=== PATIENT | male | born 1945 | race Caucasian/White ===

== ENCOUNTER → 2020-09-26 14:07 | Outpatient (BNVA) | payer MEDICARE, SELFPAY | PROVIDERS: Visit Provider Urology | DX: C61 Malignant neoplasm of prostate (principal) | CPT/HCPCS: 99212 ==

== ENCOUNTER 2020-09-27 15:19 | Outpatient (REF) | payer MEDICARE, SELFPAY ==
[2020-09-27 16:39] LABS: Prostate Specific Antigen 0.11 ng/mL (<0.05-4.0)
[2020-10-02 16:57] LABS: Testosterone, Total 455 ng/dL (250-1100)
== END 2020-09-27 15:20 | disposition home or self-care (01) ==
LOC: HO.LAB 15:19
PROVIDERS: PCP Internal Medicine; Visit Provider Urology
DX: N40.1 Benign prostatic hyperplasia with lower urinary tract symptoms (principal); N13.8 Other obstructive and reflux uropathy; E29.1 Testicular hypofunction; C61 Malignant neoplasm of prostate; Z12.5 Encounter for screening for malignant neoplasm of prostate
CPT/HCPCS: 36415; 84153; 84403

== ENCOUNTER → 2021-01-31 09:15 | Outpatient (BNVA) | payer MEDICARE, SELFPAY | PROVIDERS: PCP Internal Medicine; Visit Provider Urology | DX: C61 Malignant neoplasm of prostate (principal) | CPT/HCPCS: 99212 ==

== ENCOUNTER 2021-02-26 11:26 | Outpatient (REF) | payer MEDICARE, SELFPAY ==
[2021-02-26 14:46] LABS: Prostate Specific Antigen < 0.05 ng/mL (<0.05-4.0)
[2021-03-09 11:12] LABS: Testosterone, Total 346 ng/dL (250-1100)
== END 2021-02-26 11:27 | disposition home or self-care (01) ==
LOC: HO.HMGCLDS 11:26
PROVIDERS: Urology; PCP Internal Medicine; Visit Provider Internal Medicine
DX: C61 Malignant neoplasm of prostate (principal); N40.1 Benign prostatic hyperplasia with lower urinary tract symptoms; N13.8 Other obstructive and reflux uropathy; E29.1 Testicular hypofunction; Z12.5 Encounter for screening for malignant neoplasm of prostate
CPT/HCPCS: 36415; 84153; 84403

== ENCOUNTER → 2021-03-05 10:46 | Outpatient (REF) | payer MEDICARE, SELFPAY ==
--- NOTE | ~2021-03-05 | NM_ITS ---
EXAMINATION: NM BONE SCAN OF THE WHOLE BODY CLINICAL INFORMATION: Prostate cancer. Follow-up MRI 2019 COMPARISON: CT abdomen and pelvis with and without contrast 10/31/2019 TECHNIQUE: Multiple gamma scintillation camera images of the whole body were performed 2-3/4 hours following the intravenous administration of 30 mCi Tc-99m MDP. FINDINGS: In the head, no abnormal metabolic activity seen in the calvarium. There is mild increased activity nasal cavity likely underlying inflammatory process. In the thoracic cage and upper extremities, there is mild increased activity in the right sternoclavicular joint and bilateral AC joints. Also visualized is mild increased activity along the tip of xiphisternum. In the spine, nonspecific mild increased activity seen along the tips of spinous process in the lumbar region. Also visualized is mild increased activity in the right L5-S1 facet joint. In the pelvis, no abnormal activity seen. In the lower extremities, minimal focal activity seen in the right ankle joint. No other definite bony abnormalities are noted. The urinary bladder and faint visualization of both kidneys are noted. NM/NM bone scan whole body IMPRESSION: No abnormal metabolic activity seen in the whole body skeleton suspect any metastatic disease. Mild increased activity seen in bilateral AC joints, right sternoclavicular joint, right L5-S1 facet joint and right ankle joint consistent with degenerative arthritic changes. Mild focal activity seen in the dorsal spinous processes in the lumbar spine likely related to bursitis.
== END ==
LOC: HO.NUCMED 10:46
PROVIDERS: Visit Provider Internal Medicine
DX: R93.7 Abnormal findings on diagnostic imaging of other parts of musculoskeletal system (principal)
CPT/HCPCS: 78306; A9503

== ENCOUNTER 2021-06-02 10:13 | Outpatient (REF) | payer MEDICARE, SELFPAY | END 2021-06-02 10:14 | disposition home or self-care (01) | LOC: HO.HMGCLDS 10:13 | PROVIDERS: PCP Internal Medicine; Visit Provider Internal Medicine | DX: I48.91 Unspecified atrial fibrillation (principal) | CPT/HCPCS: 36415; 85610 ==

== ENCOUNTER 2021-07-04 09:40 | Outpatient (REF) | payer MEDICARE, SELFPAY ==
[2021-07-04 12:22] LABS: Prostate Specific Antigen 0.07 ng/mL (<0.05-4.0)
[2021-07-10 12:41] LABS: Testosterone, Total 641 ng/dL (250-1100)
== END 2021-07-04 09:41 | disposition home or self-care (01) ==
LOC: HO.HMGCLDS 09:40
PROVIDERS: PCP Internal Medicine; Visit Provider Urology
DX: Z12.5 Encounter for screening for malignant neoplasm of prostate (principal); C61 Malignant neoplasm of prostate
CPT/HCPCS: 36415; 84153; 84403

== ENCOUNTER → 2021-07-11 08:23 | Outpatient (BNVA) | payer MEDICARE, SELFPAY | PROVIDERS: PCP Internal Medicine; Visit Provider Urology | DX: C61 Malignant neoplasm of prostate (principal) | CPT/HCPCS: Q3014 ==

== ENCOUNTER 2021-08-19 13:02 | Outpatient (REF) | payer MEDICARE, SELFPAY | END 2021-08-19 13:03 | disposition home or self-care (01) | LOC: HO.HMGCLDS 13:02 | PROVIDERS: PCP Internal Medicine; Visit Provider Internal Medicine | DX: Z13.89 Encounter for screening for other disorder (principal) | CPT/HCPCS: 36415; 83036 ==

== ENCOUNTER 2021-08-21 11:52 | Outpatient (REF) | payer MEDICARE, SELFPAY ==
[2021-08-21 13:54] LABS: Prothrombin Time 35.5 SEC (9.9-13.0)
== END 2021-08-21 11:53 | disposition home or self-care (01) ==
LOC: HO.HMGCLDS 11:52
PROVIDERS: PCP Internal Medicine; Visit Provider Internal Medicine
DX: I48.91 Unspecified atrial fibrillation (principal)
CPT/HCPCS: 36415; 85610

== ENCOUNTER 2021-10-27 08:53 | Outpatient (REF) | payer MEDICARE, SELFPAY ==
[2021-10-27 10:13] LABS: Prostate Specific Antigen 0.05 ng/mL (<0.05-4.0)
== END 2021-10-27 08:54 | disposition home or self-care (01) ==
LOC: HO.LAB 08:53
PROVIDERS: Visit Provider Urology
DX: C61 Malignant neoplasm of prostate (principal); Z12.5 Encounter for screening for malignant neoplasm of prostate
CPT/HCPCS: 36415; 84153

== ENCOUNTER → 2021-11-11 08:27 | Outpatient (BNVA) | payer MEDICARE, SELFPAY | PROVIDERS: PCP Internal Medicine; Visit Provider Urology | DX: C61 Malignant neoplasm of prostate (principal) | CPT/HCPCS: Q3014 ==

== ENCOUNTER 2022-02-19 09:47 | Outpatient (REF) | payer MEDICARE, SELFPAY ==
[2022-02-19 11:50] LABS: Prostate Specific Antigen < 0.05 ng/mL (<0.05-4.0)
== END 2022-02-19 09:48 | disposition home or self-care (01) ==
LOC: HO.LAB 09:47
PROVIDERS: PCP Internal Medicine; Visit Provider Urology
DX: N40.1 Benign prostatic hyperplasia with lower urinary tract symptoms (principal); N13.8 Other obstructive and reflux uropathy
CPT/HCPCS: 36415; 84153

== ENCOUNTER 2022-03-06 07:53 | Outpatient (REF) | payer OTHER, MEDICARE, SELFPAY ==
--- NOTE | ~2022-03-06 | MR_ITS ---
EXAMINATION: MR CERVICAL SPINE WITHOUT CONTRAST CLINICAL INFORMATION: 76-year-old with neck pain. Evaluate for worsening foraminal stenosis. COMPARISON: 09/17/2018 MRI TECHNIQUE: MRI of the cervical spine was obtained using routine sequences without contrast. Technical Note: Images are degraded by motion artifact which limits the exam. FINDINGS: Alignment: There is partially imaged lower cervical levocurvature, stable in appearance. Stable trace retrolisthesis at C3-C4. Otherwise, alignment is maintained. Craniocervical Junction/C1-C2 Articulations: The atlantooccipital joints are intact and aligned with bilateral joint effusions, left more than right, increased on the left since previous exam. These findings are nonspecific but may reflect synovitis and appear to be associated with some degenerative changes at both joint spaces. The C1-C2 articulations are intact and aligned bilaterally, stable in appearance with minor degenerative changes on the left. There are degenerative changes at the anterior atlantodental joint, similar to the previous study with an associated tiny effusion, unchanged. Visualized Intracranial Structures: Within normal limits. Vertebral Bodies: Cervical vertebral body heights are stable and well maintained compared to the previous study. Note is made of a chronic mild anterior wedge compression deformity of the T1 vertebral body, stable in appearance. Disc Spaces and Endplates: Severe disc space height loss with partial ankylosis of the intervertebral disc at C6-C7, stable in appearance. Vlhjduvb-xl-arogtk disc space height loss with disc desiccation, Schmorl's nodes and spondylosis at C7-T1 is stable. Severe disc space height loss at C3-C4 with disc desiccation, Schmorl's nodes and spondylosis, stable in appearance. Fmkj-pm-ycpwagho disc space height loss at C4-C5, slightly progressed from previous exam, with spondylosis similar to prior study. Moderate disc space height loss with intradiscal degenerative signal changes and spondylosis at C5-C6, unchanged. Bone Marrow: Type I degenerative marrow signal changes seen along the endplates at C4-C5, progressed from previous exam and at C5-C6 and C2-C3, stable in appearance. No suspicious marrow-replacing process. C2-C3: Broad-based central to left paramedian disc-osteophyte complex with disc protrusion and endplate spurring, similar to the previous exam with mild flattening of the dural sac asymmetric to the left, unchanged in appearance. There is uncovertebral spurring and facet arthrosis again noted with severe left-sided neural foraminal stenosis, similar to the prior exam. No significant canal stenosis. C3-C4: Broad-based disc-osteophyte complex again noted with effacement of the ventral dural sac which appears more prominent on the current study, with the ventral cord deformity increased from previous study and nkhgmhsl-ha-wnenau central spinal canal stenosis, slightly progressed from previous exam. Bilateral uncovertebral spurring and mild facet arthropathy again noted with veznxzox-wb-uxcume right-sided and severe left-sided neural foraminal stenosis, stable in appearance. Bilateral lateral recess stenosis has progressed. C4-C5: Broad-based disc-osteophyte complex with superimposed central disc protrusion again noted with effacement of the ventral dural sac resulting in mild ventral cord deformity and moderate central spinal canal stenosis, similar to the previous study. There is uncovertebral spurring, right more than left, and facet arthropathy, right more than left, similar to prior exam with severe right-sided and moderate left-sided neural foraminal stenosis, stable in appearance. C5-C6: Broad-based central to right paramedian disc-osteophyte complex, stable in appearance, with flattening of the ventral dural sac abutting the ventral aspect of the spinal cord to the right of midline, unchanged with mild spinal canal stenosis, stable in appearance. There is uncovertebral arthrosis with lpcs-se-lgtkotwn left-sided and moderate right-sided neural foraminal stenosis, stable in appearance. C6-C7: Central posterior disc-osteophyte complex again noted, with flattening of the ventral dural sac and mild ventral cord deformity which appears chronic with associated mild ventral cord volume loss on the left, stable in appearance and stable mild central spinal canal stenosis. There is uncovertebral spurring bilaterally with lmuc-do-vogjlwpo left and mild right-sided neural foraminal stenosis, stable in appearance. C7-T1: Broad-based disc-osteophyte complex flattens the ventral thecal sac without cord deformity/impingement, stable in appearance. Mild spinal canal stenosis is stable. Uncovertebral spurring and facet hypertrophic changes again noted bilaterally with mild left-sided neural foraminal stenosis, stable in appearance. Spinal Cord: The cervical and visualized upper thoracic spinal cord is normal in signal intensity throughout, without focal lesion, edema or syrinx. Extracranial Soft Tissues: There are multiple upper cervical lymph nodes in the IJ and posterior cervical chains, most of which are stable in appearance from previous exam. One of these on the left appears slightly enlarged measuring 1 x 0.7 cm greatest dimensions compared to the previous study on which it measured 0.9 x 0.6 cm. MR/MR cervical spine wo con IMPRESSION: 1. Lower cervical levocurvature, stable in appearance with stable trace retrolisthesis at C3-C4. 2. Multilevel DDD and spondylosis, as described above, with slight progression of disc space height loss at C4-C5 but otherwise stable at other levels with partial ankylosis at C6-C7, unchanged. Degenerative changes at the atlantooccipital joints and C1-C2 articulations noted with bilateral atlantooccipital joint effusions, as discussed above, which may reflect synovitis progressed on the left from previous exam. 3. Multilevel disc-osteophyte complexes and superimposed central disc protrusions with slight progression at C3-C4 with tjrvizms-yz-ndhvfd spinal canal stenosis at this level, slightly progressed from previous exam but otherwise stable at other levels with otherwise stable degrees of multilevel spinal canal stenosis and ventral cord deformity. See above for details. , 4. Multilevel DJD with multilevel bony neural foraminal stenosis bilaterally, largely unchanged. 5. Multiple upper cervical lymph nodes, one of which in the posterior cervical chain on the left appears mildly prominent compared to previous study. These findings could be reactive secondary to infectious or inflammatory disease. Follow up clinically.
== END 2022-03-06 07:54 | disposition home or self-care (01) ==
LOC: HO.MRI 07:53
PROVIDERS: Visit Provider Internal Medicine
DX: M54.2 Cervicalgia (principal); Z87.898 Personal history of other specified conditions; V89.2XXA Person injured in unspecified motor-vehicle accident, traffic, initial encounter; Y93.9 Activity, unspecified; Y92.9 Unspecified place or not applicable; Y99.9 Unspecified external cause status
CPT/HCPCS: 72141

== ENCOUNTER 2022-04-17 11:39 | Outpatient (REF) | payer OTHER, MEDICARE, SELFPAY ==
--- NOTE | ~2022-04-17 | XR_ITS ---
EXAMINATION: XR FOREARM, LEFT CLINICAL INFORMATION: Left forearm tenderness. COMPARISON: None TECHNIQUE: AP and lateral views of the left forearm were obtained. FINDINGS: The radius and ulna are intact. There is no acute fracture or dislocation. The joint spaces are unremarkable. Severe atherosclerosis is noted. XR/XR forearm LT 2V IMPRESSION: No acute osseous abnormality.
== END 2022-04-17 11:40 | disposition home or self-care (01) ==
LOC: HO.HMGCX 11:39
PROVIDERS: PCP Internal Medicine; Visit Provider Internal Medicine
DX: M79.632 Pain in left forearm (principal)
CPT/HCPCS: 73090

== ENCOUNTER 2022-05-08 09:00 | Outpatient (RCR) | payer OTHER, MEDICARE, SELFPAY | END 2022-05-08 09:57 | disposition home or self-care (01) | LOC: HO.PTCHIC 09:00 | PROVIDERS: PCP Internal Medicine; Visit Provider Internal Medicine | DX: M54.2 Cervicalgia (principal) | CPT/HCPCS: 97110; 97140; 97162 ==

== ENCOUNTER 2022-07-02 14:10 | Outpatient (REF) | payer MEDICARE, SELFPAY ==
--- NOTE | ~2022-07-02 | MR_ITS ---
EXAMINATION: MR CERVICAL SPINE WITHOUT CONTRAST CLINICAL INFORMATION: Increased cervical lymph nodes. Evaluate for malignancy. COMPARISON: Cervical spine MRI 03/06/2022. TECHNIQUE: MRI of the cervical spine was obtained using routine sequences without contrast. FINDINGS: There is nonspecific straightening of cervical lordosis. Alignment is otherwise normal. There is mild chronic anterior wedging of the T1 vertebral body. Vertebral body heights are otherwise preserved. Bridging bone fuses the C6 and C7 vertebra. There are type I degenerative endplate changes at C4-C5. Mixed degenerative endplate changes at multiple additional levels. There is loss of intervertebral disc height and T2 signal intensity at multiple levels related to disc degeneration. Or cervical and leg junction is normal. Limited visualization of the posterior fossa reveals no abnormal finding. The occipital condyles and lateral C1 masses are intact. There is degenerative arthrosis of the atlantodental joint and both C1-C2 articular facet joints. At C2-C3 there is a slightly bulging disc. No canal stenosis. Asymmetric uncovertebral joint spurring and facet degenerative change causes moderate left neuroforaminal encroachment. At C3-C4 there is a bulging disc and buckling of the ligamenta flava. Moderate to severe canal stenosis. Small foci of chronic myelomalacia involving the cervical cord. Uncovertebral joint spurring and facet degenerative change causes severe bilateral neuroforaminal encroachment. At C4-C5 there is a bulging disc and buckling of the ligamenta flava. Moderate canal stenosis. Uncovertebral joint spurring and facet degenerative change causes severe right and moderate left neuroforaminal encroachment. At C5-C6 there is a bulging disc. Mild canal stenosis. Uncovertebral joint spurring and facet degenerative change causes mild right neuroforaminal encroachment. At C6-C7 there is no canal or neuroforaminal compromise. At C7-T1 there is a bulging disc. Bilateral facet degenerative change. No canal stenosis. Questionable intramedullary signal changes on sagittal imaging. Uncovertebral joint spurring and facet degenerative change causes mild bilateral neuroforaminal encroachment. Visualized soft tissues of the neck again reveal a few somewhat prominent albeit nonspecific left sided cervical lymph nodes, the largest of which measures 1 cm in maximal transaxial dimension. Soft tissues of the neck are otherwise unremarkable. Vascular flow voids are maintained. MR/MR cervical spine wo con IMPRESSION: Stable appearance of slightly prominent albeit otherwise nonspecific left sided cervical lymph nodes. There is also stable relatively advanced multilevel degenerative spondylosis of the cervical spine with severe canal stenosis at C3-C4, moderate canal stenosis at C4-C5, and mild canal stenosis at C5-C6. There are short segment foci of chronic myelomalacia at C3-C4 and questionable intramedullary signal changes at C7-T1. There are varying degrees of neuroforaminal encroachment uncovertebral spurring and facet degenerative change as described above.
== END 2022-07-02 14:11 | disposition home or self-care (01) ==
LOC: HO.MRI 14:10
PROVIDERS: Visit Provider Internal Medicine
DX: R59.0 Localized enlarged lymph nodes (principal); M47.812 Spondylosis without myelopathy or radiculopathy, cervical region; M48.02 Spinal stenosis, cervical region
CPT/HCPCS: 72141

== ENCOUNTER 2022-07-09 11:17 | Outpatient (REF) | payer MEDICARE, SELFPAY ==
[2022-07-09 13:14] LABS: Prostate Specific Antigen < 0.10 ng/mL (<0.05-4.0)
== END 2022-07-09 11:18 | disposition home or self-care (01) ==
LOC: HO.LAB 11:17
PROVIDERS: PCP Internal Medicine; Visit Provider Urology
DX: C61 Malignant neoplasm of prostate (principal)
CPT/HCPCS: 36415; 84153

== ENCOUNTER → 2022-07-17 13:37 | Outpatient (BNVA) | payer MEDICARE, SELFPAY | PROVIDERS: PCP Internal Medicine; Visit Provider Urology | DX: C61 Malignant neoplasm of prostate (principal); C79.51 Secondary malignant neoplasm of bone; R97.20 Elevated prostate specific antigen [PSA]; Z79.01 Long term (current) use of anticoagulants; Z79.899 Other long term (current) drug therapy | CPT/HCPCS: 99212 ==

== ENCOUNTER 2022-08-20 10:36 | Outpatient (REF) | payer MEDICARE, SELFPAY ==
[2022-08-20 13:59] LABS: INTERNATIONAL NORM RATIO 2.9 (0.9-1.1); Prothrombin Time 35.2 SEC (10.0-13.1)
== END 2022-08-20 10:37 | disposition home or self-care (01) ==
LOC: HO.HMGCLR 10:36
PROVIDERS: PCP Internal Medicine; Visit Provider Internal Medicine
DX: Z13.89 Encounter for screening for other disorder (principal)
CPT/HCPCS: 36415; 85610

== ENCOUNTER 2023-02-08 08:50 | Outpatient (REF) | payer MEDICARE, SELFPAY ==
[2023-02-08 13:05] LABS: Prostate Specific Antigen 0.12 ng/mL (<0.05-4.0)
== END 2023-02-08 08:51 | disposition home or self-care (01) ==
LOC: HO.HMGCLDS 08:50
PROVIDERS: PCP Internal Medicine; Visit Provider Urology
DX: Z12.5 Encounter for screening for malignant neoplasm of prostate (principal); C61 Malignant neoplasm of prostate
CPT/HCPCS: 36415; 84153

== ENCOUNTER 2023-02-26 12:57 | Outpatient (AMB) | payer MEDICARE, SELFPAY ==
--- NOTE | 2023-02-26 13:06 | A.OFFVIS_ITS ---
Intake Intake Visit Reasons: 6M PSA(set) Intake Note: Patient is present for Follow Up PSA Urology Med: None Antibiotic Allergy: None Blood Thinner: Warfarin Pharmacy: [facility] Allergies No Known Allergies Allergy (Verified 02/26/23 13:08) HPI HPI Comments History of Present Illness Details [place] is pleasant male. He is a patient of Dr. Rodríguez. He is seen for the following urologic issues - prostate cancer PSA at low point Six month follow-up PSA 02/13 <0.05, 07/16 <0.1. 02/14 <0.12 Prostate cancer: Unfavorable intermediate localized XRT plus short term hormones 03/2020 Prostate cancer was diagnosed Dr Driscoll 10/12. Diagnosis was reached by September 2019 , needle biopsy, for elevated PSA, PSA at diagnosis 4.9. The [place] grade is 3 cores out of 12 cores Right Base Medial 40% , 4+3 = 7, Lateral 10% , 4+3 = 7 , right mid gland 30% 4+3 = 7 = 7% PNI +. TNM Classification of Malignant Tumours (TNM) T1c. The D'Bhakti (NCCN) risk category is Intermediate Risk (PSA 10-20, Gl 7, T2) Group 3. Initial therapy included Primary treatment, External Beam Radiation - Dr Zapata at [facility] - extended finasteride Recent labs included - 01/12 PSA 0.5, T 9, 10/13 0.1, T 455, 07/15 P <0.1 T 640, 11/14 <0.1 Recent imaging included 11/12 , a bone scan - sternal lesion 11/12 CT pelvis normal. Therapeutic plan: Lab work follow-up 6 months [facility] Medical History Atrial fibrillation Bone metastases Elevated PSA GERD (gastroesophageal reflux disease) Hyperlipidemia Prostate cancer Prostate nodule Thyroid disease Surgical History History of surgery Review of Systems Const Denies chills and Denies fever(s) Card Reports no additional complaints and Denies syncope Resp Denies cough GI Denies abdominal pain and Denies heartburn Reports as per HPI and Denies change in libido Neuro Denies syncope Psych Denies change in libido Endo Denies change in libido Physical Exam Const General: cooperative, healthy appearing, comfortable and no acute distress Orientation/consciousness: patient oriented x3 HEENT Face and sinus: Yes normal facial exam Mouth: moist mucous membranes Neck Neck: Yes normal visual inspection, Yes full ROM and Yes trachea midline Chest Chest palpation & inspection: normal inspection of the chest Resp Effort & Inspection: normal respiratory effort, able to speak in complete sentences and no respiratory distress GI Inspection: Yes normal to inspection Back/Spine/Pelvis Cervical Spine: normal cervical lordosis Thoracic/Lumbar Spine: thoracic and lumbar spine normal to inspection Skin General skin exam: no rashes or lesions noted Neuro General: patient oriented x3, gait normal, tone normal and moves all extremities Extrem General: Yes normal to inspection and Yes capillary refill normal Assessment & Plan Assessment & Plan (1) Prostate cancer: Comment: 10/12 [place] 4 + 3 initial therapy external beam radiation with short-term hormones [facility] Code(s): C61 - Malignant neoplasm of prostate Plan Continue Q 6 month PSA Orders: Orders Prostate Specific Antigen 6 Months C61 - Malignant neoplasm of prostate Patient Instructions: Imaging studies, laboratory and physical exam results were discussed and reviewed in detail. No major barriers to patient understanding were identified. An opportunity to ask questions regarding the treatment plan was provided. All questions were answered. The patient expressed understanding and agreement with the above treatment plan. The patient is aware they should contact our office by phone for worsening of their current condition or the appearance of new urologic symptoms. Compliance is encouraged with any medications and followup testing that is ordered. It is a privilege to participate in the urologic care of your patient. If you have any questions or concerns regarding treatment for the above conditions, or other urologic issues, please do not hesitate to contact me. The office telephone contact is [phone]. This note is constructed using voice recognition software. While every effort has been made to ensure accuracy smoke inspector errors may have been included. Yours sincerely, Dr Guanaco Driscoll MD, [facility] - Urology Providers of Expert, Compassionate Care for the Genitourinary System Coding Level of Care Code Est Pt Level 3 (33597) Diagnoses Prostate cancer C61
== END 2023-02-26 14:30 | disposition home or self-care (01) ==
PROVIDERS: Visit Provider Urology
DX: C61 Malignant neoplasm of prostate (principal)
CPT/HCPCS: 99213

== ENCOUNTER → 2023-02-26 12:57 | Outpatient (BNVA) | payer MEDICARE, SELFPAY | PROVIDERS: Visit Provider Urology | DX: C61 Malignant neoplasm of prostate (principal); Z79.01 Long term (current) use of anticoagulants | CPT/HCPCS: 99212 ==

== ENCOUNTER 2023-04-26 08:19 | Outpatient (REF) | payer MEDICARE, SELFPAY ==
[2023-04-26 11:49] LABS: INTERNATIONAL NORM RATIO 2.9 (0.9-1.1); Prothrombin Time 35.2 SEC (11.1-13.3)
== END 2023-04-26 08:20 | disposition home or self-care (01) ==
LOC: HO.HMGCLR 08:19
PROVIDERS: PCP Internal Medicine; Visit Provider Internal Medicine
DX: I48.91 Unspecified atrial fibrillation (principal)
CPT/HCPCS: 36415; 85610

== ENCOUNTER 2023-05-25 11:43 | Outpatient (REF) | payer MEDICARE, SELFPAY ==
[2023-05-25 13:54] LABS: INTERNATIONAL NORM RATIO 3.2 (0.9-1.1); Prothrombin Time 38.8 SEC (11.1-13.3)
== END 2023-05-25 11:44 | disposition home or self-care (01) ==
LOC: HO.HMGCLR 11:43
PROVIDERS: PCP Internal Medicine; Visit Provider Internal Medicine
DX: I48.91 Unspecified atrial fibrillation (principal)
CPT/HCPCS: 36415; 85610

== ENCOUNTER 2023-07-21 11:29 | Outpatient (REF) | payer MEDICARE, SELFPAY ==
[2023-07-21 13:13] LABS: MANUAL DIFF FLAG NO
[2023-07-21 13:34] LABS: INTERNATIONAL NORM RATIO 2.5 (0.9-1.1)
[2023-07-21 13:36] LABS: Basophils Absolute Auto 0.1 X10*3/uL (0.0-0.2); Eosinophils Absolute Auto 0.2 X10*3/uL (0.0-0.4); Eosinophils Percent Auto 3.1 % (0-4); Hematocrit 41.8 % (42.0-52.0); Hemoglobin 14.4 g/dl (14.0-18.0); Imm Gran Abs Auto 0.02 X10*3/uL (0.00-0.03); Imm Gran Pct Auto 0.3 % (0.0-0.4); Lymphocytes Absolute Auto 1.4 X10*3/uL (1.2-4.9); Lymphocytes Percent Auto 22.8 % (20-40); Mean Corpuscular HGB Conc 34.4 g/dl (31.0-36.0); Mean Corpuscular Hemoglobin 32.6 pg (27.0-33.0); Mean Corpuscular Volume 94.6 fL (80.0-98.0); Mean Platelet Volume 10.4 fL (9.4-12.4); Monocytes Absolute Auto 0.5 X10*3/uL (0.1-1.2); Monocytes Percent Auto 8.3 % (2-11); Neutrophils Absolute Auto 3.9 x10*3/uL (2.0-8.3); Neutrophils Percent Auto 64.5 % (45-73); Platelet Count 228 X10*3/uL (160-400); Red Blood Count 4.42 X10*6/uL (4.60-5.80); Red Cell Distribution Width 12.7 % (11.0-16.0); White Blood Count 6.1 X10*3/uL (4.8-10.8)
[2023-07-21 17:07] LABS: Alanine Aminotransferase 22 U/L (0-40); Albumin Level 4.1 g/dL (3.5-5.0); Alkaline Phosphatase 60 U/L (39-117); Anion Gap 12 (12-20); Aspartate Amino Transferase 33 U/L (5-37); Bilirubin Total 0.6 mg/dL (0.0-1.0); Blood Urea Nitrogen 23 mg/dL (9-16); Calcium 9.1 mg/dL (8.4-10.2); Carbon Dioxide 24 mmol/L (22-29); Chloride 105 mmol/L (96-108); Cholesterol 154 mg/dL (<200); Estimated Glomerular Filt Rate > 60; Glucose Fasting 109 mg/dL (60-99); HDL Cholesterol 39 mg/dL (>40); LDL Cholesterol Calculated 92 mg/dL (<100); Sodium 137 mmol/L (135-145); Total Protein 7.6 g/dL (6.5-8.0); Triglycerides 118 mg/dL (<150)
[2023-07-21 17:08] LABS: Thyroid Stimulating Hormone 1.92 uIU/mL (0.32-4.0)
[2023-07-21 17:27] LABS: Prostate Specific Antigen Scr 0.23 ng/mL (<0.05-4.0)
== END 2023-07-21 11:30 | disposition home or self-care (01) ==
LOC: HO.HMGCLDS 11:29
PROVIDERS: PCP Internal Medicine; Visit Provider Internal Medicine
DX: Z00.00 Encounter for general adult medical examination without abnormal findings (principal); E78.5 Hyperlipidemia, unspecified; Z12.5 Encounter for screening for malignant neoplasm of prostate
CPT/HCPCS: 36415; 80053; 80061; 84153; 84439; 84443; 85025; 85610

== ENCOUNTER 2023-08-16 09:56 | Outpatient (REF) | payer MEDICARE, SELFPAY ==
[2023-08-16 13:00] LABS: Prostate Specific Antigen 0.17 ng/mL (<0.05-4.0)
== END 2023-08-16 09:57 | disposition home or self-care (01) ==
LOC: HO.LAB 09:56
PROVIDERS: PCP Internal Medicine; Visit Provider Urology
DX: Z12.5 Encounter for screening for malignant neoplasm of prostate (principal); C61 Malignant neoplasm of prostate
CPT/HCPCS: 36415; 84153

== ENCOUNTER 2023-08-27 13:16 | Outpatient (AMB) | payer MEDICARE, SELFPAY ==
--- NOTE | 2023-08-27 13:45 | A.OFFVIS_ITS ---
Intake Intake Visit Reasons: 6m/PSA(set) Intake Note: Patient is Present for Follow Up PSA Urology Medication: None (Previously on Finasteride) Antibiotic Allergies: None Blood Thinners: Aspirin/Warfarin Allergies No Known Allergies Allergy (Verified 08/27/23 13:46) HPI HPI Comments History of Present Illness Details [place] is pleasant male. He is a patient of Dr. Rodríguez. He is seen for the following urologic issues - prostate cancer PSA remains low Continue on q.6 month follow-up PSA 02/13 <0.05, 07/16 <0.1. 02/14 <0.12, 08/18 0.17 Prostate cancer: Unfavorable intermediate localized XRT plus short term hormones 03/2020 Prostate cancer was diagnosed Dr Driscoll 10/12. Diagnosis was reached by September 2019 , needle biopsy, for elevated PSA, PSA at diagnosis 4.9. The [place] grade is 3 cores out of 12 cores Right Base Medial 40% , 4+3 = 7, Lateral 10% , 4+3 = 7 , right mid gland 30% 4+3 = 7 = 7% PNI +. TNM Classification of Malignant Tumours (TNM) T1c. The D'Bhakti (NCCN) risk category is Intermediate Risk (PSA 10-20, Gl 7, T2) Group 3. Initial therapy included Primary treatment, External Beam Radiation - Dr Zapata at [facility] - extended finasteride Recent labs included - 01/12 PSA 0.5, T 9, 10/13 0.1, T 455, 07/15 P <0.1 T 640, 11/14 <0.1 Recent imaging included 11/12 , a bone scan - sternal lesion 11/12 CT pelvis normal. Therapeutic plan: Lab work follow-up 6 months [facility] Medical History Hyperlipidemia GERD (gastroesophageal reflux disease) Thyroid disease Atrial fibrillation Bone metastases Prostate cancer Prostate nodule Elevated PSA Surgical History History of surgery Review of Systems Const Denies chills and Denies fever(s) Card Reports no additional complaints and Denies syncope Resp Denies cough GI Denies abdominal pain and Denies heartburn Reports as per HPI and Denies change in libido Neuro Denies syncope Psych Denies change in libido Endo Denies change in libido Physical Exam Const General: cooperative, healthy appearing, comfortable and no acute distress Orientation/consciousness: patient oriented x3 HEENT Face and sinus: Yes normal facial exam Mouth: moist mucous membranes Neck Neck: Yes normal visual inspection, Yes full ROM and Yes trachea midline Chest Chest palpation & inspection: normal inspection of the chest Resp Effort & Inspection: normal respiratory effort, able to speak in complete sentences and no respiratory distress GI Inspection: Yes normal to inspection Back/Spine/Pelvis Cervical Spine: normal cervical lordosis Thoracic/Lumbar Spine: thoracic and lumbar spine normal to inspection Skin General skin exam: no rashes or lesions noted Neuro General: patient oriented x3, gait normal, tone normal and moves all extremities Extrem General: Yes normal to inspection and Yes capillary refill normal Assessment & Plan Assessment & Plan (1) Prostate cancer: Comment: 10/12 [place] 4 + 3 initial therapy external beam radiation with short-term hormones [facility] Code(s): C61 - Malignant neoplasm of prostate Plan Six month follow-up PSA tele Orders: Orders Prostate Specific Antigen 6 Months C61 - Malignant neoplasm of prostate Patient Instructions: Imaging studies, laboratory and physical exam results were discussed and reviewed in detail. No major barriers to patient understanding were identified. An opportunity to ask questions regarding the treatment plan was provided. All questions were answered. The patient expressed understanding and agreement with the above treatment plan. The patient is aware they should contact our office by phone for worsening of their current condition or the appearance of new urologic symptoms. Compliance is encouraged with any medications and followup testing that is ordered. It is a privilege to participate in the urologic care of your patient. If you have any questions or concerns regarding treatment for the above conditions, or other urologic issues, please do not hesitate to contact me. The office telephone contact is [phone]. This note is constructed using voice recognition software. While every effort has been made to ensure accuracy smeller errors may have been included. Yours sincerely, Dr Guanaco Driscoll MD, [facility] - Urology Providers of Expert, Compassionate Care for the Genitourinary System Coding Level of Care Code Est Pt Level 3 (90231) Diagnoses Prostate cancer C61
== END 2023-08-27 14:07 | disposition home or self-care (01) ==
PROVIDERS: PCP Internal Medicine; Visit Provider Urology
DX: C61 Malignant neoplasm of prostate (principal)
CPT/HCPCS: 99213

== ENCOUNTER → 2023-08-27 13:16 | Outpatient (BNVA) | payer MEDICARE, SELFPAY | PROVIDERS: PCP Internal Medicine; Visit Provider Urology | DX: C61 Malignant neoplasm of prostate (principal) | CPT/HCPCS: 99212 ==

== ENCOUNTER 2023-11-18 13:15 | Outpatient (REF) | payer MEDICARE, SELFPAY ==
--- NOTE | ~2023-11-18 | XR_ITS ---
EXAMINATION: XR LUMBOSACRAL SPINE CLINICAL INFORMATION: Low back pain. Degenerative disc disease. COMPARISON: Lumbar spine radiographs dated 11/02/2012. MRI lumbar spine dated 09/07/2012. TECHNIQUE: Three views of the lumbosacral spine. FINDINGS: There are 6 nonrib bearing lumbar vertebrae. There is curvature of the lumbar spine, concave towards the left, apex at L2-L3. There is minimal anterolisthesis of L4 in relation to L5. Vertebral body heights are maintained. No compression deformity. There is multilevel degenerative disc disease characterized by intervertebral disc space narrowing, endplate sclerosis, and marginal osteophytosis. Degenerative disc disease is most prominent throughout the upper half of the lumbar spine. There is moderate degenerative disc disease at L5-S1. There is multilevel facet arthropathy. There is dense calcification of the aorta. XR/XR lumbar spine 2-3V IMPRESSION: Moderate to severe lumbar spondylosis as described.
== END 2023-11-18 13:16 | disposition home or self-care (01) ==
LOC: HO.HMGCX 13:15
PROVIDERS: PCP Internal Medicine; Visit Provider Internal Medicine
DX: M54.50 Low back pain, unspecified (principal)
CPT/HCPCS: 72100

== ENCOUNTER 2024-02-11 13:27 | Outpatient (REF) | payer MEDICARE, SELFPAY ==
[2024-02-12 02:03] LABS: Prostate Specific Antigen 0.15 ng/mL (<0.05-4.0)
== END 2024-02-11 13:28 | disposition home or self-care (01) ==
LOC: HO.HMGCLDS 13:27
PROVIDERS: PCP Internal Medicine; Visit Provider Urology
DX: C61 Malignant neoplasm of prostate (principal); Z12.5 Encounter for screening for malignant neoplasm of prostate
CPT/HCPCS: 36415; 84153

== ENCOUNTER 2024-02-25 08:36 | Outpatient (AMB) | payer MEDICARE, SELFPAY ==
--- NOTE | 2024-02-25 08:54 | MHC.OFFVIS ---
Intake Visit Reasons: 6M Follow Up-PSA(set) Intake Note: Patient is Present for Telephone Follow Up PSA Urology Med: None Antibiotic Allergy:None Blood Thinner:Warfarin Allergies No Known Allergies Allergy (Verified 08/27/23 13:46) Medication List - Last Reconciled 02/25/24 by Guanaco Driscoll MD lisinopril 10 mg PO DAILY meclizine 25 mg PO TID PRN metoprolol succinate ER 50 mg PO DAILY omeprazole 20 mg PO DAILY simvastatin 40 mg PO DAILY warfarin 3 mg PO DAILY HPI Comments Details: [place] is pleasant male. He is a patient of Dr. Rodríguez. He is seen for the following urologic issues - prostate cancer Telemedicine Evaluation 15 min Consultation Doximity Torres Video attempted PSA remains low Continue on q.6 month follow-up PSA 02/13 <0.05, 07/16 <0.1. 02/14 <0.12, 08/18 0.17, 02/15 0.15 Prostate cancer: Unfavorable intermediate localized XRT plus short term hormones 03/2020 Prostate cancer was diagnosed Dr Driscoll 10/12. Diagnosis was reached by September 2019 , needle biopsy, for elevated PSA, PSA at diagnosis 4.9. The [place] grade is 3 cores out of 12 cores Right Base Medial 40% , 4+3 = 7, Lateral 10% , 4+3 = 7 , right mid gland 30% 4+3 = 7 = 7% PNI +. TNM Classification of Malignant Tumours (TNM) T1c. The D'Bhakti (NCCN) risk category is Intermediate Risk (PSA 10-20, Gl 7, T2) Group 3. Initial therapy included Primary treatment, External Beam Radiation - Dr Zapata at [facility] - extended finasteride Recent labs included - 01/12 PSA 0.5, T 9, 10/13 0.1, T 455, 07/15 P <0.1 T 640, 11/14 <0.1 Recent imaging included 11/12 , a bone scan - sternal lesion 11/12 CT pelvis normal. Therapeutic plan: Lab work follow-up 6 months [facility] Medical History Hyperlipidemia GERD (gastroesophageal reflux disease) Thyroid disease Atrial fibrillation Bone metastases Prostate cancer Prostate nodule Elevated PSA Surgical History History of surgery Telehealth Telehealth Telehealth Platform: [facility] Location of provider rendering services: practice address Location of patient: address on file Patient Identification confirmed using: Name, : Yes Telehealth method: video Patient verbally consented to treatment: Yes Patient verbally consented to billing insurance company: Yes Patient informed of any privacy concerns related to visit: Yes Minutes spent on Phone/Video with Pt.: 15 Assessment & Plan Assessment & Plan (1) Prostate cancer: Comment: 10/12 [place] 4 + 3 initial therapy external beam radiation with short-term hormones [facility] Code(s): C61 - Malignant neoplasm of prostate Category: Medical Plan Six month follow-up PSA office Orders: Orders Prostate Specific Antigen 6 Months C61 - Malignant neoplasm of prostate Patient Instructions: Imaging studies, laboratory and physical exam results were discussed and reviewed in detail. No major barriers to patient understanding were identified. An opportunity to ask questions regarding the treatment plan was provided. All questions were answered. The patient expressed understanding and agreement with the above treatment plan. The patient is aware they should contact our office by phone for worsening of their current condition or the appearance of new urologic symptoms. Compliance is encouraged with any medications and followup testing that is ordered. It is a privilege to participate in the urologic care of your patient. If you have any questions or concerns regarding treatment for the above conditions, or other urologic issues, please do not hesitate to contact me. The office telephone contact is [phone]. This note is constructed using voice recognition software. While every effort has been made to ensure accuracy reimbursement manager errors may have been included. Yours sincerely, Dr Guanaco Driscoll MD, [facility] - Urology Providers of Expert, Compassionate Care for the Genitourinary System Coding Level of Care Code Tele Est Pt Level 3 (85180) Diagnoses Prostate cancer C61
== END 2024-02-25 09:46 | disposition home or self-care (01) ==
PROVIDERS: PCP Internal Medicine; Visit Provider Urology
DX: C61 Malignant neoplasm of prostate (principal)
CPT/HCPCS: 99213

== ENCOUNTER → 2024-02-25 08:36 | Outpatient (BNVA) | payer MEDICARE, SELFPAY | PROVIDERS: PCP Internal Medicine; Visit Provider Urology ==

== ENCOUNTER 2024-09-18 09:21 | Outpatient (REF) | payer MEDICARE, SELFPAY ==
[2024-09-18 11:01] LABS: INTERNATIONAL NORM RATIO 2.9 (0.9-1.1); Prothrombin Time 33.4 SEC (10.9-12.4)
== END 2024-09-18 09:22 | disposition home or self-care (01) ==
LOC: HO.HMGCLDS 09:21
PROVIDERS: PCP Internal Medicine; Visit Provider Internal Medicine
DX: I48.91 Unspecified atrial fibrillation (principal)
CPT/HCPCS: 36415; 85610

== ENCOUNTER 2024-10-11 08:56 | Outpatient (REF) | payer MEDICARE, SELFPAY ==
[2024-10-11 11:32] LABS: Prostate Specific Antigen 0.16 ng/mL (<0.05-4.0)
== END 2024-10-11 08:57 | disposition home or self-care (01) ==
LOC: HO.LAB 08:56
PROVIDERS: PCP Internal Medicine; Visit Provider Urology
DX: C61 Malignant neoplasm of prostate (principal); Z12.5 Encounter for screening for malignant neoplasm of prostate
CPT/HCPCS: 36415; 84153

== ENCOUNTER 2024-10-18 14:41 | Outpatient (AMB) | payer MEDICARE, SELFPAY ==
--- NOTE | 2024-10-18 14:43 | A.OFFVIS_ITS ---
Intake Visit Reasons: 6m/PSA Intake Note: Patient is present for 6M/PSA Urology Medication:NONE Antibiotic Allergy:NONE Blood Thinner:WARFARIN Harness And Bag Inspector Required: No Allergies No Known Allergies Allergy (Verified 10/18/24 14:44) HPI Comments Details: [place] is pleasant male. He is a patient of Dr. Rodríguez. He is seen for the following urologic issues - prostate cancer PSA remains low Continue on q.6 month follow-up PSA 02/13 <0.05, 07/16 <0.1. 02/14 <0.12, 08/18 0.17, 02/15 0.15, 10/17 0.16 Prostate cancer: Unfavorable intermediate localized XRT plus short term hormones 03/2020 Prostate cancer was diagnosed Dr Driscoll 10/12. Diagnosis was reached by September 2019 , needle biopsy, for elevated PSA, PSA at diagnosis 4.9. The [place] grade is 3 cores out of 12 cores Right Base Medial 40% , 4+3 = 7, Lateral 10% , 4+3 = 7 , right mid gland 30% 4+3 = 7 = 7% PNI +. TNM Classification of Malignant Tumours (TNM) T1c. The D'Bhakti (NCCN) risk category is Intermediate Risk (PSA 10-20, Gl 7, T2) Group 3. Initial therapy included Primary treatment, External Beam Radiation - Dr Zapata at [facility] - extended finasteride Recent labs included - 01/12 PSA 0.5, T 9, 10/13 0.1, T 455, 07/15 P <0.1 T 640, 11/14 <0.1 Recent imaging included 11/12 , a bone scan - sternal lesion 11/12 CT pelvis normal. Therapeutic plan: Lab work follow-up 6 months [facility] Medical History Hyperlipidemia GERD (gastroesophageal reflux disease) Thyroid disease Atrial fibrillation Bone metastases Prostate cancer Prostate nodule Elevated PSA Surgical History History of surgery Review of Systems Const Denies chills and Denies fever(s) Card Reports no additional complaints and Denies syncope Resp Denies cough GI Denies abdominal pain and Denies heartburn Reports as per HPI and Denies change in libido Neuro Denies syncope Psych Denies change in libido Endo Denies change in libido Physical Exam Const General: cooperative, healthy appearing, comfortable and no acute distress Orientation/consciousness: patient oriented x3 HEENT Face and sinus: Yes normal facial exam Mouth: moist mucous membranes Neck Neck: Yes normal visual inspection, Yes full ROM and Yes trachea midline Chest Chest palpation & inspection: normal inspection of the chest Resp Effort & Inspection: normal respiratory effort, able to speak in complete sentences and no respiratory distress GI Inspection: Yes normal to inspection Back/Spine/Pelvis Cervical Spine: normal cervical lordosis Thoracic/Lumbar Spine: thoracic and lumbar spine normal to inspection Skin General skin exam: no rashes or lesions noted Neuro General: patient oriented x3, gait normal, tone normal and moves all extremities Extrem General: Yes normal to inspection and Yes capillary refill normal Assessment & Plan Assessment & Plan (1) Prostate cancer: Comment: 10/12 [place] 4 + 3 initial therapy external beam radiation with short-term hormones [facility] Code(s): C61 - Malignant neoplasm of prostate Category: Medical Plan Continue surveillance Orders: Orders Prostate Specific Antigen 6 Months C61 - Malignant neoplasm of prostate Patient Instructions: This note is constructed using voice recognition software. While every effort has been made to ensure accuracy manager economic errors may have been included. Imaging studies, laboratory and physical exam results were discussed and reviewed in detail. No major barriers to patient understanding were identified. An opportunity to ask questions regarding the treatment plan was provided. All questions were answered. The patient expressed understanding and agreement with the above treatment plan. The patient is aware they should contact our office by phone for worsening of their current condition or the appearance of new urologic symptoms. Compliance is encouraged with any medications and followup testing that is ordered. It is a privilege to participate in the urologic care of your patient. If you have any questions or concerns regarding treatment for the above conditions, or other urologic issues, please do not hesitate to contact me. The office telephone contact is [phone]. Sincerely, Dr Guanaco Driscoll MD, [facility] - Urology Compassionate Specialist Care for the Genitourinary System Coding Level of Care Code Est Pt Level 3 (13053) Complex EM visit Add On G2211 Diagnoses Prostate cancer C61
== END 2024-10-18 15:14 | disposition home or self-care (01) ==
LOC: HO.HUSH 14:42
PROVIDERS: PCP Internal Medicine; Visit Provider Urology
DX: C61 Malignant neoplasm of prostate (principal)
CPT/HCPCS: 99213; G2211

== ENCOUNTER → 2024-10-18 14:41 | Outpatient (BNVA) | payer MEDICARE, SELFPAY | PROVIDERS: PCP Internal Medicine; Visit Provider Urology | DX: C61 Malignant neoplasm of prostate (principal) | CPT/HCPCS: 99212 ==

== ENCOUNTER 2025-02-15 09:04 | Outpatient (REF) | payer MEDICARE, SELFPAY ==
[2025-02-15 13:29] LABS: INTERNATIONAL NORM RATIO 2.5 (0.9-1.1); Prothrombin Time 28.3 SEC (10.9-12.4)
== END 2025-02-15 09:05 | disposition home or self-care (01) ==
LOC: HO.HMGCLDS 09:04
PROVIDERS: PCP Internal Medicine; Visit Provider Physician Assistant Medical
DX: Z76.89 Persons encountering health services in other specified circumstances (principal); G89.29 Other chronic pain; G47.00 Insomnia, unspecified; I48.91 Unspecified atrial fibrillation; C61 Malignant neoplasm of prostate; I10 Essential (primary) hypertension; E78.5 Hyperlipidemia, unspecified; E07.9 Disorder of thyroid, unspecified; R42 Dizziness and giddiness; Z79.01 Long term (current) use of anticoagulants; Z13.31 Encounter for screening for depression; Z13.39 Encounter for screening examination for other mental health and behavioral disorders
CPT/HCPCS: 36415; 85610; 96127; 99202

== ENCOUNTER 2025-02-15 09:04 | Outpatient (AMB) | payer MEDICARE, SELFPAY ==
--- NOTE | 2025-02-15 09:00 | MHC.PC.OV ---
Vital Signs 02/15/25 09:09 Height 5 ft 7.83 in Weight 182 lb 6 oz BMI 27.9 BP 152/66 H Blood Pressure Location Rt brachial Position Sitting Respiration 16 Pulse 75 Pulse Source Pulse Oximeter Temp 98 F Temp Source Temporal Artery Scan Pulse Oximetry (%) 97 Oxygen Delivery Method Room Air Intake Visit Reasons: Establish Care Dog Barber Required: No Accompanied by: Self / Same As Patient Allergies No Known Allergies Allergy (Verified 02/15/25 09:57) Medication List - Last Reconciled 02/15/25 by Mireya Esteves PA-C aspirin 81 mg PO DAILY levothyroxine 75 mcg PO DAILY lisinopril 10 mg PO DAILY meclizine 25 mg PO DAILY PRN metoprolol succinate ER 50 mg PO DAILY simvastatin 40 mg PO DAILY tramadol 100 mg (2 x 50 mg) PO Q8H PRN 30 days warfarin 1 mg PO DAILY PRN zolpidem 10 mg PO BEDTIME PRN Tobacco use date assessed: 02/15/25 Fall risk assessment: No Falls in past year Last assessed Fall Risk: 02/15/25 Dental Screening Dental Screen Date: 02/15/25 Did you have a dental visit in the last 12 months?: Yes Did you have a dental problem in the last 6 months where you did not have access to dental care?: No Was dental information given to patient?: No HPI Establish Care HPI Details The patient is a 79-year-old male presenting for a new patient appointment as patient was a patient of Dr. Cole who retired. Patient presenting with chronic pain management and medication review. The patient reports chronic pain in the back and neck due to past accidents, including an incident with an [employer] truck two years ago. He has been under Dr. Rodríguez's care for 40 years, who referred him to therapy, which was ineffective, and advised against surgery. The patient manages his pain with tramadol, taking two tablets every six hours, with increased stiffness noted during the winter months. The patient also experiences insomnia, for which he takes zolpidem. He reports feeling unwell when he misses a dose, as occurred recently when he ran out of medication. The patient has a history of atrial fibrillation, managed with warfarin, and he regularly visits a clinic for INR monitoring. He denies having any artificial heart valves but has had a stent placed. The patient has a history of prostate cancer diagnosed six years ago, currently managed by Dr. Driscoll, with no recent complications reported. He also has metastatic bone cancer. His medication regimen includes lisinopril for hypertension, simvastatin for hyperlipidemia, levothyroxine for thyroid disease, and meclizine for vertigo. He has declined a colonoscopy, citing his prostate cancer diagnosis as a reason. [facility] Medical History (Updated 02/15/25 @ 11:12 by Mireya Esteves PA-C) Chronic pain Vertigo Hypertension Insomnia Colonoscopy refused (~02/15/25) On warfarin at home Establishing care with new doctor, encounter for Hyperlipidemia GERD (gastroesophageal reflux disease) Thyroid disease Atrial fibrillation Bone metastases Prostate cancer Prostate nodule Elevated PSA Surgical History History of surgery Family History Father No problems noted. Mother No problems noted. Social History Housing: House Alcohol intake: current Alcohol intake frequency: a few times a week Patient Tobacco Use Status: Former Tobacco user service: No Current occupational status: retired Cognitive needs: No Hearing needs: No Vision needs: Yes (rx glasses) Questionnaire PHQ-9 Over the last 2 weeks, how often have you been bothered by any of the following problems? 1. Little interest or pleasure in doing things: not at all 2. Feeling down, depressed, or hopeless: not at all 3. Trouble falling or staying asleep, or sleeping too much: not at all 4. Feeling tired or having little energy: not at all 5. Poor appetite or overeating: not at all 6. Feeling bad about yourself - or that you are a failure or have let yourself or your family down: not at all 7. Trouble concentrating on things, such as reading the newspaper or watching television: not at all 8. Moving or speaking so slowly that other people could have noticed. Or the opposite - being so fidgety or restless that you have been moving around a lot more than usual: not at all 9. Thoughts that you would be better off or of hurting yourself in some way: not at all Total score: 0 Depression Screening Interpretation: Negative Depression Screening Done: Yes 35431 - PHQ-9 Billing: Yes Source: Developed by Drs. Mina Beach, Elmira Gallegos, Paco Kurtz and colleagues, with an educational kyle from [employer]. Thrive Questionnaire Date Thrive assessed: 02/15/25 I am a: Patient What is your living situation today?: I have a steady place to live Within the past 12 months, did the food you bought not last and you didn't have the money to get more?: Never true Within the past 12 months, did you worry whether your food would run out before you got money to buy more?: Never true Do you have trouble paying for medicines?: No Do you have trouble getting transportation to medical appointments?: No Do you have trouble paying your heating and electricity bill?: No Do you have trouble taking care of your child, family member or friend?: No Do you have trouble with day-to-day activities such as bathing, preparing meals, shopping, managing finances, etc.?: No Are you currently unemployed and looking for a job?: No Are you interested in more education?: No Please select the resources that you would like help with: None Currently or been in a relationship where the following occur: No concerns reported THRIVE Score: 0 AUDIT C Alcohol Use Questionnaire (AUDIT-C) 1. How often do you have a drink containing alcohol?: 2-3 times a week 2. How many drinks containing alcohol do you have on a typical day when you are drinking?: 1 or 2 3. How often do you have six or more drinks on one occasion?: Never Total Score: 3 Score Reviewed/Action Taken: No CASSI-7 AMB Questionnaire CASSI-7 Date CASSI - 7 assessed: 02/15/25 Feeling nervous, anxious, or on edge: 0 = Not at all Not being able to stop or control worryin = Not at all Worrying too much about different things: 0 = Not at all Trouble relaxin = Not at all Being so restless that it is hard to sit still: 0 = Not at all Becoming easily annoyed or irritable: 0 = Not at all Feeling afraid as if something awful might happen: 0 = Not at all Total CASSI-7 score (0-4 normal; 5-9 mild; 10-14 moderate; 15-21 severe): 0 Source: Developed by Drs. Mina Beach, Elmira Gallegos, Paco Kurtz and colleagues, with an educational kyle from [employer]. CASSI-7 Assessment Billing CASSI-7 Assessment Tool: CASSI-7 Assessment 49797 Review of Systems Const Details: - Musculoskeletal: Reports chronic neck and back pain, worsened in winter. - Neurological: Reports insomnia, feels unwell without zolpidem. - Cardiovascular: Denies chest pain, reports atrial fibrillation. - Gastrointestinal: Denies abdominal pain. All systems reviewed & are unremarkable except as noted in HPI and below Physical exam (Primary Care) Vital Signs: Last Vital Signs Temp 98 F 02/15/25 09:09 Pulse 75 02/15/25 09:09 Resp 16 02/15/25 09:09 BP 152/66 H 02/15/25 09:09 Pulse Ox 97 02/15/25 09:09 Oxygen Delivery Method Room Air 02/15/25 09:09 Care Plan Goal for BP management: <140/90 at Goal BMI result Body Mass Index 27.9 BMI Assessment/Plan discussion: High BMI High, discussed plan: lifestyle, weight reduction, dietary, physical activity and alcohol moderation Tobacco/Smoking Status: Tobacco use Status Tobacco use date assessed 02/15/25 02/15/25 09:21 Patient Tobacco Use Status Former Tobacco user 02/15/25 09:21 PHQ-9: PHQ-9 Score PHQ-9: Total score 0 02/15/25 09:21 Depression Screening Interpretation: Negative Thrive Assessment: Date of Thrive Assessment Date Thrive assessed 02/15/25 02/15/25 09:21 Currently or been in a relationship where the following occur: No concerns reported Const Other: Appearance: Alert. Oriented X3. No acute distress. Head: Normal external exam. Normocephalic. Atraumatic. Eyes: Pupils are equal, round, and reactive to light. Extraocular movements intact. Conjunctiva and sclera normal. Eyelids normal. Throat: Pharynx normal. Uvula midline. Moist mucous membranes. Neck: Normal inspection. Neck supple. Full range of motion. Cardiovascular: Normal heart rate and rhythm. Heart sound normal. No murmurs noted. Pulses normal throughout. Respiratory: No respiratory distress. Painless inspiration. Breath sounds normal. No wheezes/rales/rhonchi noted. Chest nontender. No accessory muscle usage noted or decreased air movement noted. Back: Full range of motion noted. Skin: Skin warm and dry. Normal skin color. Normal skin turgor. No rashes/lesions/lacerations noted. Extremities:Extremities exhibit normal range of motion. Extremities nontender. Neuro: Oriented X 3. No motor deficit. No sensory deficit. Reflexes normal. Coding Level of Care Code New Pt Level 5 (98977) Complex EM visit Add On G2211 Diagnoses Establishing care with new doctor, encounter for Z76.89 Chronic pain G89.29 Insomnia G47.00 Atrial fibrillation I48.91 Prostate cancer C61 Hypertension I10 Hyperlipidemia E78.5 Thyroid disease E07.9 Vertigo R42 On warfarin at home Z79.01 Colonoscopy refused Z53.20 Additional Codes PHQ-9 - 98253 - PHQ-9 Billing: Yes ([id number]) CASSI-7 Assessment Billing - CASSI-7 Assessment Tool: CASSI-7 Assessment 71821 ([id number]) Assessment & Plan Assessment & Plan (1) Establishing care with new doctor, encounter for: Code(s): Z76.89 - Persons encountering health services in other specified circumstances Category: Medical (2) Chronic pain: Code(s): G89.29 - Other chronic pain Category: Medical Plan: The patient will have his tramadol dosage reduced to six tablets per day, with a plan to further reduce to four tablets per day next month. The patient is advised to consult with his oncologist for further pain management if necessary. I discussed this with Dr. Danielle before reducing the dose and we came up with this plan. Patient understands agrees with this plan as well. (3) Insomnia: Code(s): G47.00 - Insomnia, unspecified Category: Medical Plan: The patient's zolpidem prescription will remain unchanged. Patient to continue 10 mg at bedtime. Condition is chronic and stable continue to monitor. (4) Atrial fibrillation: Code(s): I48.91 - Unspecified atrial fibrillation Category: Medical Plan: The patient will be referred to a Coumadin Clinic for regular INR monitoring. Condition is chronic and stable continue to monitor.The patient is under the care of Dr. Driscoll for prostate cancer management, with no changes in the current plan. (5) Prostate cancer: Comment: 3/20 [place] 4 + 3 initial therapy external beam radiation with short-term hormones [facility] Code(s): C61 - Malignant neoplasm of prostate Category: Medical Plan: The patient is under the care of Dr. Driscoll for prostate cancer management, with no changes in the current plan. Condition is chronic and stable will continue to monitor. (6) Hypertension: Code(s): I10 - Essential (primary) hypertension Category: Medical Plan: The patient is currently on lisinopril and metoprolol for blood pressure management. Condition is chronic and stable continue to monitor. (7) Hyperlipidemia: Code(s): E78.5 - Hyperlipidemia, unspecified Category: Medical Plan: The patient is on simvastatin for cholesterol management. Condition is chronic and stable continue to monitor. (8) Thyroid disease: Code(s): E07.9 - Disorder of thyroid, unspecified Category: Medical Plan: The patient is on levothyroxine for thyroid management. Condition is chronic and stable continue to monitor. (9) Vertigo: Code(s): R42 - Dizziness and giddiness Category: Medical Plan: The patient is on meclizine for vertigo management. Condition is chronic and stable continue to monitor. (10) On warfarin at home: Comment: INR range 2.0-3.0. Code(s): Z79.01 - snf (current) use of anticoagulants Category: Medical Plan: The patient will be referred to a Coumadin Clinic for regular INR monitoring. Condition is chronic and stable continue to monitor. (11) Colonoscopy refused: Onset Date: ~02/15/25 Code(s): Z53.20 - Procedure and treatment not carried out because of patient's decision for unspecified reasons Category: Medical Plan Plan Patient was informed and verbally consented to the use of an ambient scribe for clinic note documentation during this visit. 1. Chronic Pain The patient will have his tramadol dosage reduced to six tablets per day, with a plan to further reduce to four tablets per day next month. The patient is advised to consult with his oncologist for further pain management if necessary. I discussed this with Dr. Danielle before reducing the dose and we came up with this plan. Patient understands agrees with this plan as well. 2. Insomnia The patient's zolpidem prescription will remain unchanged. 3. Atrial Fibrillation The patient will be referred to a Coumadin Clinic for regular INR monitoring. 4. Prostate Cancer The patient is under the care of Dr. Driscoll for prostate cancer management, with no changes in the current plan. 5. Hypertension The patient is currently on lisinopril and metoprolol for blood pressure management. 6. Hyperlipidemia The patient is on simvastatin for cholesterol management. 7. Thyroid Disease The patient is on levothyroxine for thyroid management. 8. Vertigo The patient is on meclizine for vertigo management. I discussed with the patient the plan to reduce his tramadol dosage gradually, emphasizing the importance of consulting with his oncologist for pain management if needed. We also reviewed his current medications, including the continuation of zolpidem for insomnia and the referral to a Coumadin Clinic for INR monitoring. The patient was informed about the importance of regular follow-ups and the need to adhere to his medication regimen. 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 - Continue taking zolpidem as prescribed for insomnia. - Attend regular INR monitoring at the Coumadin Clinic. - Follow up with Dr. Driscoll for prostate cancer management. - Maintain current medication regimen for hypertension, hyperlipidemia, thyroid disease, and vertigo. - Schedule regular follow-up appointments as advised.
[2025-02-15 09:09] VITALS: BP 152/66; PULSE 75; RESP 16; TEMP 36.6; O2SAT 97; BMI 27.9
== END 2025-02-15 09:54 | disposition home or self-care (01) ==
LOC: HO.HMCSH 09:05
PROVIDERS: PCP Internal Medicine; Visit Provider Physician Assistant Medical
DX: I48.91 Unspecified atrial fibrillation (principal); C61 Malignant neoplasm of prostate; Z76.89 Persons encountering health services in other specified circumstances; G89.29 Other chronic pain; G47.00 Insomnia, unspecified; I10 Essential (primary) hypertension; E78.5 Hyperlipidemia, unspecified; E07.9 Disorder of thyroid, unspecified; R42 Dizziness and giddiness; Z79.01 Long term (current) use of anticoagulants; Z53.20 Procedure and treatment not carried out because of patient's decision for unspecified reasons

== ENCOUNTER 2025-03-15 10:23 | Outpatient (REF) | payer MEDICARE, SELFPAY ==
[2025-03-15 13:59] LABS: Prostate Specific Antigen 0.27 ng/mL (<0.05-4.0)
== END 2025-03-15 10:24 | disposition home or self-care (01) ==
LOC: HO.HMGCLDS 10:23
PROVIDERS: Urology; PCP Internal Medicine; Visit Provider Physician Assistant Medical
DX: C61 Malignant neoplasm of prostate (principal)
CPT/HCPCS: 36415; 84153

== ENCOUNTER 2025-03-16 09:40 | Outpatient (AMB) | payer MEDICARE, SELFPAY ==
[2025-03-16 09:44] VITALS: BP 153/70; PULSE 73; RESP 16; TEMP 36.5; O2SAT 99; BMI 27.7
--- NOTE | 2025-03-16 09:44 | A.OFFPC_ITS ---
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: No Accompanied by: Self / Same As Patient Allergies No Known Allergies Allergy (Verified 03/16/25 10:35) Medication List - Last Reconciled 03/16/25 by Mireya Esteves PA-C aspirin 81 mg PO DAILY levothyroxine 100 mcg PO DAILY levothyroxine (Levo-T) 75 mcg PO DAILY lisinopril 20 mg PO DAILY meclizine 25 mg PO DAILY PRN metoprolol succinate ER 50 mg PO DAILY simvastatin 40 mg PO DAILY tramadol 100 mg (2 x 50 mg) PO Q8H PRN 30 days warfarin 1 mg PO DAILY PRN zolpidem 10 mg PO BEDTIME PRN Tobacco use date assessed: 02/15/25 Fall risk assessment: No Falls in past year Last assessed Fall Risk: 02/15/25 Dental Screening Dental Screen Date: 02/15/25 Did you have a dental visit in the last 12 months?: Yes Did you have a dental problem in the last 6 months where you did not have access to dental care?: No Was dental information given to patient?: No HPI 4 week meds HPI Details The patient is a 79-year-old male presenting for a four-week follow-up related to pain management and hypertension control. The patient has a history of cervical spinal stenosis at C5-C6, which causes severe neck pain, especially in cold weather. He has previously undergone acupuncture, chiropractic treatment, and physical therapy, but these interventions were not effective, leading to the use of pain medication prescribed by Dr. Rodríguez. The patient reports that the pain medication has been beneficial, although there is a current plan to reduce the dosage as per the new management guidelines from [facility]. Patient was on tramadol 100 mg every 6 hours although was reduced to 6 tablets per day at the last visit and will be reduced to 4 tablets per day at this visit. This was discussed with Dr. Danielle who recommended this reduction as well when we discussed the patient at the last visit. The patient also has a history of hypertension, with a recent blood pressure reading of 150 mmHg. He is currently on lisinopril, which was previously effective, but he stopped taking it for a period. The plan is to increase the lisinopril dosage to 20 mg to better manage his blood pressure. [facility] Medical History (Updated 03/16/25 @ 10:39 by Mireya Esteves PA-C) Cervical stenosis of spine Chronic primary pain of cervical spine Chronic pain Vertigo Hypertension Insomnia Colonoscopy refused (~02/15/25) On warfarin at home Establishing care with new doctor, encounter for Hyperlipidemia GERD (gastroesophageal reflux disease) Thyroid disease Atrial fibrillation Bone metastases Prostate cancer Prostate nodule Elevated PSA Surgical History History of surgery Family History Father No problems noted. Mother No problems noted. Social History Housing: House Alcohol intake: current Alcohol intake frequency: a few times a week Patient Tobacco Use Status: Former Tobacco user service: No Current occupational status: retired Cognitive needs: No Hearing needs: No Vision needs: Yes (rx glasses) Questionnaire PHQ-9 Over the last 2 weeks, how often have you been bothered by any of the following problems? 1. Little interest or pleasure in doing things: not at all 2. Feeling down, depressed, or hopeless: not at all 3. Trouble falling or staying asleep, or sleeping too much: not at all 4. Feeling tired or having little energy: not at all 5. Poor appetite or overeating: not at all 6. Feeling bad about yourself - or that you are a failure or have let yourself or your family down: not at all 7. Trouble concentrating on things, such as reading the newspaper or watching television: not at all 8. Moving or speaking so slowly that other people could have noticed. Or the opposite - being so fidgety or restless that you have been moving around a lot more than usual: not at all 9. Thoughts that you would be better off or of hurting yourself in some way: not at all Total score: 0 Depression Screening Interpretation: Negative Depression Screening Done: Yes 42847 - PHQ-9 Billing: Yes Source: Developed by Drs. Mina Beach, Elmira Gallegos, Paco Kurtz and colleagues, with an educational kyle from [employer]. Thrive Questionnaire Date Thrive assessed: 02/15/25 I am a: Patient What is your living situation today?: I have a steady place to live Within the past 12 months, did the food you bought not last and you didn't have the money to get more?: Never true Within the past 12 months, did you worry whether your food would run out before you got money to buy more?: Never true Do you have trouble paying for medicines?: No Do you have trouble getting transportation to medical appointments?: No Do you have trouble paying your heating and electricity bill?: No Do you have trouble taking care of your child, family member or friend?: No Do you have trouble with day-to-day activities such as bathing, preparing meals, shopping, managing finances, etc.?: No Are you currently unemployed and looking for a job?: No Are you interested in more education?: No Please select the resources that you would like help with: None Currently or been in a relationship where the following occur: No concerns reported THRIVE Score: 0 AUDIT C Alcohol Use Questionnaire (AUDIT-C) 1. How often do you have a drink containing alcohol?: 2-3 times a week 2. How many drinks containing alcohol do you have on a typical day when you are drinking?: 1 or 2 3. How often do you have six or more drinks on one occasion?: Never Total Score: 3 Score Reviewed/Action Taken: No CASSI-7 AMB Questionnaire CASSI-7 Date CASSI - 7 assessed: 02/15/25 Feeling nervous, anxious, or on edge: 0 = Not at all Not being able to stop or control worryin = Not at all Worrying too much about different things: 0 = Not at all Trouble relaxin = Not at all Being so restless that it is hard to sit still: 0 = Not at all Becoming easily annoyed or irritable: 0 = Not at all Feeling afraid as if something awful might happen: 0 = Not at all Total CASSI-7 score (0-4 normal; 5-9 mild; 10-14 moderate; 15-21 severe): 0 Source: Developed by Drs. Mina Beach, Elmira Gallegos, Paco Kurtz and colleagues, with an educational kyle from [employer]. CASSI-7 Assessment Billing CASSI-7 Assessment Tool: CASSI-7 Assessment 63123 Review of Systems Const Details: - Musculoskeletal: Reports severe neck pain, especially in cold weather. - Cardiovascular: Reports elevated blood pressure reading of 150 mmHg. All systems reviewed & are unremarkable except as noted in HPI and below Physical exam (Primary Care) Vital Signs: Last Vital Signs Temp 97.7 F 03/16/25 09:44 Pulse 73 03/16/25 09:44 Resp 16 03/16/25 09:44 BP 153/70 H 03/16/25 09:44 Pulse Ox 99 03/16/25 09:44 Oxygen Delivery Method Room Air 03/16/25 09:44 Care Plan Goal for BP management: <140/90 patient to continue taking metoprolol 50 mg extended release and will increase lisinopril 10 mg to lisinopril 20 mg daily and patient to return in 1 month BMI result Body Mass Index 27.7 Tobacco/Smoking Status: Tobacco use Status Tobacco use date assessed 02/15/25 03/16/25 09:49 Patient Tobacco Use Status Former Tobacco user 03/16/25 09:49 PHQ-9: PHQ-9 Score PHQ-9: Total score 0 03/16/25 09:49 Depression Screening Interpretation: Negative Thrive Assessment: Date of Thrive Assessment Date Thrive assessed 02/15/25 03/16/25 09:49 Currently or been in a relationship where the following occur: No concerns reported Const Other: Appearance: Alert. Oriented X3. No acute distress. Head: Normal external exam. Normocephalic. Atraumatic. Eyes: Extraocular movements intact. Conjunctiva and sclera normal. Eyelids normal. Throat: Pharynx normal. Uvula midline. Moist mucous membranes. Neck: Normal inspection. Neck supple. Full range of motion. Cardiovascular: Normal heart rate and rhythm. Respiratory: No respiratory distress. Painless inspiration. Back: Full range of motion noted. Skin: Skin warm and dry. Normal skin color. Extremities: Extremities exhibit normal range of motion. Coding Level of Care Code Est Pt Level 4 (65789) Complex EM visit Add On G2211 Diagnoses Cervical stenosis of spine M48.02 Chronic pain G89.29 Hypertension I10 Additional Codes CASSI-7 Assessment Billing - CASSI-7 Assessment Tool: CASSI-7 Assessment 74130 ([id number]) PHQ-9 - 96993 - PHQ-9 Billing: Yes ([id number]) Assessment & Plan Assessment & Plan (1) Cervical stenosis of spine: Code(s): M48.02 - Spinal stenosis, cervical region Category: Medical Plan: The patient will be referred to pain management under the new guidelines from [facility], which includes a reduction in the dosage of pain medication. He will be referred to pain management for alternative therapies and will undergo random drug screening and pill counts as part of the new protocol. Will also refer to comprehensive Care. Patient will be prescribed tramadol 50 mg; 100 mg to be taken twice a day. Patient to return in 30 days for follow-up. Condition is chronic and stable continue to monitor. (2) Chronic pain: Code(s): G89.29 - Other chronic pain Category: Medical Plan: Patient reports he has chronic pain to the cervical spine. He reports that it is not pain from his cancer. He does not receiving any pain medications from his oncologist. I explained to him if he is having any oncology pain then he will need to discuss this with his oncologist for proper pain management treatment. Otherwise for his chronic cervical spine pain from cervical stenosis patient will be taking tramadol 50 mg; 100 mg to be taken twice a day. (3) Hypertension: Code(s): I10 - Essential (primary) hypertension Category: Medical Plan: The patient's lisinopril dosage will be increased to 20 mg to better control his blood pressure. He will continue to monitor his blood pressure and follow up in 30 days to assess the effectiveness of the increased dosage. Plan Plan Patient was informed and verbally consented to the use of an ambient scribe for clinic note documentation during this visit. 1. Cervical Spinal Stenosis At C5-C6 The patient will continue with pain management under the new guidelines from [facility], which includes a reduction in the dosage of pain medication. He will be referred to pain management for alternative therapies and will undergo random drug screening and pill counts as part of the new protocol. 2. Hypertension The patient's lisinopril dosage will be increased to 20 mg to better control his blood pressure. He will continue to monitor his blood pressure and follow up in 30 days to assess the effectiveness of the increased dosage. I discussed with the patient the new pain management guidelines from [facility], which involve reducing the dosage of his pain medication and referring him to pain management for alternative therapies along with comprehensive care referral. We also talked about increasing his lisinopril dosage to 20 mg to manage his hypertension more effectively. The patient was informed about the need for random drug screening and pill counts as part of the new protocol, and he agreed to follow up in 30 days. Will also be prescribing Narcan with narcotic scripts. Orders: Orders Drug Screen Urine Today G89.29 - Other chronic pain, M54.2 - Cervicalgia Referrals Pain Management Referral G89.29 - Other chronic pain, M54.2 - Cervicalgia Addiction Medicine Referral C61 - Malignant neoplasm of prostate, C79.51 - Secondary malignant neoplasm of bone, G89.29 - Other chronic pain, M48.02 - Spinal stenosis, cervical region, M54.2 - Cervicalgia Medications: Changed From lisinopril 10 mg PO DAILY To lisinopril 20 mg PO DAILY 90 tabs 3RF Patient Instructions: - Continue taking lisinopril as prescribed and monitor blood pressure regularly. - Follow up with pain management for alternative therapies and adhere to the new guidelines. - Return for a follow-up appointment in 30 days.
== END 2025-03-16 10:52 | disposition home or self-care (01) ==
LOC: HO.HMCSH 09:41
PROVIDERS: PCP Internal Medicine; Visit Provider Physician Assistant Medical
DX: M48.02 Spinal stenosis, cervical region (principal); G89.29 Other chronic pain; I10 Essential (primary) hypertension

== ENCOUNTER 2025-03-16 09:40 | Outpatient (REF) | payer MEDICARE, SELFPAY ==
[2025-03-16 18:40] LABS: Cannabinoid Screen Urine Not Detected (Not Detect)
== END 2025-03-16 09:41 | disposition home or self-care (01) ==
LOC: HO.HMGCLDS 09:40
PROVIDERS: PCP Internal Medicine; Visit Provider Physician Assistant Medical
DX: M54.2 Cervicalgia (principal); G89.29 Other chronic pain; M48.02 Spinal stenosis, cervical region; I10 Essential (primary) hypertension; Z79.82 Long term (current) use of aspirin; Z79.890 Hormone replacement therapy; Z79.01 Long term (current) use of anticoagulants; Z79.899 Other long term (current) drug therapy
CPT/HCPCS: 80307; 96127; 99212

== ENCOUNTER 2025-03-27 10:00 | Outpatient (REF) | payer MEDICARE, SELFPAY | END 2025-03-27 10:01 | disposition home or self-care (01) | LOC: HO.LNP 10:00 | PROVIDERS: PCP Internal Medicine; Visit Provider Physician Assistant Medical | DX: N39.0 Urinary tract infection, site not specified (principal); R31.0 Gross hematuria; Z79.01 Long term (current) use of anticoagulants | CPT/HCPCS: 81003; 87086; 99212 ==

== ENCOUNTER 2025-03-27 10:00 | Outpatient (AMB) | payer MEDICARE, SELFPAY ==
[2025-03-27 10:10] VITALS: BP 106/60; PULSE 81; TEMP 36.7; O2SAT 98; BMI 27.5
--- NOTE | 2025-03-27 10:10 | AM.OFFWIN_ITS ---
Intake Vital Signs 03/27/25 10:10 03/27/25 10:19 Height 5 ft 7.83 in Weight 180 lb BMI 27.5 BP 106/60 130/64 Blood Pressure Location Rt brachial Rt brachial Position Sitting Sitting Pulse 81 Pulse Source Pulse Oximeter Temp 98.1 F Temp Source Oral Pulse Oximetry (%) 98 Oxygen Delivery Method Room Air Intake Visit Reasons: ep blood in urine and blood clots Intake Note: pt presents with burning sensation when peeing, blood in urine and blood clots in urine Patient Tobacco Use Status: Former Tobacco user Allergies No Known Allergies Allergy (Verified 03/27/25 10:15) Do you need a note to return to daycare/school/sports/work: No HPI HPI Comments History of Present Illness Details History of Present Illness - The patient is a 80-year-old male pres enting with hematuria and blood clots in the urine. - Hematuria began last , lasted a few hours, and recurred yesterday with prolonged duration, subsiding by the next morning. - Mild stinging during urination was not ed, but no significant pain, nausea, or abdominal discomfort was reported. - The patient is on anticoagulation ther apy and has a history of prostate cancer, with a urologist appointment at the end of the month on 04/20. - INR monitoring has been inconsistent d ue to a change in primary care providers, leading to dissatisfaction with current management. - He denies dysuria, back pain, abd pain , melena, hematochezia, n/v/d, fever, or chills. Physical Exam General: Cooperative, healthy appearing, comfortable, no acute distress and well developed Orientation: Patient oriented x3 Limitations: No limitations Respiratory: Normal respiratory effort and able to speak in complete sentences. Clear to auscultation bilaterally Cardiovascular: Regular rate and rhythm. Normal S1 and S2 GI: Normal to inspection. Soft to palpation and nontender, non- distended. No TTP of the 4 quadrants. No guarding noted. No rebound tenderness noted. No CVA tenderness. Skin: No rashes or lesions noted Patient was informed and verbally consented to the use of an ambient scribe for clinic note documentation during this visit. [facility] Medical History (Updated 03/16/25 @ 10:39 by Mireya Esteves PA-C) Cervical stenosis of spine Chronic primary pain of cervical spine Chronic pain Vertigo Hypertension Insomnia Colonoscopy refused (~02/15/25) On warfarin at home Establishing care with new doctor, encounter for Hyperlipidemia GERD (gastroesophageal reflux disease) Thyroid disease Atrial fibrillation Bone metastases Prostate cancer Prostate nodule Elevated PSA Surgical History History of surgery Family History Father No problems noted. Mother No problems noted. Social History Housing: House Alcohol intake: current Alcohol intake frequency: a few times a week Patient Tobacco Use Status: Former Tobacco user service: No Current occupational status: retired Cognitive needs: No Hearing needs: No Vision needs: Yes (rx glasses) Review of Systems Const All systems reviewed & are unremarkable except as noted in HPI and below Physical Exam Vital Signs: Last Vital Signs Temp 98.1 F 03/27/25 10:10 Pulse 81 03/27/25 10:10 BP 130/64 03/27/25 10:19 Pulse Ox 98 03/27/25 10:10 Oxygen Delivery Method Room Air 03/27/25 10:10 BMI result Body Mass Index 27.5 Assessment & Plan Assessment & Plan (1) Hematuria: Code(s): R31.9 - Hematuria, unspecified Qualifiers: Hematuria type: gross Qualified Code(s): R31.0 - Gross hematuria Plan Most likely gross hematuria vs hypercoaguable vs UTI vs stone UA in the office 3+blood plan - INR testing to assess anticoagulation status and adjust therapy if necessary. - pt has an appt on 03/29 with the INR clinic - Urine culture to rule out infection as a cause of hematuria. - Consider imaging studies, such as ultrasound, to identify potential sources of bleeding. - Contact urologist for potential earlier appointment due to new onset of symptoms. Orders: Orders Urine Culture Today N39.0 - Urinary tract infection, site not specified Coding Level of Care Code Est Pt Level 3 (15616) Diagnoses Gross hematuria R31.0 Hematuria type: gross
[2025-03-27 10:19] VITALS: BP 130/64
--- OUTSIDE RECORDS SUMMARY | 2025-03-27 11:20 | XMS_ITS | Clinical Summary ---
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 Not on gisell e 03/21/2025 Are you concerned about learning? Not on file 03/21/2025 No 03/21/2025 No 03/21/2025 Digital Access Answer Date Recorded No 03/21/2025 No 03/21/2025 Reliable internet access at home? Not on file 03/21/2025 Device with a working camera? Not on file Sex and Gender Information Value Date Recorded Sex Assigned at Not on file Legal Sex Male 9:50 AM EDT Gender Identity Not on file Sexual Orientation Not on file Plan of Treatment Upcoming Encounters Date Type Department Care Team ([facility] Contact Info) Description 05/09/2025 9:00 AM EDT Office Visit [facility] [address] [place] [address] Maya Samaniego PA-C [address] [place] [address] Health Maintenance Due Date Last Done Comments Adult Td,Tdap Booster 1945 LIPID PANEL 1946 DEPRESSION SCREENING 1958 SMOKING Hx and SMOKELESS TOB ACCO SCREENING 1959 HEPATITIS C SCREENING 1964 PNEUMOCOCCAL VACCINES (50+ y ears) (1 of 1 - PCV) 1996 ZOSTER VACCINES (1 of 2) 1996 RSV VACCINE (1 - 1-dose 75+ series) 2021 COVID-19 VACCINE (1 - 2023-2 5 season) 2024 INFLUENZA VACCINE (#1) 2025 HEPATITIS A VACCINES Aged Out No long er eligible based on patient's age to complete this topic HIB VACCINES Aged Out No longer eligi ble based on patient's age to complete this topic MENINGOCOCCAL VACCINES (ACWY) Aged Out No longer eligible based on patient's age to complete this topic MENINGOCOCCAL VACCINES (B) Aged Out N o longer eligible based on patient's age to complete this topic Medical Devices Not on file Insurance [employer] PPO MEDICARE REPLACEMENT MEDICARE PART A & B [employer] O MEDICARE REPLACEMENT MEDICARE PART A & B Member Subscriber Plan / Payer (Ef fective 2025-Present) Name:Orlando Gillette Member ID:[id number] Relation to Subscriber:Self Name:Orlando Gillette Subscriber ID:[id number] Payer ID:[id number] Group ID:Not on file Type:Medicare Address: [address] [place] [address] [employer] PPO MEDICARE REPLACEMENT MEDICARE PART A & B [employer]ET[employer] O MEDICARE REPLACEMENT MEDICARE PART A & B [employer]ET[employer] O MEDICARE REPLACEMENT MEDICARE PART A & B AETNA PPO MEDICARE REPLACEMENT MEDICARE PART A & B Care Teams Auto Dealer Relationship Specialty Start Date End Date Pcp, Unknown PCP - General 03/21/25 Additional Source Comments The information contained in this document represents components of the legal health record. It is not the complete legal health record.[facility]
== END 2025-03-27 11:26 | disposition home or self-care (01) ==
PROVIDERS: PCP Internal Medicine; Visit Provider Physician Assistant Medical
DX: Z13.9 Encounter for screening, unspecified (principal)

== ENCOUNTER 2025-03-29 13:39 | Outpatient (REF) | payer MEDICARE, SELFPAY ==
--- OUTSIDE RECORDS SUMMARY | 2025-03-29 14:56 | XMS_ITS | Clinical Summary ---
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 Name Role Phone Pcp, Unknown Primary Care [...] Upcoming Encounters Date Type Department Care Team ([facility] Contact Info) Description 05/09/2025 9:00 AM EDT Office Visit [facility] [address] [place] [address] Maya Samaniego PA-C [address] [place] [address] [email or web address] Health Maintenance Due Date Last Done Comments [...] MEDICARE PART A & B Care Teams Pipe Smoker Machine Operator Relationship Specialty Start Date End Date Pcp, Unknown PCP - General 03/21/25 Additional Source Comments The information contained in this document represents components of the legal health record. It is not the complete legal health record.[facility]
[2025-03-29 15:14] LABS: INTERNATIONAL NORM RATIO 1.8 (0.9-1.1); Prothrombin Time 20.3 SEC (10.9-12.4)
== END 2025-03-29 13:40 | disposition home or self-care (01) ==
LOC: HO.LAB 13:39
PROVIDERS: PCP Physician Assistant Medical; Visit Provider Urology
DX: C61 Malignant neoplasm of prostate (principal); C79.51 Secondary malignant neoplasm of bone; R31.9 Hematuria, unspecified
CPT/HCPCS: 36415; 85610

== ENCOUNTER 2025-04-04 08:38 | Outpatient (REF) | payer MEDICARE, SELFPAY ==
--- OUTSIDE RECORDS SUMMARY | 2025-04-04 10:00 | XMS_ITS | Clinical Summary ---
Author Organization [facility] Address [address] [place] [address] [place] [phone] Phone Care Team Providers Care Manager Social Name Role Phone Pcp, Unknown Primary Care [...] Upcoming Encounters Date Type Department Care Team ([facility] Contact Info) Description 05/09/2025 9:00 AM EDT Office Visit [facility] [place] [facility] [address] [place] [address] Maya Samaniego PA-C [address] [place] [address] Health Maintenance Due Date Last Done Comments Adult Td,Tdap Booster 1945 LIPID PANEL 1946 DEPRESSION SCREENING 1958 SMOKING Hx and SMOKELESS TOB ACCO SCREENING 1959 HEPATITIS C SCREENING 1964 PNEUMOCOCCAL VACCINES (50+ y ears) (1 of 1 - PCV) 1996 ZOSTER VACCINES (1 of 2) 1996 RSV VACCINE (1 - 1-dose 75+ series) 2021 INFLUENZA VACCINE (#1) 2025 COVID-19 VACCINE (1 - 2023-2 5 season) 2025 HEPATITIS A VACCINES Aged Out No [...] MEDICARE PART A & B Care Teams Manager Social Relationship Specialty Start Date End Date Pcp, Unknown PCP - General 03/21/25 Additional Source Comments The information contained in this document represents components of the legal health record. It is not the complete legal health record.[facility]
== END 2025-04-04 08:39 | disposition home or self-care (01) ==
LOC: HO.LAB 08:38
PROVIDERS: PCP Physician Assistant Medical; Visit Provider Physician Assistant Medical
DX: Z79.01 Long term (current) use of anticoagulants (principal); Z51.81 Encounter for therapeutic drug level monitoring
CPT/HCPCS: 85610; 99202; 99211

== ENCOUNTER 2025-04-04 08:55 | Outpatient (AMB) | payer MEDICARE, SELFPAY ==
--- NOTE | 2025-03-29 12:34 | MHC.OFFVISCO ---
Intake Intake Visit Reasons: Anticoagulation Strategic Partnership Representative Required: No Allergies No Known Allergies Allergy (Verified 04/04/25 09:00) Medication List - Last Reconciled 04/04/25 by Myrna Hudson RN aspirin 81 mg PO DAILY levothyroxine 100 mcg PO .m-f levothyroxine (Levo-T) 75 mcg PO .sa-sun lisinopril 20 mg PO DAILY meclizine 25 mg PO DAILY PRN metoprolol succinate ER 50 mg PO DAILY naloxone 4 mg/actuation (Narcan) 4 mg intranasal Q2M PRN simvastatin 40 mg PO DAILY tramadol 100 mg (2 x 50 mg) PO Q12H PRN 30 days warfarin 1 mg PO DAILY PRN zolpidem 10 mg PO BEDTIME PRN Nursing Note PT.IS HERE WITH JUDY FOR EDUCATION AT INITIAL VISIT. PT.HAS BEEN ON WARFARIN FOR APPROX.10 YEARS AND WAS MONITORED BY . HIS USUAL DOSE HAS BEEN 1MGM DAILY FOR SOME TIME, BUT HAS RECENTLY BEEN OFF WARFARIN DUE TO HEMATURIA. PT.RESUMED WARFARIN ON 03/30 AT THIS DOSE. WILL CONTINUE 1MGM DAILY AND FOLLOW-UP IN 1 WEEK. THERE HAS BEEN NO FURTHER HEMATURIA. PT.DENIES ANY CP OR SOB. EDUCATION COMPLETED TODAY, WITH PT.AND DEMONSTRATING GOOD UNDERSTANDING OF DOSING INSTRUCTIONS AND MATERIALS/HANDOUTS. PT.AGREES TO CALL [facility] IF ANY FURTHER QUESTIONS/CONCERNS ARISE. Anti-Coag Initial Assessment Social Hx Tobacco use type: Cigar alcohol intake: current Alcohol intake frequency: a few times a month Housing: House current occupational exposures/hazards: No Fall risk assessment: No Falls in past year Cardiovascular Hx: HTN and Arrhythmias Endocrine Hx: Thyroid Disease Musculoskeletal Hx: Arthritis Blood Disorder Hx: Hyperlipidemia Hx: Prostate (HYX PROSTATE CANCER) Neurological Hx: Migraines/Headaches Cancer HX: Yes Anti-Coag. Education Record Teaching Recipient: Patient and Significant Other What is the easiest way to learn: Reading, Listening and Education Packet Strategic Partnership Representative Required: No Readiness To Learn: Excellent Teaching Methods: Handout Response to Teaching: Verbalize Understanding Education Intervention/Brief Description of Teaching 1. Able to state reason for taking Warfarin: Yes 2. Able to state Pain Management techniques: Yes 3. Able to state action of Warfarin.: Yes Able to state current dose, pill color, how and when Warfarin to be taken: Yes Able to identify signs of bleeding &/or clotting: Yes 4. Able to identify need to keep diet consistent in regard to vitamin K intake: Yes Able to state restriction on alcohol: Yes 5. Able to state need for compliance with PT/INR testing: Yes Describes rationale for carrying ID and wearing Medic Alert bracelet: Yes Patient instructed to monitor for excess bruising or signs/symptoms of clotting or bleeding: Yes 6. Able to state that there are drugs that interact with Warfin: Yes 7. Able to state the need to seek medical attention when illness/injury occur.: Yes Describes the need to avoid activities with high risk of injury: Yes 8. Able to state duration of treatment: Yes 9. Demonstrates understanding of notifying all providers of pending dental surgical, or other invasive procedures: Yes 10. Able to state Home Care instructions Questionnaires HAS-BLED Does the patient had uncontrolled Hypertension?: No Does the patient have renal disease?: Yes Does the patient have liver disease?: Yes Does the patient have a history of stroke?: Yes Has the patient had major bleeding or predisposition to bleeding?: Yes Does the patient have labile INRs?: No Is the patient over 65 years of age?: Yes Is the patient on medications that gives them a predisposition to bleeding?: Yes Does the patient use alcohol?: Yes HAS-BLED Score: 7 CHADSVASC Age: 75 or over Gender: Male Does the patient have a history of CHF?: No Does the patient have a history of Hypertension?: Yes Does the patient have a history of Stroke/TIA/Thromboembolism?: No Does the patient have a history of Vascular Disease (prior OR, PAD or aortic plaque)?: No Does the patient have a history of Diabetes?: No CHADS VACS Score: 3 Cole Prediction Score Rsk VTE Active Cancer: No Previous VTE, excluding superficial vein thrombosis: No Reduced mobility: No Already known Thrombophilic Condition: No With-in last month Trauma and/or Surgery: No Elderly 70 year or older: Yes Heart and/or Respiratory Failure: No Acute Myocardial infarction and/or Ischemic Stroke: No Acute Infection and/or Rheumatologic Disorder: No Obesity (BMI 30 or greater): No Ongoing Hormonal Treatment: No Score: 1 Cole Score less than 4; Low Risk of VTE Cole Score 4 or greater; High Risk of VTE Coding Level of Care Code New Patient Level 2 Diagnoses Current use of anticoagulant therapy Z79.01 Assessment & Plan Assessment & Plan (1) Current use of anticoagulant therapy: Code(s): Z79.01 - longterm (current) use of anticoagulants Category: Medical Orders: Orders AMB INR Today Z79.01 - longterm (current) use of anticoagulants
[2025-04-04 09:11] LABS: Prothrombin Time Whole Bld POC 24.9 sec (11.1-13.5); ~PT, ~INR - Anti Coag Clinic 2.1 (0.9-1.1)
--- NOTE | 2025-04-04 10:12 | MHC.OFFVISCO ---
Intake Intake Visit Reasons: Anticoagulation S Iron Worker Required: No Allergies No Known Allergies Allergy (Verified 04/04/25 09:00) Medication List - Last Reconciled 04/04/25 by Myrna Hudson RN aspirin 81 mg PO DAILY levothyroxine 100 mcg PO .m-f levothyroxine (Levo-T) 75 mcg PO .sa-sun lisinopril 20 mg PO DAILY meclizine 25 mg PO DAILY PRN metoprolol succinate ER 50 mg PO DAILY naloxone 4 mg/actuation (Narcan) 4 mg intranasal Q2M PRN simvastatin 40 mg PO DAILY tramadol 100 mg (2 x 50 mg) PO Q12H PRN 30 days warfarin 1 mg PO DAILY PRN zolpidem 10 mg PO BEDTIME PRN Nursing Note PT.IS HERE WITH JUDY FOR EDUCATION AT INITIAL VISIT. PT.HAS BEEN ON WARFARIN FOR APPROX.10 YEARS AND WAS MONITORED BY . HIS USUAL DOSE HAS BEEN 1MGM DAILY FOR SOME TIME, BUT HAS RECENTLY BEEN OFF WARFARIN DUE TO HEMATURIA. PT.RESUMED WARFARIN ON 03/30 AT THIS DOSE. WILL CONTINUE 1MGM DAILY AND FOLLOW-UP IN 1 WEEK. THERE HAS BEEN NO FURTHER HEMATURIA. PT.DENIES ANY CP OR SOB. EDUCATION COMPLETED TODAY, WITH PT.AND DEMONSTRATING GOOD UNDERSTANDING OF DOSING INSTRUCTIONS AND MATERIALS/HANDOUTS. PT.AGREES TO CALL [facility] IF ANY FURTHER QUESTIONS/CONCERNS ARISE. Anti-Coag Initial Assessment Social Hx Tobacco use type: Cigar alcohol intake: current Alcohol intake frequency: a few times a month Cardiovascular Hx: HTN and Arrhythmias Endocrine Hx: Thyroid Disease Musculoskeletal Hx: Arthritis Blood Disorder Hx: Hyperlipidemia Hx: Prostate (HYX PROSTATE CANCER) Neurological Hx: Migraines/Headaches Cancer HX: Yes Anti-Coag. Education Record S Iron Worker Required: No Education Intervention/Brief Description of Teaching 9. Demonstrates understanding of notifying all providers of pending dental 10. Able to state Home Care instructions Coding Level of Care Code New Patient Level 2 Diagnoses Current use of anticoagulant therapy Z79.01 Assessment & Plan Assessment & Plan (1) Current use of anticoagulant therapy: Code(s): Z79.01 - snf (current) use of anticoagulants Category: Medical Orders: Orders AMB INR Today Z79.01 - snf (current) use of anticoagulants
== END 2025-04-04 10:24 | disposition home or self-care (01) ==
LOC: HO.ACS 08:55
PROVIDERS: PCP Physician Assistant Medical; Visit Provider Internal Medicine Medical Oncology
DX: Z79.01 Long term (current) use of anticoagulants (principal)

== ENCOUNTER 2025-04-12 13:22 | Outpatient (AMB) | payer MEDICARE, SELFPAY ==
[2025-04-12 13:38] LABS: Prothrombin Time Whole Bld POC 31.2 sec (11.1-13.5); ~PT, ~INR - Anti Coag Clinic 2.6 (0.9-1.1)
--- NOTE | 2025-04-12 13:43 | MHC.OFFVISCO ---
Intake Intake Visit Reasons: Anticoagulation Allergies No Known Allergies Allergy (Verified 04/12/25 13:23) Medication List - Last Reconciled 04/12/25 by Aruna Samano RN aspirin 81 mg PO DAILY levothyroxine 100 mcg PO .m-f levothyroxine (Levo-T) 75 mcg PO .sa-sun lisinopril 20 mg PO DAILY meclizine 25 mg PO DAILY PRN metoprolol succinate ER 50 mg PO DAILY naloxone 4 mg/actuation (Narcan) 4 mg intranasal Q2M PRN simvastatin 40 mg PO DAILY tramadol 100 mg (2 x 50 mg) PO Q12H PRN 30 days warfarin 1 mg See Protocol PO DAILY PRN zolpidem 10 mg PO BEDTIME PRN Nursing Note INR: 2.6 in therapeutic range of 2-3 Medications and supplements reviewed No changes in health, diet, medications, or supplements, Denies any signs and symptoms of bleeding or bruising or clotting. Bleeding, bruising, clotting discussed Nutritional guidance given Dose: continue 1mg daily F/U INR: 1 week Patient verbalizes understanding of instructions given Anti-Coag Initial Assessment Social Hx Tobacco use type: Cigar alcohol intake: current Alcohol intake frequency: a few times a month Cardiovascular Hx: HTN and Arrhythmias Endocrine Hx: Thyroid Disease Musculoskeletal Hx: Arthritis Blood Disorder Hx: Hyperlipidemia Hx: Prostate (HYX PROSTATE CANCER) Neurological Hx: Migraines/Headaches Cancer HX: Yes Coding Level of Care Code Est Patient Level 1 Diagnoses Current use of anticoagulant therapy Z79.01 Assessment & Plan Assessment & Plan (1) Current use of anticoagulant therapy: Code(s): 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
--- OUTSIDE RECORDS SUMMARY | 2025-04-12 15:23 | XMS_ITS | Clinical Summary ---
Author Organization [facility] Address [address] [place] [address] [place] [phone] Phone Care Team Providers Care Construction Management Instructor Name Role Phone Pcp, Unknown Primary Care [...] Upcoming Encounters Date Type Department Care Team ([facility] Contact Info) Description 05/09/2025 9:00 AM EDT Office Visit [facility] [place] [facility] [address] [place] [address] Maya Samaniego PA-C [address] [place] [address] Health Maintenance Due Date Last Done Comments [...] MEDICARE PART A & B Care Teams Construction Management Instructor Relationship Specialty Start Date End Date Pcp, Unknown PCP - General 03/21/25 Additional Source Comments The information contained in this document represents components of the legal health record. It is not the complete legal health record.[facility]
== END 2025-04-12 13:49 | disposition home or self-care (01) ==
LOC: HO.ACS 13:22
PROVIDERS: PCP Physician Assistant Medical; Visit Provider Internal Medicine Medical Oncology
DX: Z79.01 Long term (current) use of anticoagulants (principal)

== ENCOUNTER → 2025-04-12 13:22 | Outpatient (BNVA) | payer MEDICARE, SELFPAY | PROVIDERS: PCP Physician Assistant Medical; Visit Provider Internal Medicine Medical Oncology | DX: I48.91 Unspecified atrial fibrillation (principal); Z79.01 Long term (current) use of anticoagulants; Z51.81 Encounter for therapeutic drug level monitoring | CPT/HCPCS: 85610; 99211 ==

== ENCOUNTER 2025-04-18 13:24 | Outpatient (AMB) | payer MEDICARE, SELFPAY ==
[2025-04-18 13:36] LABS: Prothrombin Time Whole Bld POC 24.8 sec (11.1-13.5); ~PT, ~INR - Anti Coag Clinic 2.1 (0.9-1.1)
--- NOTE | 2025-04-18 13:45 | MHC.OFFVISCO ---
Intake Intake Visit Reasons: Anticoagulation Allergies No Known Allergies Allergy (Verified 04/18/25 13:26) Medication List - Last Reconciled 04/18/25 by Myrna Hudson RN aspirin 81 mg PO DAILY levothyroxine 100 mcg PO .m-f levothyroxine (Levo-T) 75 mcg PO .-wed lisinopril 20 mg PO DAILY meclizine 25 mg PO DAILY PRN metoprolol succinate ER 50 mg PO DAILY naloxone 4 mg/actuation (Narcan) 4 mg intranasal Q2M PRN simvastatin 40 mg PO DAILY tramadol 100 mg (2 x 50 mg) PO Q12H PRN 30 days warfarin 1 mg See Protocol PO DAILY PRN zolpidem 10 mg PO BEDTIME Nursing Note NO CP,SOB,DIET/MED CHANGES,FALLS OR SX OF BLEEDING. CONTINUE 1MGM DAILY AND FOLLOW-UP IN 2 WEEKS GOOD UNDERSTANDING OF DOSING INSTR. Anti-Coag Initial Assessment Social Hx Tobacco use type: Cigar alcohol intake: current Alcohol intake frequency: a few times a month Cardiovascular Hx: HTN and Arrhythmias Endocrine Hx: Thyroid Disease Musculoskeletal Hx: Arthritis Blood Disorder Hx: Hyperlipidemia Hx: Prostate (HYX PROSTATE CANCER) Neurological Hx: Migraines/Headaches Cancer HX: Yes Coding Level of Care Code Est Patient Level 1 Diagnoses Current use of anticoagulant therapy Z79.01 Assessment & Plan Assessment & Plan (1) Current use of anticoagulant therapy: Code(s): Z79.01 - alf (current) use of anticoagulants Category: Medical
--- OUTSIDE RECORDS SUMMARY | 2025-04-18 15:48 | XMS_ITS | Clinical Summary ---
Author Organization [facility] Address [address] [place] [address] [place] [phone] Phone Care Team Providers Care Durable Medical Equipment Technician Name Role Phone Pcp, Unknown Primary Care [...] Upcoming Encounters Date Type Department Care Team ([facility] Contact Info) Description 05/09/2025 9:00 AM EDT Office Visit [facility] [place] [facility] [address] [place] [address] Maya Samaniego PA-C [address] [place] [address] [email or web address] Health Maintenance Due Date Last Done Comments [...] MEDICARE PART A & B Care Teams Durable Medical Equipment Technician Relationship Specialty Start Date End Date Pcp, Unknown PCP - General 03/21/25 Additional Source Comments The information contained in this document represents components of the legal health record. It is not the complete legal health record.[facility]
== END 2025-04-18 13:50 | disposition home or self-care (01) ==
LOC: HO.ACS 13:24
PROVIDERS: PCP Physician Assistant Medical; Visit Provider Internal Medicine Medical Oncology
DX: Z79.01 Long term (current) use of anticoagulants (principal)

== ENCOUNTER → 2025-04-18 13:24 | Outpatient (BNVA) | payer MEDICARE, SELFPAY | PROVIDERS: PCP Physician Assistant Medical; Visit Provider Internal Medicine Medical Oncology | DX: I48.91 Unspecified atrial fibrillation (principal); Z79.01 Long term (current) use of anticoagulants; Z51.81 Encounter for therapeutic drug level monitoring | CPT/HCPCS: 85610; 99211 ==

== ENCOUNTER 2025-04-19 14:51 | Outpatient (AMB) | payer MEDICARE, SELFPAY ==
[2025-04-19 14:52] VITALS: BP 118/76; PULSE 70; TEMP 36.2; O2SAT 98; BMI 27.5
--- NOTE | 2025-04-19 14:52 | A.OFFPC_ITS ---
Vital Signs 04/19/25 14:52 Height 5 ft 7.83 in Weight 180 lb 2 oz BMI 27.5 BP 118/76 Blood Pressure Location Rt brachial Position Sitting Pulse 70 Pulse Source Pulse Oximeter Temp 97.2 F Temp Source Temporal Artery Scan Pulse Oximetry (%) 98 Oxygen Delivery Method Room Air Intake Visit Reasons: 4 weeks Accompanied by: Spouse Allergies No Known Allergies Allergy (Verified 04/19/25 16:35) Medication List - Last Reconciled 04/19/25 by Mireya Esteves PA-C aspirin 81 mg PO DAILY levothyroxine 100 mcg PO .m-f levothyroxine (Levo-T) 75 mcg PO .sa-sun lisinopril 20 mg PO DAILY meclizine 25 mg PO DAILY PRN metoprolol succinate ER 50 mg PO DAILY naloxone 4 mg/actuation (Narcan) 4 mg intranasal Q2M PRN simvastatin 40 mg PO DAILY tramadol 50 mg PO Q12H PRN 30 days warfarin 1 mg See Protocol PO DAILY PRN zolpidem 10 mg PO BEDTIME Tobacco use date assessed: 04/19/25 Fall risk assessment: No Falls in past year Last assessed Fall Risk: 04/19/25 Dental Screening Dental Screen Date: 04/19/25 Did you have a dental visit in the last 12 months?: Yes Was dental information given to patient?: Patient has dentist HPI 4 weeks HPI Details The patient is a 80-year-old male presenting for a follow-up visit for his chronic pain. The patient has a history of opioid use, specifically tramadol, which has been gradually reduced from 240 tablets a month to 180 tablets a month to 120 tablets a month, currently taking 100 mg twice daily. The patient reports that the medication helps manage his arthritis pain, particularly in the back, which worsens with weather changes and is most severe in the morning and at night. He has tried various non-narcotic treatments, including acupuncture, patient care coordinator, and physical therapy, without significant relief. Patient already sign a narcotic contract. He already passed a drug test. He received Narcan today to take home. He reports he has already gone to pain management. Today we plan on decreasing his tramadol from 100 mg b.i.d. to 50 mg b.i.d. and he will get a total of 60 tablets today for a 30 day course. The patient has a history of prostate cancer and is under the care of an oncologist, Dr. Driscoll. There is a discussion about the appropriateness of narcotic prescriptions for cancer-related pain, with the suggestion that the onc ologist should manage such prescriptions if necessary. The patient reports a recent increase in blood pressure medication, lisinopril, from 10 mg to 20 mg, following a high blood pressure reading. Subsequently, he experienced hematuria, which he attributes to the medication change, although this was not confirmed by the clinician. [facility] Medical History Cervical stenosis of spine Chronic primary pain of cervical spine Chronic pain Vertigo Hypertension Insomnia Colonoscopy refused (~02/15/25) On warfarin at home Establishing care with new doctor, encounter for Hyperlipidemia GERD (gastroesophageal reflux disease) Thyroid disease Atrial fibrillation Bone metastases Prostate cancer Prostate nodule Elevated PSA Surgical History History of surgery Family History Father No problems noted. Mother No problems noted. Social History Housing: House Alcohol intake: current Alcohol intake frequency: a few times a month Patient Tobacco Use Status: Former Tobacco user service: No Current occupational status: retired Current occupational exposures/hazards: No Cognitive needs: No Hearing needs: No Vision needs: Yes (rx glasses) Questionnaire PHQ-9 Over the last 2 weeks, how often have you been bothered by any of the following problems? 1. Little interest or pleasure in doing things: not at all 2. Feeling down, depressed, or hopeless: not at all 3. Trouble falling or staying asleep, or sleeping too much: not at all 4. Feeling tired or having little energy: not at all 5. Poor appetite or overeating: not at all 6. Feeling bad about yourself - or that you are a failure or have let yourself or your family down: not at all 7. Trouble concentrating on things, such as reading the newspaper or watching television: not at all 8. Moving or speaking so slowly that other people could have noticed. Or the opposite - being so fidgety or restless that you have been moving around a lot more than usual: not at all 9. Thoughts that you would be better off or of hurting yourself in some way: not at all Total score: 0 Depression Screening Interpretation: Negative Depression Screening Done: Yes 59098 - PHQ-9 Billing: Yes Source: Developed by Drs. Mina Beach, Elmira Gallegos, Paco Kurtz and colleagues, with an educational kyle from [employer]. Thrive Questionnaire Date Thrive assessed: 04/19/25 I am a: Patient What is your living situation today?: I have a steady place to live Within the past 12 months, did the food you bought not last and you didn't have the money to get more?: Never true Within the past 12 months, did you worry whether your food would run out before you got money to buy more?: Never true Do you have trouble paying for medicines?: No Do you have trouble getting transportation to medical appointments?: No Do you have trouble paying your heating and electricity bill?: No Do you have trouble taking care of your child, family member or friend?: No Do you have trouble with day-to-day activities such as bathing, preparing meals, shopping, managing finances, etc.?: No Are you currently unemployed and looking for a job?: No Are you interested in more education?: No Please select the resources that you would like help with: None Currently or been in a relationship where the following occur: No concerns reported THRIVE Score: 0 AUDIT C Alcohol Use Questionnaire (AUDIT-C) 1. How often do you have a drink containing alcohol?: 2-3 times a week 2. How many drinks containing alcohol do you have on a typical day when you are drinking?: 1 or 2 3. How often do you have six or more drinks on one occasion?: Never Total Score: 3 Score Reviewed/Action Taken: No CASSI-7 AMB Questionnaire CASSI-7 Date CASSI - 7 assessed: 04/19/25 Feeling nervous, anxious, or on edge: 0 = Not at all Not being able to stop or control worryin = Not at all Worrying too much about different things: 0 = Not at all Trouble relaxin = Not at all Being so restless that it is hard to sit still: 0 = Not at all Becoming easily annoyed or irritable: 0 = Not at all Feeling afraid as if something awful might happen: 0 = Not at all Total CASSI-7 score (0-4 normal; 5-9 mild; 10-14 moderate; 15-21 severe): 0 Source: Developed by Drs. Mina Beach, Elmira Gallegos, Paco Kurtz and colleagues, with an educational kyle from [employer]. CASSI-7 Assessment Billing CASSI-7 Assessment Tool: CASSI-7 Assessment 78583 Review of Systems Const Details: - Musculoskeletal: Reports arthritis pain in the back, worsens with weather changes, severe in the morning and at night. - Genitourinary: Reports hematuria following an increase in blood pressure medication. All systems reviewed & are unremarkable except as noted in HPI and below Physical exam (Primary Care) Vital Signs: Last Vital Signs Temp 97.2 F 04/19/25 14:52 Pulse 70 04/19/25 14:52 BP 118/76 04/19/25 14:52 Pulse Ox 98 04/19/25 14:52 Oxygen Delivery Method Room Air 04/19/25 14:52 Care Plan Goal for BP management: <140/90 at Goal BMI result Body Mass Index 27.5 BMI Assessment/Plan discussion: High BMI High, discussed plan: lifestyle, weight reduction, dietary, physical activity, alcohol moderation and other Tobacco/Smoking Status: Tobacco use Status Tobacco use date assessed 04/19/25 04/19/25 14:55 Patient Tobacco Use Status Former Tobacco user 04/19/25 15:08 Tobacco use type 04/19/25 15:08 PHQ-9: PHQ-9 Score PHQ-9: Total score 0 04/19/25 15:11 Depression Screening Interpretation: Negative Thrive Assessment: Date of Thrive Assessment Date Thrive assessed 04/19/25 04/19/25 14:55 Currently or been in a relationship where the following occur: No concerns reported Const Other: Appearance: Alert. Oriented X3. No acute distress. Head: Normal external exam. Normocephalic. Atraumatic. Eyes: Pupils are equal, round, and reactive to light. Extraocular movements intact. Conjunctiva and sclera normal. Eyelids normal. Throat: Pharynx normal. Uvula midline. Moist mucous membranes. Neck: Normal inspection. Neck supple. Full range of motion. Cardiovascular: Normal heart rate and rhythm. Respiratory: No respiratory distress. Painless inspiration. Back: Full range of motion noted. Skin: Skin warm and dry. Normal skin color. Normal skin turgor. No rashes/lesions/lacerations noted. Extremities: Extremities exhibit normal range of motion. Office Procedures Flu Questionnaire Does the patient have a severe egg allergy?: No Does the patient have severe life threatening allergies?: No Does the patient have a fever or illness today?: No Has the patient ever had Guillain-[place] Syndrome?: No Has the patient ever had any past reaction to a flu shot?: No Immunizations Fluarix [id number] (PF) 45 mcg (15 mcg x 3)/0.5 mL IM syringe Performing Provider: Mireya Esteves PA-C [facility] [place] Documented (not given) by: Neris Simons CMA on 04/19/25 15:11 Reason Not Given: Received Previously Coding Level of Care Code Est Pt Level 4 (30266) Complex EM visit Add On G2211 Diagnoses Chronic pain G89.29 Cervical stenosis of spine M48.02 Prostate cancer C61 Bone metastases C79.51 Hypertension I10 Additional Codes CASSI-7 Assessment Billing - CASSI-7 Assessment Tool: CASSI-7 Assessment 70238 ([id number]) PHQ-9 - 29125 - PHQ-9 Billing: Yes ([id number]) Time Spent (min) 50 Assessment & Plan Assessment & Plan (1) Chronic pain: Code(s): G89.29 - Other chronic pain Category: Medical Plan: The patient is currently on tramadol, which has been reduced over time from 240 tablets to 180 tablets to 120 tablets per month, with the current dosage being 100 mg twice daily. There is a plan to further reduce the dosage to 60 tablets per month, with a discussion to be held with Dr. Danielle regarding future management. At this time patient will receive tramadol 50 mg b.i.d. he will receive 60 tablets for 30 day course. He received a Narcan to take home. He already signed a pain contract. He already had a negative drug screen. He is agreeable to every 30 day appointments. (2) Cervical stenosis of spine: Code(s): M48.02 - Spinal stenosis, cervical region Category: Medical Plan: The patient experiences arthritis pain, particularly in the back, which is exacerbated by weather changes and is most severe in the morning and at night. Non-narcotic treatments such as acupuncture, patient care coordinator, and physical therapy have been attempted without significant relief. (3) Prostate cancer: Comment: 10/12 Salma 4 + 3 initial therapy external beam radiation with short-term hormones [facility] Code(s): C61 - Malignant neoplasm of prostate Category: Medical Plan: The patient is under the care of an oncologist, Dr. Driscoll, for prostate cancer. There is a recommendation for the oncologist to manage any cancer-related pain medications, as the current clinic is not prescribing narcotics for cancer pain. (4) Bone metastases: Code(s): C79.51 - Secondary malignant neoplasm of bone Category: Medical Plan: The patient is under the care of an oncologist, Dr. Driscoll, for prostate cancer. There is a recommendation for the oncologist to manage any cancer-related pain medications, as the current clinic is not prescribing narcotics for cancer pain. (5) Hypertension: Code(s): I10 - Essential (primary) hypertension Category: Medical Plan: The patient's blood pressure medication, lisinopril, was increased from 10 mg to 20 mg following a high blood pressure reading. The patient reported hematuria following this change, although it was not confirmed to be related to the medication adjustment. Plan Plan Patient was informed and verbally consented to the use of an ambient scribe for clinic note documentation during this visit. 1. Opioid Use The patient is currently on tramadol, which has been reduced over time from 240 tablets to 180 tablets to 120 tablets per month, with the current dosage being 100 mg twice daily. There is a plan to further reduce the dosage to 60 tablets per month, with a discussion to be held with Dr. Danielle regarding future management. At this time patient will receive tramadol 50 mg b.i.d. he will receive 60 tablets for 30 day course. He received a Narcan to take home. He already signed a pain contract. He already had a negative drug screen. He is agreeable to every 30 day appointments.. 2. Arthritis The patient experiences arthritis pain, particularly in the back, which is exacerbated by weather changes and is most severe in the morning and at night. Non-narcotic treatments such as acupuncture, patient care coordinator, and physical therapy have been attempted without significant relief. 3. Prostate Cancer The patient is under the care of an oncologist, Dr. Driscoll, for prostate cancer. There is a recommendation for the oncologist to manage any cancer-related pain medications, as the current clinic is not prescribing narcotics for cancer pain. 4. Hypertension The patient's blood pressure medication, lisinopril, was increased from 10 mg to 20 mg following a high blood pressure reading. The patient reported hematuria following this change, although it was not confirmed to be related to the medication adjustment. During the visit, we discussed the necessity of having Narcan available due to the patient's opioid use, as per pain management guidelines. We also reviewed the patient's current tramadol dosage and the plan to reduce it further, with a follow-up discussion planned with Dr. Danielle. The patient was advised to consult with Dr. Driscoll regarding the management of any cancer-related pain. We addressed the recent increase in blood pressure medication and the subsequent report of hematuria, noting that the medication change was unlikely to be the cause. Orders: Orders Influenza [id number] Immunization Today Z23 - Encounter for immunization Medications: Changed From tramadol 100 mg (2 x 50 mg) PO Q12H PRN 120 tabs 0RF pain 30 days To tramadol 50 mg PO Q12H PRN 60 tabs 0RF pain 30 days Patient Instructions: - Ensure Narcan is available at home due to opioid use. - Follow up with Dr. Danielle regarding tramadol dosage and management. - Consult with Dr. Driscoll about cancer-related pain management. - Monitor for any further episodes of hematuria and report them to the clinic.
--- OUTSIDE RECORDS SUMMARY | 2025-04-19 19:08 | XMS_ITS | Clinical Summary ---
Author Organization [facility] Address [address] [place] [address] [place] [phone] Phone Care Team Providers Care Head Scorer Name Role Phone Pcp, Unknown Primary Care [...] Upcoming Encounters Date Type Department Care Team ([facility] Contact Info) Description 05/09/2025 9:00 AM EDT Office Visit [facility] [place] [facility] [address] [place] [address] Maya Samaniego PA-C [address] [place] [address] [email or web address] Health Maintenance Due Date Last Done Comments [...] MEDICARE PART A & B Care Teams Head Scorer Relationship Specialty Start Date End Date Pcp, Unknown PCP - General 03/21/25 Additional Source Comments The information contained in this document represents components of the legal health record. It is not the complete legal health record.[facility]
== END 2025-04-19 15:54 | disposition home or self-care (01) ==
LOC: HO.HMCSH 14:51
PROVIDERS: PCP Physician Assistant Medical; Visit Provider Physician Assistant Medical
DX: G89.29 Other chronic pain (principal); M48.02 Spinal stenosis, cervical region; C61 Malignant neoplasm of prostate; C79.51 Secondary malignant neoplasm of bone; I10 Essential (primary) hypertension; Z23 Encounter for immunization

== ENCOUNTER → 2025-04-19 14:51 | Outpatient (BNVA) | payer MEDICARE, SELFPAY | PROVIDERS: PCP Physician Assistant Medical; Visit Provider Physician Assistant Medical | DX: G89.29 Other chronic pain (principal); M48.02 Spinal stenosis, cervical region; I10 Essential (primary) hypertension; C61 Malignant neoplasm of prostate; C79.51 Secondary malignant neoplasm of bone; Z79.891 Long term (current) use of opiate analgesic; Z79.899 Other long term (current) drug therapy; Z13.31 Encounter for screening for depression; Z13.39 Encounter for screening examination for other mental health and behavioral disorders | CPT/HCPCS: 90471; 96127; 99212 ==

== ENCOUNTER 2025-04-20 09:53 | Outpatient (AMB) | payer MEDICARE, SELFPAY ==
--- NOTE | 2025-04-20 09:55 | MHC.OFFVIS ---
Intake Visit Reasons: 6m/PSA Intake Note: patient presents today for: 6mo follow up urology medications: none blood thinners: aspirin, warfarin labs done 03/15/25: PSA 0.27 Neurodiagnostic Technician Required: No Accompanied by: Self / Same As Patient Allergies No Known Allergies Allergy (Verified 04/20/25 09:55) HPI Comments Details: Orlando is pleasant male. He is a patient of Dr. Rodríguez. He is seen for the following urologic issues - prostate cancer Recent episode of hematuria Well known side effect from radiation especially in the setting of anticoagulation Appears to have been related to Coumadin and elevated INR Only lasted for 3-4 hours and resolved Discussed taking blood pressure at home using an Omron machine Continue six-month follow-up PSA PSA 02/13 <0.05, 07/16 <0.1. 02/14 <0.12, 08/18 0.17, 02/15 0.15, 10/17 0.16, 04/19 0.3 Prostate cancer: Unfavorable intermediate localized XRT plus short term hormones 03/2020 Prostate cancer was diagnosed Dr Driscoll 10/12. Diagnosis was reached by September 2019 , needle biopsy, for elevated PSA, PSA at diagnosis 4.9. The Redmon grade is 3 cores out of 12 cores Right Base Medial 40% , 4+3 = 7, Lateral 10% , 4+3 = 7 , right mid gland 30% 4+3 = 7 = 7% PNI +. TNM Classification of Malignant Tumours (TNM) T1c. The D'Bhakti (NCCN) risk category is Intermediate Risk (PSA 10-20, Gl 7, T2) Group 3. Initial therapy included Primary treatment, External Beam Radiation - Dr Zapata at [facility] - extended finasteride Recent labs included - 01/12 PSA 0.5, T 9, 10/13 0.1, T 455, 07/15 P <0.1 T 640, 11/14 <0.1 Recent imaging included 11/12 , a bone scan - sternal lesion 11/12 CT pelvis normal. Therapeutic plan: Lab work follow-up 6 months [facility] Medical History Cervical stenosis of spine Chronic primary pain of cervical spine Chronic pain Vertigo Hypertension Insomnia Colonoscopy refused (~02/15/25) On warfarin at home Establishing care with new doctor, encounter for Hyperlipidemia GERD (gastroesophageal reflux disease) Thyroid disease Atrial fibrillation Bone metastases Prostate cancer Prostate nodule Elevated PSA Surgical History History of surgery Family History Father No problems noted. Mother No problems noted. Social History Housing: House Alcohol intake: current Alcohol intake frequency: a few times a month Patient Tobacco Use Status: Former Tobacco user service: No Current occupational status: retired Current occupational exposures/hazards: No Cognitive needs: No Hearing needs: No Vision needs: Yes (rx glasses) Review of Systems Const Denies chills and Denies fever(s) Card Reports no additional complaints and Denies syncope Resp Denies cough GI Denies abdominal pain and Denies heartburn Reports as per HPI and Denies change in libido Neuro Denies syncope Psych Denies change in libido Endo Denies change in libido Physical Exam Const General: cooperative, healthy appearing, comfortable and no acute distress Orientation/consciousness: patient oriented x3 HEENT Face and sinus: Yes normal facial exam Mouth: moist mucous membranes Neck Neck: Yes normal visual inspection, Yes full ROM and Yes trachea midline Chest Chest palpation & inspection: normal inspection of the chest Resp Effort & Inspection: normal respiratory effort, able to speak in complete sentences and no respiratory distress GI Inspection: Yes normal to inspection Back/Spine/Pelvis Cervical Spine: normal cervical lordosis Thoracic/Lumbar Spine: thoracic and lumbar spine normal to inspection Skin General skin exam: no rashes or lesions noted Neuro General: patient oriented x3, gait normal, tone normal and moves all extremities Extrem General: Yes normal to inspection and Yes capillary refill normal Assessment & Plan Assessment & Plan (1) Prostate cancer: Comment: 10/12 Salma 4 + 3 initial therapy external beam radiation with short-term hormones [facility] Code(s): C61 - Malignant neoplasm of prostate Category: Medical (2) Gross hematuria: Code(s): R31.0 - Gross hematuria Category: Medical Plan Six-month follow-up PSA Patient Instructions: This note is constructed using voice recognition software. While every effort has been made to ensure accuracy internal wholesaler errors may have been included. Imaging studies, laboratory and physical exam results were discussed and reviewed in detail. No major barriers to patient understanding were identified. An opportunity to ask questions regarding the treatment plan was provided. All questions were answered. The patient expressed understanding and agreement with the above treatment plan. The patient is aware they should contact our office by phone for worsening of their current condition or the appearance of new urologic symptoms. Compliance is encouraged with any medications and followup testing that is ordered. It is a privilege to participate in the urologic care of your patient. If you have any questions or concerns regarding treatment for the above conditions, or other urologic issues, please do not hesitate to contact me. The office telephone contact is [phone]. Sincerely, Dr Guanaco Driscoll MD, [facility] - Urology Compassionate Specialist Care for the Genitourinary System Coding Level of Care Code Est Pt Level 3 (18562) Complex EM visit Add On G2211 Diagnoses Prostate cancer C61 Gross hematuria R31.0
== END 2025-04-20 10:18 | disposition home or self-care (01) ==
PROVIDERS: PCP Internal Medicine; Visit Provider Urology
DX: C61 Malignant neoplasm of prostate (principal); R31.0 Gross hematuria
CPT/HCPCS: 99213; G2211

== ENCOUNTER → 2025-04-20 09:53 | Outpatient (BNVA) | payer MEDICARE, SELFPAY | PROVIDERS: PCP Internal Medicine; Visit Provider Urology | DX: C61 Malignant neoplasm of prostate (principal); R31.0 Gross hematuria | CPT/HCPCS: 99212 ==

== ENCOUNTER 2025-05-09 13:39 | Outpatient (AMB) | payer MEDICARE, SELFPAY ==
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
[2025-05-09 13:47] LABS: Prothrombin Time Whole Bld POC 28.2 sec (11.1-13.5); ~PT, ~INR - Anti Coag Clinic 2.3 (0.9-1.1)
--- NOTE | 2025-05-09 13:53 | MHC.OFFVISCO ---
Intake Intake Visit Reasons: Anticoagulation Allergies No Known Allergies Allergy (Verified 05/09/25 13:40) Medication List - Last Reconciled 05/09/25 by Myrna Hudson RN aspirin 81 mg PO DAILY levothyroxine 100 mcg PO .m-f levothyroxine (Levo-T) 75 mcg PO .-wed lisinopril 20 mg PO DAILY meclizine 25 mg PO DAILY PRN metoprolol succinate ER 50 mg PO DAILY naloxone 4 mg/actuation (Narcan) 4 mg intranasal Q2M PRN simvastatin 40 mg PO DAILY tramadol 50 mg PO Q12H PRN 30 days warfarin 1 mg See Protocol PO DAILY PRN zolpidem 10 mg PO BEDTIME Nursing Note NO CP,SOB,DIET/MED CHANGES,FALLS OR SX OF BLEEDING. CONTINUE PRESENT DOSE AND FOLLOW-UP IN 3 WEEKS. PT.STATES THAT HE HAS HAD MINIMAL GREENS SINCE LAST VISIT AND WOULD LIKE TO RESUME CABBAGE,ETC. WILL HAVE HIS USUAL GREENS AND WILL ADJUST WARFARIN NEEDED NEXT VISIT. BALANCE OF REDS/GREENS DISCUSSED. GTOOD UNDERSTANDING OF DOSING INSTR.VERB. 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
--- OUTSIDE RECORDS SUMMARY | 2025-05-09 17:24 | XMS_ITS | Clinical Summary ---
Author Organization [facility] Address [address] [facility] [address] [place] [phone] Phone Care Team Providers Care Whizzer Operator Name Role Phone Maya Samaniego PA-C Primary Care Provider [phone] Allergies No known active allergies Medications lisinopril (PRINIVIL,ZESTR IL) 20 MG tablet Take 1 tablet by mouth every morning. 5 Active metoprolol succinate (TOPROL-XL) 50 MG 24 hr tablet Take 1 tablet by mouth every morning. 5 Active simvastatin (ZOCOR) 40 MG tablet Take 40 mg by mouth nightly at bedtime. 5 Active traMADoL (ULTRAM) 50 mg tablet Take 50 mg by mouth. 5 Active warfarin (COUMADIN) 1 MG tablet Take 1 tablet by mouth every morning. 5 Active zolpidem (AMBIEN) 10 mg tablet Take 10 mg by mouth nightly at bedtime. at bedtime. 5 Active meclizine (ANTIVERT) 25 mg tablet TAKE 1 TABLET ORALLY DAILY NEEDED FOR DIZZINESS 5 Active Active Problems Problem Noted Date Diagnosed Date Routine general medical exam ination at a health care facility 05/09/2025 Assessment & Plan (05/09/2025 10:02 AM EDT): Will obtain routine labs including CMP, lipid panel, thyroid panel as well as one-time hepatitis C screening. Discussed routine dental and eye screening. Mixed hyperlipidemia 05/09/2025 Assessment & Plan (05/09/2025 10:01 AM EDT): Managed on simvastatin 40 mg daily, will obtain a fasting lipid panel. Mass of right inguinal region 05/09/2025 Assessment & Plan (05/09/2025 10:02 AM EDT): He reports a lump in his right inguinal region that has been present for some time but has remained unchanged. On exam there is a 2 cm round, hard, nonmobile lump in the right inguinal region without overlying erythema, warmth, swelling, or tenderness to palpation. Will obtain a CBC as well as a inguinal ultrasound to further assess, especially given his history of prostate cancer. History of prostate cancer 05/09/2025 Assessment & Plan (05/09/2025 10:01 AM EDT): History of prostate cancer status post radiation following with Dr. Yeh every 6 months at [facility]. Paroxysmal atrial fibrillation 05/09/2025 Assessment & Plan (05/09/2025 10:01 AM EDT): History of A-fib currently on metoprolol 50 mg daily and warfarin 1 mg daily, following with the [facility]. Benign essential hypertension 05/09/2025 Assessment & Plan (05/09/2025 10:01 AM EDT): Well-managed on metoprolol 50 mg daily and lisinopril 20 mg daily. Degenerative disc disease, cervical 05/09/2025 Assessment & Plan (05/09/2025 10:02 AM EDT): Patient has chronic neck pain due to arthritis and degenerative disc disease. Various treatments including PT, chiropractor, acupuncture have not provided significant relief. He has been on tramadol with original prescriptions prescribed by Dr. Rodríguez at 100 mg every 6 hours as needed but has recently been tapered down to 50 mg every 12 hours by his previous PCP from [facility]. Patient reports that he is currently out of [...] not have him go back up to his original dosage. Controlled substance agreement signed in the office today which was discussed in depth. Margie was reviewed and he will not be due for his tramadol prescription until 05/19/2025. Psychophysiological insomnia 05/09/2025 Assessment & Plan (05/09/2025 10:02 AM EDT): History of chronic insomnia for which it is managed with zolpidem 10 mg nightly. Controlled substance agreement signed in the office today. Patient will not be due for zolpidem refill until 05/19/2025. Vertigo 05/09/2025 Assessment & Plan (05/09/2025 10:02 AM EDT): History of vertigo for which he takes meclizine as needed for dizziness. Encounters Date Type Department Care Team Description 05/09/2025 9:00 AM EDT Office Visit [facility] [place] [facility] [address] [place] [address] Maya Samaniego PA-C Routine general medical examination at a health care facility (Primary Dx); Need for hepatitis C screening test; Mixed hyperlipidemia; Mass of right inguinal region; History of prostate cancer; Paroxysmal atrial fibrillation; Benign essential hypertension; Degenerative disc disease, cervical; Psychophysiological insomnia; Vertigo from Last 3 Months Immunizations Immunization Administration Dates Next Due INFLUENZA, SPLIT VIRUS, TRIV ALENT W/ PRESERVATIVE IM 04/17/2024,05/01/2016 Influenza High-Dose Trivalen t Preservative Free IM 04/24/2025 Influenza Quadrivalent MDCK w/Preservative IM 04/26/2020,03/31/2019 Influenza Quadrivalent w/ Preservative IM 04/22/2023,04/17/2022,03/21/2021,2017,04/29/2017 Influenza, Unspecified Formulation 04/29/2015 Family History Medical History Relation Comments Heart attack Brother 1 Heart attack Brother 2 Lung cancer Brother 3 smoker Heart failure Brother 4 Lung cancer Sister smoker Relation Status Comments Brother 1 Brother 2 Brother 3 Brother 4 Father Mother Sister Social History Tobacco Use Types Packs/Day Years [...] on file Sexual Orientation Not on file Last Filed Vital Signs Vital Sign Reading [...] Mass Index 28.04 05/09/2025 8:55 AM EDT Plan of Treatment Upcoming Encounters Date Type Department Care Team (Late st Contact Info) Description 08/08/2025 9:40 AM EST Office Visit [facility] Internal Medicine [address] [place] [address] Maya Samaniego PA-C [address] [place] [address] [email or web address] Health Maintenance Due Date Last Done Comments Adult Td,Tdap Booster 1945 CREATININE LEVEL 1945 LIPID PANEL 1946 POTASSIUM LEVEL 1945 HEPATITIS C SCREENING 1964 PNEUMOCOCCAL VACCINES (50+ years) (1 of 1 - PCV) 1996 ZOSTER VACCINES (1 of 2) 1996 RSV VACCINE (1 - 1-dose 75+ series) 2021 COVID-19 VACCINE (2024- season) 2025 06/25/2021, 10/11/2020, 09/18/2020 BLOOD PRESSURE 11/07/2025 05/09/2025 DEPRESSION SCREENING 05/09/2026 05/09/2025 INFLUENZA VACCINE Completed 04/24/2025, , 04/22/2023, Additional history exists SMOKING STATUS SCREENING (Once After 26 Yrs) Completed 05/09/2025 HEPATITIS A VACCINES Aged Out No long [...] MEDICARE PART A & B Care Teams Whizzer Operator Relationship Specialty Start Date End Date Maya Samaniego PA-C [address] [place] [phone] [email or web address] PCP - General Physician Card Filer 05/09/25 Additional Source Comments The information contained in this document represents components of the legal health record. It is not the complete legal health record.[facility]
== END 2025-05-09 13:56 | disposition home or self-care (01) ==
LOC: HO.ACS 13:39
PROVIDERS: Visit Provider Internal Medicine Medical Oncology
DX: Z79.01 Long term (current) use of anticoagulants (principal)

== ENCOUNTER → 2025-05-09 13:39 | Outpatient (BNVA) | payer MEDICARE, SELFPAY | PROVIDERS: PCP Internal Medicine; Visit Provider Internal Medicine Medical Oncology | DX: I48.91 Unspecified atrial fibrillation (principal); Z79.01 Long term (current) use of anticoagulants; Z51.81 Encounter for therapeutic drug level monitoring | CPT/HCPCS: 85610; 99211 ==

== ENCOUNTER 2025-05-30 09:41 | Outpatient (AMB) | payer MEDICARE, SELFPAY ==
--- NOTE | 2025-05-30 10:03 | MHC.OFFVISCO ---
Intake Intake Visit Reasons: Anticoagulation Allergies No Known Allergies Allergy (Verified 05/30/25 09:59) Medication List - Last Reconciled 05/30/25 by Divine Carey RN aspirin 81 mg PO DAILY levothyroxine 100 mcg PO .-f levothyroxine (Levo-T) 75 mcg PO .-wed lisinopril 20 mg PO DAILY meclizine 25 mg PO DAILY PRN metoprolol succinate ER 50 mg PO DAILY naloxone 4 mg/actuation (Narcan) 4 mg intranasal Q2M PRN simvastatin 40 mg PO DAILY tramadol 50 mg PO Q12H PRN 30 days warfarin 1 mg See Protocol PO DAILY PRN zolpidem 10 mg PO BEDTIME Nursing Note INR: 2.8- in therapeutic range 2-3 Medications and supplements reviewed- no changes No changes in health, diet, medications, or supplements, Denies any signs and symptoms of bleeding or bruising or clotting. Bleeding, bruising, clotting discussed Nutritional guidance given Dose: 1mg x 7 F/U INR: 3 weeks Patient verbalizes understanding of instructions given pt states having biopsy on 07/05/25 due to 'lump' groin. pt instructed to see if warfarin needs to be held prior to proc. Anti-Coag Initial Assessment Social Hx Patient Tobacco Use Status: Former Tobacco user alcohol intake: current Alcohol intake frequency: a few times a month Cardiovascular Hx: HTN and Arrhythmias Endocrine Hx: Thyroid Disease Musculoskeletal Hx: Arthritis Blood Disorder Hx: Hyperlipidemia Hx: Prostate (HYX PROSTATE CANCER) Neurological Hx: Migraines/Headaches Cancer HX: Yes Coding Level of Care Code Est Patient Level 1 Diagnoses Current use of anticoagulant therapy Z79.01 Assessment & Plan Assessment & Plan (1) Current use of anticoagulant therapy: Code(s): Z79.01 - group home (current) use of anticoagulants Category: Medical
[2025-05-30 10:04] LABS: Prothrombin Time Whole Bld POC 33.1 sec (11.1-13.5); ~PT, ~INR - Anti Coag Clinic 2.8 (0.9-1.1)
--- OUTSIDE RECORDS SUMMARY | 2025-05-30 10:50 | XMS_ITS | Encounter Summary ---
Author Organization [facility] Address [address] [facility] [address] [place] [phone] Phone Care Team Providers Care Lending Activities Supervisor Name Role Phone Maya Samaniego PA-C Primary Care Provider Reason for Visit * Reason Onset Date Comments Question on Warfarin 05/30/2025 Encounter Details Date Type Department Care Team (Late st Contact Info) Description 05/30/2025 Telephone [employer] [facility] Internal Medicine [address] [place], [place] [phone] Maya Samaniego PA-C [address] [place] [address] [email or web address] Question on Warfarin Social History Tobacco Use Types Packs/Day Years Used Date Smoking Tobacco: Never Smokeless Tobacco: Never Alcohol Use Standard Drinks/Week Comments Yes 0 [...] on file documented as of this encounter Progress Notes * Osmin Dang - 05/30/2025 10:42 AM EST Patient called states he has a biopsy of a groin lump scheduled with Dr. Uriostegui on 07/05. Their office told him to check with provider if he should come off of Warfarin prior to the biopsy. Please advise. documented in this encounter Plan of Treatment Upcoming Encounters Date Type Department Care Team (Late st Contact Info) Description 07/05/2025 1:30 PM EST Office Visit [facility] Care [address] [place] [address] Neris Cevallos MD [address] [facility], 2nd [place] [address] [email or web address] 08/08/2025 9:40 AM EST Office Visit [facility] Internal Medicine [address] [place] [address] Maya Samaniego PA-C [address] [place] [address] [email or web address] documented as of this encounter Visit Diagnoses Not on filedocumented in this encounter Additional Health Concerns Assessment Noted Time PHQ-2 Depression Total Score: 0 05/09/20 9:08 AM EDT documented as of this encounter Care Teams Lending Activities Supervisor Relationship Specialty Start Date End Date Maya Samaniego PA-C [address] [place] [address] [email or web address] PCP - General Physician Trace Evidence Technician 05/09/25 documented as of this encounter Additional Source Comments The information contained in this document represents components of the legal health record. It is not the complete legal health record.[facility]
--- OUTSIDE RECORDS SUMMARY | 2025-05-30 10:50 | XMS_ITS | Clinical Summary ---
Author Organization [facility] Address [address] [facility] [address] [place] [phone] Phone Care Team Providers Care Administrative Assistant Receptionist Name Role Phone Maya Samaniego PA-C Primary Care Provider Allergies No known active allergies Medications lisinopril (PRINIVIL,ZESTR IL) 20 MG tablet Take 1 tablet by mouth every morning. 5 Active simvastatin (ZOCOR) 40 MG tablet Take 40 mg by mouth nightly at bedtime. 5 Active warfarin (COUMADIN) 1 MG tablet Take 1 tablet by mouth every morning. 5 Active meclizine (ANTIVERT) 25 mg tablet TAKE 1 TABLET ORALLY DAILY NEEDED FOR DIZZINESS 5 Active traMADoL (ULTRAM) 50 mg tabletIndicatio ns:Degenerative disc disease, cervical Take 1 tablet (50 mg total) by mouth every 8 (eight) hours as needed for pain (specific location in comments) (Chronic neck pain). 90 tablet 5 Active zolpidem (AMBIEN) 10 mg tabletIndicatio ns:Psychophysio logical insomnia Take 1 tablet (10 mg total) by mouth nightly at bedtime. 30 tablet 5 Active metoprolol succinate (TOPROL-XL) 50 MG 24 hr tablet Take 1 tablet (50 mg total) by mouth every morning. 90 tablet 1 5 Active metoprolol succinate (TOPROL-XL) 50 MG 24 hr tablet Take 1 tablet by mouth every morning. 5 05/21/20 25 Discontinu ed(Reorder ) traMADoL (ULTRAM) 50 mg tablet Take 50 mg by mouth. 05/18/20 Discontinu ed(Reorder ) zolpidem (AMBIEN) 10 mg tablet Take 10 mg by mouth nightly at bedtime. at bedtime. 05/18/20 Discontinu ed(Reorder ) Active Problems Problem Noted Date Diagnosed Date [...] with Dr. Yeh every 6 months at [facility]. Paroxysmal atrial fibrillation 05/09/2025 Assessment & Plan (05/09/2025 10:01 AM EDT): History of A-fib currently on metoprolol 50 mg daily and warfarin 1 mg daily, following with the [facility]. Benign essential hypertension 05/09/2025 Assessment [...] 12 hours by his previous PCP from [facility]. Patient reports that he is currently out [...] Encounters Date Type Department Care Team Description 05/30/2025 Telephone [facility] Internal Medicine [address] [facility] [place] [address] Maya Samaniego PA-C Question on Warfarin 05/21/2025 Refill [facility] Internal Medicine [address] [place] [address] Agnie Tripp [place] Medication Refill 05/18/2025 2:13 PM EDT - 05/18/2025 11:59 PM EDT Hospital Encounter [address] [address] Maya Samaniego PA-C Discharge Disposition: Home or Self Care 05/18/2025 Telephone [facility] Internal Medicine [address] [place] [address] Maya Samaniego PA-C Results 05/18/2025 Refill [facility] Internal Medicine [address] [place] [address] Maya Samaniego PA-C Medication Refill 05/09/2025 9:00 AM EDT Office Visit [facility] Internal Medicine [address] [place] [address] Maya Samaniego PA-C Routine general medical examination [...] Description 07/05/2025 1:30 PM EST Office Visit [facility] General Surgical Care [address] [place] [address] Neris Cevallos MD [address] [facility], 2nd [place] [address] 08/08/2025 9:40 AM EST Office Visit [facility] Internal Medicine [address] [place] [address] Maya Samaniego PA-C [address] [place] [address] [email or web address] Health Maintenance Due Date Last Done Comments Adult Td,Tdap Booster 1945 CREATININE LEVEL 1946 LIPID PANEL 1946 POTASSIUM LEVEL 1946 HEPATITIS C SCREENING 1964 PNEUMOCOCCAL VACCINES (50+ years) (1 of 1 - PCV) 1996 ZOSTER VACCINES (1 of 2) 1996 RSV VACCINE (1 - 1-dose 75+ series) 2021 COVID-19 VACCINE (4 - 2024- season) 2025 06/25/2021, 10/11/2020, 09/18/2020 BLOOD PRESSURE [...] this topic Medical Devices Not on file Procedures Procedure Name Priority Date/Time Associated Diagnosis Comments US INGUINAL NON-HERNIA EVALUATION (RIGHT) Routine 05/18/2025 2:23 PM EDT Mass of right inguinal region OUTSIDE PATHOLOGY 05/10/2025 OUTSIDE PATHOLOGY 05/10/2025 OUTSIDE LAB 05/10/2025 OUTSIDE LAB 05/10/2025 OUTSIDE LAB 05/10/2025 OUTSIDE LAB 05/10/2025 OUTSIDE IMAGING 05/10/2025 OUTSIDE IMAGING 05/10/2025 OUTSIDE IMAGING 05/10/2025 OUTSIDE IMAGING 05/10/2025 OUTSIDE IMAGING 05/10/2025 from Last 3 Months Results * US INGUINAL NON-HERNIA EVALUATION (RIGHT) (05/18/2025 2:23 PM EDT) Anatomical Region Laterality Modality Chest Ultrasound 05/18/2025 2:33 PM EDT Impressions 05/18/2025 2:39 PM EDT 1. Subcutaneous right inguinal mass, presumably at the site of the reported palpable abnormality measures up to 1.7 cm. The exact etiology of this finding is uncertain. Biopsy may be warranted for histologic evaluation. 2. An adjacent prominent, but not pathologically enlarged lymph node with preserved fatty hilum is noted, possibly reactive. 3. Further oncologic evaluation recommended. Options include biopsy, cross- sectional imaging with CT or PET/CT, or surgery. Narrative 05/18/2025 2:39 PM EDT US INGUINAL NON-HERNIA EVALUATION (RIGHT) Referring clinician's provided indication for this examination in [facility]: Lump Or Thickening Right; 2cm lump in right inguinal region COMPARISON: None available FINDINGS: Please note, the patient does not feel lump at the time of this exam. This decreases the sensitivity of this exam. In the right inguinal region, there is a subcutaneous oval-shaped hypoechoic mass measuring 1.7 x 1.3 x 1.6 cm. Adjacent to this mass is a prominent lymph node measuring 3.7 x 0.9 x 1.5 cm with preserved fatty hilum. Procedure Note Bernardo Zaragoza MD - 05/18/2025 US INGUINAL NON-HERNIA EVALUATION (RIGHT) Referring clinician's provided indication for this examination in [facility]:Lump Or Thickening Right; 2cm lump in right inguinal region COMPARISON: None available FINDINGS: Please note, the patient does not feel lump at the time of thisexam. This decreases the sensitivity of this exam. In the right inguinal region, there is a subcutaneous oval-shapedhypoechoic mass measuring 1.7 x 1.3 x 1.6 cm. Adjacent to this mass is a prominent lymph node measuring 3.7 x 0.9 x 1.5cm with preserved fatty hilum. IMPRESSION: 1. Subcutaneous right inguinal mass, presumably at the site of thereported palpable abnormality measures up to 1.7 cm. The exact etiology ofthis finding is uncertain. Biopsy may be warranted for histologicevaluation. 2. An adjacent prominent, but not pathologically enlarged lymph node withpreserved fatty hilum is noted, possibly reactive. 3. Further oncologic evaluation recommended. Options include biopsy,cross- sectional imaging with CT or PET/CT, or surgery. Maya Samaniego PA-C IMG US EXTREMITY Final Resul t * Outside Imaging Report Only (05/10/2025) us Scanning Interface Provider IMG XR CHEST Emily l Result * Outside Imaging Report Only (05/10/2025) us Scanning Interface Provider IMG XR CHEST Emily l Result * Outside Imaging Report Only (05/10/2025) us Scanning Interface Provider IMG XR CHEST Emily l Result * Outside Imaging Report Only (05/10/2025) us Scanning Interface Provider IMG XR CHEST Emily l Result * Outside Imaging Report Only (05/10/2025) us Scanning Interface Provider IMG XR CHEST Emily l Result * Outside Lab (05/10/2025) Only the most recent of4 resultswithin the time period is included. us Scanning Interface Provider LAB BLOOD BKR ORDERA BLES Final Result * Outside Pathology (05/10/2025) Only the most recent of2 resultswithin the time period is included. us Scanning Interface Provider PATHOLOGY ORDERABLES Final Result from Last 3 Months Insurance [employer] PPO MEDICARE REPLACEMENT MEDICARE PART A & B [employer] O MEDICARE REPLACEMENT MEDICARE PART A & B [employer] O MEDICARE REPLACEMENT MEDICARE PART A & B [employer] PPO MEDICARE REPLACEMENT MEDICARE PART A & B [employer] PPO MEDICARE REPLACEMENT MEDICARE PART A & B [employer] PPO MEDICARE REPLACEMENT MEDICARE PART A & B Care Teams Administrative Assistant Receptionist Relationship Specialty Start Date End Date Samaniego, Maya, PA-C [address] [place] [phone] [email or web address] PCP - General Physician Hand Woven Carpet And Rug Mender 05/09/25 Additional Source Comments The information contained in this document represents components of the legal health record. It is not the complete legal health record.[facility]
== END 2025-05-30 10:33 | disposition home or self-care (01) ==
LOC: HO.ACS 09:41
PROVIDERS: Visit Provider Internal Medicine Medical Oncology
DX: Z79.01 Long term (current) use of anticoagulants (principal)

== ENCOUNTER → 2025-05-30 09:41 | Outpatient (BNVA) | payer MEDICARE, SELFPAY | PROVIDERS: Visit Provider Internal Medicine Medical Oncology | DX: Z79.01 Long term (current) use of anticoagulants (principal) | CPT/HCPCS: 85610; 99211 ==

== ENCOUNTER 2025-06-20 12:59 | Outpatient (AMB) | payer MEDICARE, SELFPAY ==
--- NOTE | 2025-06-20 13:14 | MHC.OFFVISCO ---
Intake Intake Visit Reasons: Anticoagulation Allergies No Known Allergies Allergy (Verified 06/20/25 12:59) Medication List - Last Reconciled 06/20/25 by Divine Carey RN aspirin 81 mg PO DAILY levothyroxine 100 mcg PO .-f levothyroxine (Levo-T) 75 mcg PO .-wed lisinopril 20 mg PO DAILY meclizine 25 mg PO DAILY PRN metoprolol succinate ER 50 mg PO DAILY naloxone 4 mg/actuation (Narcan) 4 mg intranasal Q2M PRN simvastatin 40 mg PO DAILY tramadol 50 mg PO Q12H PRN 30 days warfarin 1 mg See Protocol PO DAILY PRN zolpidem 10 mg PO BEDTIME Nursing Note INR 3.2-?? out of therapeutic range of 2-3 Medications and supplements reviewed Patient status: pt states having biopsy on 06/26/25- t/c to Dr Aliza Moe - spoke to Michelle. she states pcp has approved 5 day hold of warfarin with no lovenox bridge. pt states takes warfarin in the am Medications or supplements: no changes Diet: same Denies any signs and symptoms of bleeding or clotting or unusual bruising Bleeding, bruising, clotting discussed Nutritional guidance given: eat a green today Dose: pt takes warfarin in am- start 5 day hold tomm avoid greens when restarting warfarin F/U INR Date : 06/29/25? Patient verbalizing understanding of instructions given. written instructions warfarin dosing and dietary management reviewed with pt and given to pt for home Anti-Coag Initial Assessment Social Hx Patient Tobacco Use Status: Former Tobacco user alcohol intake: current Alcohol intake frequency: a few times a month Cardiovascular Hx: HTN and Arrhythmias Endocrine Hx: Thyroid Disease Musculoskeletal Hx: Arthritis Blood Disorder Hx: Hyperlipidemia Hx: Prostate (HYX PROSTATE CANCER) Neurological Hx: Migraines/Headaches Cancer HX: Yes Coding Level of Care Code Est Patient Level 1 Diagnoses Current use of anticoagulant therapy Z79.01 Assessment & Plan Assessment & Plan (1) Current use of anticoagulant therapy: Code(s): Z79.01 - senior living (current) use of anticoagulants Category: Medical
[2025-06-20 13:15] LABS: Prothrombin Time Whole Bld POC 38.2 sec (11.1-13.5); ~PT, ~INR - Anti Coag Clinic 3.2 (0.9-1.1)
--- OUTSIDE RECORDS SUMMARY | 2025-06-20 16:04 | XMS_ITS | Clinical Summary ---
Author Organization [facility] Address [address] [facility] [address] [place] [phone] Phone Care Team Providers Care Optical Engineering Technician Name Role Phone Maya Samaniego PA-C Primary [...] ORALLY DAILY NEEDED FOR DIZZINESS 5 Active metoprolol succinate (TOPROL-XL) 50 MG 24 hr tablet Take 1 tablet (50 mg total) by mouth every morning. 90 tablet 1 5 Active levothyroxine (SYNTHROID, LEVOTHROID) 100 MCG tablet Take 100 mcg by mouth every morning. 100 mcg on weekdays, 75 mcg weekends Active butalbital-acet aminophen-caffe ine (FIORICET, ESGIC) 50-325-40 mg per tablet Take 1 tablet by mouth every 4 (four) hours as needed for pain (specific location in comments). Active baclofen (LIORESAL) 10 MG tablet Take 10 mg by mouth as needed for spasm. Active traMADoL (ULTRAM) 50 mg tabletIndicatio ns:Degenerative disc disease, cervical Take 1 tablet (50 mg total) by mouth every 8 (eight) hours as needed for pain (specific location in comments) (Chronic neck pain). 90 tablet 5 Active zolpidem (AMBIEN) 10 mg tabletIndicatio ns:Psychophysio logical insomnia Take 1 tablet (10 mg total) by mouth nightly at bedtime. 30 tablet 5 Active traMADoL (ULTRAM) 50 mg tabletIndicatio ns:Degenerative disc disease, cervical Take 1 tablet (50 mg total) by mouth every 8 (eight) hours as needed for pain (specific location in comments) (Chronic neck pain). 90 tablet 5 06/19/20 Discontinu ed(Reorder ) zolpidem (AMBIEN) 10 mg tabletIndicatio ns:Psychophysio logical insomnia Take 1 tablet (10 mg total) by mouth nightly at bedtime. 30 tablet 5 06/19/20 Discontinu ed(Reorder ) levothyroxine (SYNTHROID, LEVOTHROID) 100 MCG tablet TAKE 1 TABLET BY MOUTH DAILY WEDNESDAY THROUGH Wednesday 5 06/11/20 Discontinu ed(No longer taking) Active Problems Problem Noted Date Diagnosed Date Lymphadenopathy 06/11/2025 Assessment & Plan (06/11/2025 10:27 AM EST): This is a 80-year-old gentleman with about a 2-month history of a lump in his right groin. Patient underwent ultrasound that shows a 3.7 cm lymph node in the right groin of unknown etiology. The patient does not have any associated symptoms that go along with this enlarged lymph node. The patient does take warfarin for his paroxysmal atrial fibrillation. We will contact his primary care physician to make sure that it is okay that he is off his warfarin for 5 days prior to the procedure and a couple days afterwards. I have discussed excisional lymph node biopsy for the right groin in detail with the patient and his and they agree to proceed. I answered all their questions to their satisfaction. We will schedule this for sometime in the near future. I have ordered a PT PTT for preoperative evaluation. Routine general medical exam in[facility] at a [facility] 05/09/2025 Assessment & Plan (05/09/2025 10:02 [...] with Dr. Yeh every 6 months at [facility]. Paroxysmal atrial fibrillation 05/09/2025 Assessment & Plan (05/09/2025 10:01 AM EDT): History of A-fib currently on metoprolol 50 mg daily and warfarin 1 mg daily, following with the [facility]. Benign essential hypertension 05/09/2025 Assessment [...] 12 hours by his previous PCP from [facility]. Patient reports that he is [...] Encounters Date Type Department Care Team Description 06/19/2025 Refill [facility] [address] [place] [address] Maya Samaniego PA-C Medication Refill 06/11/2025 9:30 AM EST Office Visit [facility] [address] [place] [address] Aliza Moe MD Lymphadenopathy (Primary Dx) 06/11/2025 Telephone [facility] [address] [place] [address] Aliza Moe MD 06/05/2025 Telephone [facility] [address] [facility] [place] [address] Maya Samaniego PA-C Results 05/30/2025 Telephone [facility] [address] [place] [address] Maya Samaniego PA-C Question on Warfarin 05/21/2025 Refill [facility] [address] [place] [address] Angie Tripp MA Medication Refill 05/18/2025 2:13 PM EDT - 05/18/2025 11:59 PM EDT Hospital Encounter [address] [address] Maya Samaniego PA-C Discharge Disposition: Home or Self Care 05/18/2025 Telephone [facility] [address] [place] [address] Maya Samaniego PA-C Results 05/18/2025 Refill [facility] [address] [place] [address] Maya Samaniego PA-C Medication Refill 05/09/2025 9:00 AM EDT Office Visit [facility] [address] [place] [address] Maya Samaniego PA-C Routine general medical examination [...] Date Smoking Tobacco: Never Smokeless Tobacco: Never Comments:Previous history of cigar use Alcohol Use Standard Drinks/Week Comments Yes 2 (1 standard drink = 0.6 oz pur [...] is your housing situation today? I have edan sing 05/09/2025 How many times have you [...] Sign Reading Time Taken Comments Blood Pressure 110/64 06/11/2025 9:47 AM EST Pulse 63 06/11/2025 9:47 AM EST Temperature 36.3 C (97.3 F) 06/11/2025 9:47 AM EST Respiratory Rate 27 05/09/2025 8:55 AM EDT Oxygen Saturation 96% 06/11/2025 9:47 AM EST Inhaled Oxygen Concentration - - Weight 83 kg (183 lb) 06/12/2025 1:22 PM EST Height 172.7 cm (5' 8 ) 06/12/2025 1:22 PM EST Body Mass Index 27.83 06/12/2025 1:22 PM EST Plan of Treatment Upcoming Encounters Date Type Department Care Team (Latest Contact Info) Description 06/25/2025 8:30 AM EST Pre-Admission Testing Pre Procedure Evaluation [address] [place] [address] Aliza Moe MD [address] [place] [phone] [email or web address] 06/26/2025 Procedure Pass OR Admitting Dept - Virtual Department [address] [place] [phone] 06/26/2025 11:45 AM EST Hospital Encounter OR Admitting Dept - Virtual Department [address] [place] [address] Aliza Moe MD [address] [place] [phone] [email or web address] 06/26/2025 11:45 AM EST Anesthesia Event OR Admitting Dept - Virtual Department [address] [place] [address] Rafita Lin Jr., DO [address] [place] [address] [email or web address] 06/26/2025 11:45 AM EST - 06/26/2025 1:00 PM EST Surgery OR Admitting Dept - Virtual Department [address] [place] [address] Aliza Meo MD [address] [facility], 2nd [place] [address] [email or web address] BIOPSY LYMPH NODE RIGHT INGUINAL 08/08/2025 9:40 AM EST Office Visit [facility] [address] [place] [address] Maya Samaniego PA-C [address] [place] [address] [email or web address] Scheduled Procedures Name Priority Associated Diagnoses Date/Ti me BIOPSY LYMPH NODE INGUINAL Lymphadenopathy 06/26/2025 11:45 AM EST Health Maintenance Due Date Last Done Comments Adult Td,Tdap Booster 1945 PNEUMOCOCCAL VACCINES (50+ years) (1 of 1 - PCV) 1996 ZOSTER VACCINES (1 of 2) 1996 RSV VACCINE (1 - 1-dose 75+ series) 2021 COVID-19 VACCINE ( - 2024- season) 2025 06/25/2021, 10/11/2020, 09/18/2020 BLOOD PRESSURE 12/09/2025 06/11/2025 DEPRESSION SCREENING 05/09/2026 05/09/2025 CREATININE LEVEL 06/05/2026 06/05/2025 POTASSIUM LEVEL 06/05/2026 06/05/2025 TSH LEVEL 06/05/2026 06/05/2025 LIPID PANEL 06/05/2030 06/05/2025 INFLUENZA VACCINE Completed 04/24/2025, , 04/22/2023, Additional history exists HEPATITIS C SCREENING Completed 06/05/2025 SMOKING STATUS SCREENING (Once After 26 Yrs) Completed 06/12/2025 HEPATITIS A VACCINES Aged Out No long [...] on patient's age to complete this topic Goals Goal Patient Goal Type Associated Problems Recent Progress Patient-Stated? Author Autogenerat ed Goal Care Plan Autogenerated Problem No Katty Gómez Medical Devices Implanted Type Area V Belt Builder Device Identifier Shelf Expiration Date Model / Serial / Lot Stent Stent Left: Leg Procedures Procedure Name Priority Date/Time Associated Diagnosis Comments CBC AND DIFFERENTIAL Routine 06/05/2025 9:40 AM EST Mass of right inguinal region CBC AND DIFFERENTIAL Routine 06/05/2025 9:40 AM EST Mass of right inguinal region COMPREHENSIVE METABOLIC PANEL (CMP) Routine 06/05/2025 9:40 AM EST Routine general medical examination at a health care facility LIPID PANEL Routine 06/05/2025 9:40 AM EST Routine general medical examination at a health care facility Mixed hyperlipidemia TSH WITH REFLEX Routine 06/05/2025 9:40 AM EST Routine general medical examination at a health care facility HEPATITIS C ANTIBODY, QUALITATIVE Routine 06/05/2025 9:40 AM EST Need for hepatitis C screening test US INGUINAL NON-HERNIA EVALUATION (RIGHT) Routine 05/18/2025 2:23 PM EDT Mass of right inguinal region OUTSIDE PATHOLOGY 05/10/2025 OUTSIDE PATHOLOGY 05/10/2025 OUTSIDE LAB 05/10/2025 OUTSIDE LAB 05/10/2025 OUTSIDE LAB 05/10/2025 OUTSIDE LAB 05/10/2025 OUTSIDE IMAGING 05/10/2025 OUTSIDE IMAGING 05/10/2025 OUTSIDE IMAGING 05/10/2025 OUTSIDE IMAGING 05/10/2025 OUTSIDE IMAGING 05/10/2025 from Last 3 Months Results * Comprehensive Metabolic Panel (CMP) (06/05/2025 9:40 AM EST) Sodium 138 136 - 145 mmol/L 06/05/2025 2:45 PM [facility] Potassium 4.5 3.4 - 5.1 mmol/L 06/05/2025 2:45 PM [facility] Chloride 104 98 - 107 mmol/L 06/05/2025 2:45 PM [facility] CO2 24 20 - 31 mmol/L 06/05/2025 2:45 PM [facility] Anion Gap 10 3 - 17 mmol/L 06/05/2025 2:45 PM [facility] BUN 21 6 - 23 mg/dL 06/05/2025 2:45 PM [facility] Creatinine 0.90 0.60 - 1.30 mg/dL 06/05/2025 2:45 PM [facility] eGFR 87 >59 mL/min/1.7 3m2 06/05/2025 2:45 PM [facility] Comment:Estimated glomerular filtration rate calculated using the CKD-EPI refit equation. Glucose 94 70 - 99 mg/dL 06/05/2025 2:45 PM [facility] Calcium 8.7 8.5 - 10.5 mg/dL 06/05/2025 2:45 PM [facility] AST 27 <40 U/L 06/05/2025 2:45 PM [facility] ALT 19 <50 U/L 06/05/2025 2:45 PM [facility] Alkaline Phosphatase 67 40 - 130 U/L 06/05/2025 2:45 PM [facility] Bilirubin, Total 0.5 0.0 - 1.2 mg/dL 06/05/2025 2:45 PM [facility] Total Protein 7.2 6.4 - 8.3 g/dL 06/05/2025 2:45 PM [facility] Albumin 4.1 3.5 - 5.2 g/dL 06/05/2025 2:45 PM [facility] Globulin 3.1 1.9 - 4.1 g/dL 06/05/2025 2:45 PM [facility] Blood 06/05/2025 9:40 AM EST 06/05/2025 9:40 AM EST Maya Samaniego PA-C LAB BLOOD BKR ORDERABLES Fin al Result [facility] [address] [place] [address] * (ABNORMAL) CBC and Differential (06/05/2025 9:40 AM EST) WBC 6.70 4.00 - 11.00 K/uL 06/05/2025 1:25 PM [facility] RBC 4.35(L) 4.50 - 5.90 M/uL 06/05/2025 1:25 PM [facility] Hemoglobin 14.0 13.5 - 17.5 g/dL 06/05/2025 1:25 PM [facility] Hematocrit 40.9(L) 41.0 - 53.0 % 06/05/2025 1:25 PM [facility] MCV 94.0 80.0 - 100.0 fL 06/05/2025 1:25 PM [facility] MCH 32.2(H) 27.0 - 31.0 pg 06/05/2025 1:25 PM [facility] MCHC 34.2 32.0 - 36.0 g/dL 06/05/2025 1:25 PM [facility] MPV 10.3 8.4 - 12.0 fL 06/05/2025 1:25 PM [facility] RDW-CV 13.0 11.5 - 14.5 % 06/05/2025 1:25 PM [facility] PLT 202 150 - 450 K/uL 06/05/2025 1:25 PM [facility] Neutrophils 62.5 % 06/05/2025 1:25 PM [facility] Lymphocytes 22.5 % 06/05/2025 1:25 PM [facility] Monocytes 9.4 % 06/05/2025 1:25 PM [facility] Eosinophils 4.3 % 06/05/2025 1:25 PM [facility] Basophils 1.0 % 06/05/2025 1:25 PM [facility] Imm Grans 0.3 % 06/05/2025 1:25 PM [facility] NRBC 0.0 <=0.0 /100 WBCs 06/05/2025 1:25 PM [facility] Absolute Neutrophils 4.18 1.92 - 7.60 K/uL 06/05/2025 1:25 PM [facility] Absolute Lymphocytes 1.51 0.72 - 4.10 K/uL 06/05/2025 1:25 PM [facility] Absolute Monocytes 0.63 0.16 - 1.10 K/uL 06/05/2025 1:25 PM [facility] Absolute Eosinophils 0.29 0.00 - 0.50 K/uL 06/05/2025 1:25 PM [facility] Absolute Basophils 0.07 0.00 - 0.15 K/uL 06/05/2025 1:25 PM [facility] Absolute Imm Grans 0.02 0.00 - 0.09 K/uL 06/05/2025 1:25 PM [facility] Absolute NRBC 0.00 <=0.00 K cells/uL 06/05/2025 1:25 PM [facility] Absolute Neutrophils 4.18 1.92 - 7.60 K/uL 06/05/2025 1:25 PM [facility] Comment:Automated cell count . Manual ANC may differ if performed. Diff Type Auto 06/05/2025 1:25 PM [facility] Blood 06/05/2025 9:40 AM EST 06/05/2025 9:40 AM EST Maya Samaniego PA-C LAB BLOOD BKR ORDERABLES Fin al Result [facility] [address] [address] * Thyroid Stimulating Hormone (TSH), with Reflex (06/05/2025 9:40 AM EST) TSH 1.94 0.40 - 5.90 uIU/mL 06/05/2025 2:45 PM EST [facility] Blood 06/05/2025 9:40 AM EST 06/05/2025 9:40 AM EST Maya BOB-C LAB BLOOD BKR ORDERABLES Fin al Result [address] [address] * Hepatitis C Antibody (06/05/2025 9:40 AM EST) Pathologist [facility] Hepatitis C Antibody Non-Reacti ve Non-Reacti ve 06/05/2025 4:45 PM [facility] Blood 06/05/2025 9:40 AM EST 06/05/2025 9:40 AM EST Narrative [facility] - 06/05/2025 4:45 PM EST Test performed by Noble electrochemiluminescent immunoassay (ECLIA). Maya BOB-C LAB BLOOD BKR ORDERABLES Fin al Result [address] [address] * (ABNORMAL) Lipid Panel (06/05/2025 9:40 AM EST) Cholesterol 137 <200 mg/dL 06/05/2025 2:45 PM [facility] HDL 33(L) >=40 mg/dL 06/05/2025 2:45 PM [facility] Calculated LDL 77 <130 mg/dL 06/05/2025 2:45 PM [facility] Comment:LDL is calculated us ing the Larson-NIH equation ([place] Cardiol. 2019November 23;5(5):540-548). Non-HDL Cholesterol 104 mg/dL 06/05/2025 2:45 PM EST [facility] Comment:Guidelines suggest a non-HDL cholesterol goal 30 mg/dL higher than the patient-specific LDL cholesterol goal. Cardiac Risk Ratio 4.2 0.0 - 5.0 2024 2:45 PM EST [facility] Triglycerides 152(H) <=150 mg/dL 06/05/2025 2:45 PM EST [facility] Blood 06/05/2025 9:40 AM EST 06/05/2025 9:40 AM EST us Maya Samaniego PA-C LAB BLOOD BKR ORDERABLES Fin al Result Performing Organization Address City/State/[facility] Co de Phone Number [facility] [address] [place] [address] * US INGUINAL NON-HERNIA EVALUATION (RIGHT) (05/18/2025 [...] clinician's provided indication for this examination in Epic: Lump Or Thickening Right; 2cm lump in [...] clinician's provided indication for this examination in Epic:Lump Or Thickening Right; 2cm lump in right [...] imaging with CT or PET/CT, or surgery. us Maya Samaniego PA-C IMG US EXTREMITY Final [...] ORDERABLES Final Result from Last 3 Months Additional Health Concerns Active Problems Noted Date Diagnosed Date Autogenerated Problem 06/11/2025 Insurance [employer] PPO MEDICARE REPLACEMENT MEDICARE PART A & B [employer] PPO MEDICARE REPLACEMENT MEDICARE PART A & B [employer] PPO MEDICARE REPLACEMENT MEDICARE PART A & B [employer] O MEDICARE REPLACEMENT MEDICARE PART A & B [employer] O MEDICARE REPLACEMENT MEDICARE PART A & B [employer] PPO MEDICARE REPLACEMENT MEDICARE PART A & B Care Teams Optical Engineering Technician Relationship Specialty Start Date End Date Maya Samaniego PA-C [address] [place] [phone] [email or web address] PCP - General Physician Motorcycle Engine Assembler 05/09/25 Additional Source Comments The information contained in this document represents components of the legal health record. It is not the complete legal health record.[facility]
--- OUTSIDE RECORDS SUMMARY | 2025-06-20 16:04 | XMS_ITS | Encounter Summary ---
Author Organization [facility] Address [address] [facility] [address] [place] [address] Phone Care Team Providers Care Group Sales Coordinator Name Role Phone Maya Samaniego PA-C Primary Care Provider [phone] Reason for Visit * Reason Onset Date Comments Medication Refill 06/19/2025 Encounter Details Date Type Department Care Team (Late st Contact Info) Description 06/19/2025 Refill [facility] Internal Medicine [address] [place], [place] [phone] Maya Samaniego PA-C [address] [place] [address] [email or web address] Medication Refill Social History Tobacco Use Types Packs/Day Years [...] your housing situation today? I have dean mancera 05/09/2025 How many times have you move [...] as of this encounter Progress Notes * Maya Samaniego PA-C - 06/19/2025 10:57 AM EST [place] reviewed. * Kerry Colon MA - 06/19/2025 9:46 AM EST Images from the original note were not included. Rx Care Gap Status - Instructions for Clinical Staff (prescriber discretion applies): > Mismatch review guide > Check PDMP for all controlled medication requests. Visit Info Last visit: 05/09/2025 Maya Samaniego PA-C - Internal Medicine [facility] > Requested f/u: Return in about 3 months (around 08/09/2025) for Recheck 40 min. Upcoming visit: 08/08/2025 Maya Samaniego PA-C - Internal Medicine [facility] ACTIONS TAKEN BY Kerry Colon MA - Checked PDMP/MassPAT. Opioid Rx Protocol - tramadol HCl Controlled substance renewals are at prescriber discretion. Pain mgmt profile/toxicology (urine/saliva) may be considered annually or more frequently if indicated. In-person visit in past 2 years: Yes (Last in-person visit: 05/09/2025 (Maya Samaniego PA-C - [facility])) Visit in past 4 months: Yes No benzodiazepine on medication list Opioid agreement on file: Yes Pain management profile/toxicology in past 12 months: No Non-Opioid Controlled Substance Without PDMP Rx Protocol - zolpidem tartrate Renewal is at prescriber discretion. Visit in the past 12 months: Yes * Carolina Rae - 06/19/2025 9:29 AM EST Patient calling for a refill on Pharmacy [facility]/pharmacy #[id number] - CLAUDINE ROSEN - [address] [facility] [place] [address] Outpatient Medication Detail Disp Refills Start End traMADoL (ULTRAM) 50 mg tablet 90 tablet 0 05/18/2025 -- Sig - Route: Take 1 tablet (50 mg total) by mouth every 8 (eight) hours as needed for pain (specific location in comments) (Chronic neck pain). - Oral Sent to pharmacy as: traMADoL 50 mg tablet (ULTRAM) E-Prescribing Status: Receipt confirmed by pharmacy (05/18/2025 12:03 PM EDT) Disp Refills Start End zolpidem (AMBIEN) 10 mg tablet 30 tablet 0 05/18/2025 -- Sig - Route: Take 1 tablet (10 mg total) by mouth nightly at bedtime. - Oral Sent to pharmacy as: zolpidem 10 mg tablet (AMBIEN) E-Prescribing Status: Receipt confirmed by pharmacy (05/18/2025 12:03 PM EDT) documented in this encounter Plan of Treatment Upcoming Encounters Date Type Department Care Team (Latest Contact Info) Description 06/25/2025 8:30 AM EST Pre-Admission Testing Pre Procedure Evaluation [address] [place] [id number] Aliza Moe MD [address] [place] [phone] [email or web address] 06/26/2025 Procedure Pass OR Admitting Dept - [facility] Department [address] [place] [phone] 06/26/2025 11:45 AM EST Hospital Encounter OR Admitting Dept - Virtual Department [address] [place] [phone] Aliza Moe MD [address] [place] [phone] [email or web address] 06/26/2025 11:45 AM EST Anesthesia Event OR Admitting Dept - Virtual Department [address] [place] [phone] Rafita Lin Jr., DO [address] [place] [phone] [email or web address] 06/26/2025 11:45 AM EST - 06/26/2025 1:00 PM EST Surgery OR Admitting Dept - [facility] Department [address] [place] [address] Aliza Moe MD [address] [place] [phone] [email or web address] BIOPSY LYMPH NODE RIGHT INGUINAL 08/08/2025 9:40 AM EST Office Visit [facility] Internal Medicine [address] [place] [address] Maya Samaniego PA-C [address] [place] [address] [email or web address] Scheduled Procedures Name Priority Associated Diagnoses Date/Ti ia BIOPSY LYMPH NODE INGUINAL Lymphadenopathy 06/26/2025 11:45 AM EST documented as of this encounter Goals Goal Patient Goal Type Associated Problems Recent Progress Patient-Stated? 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 Lymphadenopathy Enlargement of lymph nodes documented in this encounter Additional Health Concerns Active Problems Noted Date Diagnosed Date Autogenerated Problem 06/11/2025 Assessment Noted Time PHQ-2 Depression Total Score: 0 05/09/20 9:08 AM EDT documented as of this encounter Care Teams Group Sales Coordinator Relationship Specialty Start Date End Date Maya Samaniego PA-C [address] [place] [address] [email or web address] PCP - General Physician Dye Winch Operator 05/09/25 documented as of this encounter Additional Source Comments The information contained in this document represents components of the legal health record. It is not the complete legal health record.[facility]
--- OUTSIDE RECORDS SUMMARY | 2025-06-20 16:05 | XMS_ITS | Encounter Summary ---
Author Organization [facility] Address [address] [facility] [address] [place] [phone] Phone Care Team Providers Care Merchandise Pickup/Receiving Associate Name Role Phone Maya Samaniego PA-C Primary Care Provider Reason for Visit * Reason Onset Date Comments Question on Warfarin 05/30/2025 Encounter Details Date Type Department Care Team (Late st Contact Info) Description 05/30/2025 Telephone [facility] Internal Medicine [address] [place], [place] [phone] Maya Samaniego PA-C [address] [place] [address] [email or web address] Question on Warfarin Social History Tobacco Use [...] as of this encounter Progress Notes * Jessi Maravilla RN - 05/30/2025 2:36 PM EST Spoke to Katelin, pt's , and advised. She states understanding. She wrote it down for [place]. * Maya Samaniego PA-C - 05/30/2025 1:08 PM EST Discussed with Dr. Webber. Patient can hold 5 doses/days of the warfarin prior to the procedure, recommend checking an INR the day prior to the procedure. Ok to reinitiate the warfarin the next day after the procedure. Patient should make sure he follows with the coumadin clinic closely. * Osmin Dang - 05/30/2025 10:42 AM [...] AM EST Pre-Admission Testing Pre Procedure Evaluation [address] [place] [id number] Aliza Moe MD [address] [place] [id number] [email or web address] 06/26/2025 Procedure Pass [place] Admitting Dept - Virtual Department [address] [place] [id number] 06/26/2025 11:45 AM EST Hospital Encounter [place] Admitting Dept - Virtual Department [address] [place] [phone] Aliza Moe MD [address] [place] [phone] [email or web address] 06/26/2025 11:45 AM EST Anesthesia Event [place] Admitting Dept - Virtual Department [address] [place] [phone] Rafita Lin Jr., DO [address] [place] [phone] [email or web address] 06/26/2025 11:45 AM EST - 06/26/2025 1:00 PM EST Surgery OR Admitting Dept - Virtual Department [address] [place] [address] Aliza Moe MD [address] [facility], 2nd [place] [address] [email or web address] BIOPSY LYMPH NODE RIGHT INGUINAL 08/08/2025 9:40 AM EST Office Visit [facility] Internal Medicine [address] [place] [address] Maya Samaniego PA-C [address] [place] [address] [email or web address] Scheduled Procedures Name Priority Associated Diagnoses Date/Ti or BIOPSY LYMPH NODE INGUINAL Lymphadenopathy 06/26/2025 11:45 AM EST documented as of this encounter Visit Diagnoses Not on filedocumented in this encounter Additional Health Concerns Assessment Noted Time PHQ-2 Depression Total Score: 0 05/09/20 9:08 AM EDT documented as of this encounter Care Teams Merchandise Pickup/Receiving Associate Relationship Specialty Start Date End Date Maya Samaniego PA-C [address] [place] [address] [email or web address] PCP - General Physician Environmental Solutions Engineer 05/09/25 documented as of this encounter Additional Source Comments The information contained in this document represents components of the legal health record. It is not the complete legal health record.[facility]
== END 2025-06-20 13:31 | disposition home or self-care (01) ==
LOC: HO.ACS 12:59
PROVIDERS: PCP Physician Assistant Medical; Visit Provider Internal Medicine Medical Oncology
DX: Z79.01 Long term (current) use of anticoagulants (principal)

== ENCOUNTER → 2025-06-20 12:59 | Outpatient (BNVA) | payer MEDICARE, SELFPAY | PROVIDERS: PCP Physician Assistant Medical; Visit Provider Internal Medicine Medical Oncology | DX: Z51.81 Encounter for therapeutic drug level monitoring (principal); Z79.01 Long term (current) use of anticoagulants; I48.91 Unspecified atrial fibrillation | CPT/HCPCS: 85610; 99211 ==

== ENCOUNTER 2025-06-29 13:45 | Outpatient (AMB) | payer MEDICARE, SELFPAY ==
--- OUTSIDE RECORDS SUMMARY | 2025-06-25 08:30 | XMS_ITS | Encounter Summary ---
Author Organization [facility] Address [address] [facility] [address] [place] [address] Phone Care Team Providers Care Bean Viner Name Role Phone Maya Samaniego PA-C Primary Care Provider Encounter Details Date Type Department Care Team (Late st Contact Info) Description 06/25/2025 8:30 AM EST Pre-Admission Testing Pre Procedure Evaluation [address] [place] [address] Aliza Moe MD [address] [facility], 2nd [place] [address] [email or web address] Social History Tobacco Use Types Packs/Day Years [...] Sign Reading Time Taken Comments Blood Pressure - - Pulse - - Temperature - - Respiratory Rate - - Oxygen Saturation - - Inhaled Oxygen Concentration - - Weight 83 kg (183 lb) 06/12/2025 1:22 PM EST Height 172.7 cm (5' 8 ) 06/12/2025 1:22 PM EST Body Mass Index 27.83 06/12/2025 1:22 PM EST documented in this encounter Progress Notes * Jayden Lozano RN - 06/25/2025 8:30 AM EST You may take some of your medications the day of surgery, as directed by your surgeon/specialist with a small sip of water. Hold vitamins, supplements, and nsaids a week prior to surgery, unless otherwise indicated by your PCP, surgeon, or attorney recruiter. Do Not eat or drink anything after midnight. No chewing gum, hard candy, and lozenges. Do not use mouthwash with oral care. Please do not wear jewelry of any kind (including wedding rings), body piercings, nail german, makeup, contact lenses, lotions, powders, or deodorant. If the surgeon instructed you to use a pre-op antiseptic wipe or wash, follow your surgeon's instructions Do not shave the area where the surgeon will be making incisions for 2 days before your surgery. Make sure you have a friend or family member come with you who will be able to stay with you and drive you home. You will not be allowed to drive, walk or take a bus, taxi, or Uber home after your procedure (by yourself, you must be accompanied) Please review your instructions from your surgeon and make sure you have all appropriate lab work drawn prior to surgery. If you think you have a cold, flu, any kind of infection or skin problem, please call your surgeon's office directly Pt demonstrated a knowledge of information with a successful teach back. This preprocedure call occurred on June 12, 2025 documented in this encounter Plan of Treatment Upcoming Encounters Date Type Department Care Team (Late st Contact Info) Description 07/09/2025 10:15 AM EST Office Visit [facility] [address] [place] [address] Rico Phillips CNP [address] [facility], [address]nd [place] [address] 08/08/2025 9:40 AM EST Office Visit [facility] Internal Medicine [address] [place] [address] Maya Samaniego PA-C [address] [place], [place] documented as of this encounter Goals Goal Patient Goal Type Associated Problems Recent Progress Patient-Stated? Author Autogenerat ed Goal Care Plan Autogenerated Problem No Katty Gómez documented as of this encounter Visit Diagnoses Not on filedocumented in this encounter Additional Health Concerns Active Problems Noted Date Diagnosed Date Autogenerated Problem 06/11/2025 Assessment Noted Time PHQ-2 Depression Total Score: 0 05/09/20 9:08 AM EDT documented as of this encounter Care Teams Bean Viner Relationship Specialty Start Date End Date Maya Samaniego PA-C [address] [place] [address] .Superplayer PCP - General Physician Certified Professional Controller 05/09/25 documented as of this encounter Additional Source Comments The information contained in this document represents components of the legal health record. It is not the complete legal health record.[facility]
--- OUTSIDE RECORDS SUMMARY | 2025-06-26 09:46 | XMS_ITS | Encounter Summary ---
Author Organization [facility] Address [address] [facility] [address] [place] [phone] Phone Care Team Providers Care Curtain Inspector Name Role Phone Maya Samaniego PA-C Primary Care Provider Reason for Visit * Auth/Cert (Routine) Specialty Diagnoses / Procedures Referred By Contac t Referred To Contact Diagnoses Lymphadenopathy Lymphadenopathy [R59.1] Procedures ME BIOPSY/EXCISION, LYMPH NODE(S) BIOPSY LYMPH NODE RIGHT INGUINAL Referral ID Status Reason Start Date Expiration Date Visits Re quested Visits Authorized [id number] 1 1 Encounter Details Date Type Department Care Team (Latest Contact Info) Description 06/26/2025 9:46 AM EST - 06/26/2025 3:26 PM [facility] Hospital Encounter OR Admitting Dept - Virtual Department [address] [place] [id number] Aliza Moe MD [address] [facility], 2nd [place] [address] [email or web address] Discharge Disposition: Home or Self Care Social History Tobacco Use Types Packs/Day Years [...] Sign Reading Time Taken Comments Blood Pressure 179/111 06/26/2025 3:06 PM EST Pulse 79 06/26/2025 3:06 PM EST Temperature 36.3 C (97.3 F) 06/26/2025 2:30 PM EST Respiratory Rate 19 06/26/2025 3:06 PM EST Oxygen Saturation 97% 06/26/2025 3:06 PM EST Inhaled Oxygen Concentration - - Weight - - Height - - Body Mass Index - - documented in this encounter Discharge Instructions * Discharge Instructions* Keeley Posadas, RN - 06/26/2025 1:40 PM EST You may shower but you should avoid all hot tubs, baths, swimming pools. You should avoid all lifting greater than 5 to 10 pounds for the first set of 2 weeks and then avoid all lifting greater than 10 pounds for the next set of 2 weeks. You may resume regular diet and home medications. You will begiven a narcotic to help with your pain control. You should only uses narcotic if absolutely needed. Otherwise you should take extra strength Tylenol 1000 mg every 6 hours for pain. I have also prescribed a stool softener if you take narcotics. Stool softener is helpful to prevent or help with constipation that comes from narcotics. You may have bruising or swelling at your surgical site. This isnormal. You should call the office with any questions or concerns such as increasing abdominal pain, persistent nausea vomiting, fever, chills, chest pain, shortness of breath, leg pain or swelling. You should follow up with Dr. Bolton in 2 weeks timeframe. You should call the office to schedule that follow-up appointment.You may use milk of magnesia or MiraLAX if you do not have a bowel movement in 2 days. If still no bowel movement with use of either of these medications you may use magnesium citrate to produce a bowel movement.AFTER ANESTHESIA It is best to have someone stay home with you for your own safety. Do not drink alcoholic beveragesfor 24 hours after surgery, or while taking opioid/narcotic pain medication. You may be dizzy and unsteady on your feet. Be careful on stairs. Do not smoke. Do not do anything that requires a clear head or steady hands, such as driving, for 24 hours. After anesthesia you may have some muscle soreness for 24-48 hours. If it lasts longer that this, call your doctor. If a breathing tube was used during surgery, you may have a slight sore throat. Youcan gargle with cold water or use sore throat lozenges. Nausea and Vomiting After Surgery After you've had surgery, you may feel sick to your stomach (nauseated) or you may vomit. When you are nauseated, you may feel weak, sweaty and/or notice a lot of saliva in your mouth. Nausea often leads to vomiting. Most of the time you do not need to worry about nausea and vomiting. Anesthesia, pain and narcotic/opioid pain medicine can make you feel sick to your stomach. Whatever the cause, there are some things you can do at home to prevent nausea and feel better. If you are feeling sick to your stomach and/or vomiting, you can care for yourself at home by: To prevent dehydration, drink fluids. Choose water and other clear liquids until you feel less nauseated. Do not drink alcoholic beverages. If you have kidney, heart, or liver disease and have to limit fluids, talk with your doctor before you increase the amount of fluids you drink. When you are able to eat, try clear soups, mild foods, and liquids until all symptoms are improve. Good choices include dry toast, crackers, cooked cereal, and gelatin dessert, such as Jell-O. Do not smoke. Smoking and being around smoke can make nausea worse. Rest. Be safe with medications. Read and follow all instructions on the label. Ask your doctor if you cantake an over-the counter medicine for pain (less likely to cause nausea and vomiting.). Take your pain medicine with food. Call your doctor or seek immediate medical care if symptoms are severe and/or persistent. Edited 12/2022 RT documented in this encounter Medications at Time of Discharge baclofen (LIORESAL) 10 MG tablet Take 10 mg by mouth as needed for spasm. butalbital-aceta minophen-caffein e (FIORICET, ESGIC) 50-325-40 mg per tablet Take 1 tablet by mouth every 4 (four) hours as needed for pain (specific location in comments). docusate sodium (COLACE) 100 MG capsule Take 1 capsule (100 mg total) by mouth 2 (two) times a day. 60 capsule 6 06/26/2025 levothyroxine (SYNTHROID, LEVOTHROID) 100 MCG tablet Take 100 mcg by mouth every morning. 100 mcg on weekdays, 75 mcg weekends lisinopril (PRINIVIL,ZESTRI L) 20 MG tablet Take 1 tablet by mouth every morning. 03/16/2025 meclizine (ANTIVERT) 25 mg tablet TAKE 1 TABLET ORALLY DAILY NEEDED FOR DIZZINESS 04/04/2025 metoprolol succinate (TOPROL-XL) 50 MG 24 hr tablet Take 1 tablet (50 mg total) by mouth every morning. 90 tablet 1 05/22/2025 oxyCODONE 5 MG immediate release tablet Take 1 tablet (5 mg total) by mouth every 4 (four) hours as needed for pain (specific location in comments). Partial fill ok 10 tablet 06/26/2025 simvastatin (ZOCOR) 40 MG tablet Take 40 mg by mouth nightly at bedtime. 05/03/2025 traMADoL (ULTRAM) 50 mg tabletIndication s:Degenerative disc disease, cervical Take 1 tablet (50 mg total) by mouth every 8 (eight) hours as needed for pain (specific location in comments) (Chronic neck pain). 90 tablet 06/19/2025 warfarin (COUMADIN) 1 MG tablet Take 1 tablet by mouth every morning. 03/16/2025 zolpidem (AMBIEN) 10 mg tabletIndication s:Psychophysiolo gical insomnia Take 1 tablet (10 mg total) by mouth nightly at bedtime. 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 The patient will call his hematology oncologist at [facility] to decide what next steps would be. He reports he does not want any treatment at this time. documented in this encounter H&P Notes * Aliza Moe MD - 06/26/2025 12:43 PM EST H&P reviewed. The patient was examined and there are no changes to the H&P. Source Note - Aliza Moe MD - 06/11/2025 9:30 AM EST Subjective: Patient ID: The patient is a 80 y.o. year old who is a patient of Maya Samaniego PA-C who presents for evaluation of a lump in his right groin. The patient reports almost 2 months ago he noted this lump in hisright groin while he was showering. He reports that it has gotten slightly smaller recently but notsignificantly. He denies any significant changes such as weight loss, fever, chills, shortness of breath, chest pain. He denies any injuries to the groin or any rashes or skin injuries on the right leg. He underwent an ultrasound that shows a 3.7 cm enlarged lymph node in the right groin. He saw his primary care physician who commended a general surgery referral. Patient denies any pain to this area. Problem List: Patient Active Problem List Diagnosis Routine general medical examination at a health care facility Mixed hyperlipidemia Mass of right inguinal region History of prostate cancer Paroxysmal atrial fibrillation Benign essential hypertension Degenerative disc disease, cervical Psychophysiological insomnia Vertigo Lymphadenopathy Medical History: Past Medical History: Diagnosis Date Degenerative disc disease, cervical Endocarditis 2004 Essential (primary) hypertension Insomnia Malignant neoplasm of prostate 2019 Mixed hyperlipidemia Paroxysmal atrial fibrillation Vertigo Surgical History: Past Surgical History: Procedure Laterality Date HAND SURGERY Left left 4th and 5th fingers sewn back on VASCULAR SURGERY Left left leg arterial stent placement VASECTOMY Medications: Current Outpatient Medications on File Prior to Visit Medication Sig Dispense Refill Last Dispense levothyroxine (SYNTHROID, LEVOTHROID) 100 MCG tablet Take 100 mcg by mouth every morning. Unknown (patient-reported) lisinopril (PRINIVIL,ZESTRIL) 20 MG tablet Take 1 tablet by mouth every morning. Unknown (patient-reported) meclizine (ANTIVERT) 25 mg tablet TAKE 1 TABLET ORALLY DAILY NEEDED FOR DIZZINESS Unknown (patient-reported) metoprolol succinate (TOPROL-XL) 50 MG 24 hr tablet Take 1 tablet (50 mg total) by mouth every morning. 90 tablet 1 Unknown (outside pharmacy) simvastatin (ZOCOR) 40 MG tablet Take 40 mg by mouth nightly at bedtime. Unknown (patient-reported) traMADoL (ULTRAM) 50 mg tablet Take 1 tablet (50 mg total) by mouth every 8 (eight) hours as neededfor pain (specific location in comments) (Chronic neck pain). 90 tablet 0 Unknown (outside pharmacy) warfarin (COUMADIN) 1 MG tablet Take 1 tablet by mouth every morning. Unknown (patient-reported) zolpidem (AMBIEN) 10 mg tablet Take 1 tablet (10 mg total) by mouth nightly at bedtime. 30 tablet 0Unknown (outside pharmacy) [DISCONTINUED] levothyroxine (SYNTHROID, LEVOTHROID) 100 MCG tablet TAKE 1 TABLET BY MOUTH DAILY WEDNESDAY THROUGH WEDNESDAY Unknown (patient-reported) [DISCONTINUED] metoprolol succinate (TOPROL-XL) 50 MG 24 hr tablet Take 1 tablet by mouth every morning. Unknown (patient-reported) [DISCONTINUED] traMADoL (ULTRAM) 50 mg tablet Take 50 mg by mouth. Unknown (patient-reported) [DISCONTINUED] zolpidem (AMBIEN) 10 mg tablet Take 10 mg by mouth nightly at bedtime. at bedtime. Unknown (patient-reported) No current facility-administered medications on file prior to visit. Allergies: No Known Allergies Social History: Social History Tobacco Use Smoking status: Never Smokeless tobacco: Never Tobacco comments: Previous history of cigar use Vaping Use Vaping status: never used Substance Use Topics Alcohol use: Yes Alcohol/week: 2.0 standard drinks of alcohol Types: 2 Shots of liquor per week Comment: Once a week on fridays Drug use: Not Currently Family History: Family History Problem Relation Age of Onset Lung cancer Sister smoker Heart attack Brother Heart attack Brother Lung cancer Brother smoker Heart failure Brother Objective: Blood pressure 110/64, pulse 63, temperature 36.3 ??C (97.3 ??F), height 173 cm (5' 8.11 ), weight 83 kg (183 lb), SpO2 96%. Constitutional: NAD, AAOx3 Head: Normocephalic, atraumatic Eyes: anicteric Neck: supple, trachea midline CV: RRR, no murmurs, rubs, or gallops Lungs: clear to auscultation b/l Abdomen: soft, NT, ND Right groin: There is a 2 to 3 cm firm nonmobile I will mass in the groin. There is no tenderness to palpation. There is no overlying skin changes. Extremities: Bilateral lower extremities warm and well perfused without edema or tenderness to palpation Neuro: grossly intact Psych: Cooperative, appropriate affect Review of Systems Constitutional: Negative for chills, fatigue and fever. HENT: Positive for changes in hearing. Negative for sore throat and trouble swallowing. Eyes: Positive for wears glasses. Respiratory: Negative for cough, shortness of breath and wheezing. Cardiovascular: Negative for chest pain and leg swelling. Gastrointestinal: Negative for abdominal distention, abdominal pain, blood in stool, constipation, diarrhea, heartburn, nausea and vomiting. Genitourinary: Negative for bladder incontinence, problems with urination, dysuria and blood in urine. Neurological: Negative for dizziness, light-headedness and headaches. Psychiatric/Behavioral: Negative for dysphoric mood and sleep disturbance. The patient is not nervous/anxious. Musculoskeletal: Negative for joint pain and back pain. Assessment/Plan: Problem List Items Addressed This Visit Other Lymphadenopathy - Primary This is a 80-year-old gentleman with about [...] fibrillation. We will contact his primary care physicianto make sure that it is okay that [...] ordered a PT PTT for preoperative evaluation. Relevant Orders PT-INR PTT Case request operating room: BIOPSY LYMPH NODE RIGHT INGUINAL (Completed) documented in this encounter Procedure Notes * Aliza Moe MD - 06/26/2025 12:15 PM EST Full Operative Note Patient Name: Orlando [place] Date of Surgery: 06/26/2025 Pre-Op Diagnosis Codes: * Lymphadenopathy [R59.1] Post-Op Diagnosis Codes: * Lymphadenopathy [R59.1] Procedure(s): BIOPSY LYMPH NODE RIGHT INGUINAL Surgeons and Role: * Aliza Moe MD - Primary Post Office Clerk: Fay Caba RN-FA Delinquency Prevention Social Worker: Douglas Linton MD Anesthesia Type: General ASA Code: III Description of Procedure: Patient was brought into the operating room placed on the operating tablein the supine position. General anesthesia was induced. The right groin had already been shaved andthen was prepped and draped in normal sterile fashion using ChloraPrep. Next a safety timeout was performed. Next a mixture of 1% lidocaine with epinephrine quarter percent Marcaine plain was used anesthetize the skin and soft tissues. A #15 scalpel was used to make a 4 cm transverse surgical incision overlying the palpable lymphadenopathy in the right groin. The soft tissues were dissected down to the level of the palpable and lymph nodes. There were 2 long ovoid lymph nodes that were excised in their entirety. We took the chetan of the lymph nodes using clips. We passed them off the field forfresh pathology. We created hemostasis within the wound. We then irrigated the wound and suction the fluid free from the wound. We then closed the lymphatic tissues using a running 2-0 Vicryl suture.The deep dermal tissues were reapproximated using several interrupted 3-0 Vicryl sutures overlying skin was closed with a 4-0 Monocryl subcuticular stitch. We cleaned dried the skin and applied Dermabond skin glue. We did use the remainder of the local anesthetic in the soft tissues as we were closing. There were no complications. The patient was awake and in stable condition prior to extubation and transferred to the recovery room. Procedure Findings: Multiple lymph nodes that were large in the right groin Estimated Blood Loss: 2 ml Drains: None Packs/Other: None Specimen: Specimens ID Source Type Tests Collected By Auth By Collected At FX? 1 Lymph Node, Right Inguinal Lymph Node Tissue TISSUE EXAM Aliza Moe MD [[id number]] Aliza Moe MD [[id number]] 06/26/25 1321 Method: Biopsy Additional Information Comments: Pre-op diagnosis: Lymphadenopathy [R59.1] Is there concern for infection at the time of the procedure?: No Disposition: PACU - hemodynamically stable. Condition: stable I was present for the entire procedure. documented in this encounter Miscellaneous Notes * Plan of Care - Adelita Nickerson RN - 06/26/2025 3:25 PM EST Problem: Discharge Readiness - Perioperative Care/Procedural Sedation Goal: Knowledge of medication management prior to discharge from perioperative/procedural phase of care Outcome: Patient Discharged Goal: Knowledge of need for follow-up care prior to discharge from postoperative/procedural phase of care Outcome: Patient Discharged Problem: Infection, Risk or Actual - Perioperative Care/Procedural Sedation Goal: Minimize risk of infection during perioperative/procedural phase of care Outcome: Patient Discharged Problem: Knowledge Deficit - Perioperative Care/Procedural Sedation Goal: Patient/Care Plan Partner demonstrates understanding of the perioperative process Outcome: Patient Discharged Goal: Patient/Care Plan Partner demonstrates understanding of the procedural process prior to procedural phase of care Outcome: Patient Discharged Goal: Patient/Care Plan Partner demonstrates understanding of safety measures prior to perioperative phase of care Outcome: Patient Discharged Goal: Patient/Care Plan Partner demonstrates understanding of safety measures prior to procedural phase of care Outcome: Patient Discharged documented in this encounter Plan of Treatment Upcoming Encounters Date Type Department Care Team (Late st Contact Info) Description 07/09/2025 10:15 AM EST Office Visit [facility] General Surgical Care [address] [place] [address] [place] [address] Rico Phillips, DENY [address] [place] [phone] 08/08/2025 9:40 AM EST Office Visit [facility] Internal Medicine [address] [place] [address] [place] [address] Maya Samaniego PA-C [address] [place] [address] [email or web address] Results Name Type Priority Associated Diagnoses Date /Time Tissue Exam Pathology and Cytology Routine 1 08/27/2024 1:21 PM EST documented as of this encounter Goals Goal Patient Goal Type Associated Problems Recent Progress Patient-Stated? Author Autogenerat ed Goal Care Plan Autogenerated Problem No Katty Gómez documented as of this encounter Procedures Procedure Name Priority Date/Time Associated Diagnosis Comments LEUKEMIA/LYMPHOMA FLOW CYTOMETRY, TISSUE Today 06/26/2025 1:21 PM EST TISSUE EXAM Routine 06/26/2025 1:21 PM EST ME BIOPSY/EXCISION, LYMPH NODE(S) 06/26/2025 12:44 PM EST Lymphadenopathy documented in this encounter Results * Leukemia/Lymphoma Tissue (06/26/2025 1:21 PM EST) LLPT Result Performed 06/28/2025 1:22 PM EST [facility] Final Diagnosis SEE COMMENTS 025 1:22 PM EST [facility] Comment: Lymph node, right inguinal, specimen for flow cytometric analysis ([id number]): CD19, CD20, and [id number], kappa immunoglobulin light chain restricted B-cell population identified. Comment: The findings are most consistent with the diagnosis of a B-cell lymphoma. The most frequent types of lymphoma with a [id number] B-cell phenotype include follicular lymphoma, diffuse large B-cell lymphoma, Burkitt lymphoma, and high grade B-cell lymphoma. Correlation with clinical and morphologic features, possibly supplemented by immunohistochemistry and cytogenetic analysis, is required for a final diagnosis. Reviewed by: Malka Benites M.D., Ph.D. Special Studies SEE COMMENTS 025 1:22 PM EST [facility] Comment: Results: Blasts: Not increased by CD45/side scatter. B-cells: Monotypic kappa Express: CD19, CD20 (dim), CD10. Do not express: CD5, CD23. Estimated size: 29% gated lymphoid events; 29% total analyzed events B-cell markers tested: Tissue panel: CD5, CD10, CD19, CD20, CD23, CD45 and kappa and lambda immunoglobulin light chains. T-cells/NK-cells: No aberrant phenotype by CD3, CD5, CD7, and CD10. Viability: Acceptable Viable lymphocytes (7-AAD): 96% Quality Assessment: Specimen received within validated guidelines. Microscopic Description SEE COMMENTS 06/28/2025 1:22 PM EST [facility] Comment: A Paul-Giemsa stained slide prepared from the flow cytometry specimen was examined for quality purposes. ADDITIONAL INFORMATION This test was developed using an analyte specific reagent. Its performance characteristics were determined by [facility] in a manner consistent with CLIA requirements. This test has not been cleared or approved by the U.S. Food and Drug Administration. Accession Number DNR 06/28/20 1:22 PM EST [facility] Referring Pathologist/Physici an DNR 06/28/2025 1:22 PM [facility] Referring Pathologist/Physici an Address DNR 06/28/2025 1:22 PM EST [facility] Place Of DNR 06/28/2025 1:22 PM [facility] Date And Time Of DNR 06/28/2025 1:22 PM EST [facility] Date Of Autopsy: DNR 06/28/20 1:22 PM EST [facility] Specimen DNR 06/28/2025 1:22 PM EST [facility] Material DNR 06/28/2025 1:22 PM EST [facility] Tissue Description DNR 2024 1:22 PM EST [facility] Clinical History DNR 06/28/20 1:22 PM EST [facility] Final Diagnosis DNR 1:22 PM EST [facility] Revision Description DNR 06/28/2025 1:22 PM EST [facility] Signing Pathologist DNR 06/28 1:22 PM EST [facility] Special Procedures DNR 2024 1:22 PM EST [facility] Sp Signing Pathologist DNR 06/28/2025 1:22 PM EST [facility] *Previous Report Follows* DNR 06/28/2025 1:22 PM EST [facility] Addendum DNR 06/28/2025 1:22 PM EST [facility] Addendum Comment DNR 06/28/20 1:22 PM EST [facility] Addendum Pathologist DNR 06/28/2025 1:22 PM EST [facility] Lymph Node Tissue (Lymph Node, Right Inguinal) 06/26/2025 1:21 PM EST 06/26/2025 2:48 PM EST us Aliza Moe MD LAB GENERAL ORDERABLES Fin al Result Performing Organization Address City/State/[facility] Co de Phone Number JORDAN (BEAKER) [facility] [address] [place] [address], [facility] [phone] documented in this encounter Visit Diagnoses Not on filedocumented in this encounter Administered Medications Inactive Administered Medications - up to 3 most recent administrations Medication Order MAR Action Action Date Dose Rate Site acetaminophen (TYLENOL) 160 mg/5 mL (5 mL) oral suspension 650 mg 650 mg, Oral, Once as needed, mild pain or 1-3 (on a general 0-10 scale), Starting on Wed06/26/25 at 1351, For 1 dose, Recovery Room (only), If unable to tolerate tablet. Shake Well acetaminophen (TYLENOL) tablet 650 mg 650 mg, Oral, Once as needed, mild pain or 1-3 (on a general 0-10 scale), Starting on Wed06/26/25 at 1351, For 1 dose, Recovery Room (only) lactated Ringers infusion 100 mL/hr, Intravenous, Continuous, Starting on Wed06/26/25 at 1445, For 1 day, Recovery Room (only) New Bag 06/26/2025 2:05 PM EST 100 mL/hr 100 mL/hr documented in this encounter Active and Recently Administered Medications Times are shown in EST. Continuous Medication Order 06/24/2025 06/25/2025 06/26/2025 lactated Ringers infusion 100 mL/hr, Intravenous, Continuous, Starting on Wed06/26/25 at 1445, For 1 day, Recovery Room (only) 1405 ([facility] ider: Keeley Posadas RN) PRN Medication Order 06/24/2025 06/25/2025 06/26/2025 acetaminophen (TYLENOL) 160 mg/5 mL (5 mL) oral suspension 650 mg(Linked Group 1) 650 mg, Oral, Once as needed, mild pain or 1-3 (on a general 0-10 scale), Starting on Wed06/26/25 at 1351, For 1 dose, Recovery Room (only), If unable to tolerate tablet. Shake Well acetaminophen (TYLENOL) tablet 650 mg(Linked Group 1) 650 mg, Oral, Once as needed, mild pain or 1-3 (on a general 0-10 scale), Starting on Wed06/26/25 at 1351, For 1 dose, Recovery Room (only) BUPivacaine-EPINEPHrine (PF) (MARCAINE-PF w/EPI) 0.25%-1:200,000 15 mL, lidocaine (PF) (XYLOCAINE-MPF) 1% 15 mL OSM-Mixture (CANCELED) As needed, Starting on Wed06/26/25 at 1315, Intra-op/procedure 1315 (Given - Provid er: Aliza Moe MD) fentaNYL (PF) (SUBLIMAZE) injection 25-50 mcg 25-50 mcg, Intravenous, Every 5 min PRN, severe pain or 7-10 (on a general 0-10 scale), 1st line opioid analgesia, Starting on Wed06/26/25 at 1351, For 8 doses, Recovery Room (only), Up to a max total dose of 200 mcg. Patient may opt to receive a pain med that is ordered for a lower level of pain HYDROmorphone (PF) (DILAUDID) injection syringe 0.1-0.2 mg 0.1-0.2 mg, Intravenous, Every 5 min PRN, severe pain or 7-10 (on a general 0-10 scale), 2nd line opioid analgesia, Starting on Wed06/26/25 at 1351, For 10 doses, Recovery Room (only), Up to a max total dose of 2 mg. Patient may opt to receive a pain med that is ordered for a lower level of pain ipratropium-albuteroL (DUONEB) 0.5-3 mg (2.5 mg base)/3 mL nebulizer solution 3 mL 3 mL, Nebulization, Once as needed, wheezing, shortness of breath/dyspnea, Starting on Wed06/26/25 at 1351, For 1 dose, Recovery Room (only) meperidine (DEMEROL) injection 12.5 mg 12.5 mg, Intravenous, Once as needed, shivering, Starting on Wed06/26/25 at 1351, For 1 dose, Recovery Room (only) metoclopramide HCl (REGLAN) injection 10 mg 10 mg, Intravenous, Once as needed, other (free text field), 1st line antiemetic, Starting on Wed06/26/25 at 1351, For 1 dose, Recovery Room (only) oxyCODONE tablet 2.5 mg 2.5 mg, Oral, Once as needed, moderate pain or 4-6 (on a general 0-10 scale), Starting on Wed06/26/25 at 1351, For 1 dose, Recovery Room (only), When tolerating PO's Linked Groups Order Group 1: acetaminophen (TYLENOL) tablet 650 mgJump to med 650 mg, Oral, Once as needed, mild pain or 1-3 (on a general 0-10 scale), Starting on Wed06/26/25 at 1351, For 1 dose, Recovery Room (only) Or acetaminophen (TYLENOL) 160 mg/5 mL (5 mL) oral suspension 650 mgJump to med 650 mg, Oral, Once as needed, mild pain or 1-3 (on a general 0-10 scale), Starting on e 06/26/25 at 1351, For 1 dose, Recovery Room (only), If unable to tolerate tablet. Shake Well documented in this encounter Additional Health Concerns Active Problems Noted Date Diagnosed Date Autogenerated Problem 06/11/2025 Assessment Noted Time PHQ-2 Depression Total Score: 0 05/09/20 25 9:08 AM EDT documented as of this encounter Care Teams Curtain Inspector Relationship Specialty Start Date End Date Maya Samaniego PA-C [address] [place] [address] [email or web address] PCP - General Physician Post Office Clerk 05/09/25 documented as of this encounter Additional Source Comments The information contained in this document represents components of the legal health record. It is not the complete legal health record.[facility]
--- OUTSIDE RECORDS SUMMARY | 2025-06-26 12:15 | XMS_ITS | Encounter Summary ---
Author Organization [facility] Address [address] [facility] [address] [place] [address] Phone Care Team Providers Care Insurance Marketing Rep Name Role Phone Maya Samaniego PA-C Primary Care Provider [phone] Reason for Visit * Auth/Cert (Routine) Specialty Diagnoses / Procedures Referred By Contac t Referred To Contact Diagnoses Lymphadenopathy Lymphadenopathy [R59.1] Procedures UT BIOPSY/EXCISION, LYMPH NODE(S) BIOPSY LYMPH NODE RIGHT INGUINAL Referral ID Status Reason Start Date Expiration Date Visits Re quested Visits Authorized [id number] 1 1 Encounter Details Date Type Department Care Team (Late st Contact Info) Description 06/26/2025 12:15 PM EST - 06/26/2025 1:30 PM EST Surgery OR Admitting Dept - Virtual Department [address] [place] [address] Aliza Moe MD [address] [place] [address], 2nd [place] [address] [email or web address] BIOPSY LYMPH NODE RIGHT INGUINAL Surgery Details Date/Time Status Location OR Service Patient Class Case Class Case Type Trauma Case? 06/26/2025 12:15 PM Posted [facility] OR OR 01 General Surgery Day Surgery Panel 1 Procedure LRB Anes Op Region Wound Class Comments BIOPSY LYMPH NODE RIGHT INGUINAL Right Choice Clean (1) Surgeon Surgeon Role Service Panel Aliza Moe MD Primary General Surgery 1 documented in this encounter Social History Tobacco Use Types Packs/Day Years [...] Sign Reading Time Taken Comments Blood Pressure 182/80 06/26/2025 9:59 AM EST Pulse 91 06/26/2025 9:59 AM EST Temperature - - Respiratory Rate 22 06/26/2025 9:59 AM EST Oxygen Saturation 98% 06/26/2025 9:59 AM EST Inhaled Oxygen Concentration - - Weight - - Height - - Body Mass Index - - documented in this encounter Discharge Instructions * Discharge Instructions* Keeley Posadas RN - 06/26/2025 1:40 PM EST You [...] patient will call his hematology oncologist at [facility] to decide what next steps would be. [...] Role: * Aliza Moe MD - Primary Hybrid Powertrain Development Engineer: Fay Caba RN-FA Study Abroad Advisor: Douglas Linton MD Anesthesia Type: General ASA [...] Node Tissue TISSUE EXAM Aliza Moe MD [[id number]] Aliza Moe MD [[id number]] 06/26/25 1321 Method: Biopsy Additional Information Comments: [...] Description 07/09/2025 10:15 AM EST Office Visit [facility] [address] [place] [address] Rico Phillips, LANDSCAPE ARCHITECT [address] [facility], [address] [place] [address] [email or web address] 08/08/2025 9:40 AM EST Office Visit [facility] [address] [place] [address] Maya Samaniego PA-C [address] [place] [address] [email or web address] [email or web address] Results Name Type Priority Associated Diagnoses [...] TISSUE EXAM Routine 06/26/2025 1:21 PM EST UT BIOPSY/EXCISION, LYMPH NODE(S) 06/26/2025 12:44 PM EST Lymphadenopathy documented in this encounter Results * Leukemia/Lymphoma Tissue (06/26/2025 1:21 PM EST) LLPT Result Performed 06/28/2025 1:22 PM EST [facility] Final Diagnosis SEE COMMENTS 1:22 PM EST [facility] Comment: Lymph node, right inguinal, specimen for flow cytometric analysis ([id number]): CD19, CD20, and [id number], kappa immunoglobulin light chain restricted B-cell population identified. Comment: The findings are most consistent with the diagnosis of a B-cell lymphoma. The most frequent types of lymphoma with a [id number] B-cell phenotype include follicular lymphoma, diffuse large B-cell lymphoma, Burkitt lymphoma, and high grade B-cell lymphoma. Correlation with clinical and morphologic features, possibly supplemented by immunohistochemistry and cytogenetic analysis, is required for a final diagnosis. Reviewed by: Malka Benites M.D., Ph.D. Special Studies SEE COMMENTS 12/04/2 025 1:22 PM EST [facility] Comment: Results: Blasts: Not increased by CD45/side [...] Microscopic Description SEE COMMENTS 06/28/2025 1:22 PM [facility] Comment: A Paul-Giemsa stained slide prepared from the flow cytometry specimen was examined for quality purposes. ADDITIONAL INFORMATION This test was developed using an analyte specific reagent. Its performance characteristics were determined by [facility] in a manner consistent with CLIA requirements. This test has not been cleared or approved by the U.S. Food and Drug Administration. Accession Number DNR 06/28/20 1:22 PM EST [facility] Referring Pathologist/Physici an DNR 06/28/2025 1:22 PM [facility] Referring Pathologist/Physici an Address DNR 06/28/2025 1:22 PM [facility] Place Of DNR 06/28/2025 1:22 PM EST [facility] Date And Time Of DNR 06/28/2025 1:22 PM EST [facility] Date Of Autopsy: DNR 06/28/20 1:22 PM EST [facility] Specimen DNR 06/28/2025 1:22 PM EST [facility] Material DNR 06/28/2025 1:22 PM [facility] Tissue Description DNR 2024 1:22 PM [facility] Clinical History DNR 06/28/20 1:22 PM EST [facility] Final Diagnosis DNR 1:22 PM EST [facility] Revision Description DNR 06/28/2025 1:22 PM EST [facility] Signing Pathologist DNR 06/28 1:22 PM EST [facility] Special Procedures DNR 2024 1:22 PM EST [facility] Sp Signing Pathologist DNR 06/28/2025 1:22 PM EST [facility] *Previous Report Follows* DNR 06/28/2025 1:22 PM EST [facility] Addendum DNR 06/28/2025 1:22 PM EST [facility] Addendum Comment DNR 06/28/20 1:22 PM EST [facility] Addendum Pathologist DNR 06/28/2025 1:22 PM EST [facility] Lymph Node Tissue (Lymph Node, Right Inguinal) 06/26/2025 1:21 PM EST 06/26/2025 2:48 PM EST us Aliza Moe MD LAB GENERAL ORDERABLES Fin al Result JORDAN (BEAKER) [address] [address], [facility] [phone] documented in this encounter Visit Diagnoses Diagnosis Lymphadenopathy Enlargement of lymph nodes documented in this encounter Administered Medications Inactive Administered [...] 1351, For 1 dose, Recovery Room (only) BUPivacaine-EPINEPHrin e (PF) (MARCAINE-PF w/EPI) 0.25%-1:200,000 15 mL, lidocaine (PF) (XYLOCAINE-MPF) 1% 15 mL OSM-Mixture As needed, Starting on Wed06/26/25 at 1315, Intra-op/procedure Given 06/26/2025 1:15 PM EST 30 mL Surgical Site lactated Ringers infusion 100 mL/hr, Intravenous, Continuous, [...] For 1 day, Recovery Room (only) 1405 (New Bag - Prov ider: Keeley Posadas RN) PRN Medication Order [...] documented as of this encounter Care Teams Insurance Marketing Rep Relationship Specialty Start Date End Date Maya Samaniego PA-C [address] [place] [address] [email or web address] PCP - General Physician Hybrid Powertrain Development Engineer 05/09/25 documented as of this encounter Additional Source Comments The information contained in this document represents components of the legal health record. It is not the complete legal health record.[facility]
--- OUTSIDE RECORDS SUMMARY | 2025-06-26 12:45 | XMS_ITS | Encounter Summary ---
Author Organization [facility] Address [address] [facility] [address] [place] [address] Phone Care Team Providers Care Emergency Response Coordinator Name Role Phone Maya Samaniego PA-C Primary Care Provider Reason for Visit * Auth/Cert (Routine) Specialty Diagnoses / Procedures Referred By Contac t Referred To Contact Diagnoses Lymphadenopathy Lymphadenopathy [R59.1] Procedures [place] BIOPSY/EXCISION, LYMPH NODE(S) BIOPSY LYMPH NODE RIGHT INGUINAL Referral ID Status Reason Start Date Expiration Date Visits Re quested Visits Authorized [id number] 1 1 Encounter Details Date Type Department Care Team (Late st Contact Info) Description 06/26/2025 12:45 PM EST Anesthesia Event OR Admitting Dept - Virtual Department [address] [place] [address] Douglas Linton MD [address] [place] [address] Rafita Lin Jr., DO [address] [place] [address] [email or web address] Anesthesia Record Procedure Summary Procedure Name Responsible Anesthesiologist Anesthesia Start Time Anesthesia Stop Time BIOPSY LYMPH NODE RIGHT INGUINAL (Right) Douglas Linton MD 06/26/25 1245 06/26/25 1341 Events Date Time Event Comment 06/26/2025 1244 In Room 1245 An Start 1245 An Start Data 1250 An LMA 1252 1304 Procedure Start 1333 Procedure End 1334 LMA Removal 1336 an stop data 1338 Out of Room 1341 Post Op Handoff 1341 An Stop Meds Name Total ondansetron 2 mg/mL 4 mg dexamethasone 4 mg/mL 8 mg propofol 10 mg/mL 200 mg ketorolac 30 mg/mL 15 mg Lactated Ringers 1000ml 900 mL * Agents Name O2 exp Air O2 Flow (fresh gas) * Blood No blood administrations on file. Lines, Drains, and Airways Type Details Placement Removal Wound 06/26/25; Incision; Right; Groin; right inguinal lymph node biopsy; Surgically c 06/26/25 0000 by Mae Shepherd, NUPUR Peripheral IV Placement Date: 09/19; Placement Time: 1034; Size: 20 G; Orientation: Anterior, Left; Location: Antecubital; Site Prep: Chlorhexidine-alcohol (CHG-IPA); Attempts: 3; Removal Date: 06/26/25; Removal Time: 1525 06/26/25 1034 by Desirae Galvan RN 06/26/25 1525 by Adelita Nickerson RN LMA Placement Date: 09/19; Placement Time: 1250; Removal Date: 06/26/25; Removal Time: 1334 06/26/25 1250 by Douglas Linton MD 06/26/25 1334 by Douglas Linton MD documented in this encounter Social History Tobacco [...] on file documented as of this encounter Procedure Notes * Douglas Linton MD - 06/26/2025 12:52 PM ESTAssociated Order(s): Airway Placement Airway Placement Procedure Note: Procedure performed by: anesthesiologist Airway procedure initiated at:06/26/2025 12:50 PM and ended at. Mask Ventilation: Quality: not attempted Airway Placement: Technique: LMA Rapid sequence induction: no LMA Insertion: LMA size: 4 LMA placement attempts: 1. Outcomes: Evidence of dental injury? no Complications observed? no documented in this encounter OR Notes * Anesthesia Postprocedure Evaluation - Douglas Linton MD - 06/26/2025 3:07 PM EST Anesthesia Post Operative Note Anesthesia Type: general Patient evaluated in: PACU Consciousness: awake Vital Signs: Post-procedure vital signs reviewed Other: Patient experienced no anesthesia complications. Entered by: Douglas Linton MD No notable events documented. Vital Signs: Vitals Value Taken Time Pulse 72 06/26/25 14:34 BP 179/111 06/26/25 15:05 SpO2 97 % 06/26/25 15:07 Resp 18 06/26/25 14:34 Temp 36.3 ??C (97.3 ??F) 06/26/25 14:30 Vitals shown include unfiled device data. No vitals data found for the desired time range. * Anesthesia Preprocedure Evaluation - Douglas Linton MD - 06/19/2025 11:35 AM EST Patient: Orlando Gillette Date of Surgery: 06/26/2025 Procedure: BIOPSY LYMPH NODE RIGHT INGUINAL (Right) Surgeons and Role: * Aliza Moe MD - Primary Relevant Problems CARDIOVASCULAR (+) Benign essential hypertension (+) Mixed hyperlipidemia (+) Paroxysmal atrial fibrillation PSYCHIATRIC/BEHAVIORAL (+) Psychophysiological insomnia History (imported from record): Past Medical History: No date: Degenerative disc disease, cervical 2005: Endocarditis No date: Essential (primary) hypertension No date: Hypothyroidism No date: Insomnia 2020: Malignant neoplasm of prostate No date: Mixed hyperlipidemia No date: Paroxysmal atrial fibrillation No date: Vertigo - Past Surgical History: No date: HAND SURGERY; Left Comment: left 4th and 5th fingers sewn back on No date: VASCULAR SURGERY; Left Comment: left leg arterial stent placement No date: VASECTOMY - Review of patient's family history indicates: Problem: Lung cancer Relation: Sister Age of Onset: (Not Specified) Comment: smoker Problem: Heart attack Relation: Brother Age of Onset: (Not Specified) Problem: Heart attack Relation: Brother Age of Onset: (Not Specified) Problem: Lung cancer Relation: Brother Age of Onset: (Not Specified) Comment: smoker Problem: Heart failure Relation: Brother Age of Onset: (Not Specified) - Social History: Social History Tobacco Use Smoking status: Never Smokeless tobacco: Never Tobacco comments: Previous history of cigar use Vaping Use Vaping status: never used Alcohol use: Yes Alcohol/week: 2.0 standard drinks of alcohol Types: 2 Shots of liquor per week Comment: Once a week on fridays Drug use: Not Currently - Prior Anesthetics: Previous Anesthesia Records Displaying the 20 most recent records Date Procedure Department Dialysis Equipment Technician Notable Events Planned Anesthesia Type 06/26/25 BIOPSY LYMPH NODE RIGHT INGUINAL (Right) OR Admitting Dept - Virtual Department Rafita Lin Jr., DO general - Physical Exam Airway: The airway exam is normal. Mallampati score: II. Neck ROM is full. Mouth opening: normal. TM distance: normal. Dental: No notable dental hx. Cardiovascular: The cardiovascular exam is normal. Pulmonary: The pulmonary exam is normal. Neurological: The neurological exam is normal. Vital Signs (imported from record): BP (!) 182/80 Pulse 91 Resp 22 SpO2 98% - Lab Results (imported from record): CBC: Lab Results Component Value Date WBC 6.70 06/05/2025 RBC 4.35 (L) 06/05/2025 HGB 14.0 06/05/2025 HCT 40.9 (L) 06/05/2025 PLT 202 06/05/2025 MCV 94.0 06/05/2025 MCH 32.2 (H) 06/05/2025 MCHC 34.2 06/05/2025 RDW 13.0 06/05/2025 MVP 10.3 06/05/2025 NRBCA 0.00 06/05/2025 - BMP: Lab Results Component Value Date NA 138 06/05/2025 K 4.5 06/05/2025 CL 104 06/05/2025 CO2 24 06/05/2025 BUN 21 06/05/2025 CRE 0.90 06/05/2025 GLU 94 06/05/2025 CA 8.7 06/05/2025 GFR 87 06/05/2025 ANION 10 06/05/2025 - LFTs: Lab Results Component Value Date ALB 4.1 06/05/2025 TBILI 0.5 06/05/2025 TP 7.2 06/05/2025 GLOB 3.1 06/05/2025 - Type and Screen: No results found for: ABO , RHTYPE , ABSCRN - COAGS: Lab Results Component Value Date PT 20.4 (H) 06/25/2025 PTT 35.3 06/23/2025 - Cardiac Testing: No results found for: CPK , CPKMB , TROPT , NTBNP - Imaging and Additional Testing (imported from record): The following test(s) were reviewed: EKG, echocardiogram, cardiac catheterization, Holter, stress test and chest x-ray. Anesthesia Assessment and Plan ASA physical status: 3 Anesthesia assessment: BMI 28, HTN, HLD, PAF, hypothyroidism, vertigo, prostate malignancy Echo 04/2025: EF 45%, mild MVR/PVR/LVH, mild global HK Primary anesthetic: general Induction type: intravenous Airway: The plan for the airway is: LMA. Monitoring/Lines: The plan for monitoring and lines is: standard monitor. Post-op destination/disposition: PACU Informed Consent: Anesthetic plan and risks discussed with: patient. documented in this encounter Plan of Treatment Upcoming Encounters Date Type Department Care Team (Late st Contact Info) Description 07/09/2025 10:15 AM EST Office Visit [facility] General Surgical Care [address] [place] [address] Rico Phillips, DENY 15 [facility], [address] [place] [address] 08/08/2025 9:40 AM EST Office Visit [facility] Internal Medicine [address] [place] [address] Maya Samaniego PA-C [address] [place] [address] documented as of this encounter Goals Goal Patient Goal Type Associated Problems Recent Progress Patient-Stated? Author Autogenerat ed Goal Care Plan Autogenerated Problem No Katty Gómez documented as of this encounter Procedures Procedure Name Priority Date/Time Associated Diagnosis Comments AIRWAY PLACEMENT Routine 06/26/2025 12:5 0 PM EST documented in this encounter Results * ANES ETT DOUBLE LUMEN - AIRWAY LDA (06/26/2025 12:50 PM EST) Narrative Douglas Linton MD - 06/26/2025 12:50 PM EST Douglas Linton MD 06/26/2025 12:52 PM Airway Placement Procedure Note: Procedure performed by: anesthesiologist Airway procedure initiated at:06/26/2025 12:50 PM and ended at. Mask Ventilation: Quality: not attempted Airway Placement: Technique: LMA Rapid sequence induction: no LMA Insertion: LMA size: 4 LMA placement attempts: 1. Outcomes: Evidence of dental injury? no Complications observed? no Douglas Linton MD [place] ANESTHESIA Final Result documented in this encounter Visit Diagnoses Not on filedocumented in this encounter Administered Medications Inactive Administered Medications - up to 3 most recent administrations Medication Order MAR Action Action Date Dose Rate Site dexAMETHasone (DECADRON) injection Intravenous, As needed, Starting on 06/26/25 at 1256, Anesthesia Intra-op Given 06/26/2025 12:56 PM EST 8 mg ketorolac (TORADOL) injection Intravenous, As needed, Starting on 06/26/25 at 1255, Anesthesia Intra-op Given 06/26/2025 12:55 PM EST 15 mg lactated Ringers infusion Intravenous, Continuous PRN, Starting on 06/26/25 at 1245, Anesthesia Intra-op New Bag 06/26/2025 12:45 PM EST ondansetron (PF) (ZOFRAN) injection Intravenous, As needed, Starting on 06/26/25 at 1255, Anesthesia Intra-op Given 06/26/2025 12:55 PM EST 4 mg propofol (DIPRIVAN) infusion Intravenous, As needed, Starting on 06/26/25 at 1248, Anesthesia Intra-op Given 06/26/2025 12:48 PM EST 200 mg documented in this encounter Additional Health Concerns Active Problems Noted Date Diagnosed Date Autogenerated Problem 06/11/2025 Assessment Noted Time PHQ-2 Depression Total Score: 0 05/09/20 9:08 AM EDT documented as of this encounter Care Teams Emergency Response Coordinator Relationship Specialty Start Date End Date Maya Samnaiego PA-C [address] [place] [address] [email or web address] PCP - General Physician Type Photography Supervisor 05/09/25 documented as of this encounter Additional Source Comments The information contained in this document represents components of the legal health record. It is not the complete legal health record.[facility]
[2025-06-29 13:51] LABS: Prothrombin Time Whole Bld POC 18.5 sec (11.1-13.5); ~PT, ~INR - Anti Coag Clinic 1.5 (0.9-1.1)
--- NOTE | 2025-06-29 13:59 | MHC.OFFVISCO ---
Intake Intake Visit Reasons: Anticoagulation Allergies No Known Allergies Allergy (Verified 06/29/25 13:47) Medication List - Last Reconciled 06/29/25 by Aruna Samano RN aspirin 81 mg PO DAILY levothyroxine 100 mcg PO .m-f levothyroxine (Levo-T) 75 mcg PO .sa-wed lisinopril 20 mg PO DAILY meclizine 25 mg PO DAILY PRN metoprolol succinate ER 50 mg PO DAILY naloxone 4 mg/actuation (Narcan) 4 mg intranasal Q2M PRN simvastatin 40 mg PO DAILY tramadol 50 mg PO Q12H PRN 30 days warfarin 1 mg See Protocol PO DAILY PRN zolpidem 10 mg PO BEDTIME Nursing Note INR: 1.5 out of therapeutic range of 2-3 S/P inguinal lymph node biopsy on 06/26/25. Per proceduralist, pt restarted warfarin on 06/27/25. No bleeding complications noted. Pt restarted warfarin on at 1mg and has taken 3 doses. Medications and supplements reviewed Medications or supplements: no changes Diet: no changes Denies any signs and symptoms of bleeding or clotting or unusual bruising Bleeding, bruising, clotting discussed Nutritional guidance given: to avoid greens X 2 days Dose: increase today's dose to 2mg then 1 mg daily F/U INR Date: 1 week?? Patient verbalizing understanding of instructions given. Anti-Coag Initial Assessment Social Hx Patient Tobacco Use Status: Former Tobacco user alcohol intake: current Alcohol intake frequency: a few times a month Cardiovascular Hx: HTN and Arrhythmias Endocrine Hx: Thyroid Disease Musculoskeletal Hx: Arthritis Blood Disorder Hx: Hyperlipidemia Hx: Prostate Neurological Hx: Migraines/Headaches Cancer HX: Yes Coding Level of Care Code Est Patient Level 1 Diagnoses Current use of anticoagulant therapy Z79.01 Results AMB INR Fingerstick AMB INR Fingerstick 1.5 Last Edit by Aruna Samano RN on 06/29/25 13:58 interface delay Assessment & Plan Assessment & Plan (1) Current use of anticoagulant therapy: Code(s): Z79.01 - long-term (current) use of anticoagulants Category: Medical
--- OUTSIDE RECORDS SUMMARY | 2025-06-29 17:58 | XMS_ITS | Encounter Summary ---
Author Organization [facility] Address [address] [facility] [address] [place] [address] Phone Care Team Providers Care Corporate Operations Compliance Manager Name Role Phone Maya Samaniego PA-C Primary Care Provider [phone] Reason for Visit * Reason Onset Date Comments Critical INR 06/29/2025 Encounter Details Date Type Department Care Team (Late st Contact Info) Description 06/29/2025 Telephone [facility] Internal Medicine [address] [place], [place] [phone] Maya Samaniego PA-C [address] [place] [address] [email or web address] Critical INR Social History Tobacco Use Types Packs/Day Years [...] as of this encounter Progress Notes * Aleyda Rueda RN - 06/29/2025 2:52 PM EST Noted. This was just an FYI for Favian * Osmin Dang - 06/29/2025 2:42 PM EST Emma [place] [facility] [place] with a critical INR on patient of 1.5. Target is 2-3. she states he just restarted Warfarin after having a biopsy. She states they have upped his dose and will recheck next week. Any questions [phone] documented in this encounter Plan of Treatment Upcoming Encounters Date Type Department Care Team (Late st Contact Info) Description 07/09/2025 10:15 AM EST Office Visit [facility] General Surgical Care [address] [place] [address] Rico Phillips, GEOSCIENCES PROFESSOR 15 [facility], [address] [place] [address] 08/08/2025 9:40 AM EST Office Visit [facility] Internal Medicine [address] [place] [address] Maya Samaniego PA-C [address] [place] [address] documented as of this encounter Goals Goal [...] documented as of this encounter Care Teams Corporate Operations Compliance Manager Relationship Specialty Start Date End Date Maya Samaniego PA-C [address] [place] [address] PCP - General Physician Biofuels Plant Superintendent 05/09/25 documented as of this encounter Additional Source Comments The information contained in this document represents components of the legal health record. It is not the complete legal health record.[facility]
--- OUTSIDE RECORDS SUMMARY | 2025-06-29 17:58 | XMS_ITS | Encounter Summary ---
Author Organization [facility] Address [address] [facility] [address] [place] [phone] Phone Care Team Providers Care Bioinformatics Programmer Name Role Phone Maya Samaniego PA-C Primary Care Provider [phone] Reason for Visit * Reason Onset Date Comments Post op call 06/27/2025 Encounter Details Date Type Department Care Team ([facility] st Contact Info) Description 06/27/2025 Telephone [facility] General Surgical Care [address] [place] [address] Michelle Cummings RN 15 [place] [address] [email or web address] Post op call Social History Tobacco Use Types Packs/Day Years [...] as of this encounter Progress Notes * Michelle Cummings, RN - 06/27/2025 1:47 PM EST Patient states they are doing well. Pain is well controlled. No other questions or concerns. Reviewed post op instructions and discussed lifting restrictions as listed in after visit summary . They will call with any questions. Post op made for 07/09 documented in this encounter Plan of Treatment Upcoming Encounters Date Type Department Care Team (Late st Contact Info) Description 07/09/2025 10:15 AM EST Office Visit [facility] General Surgical Care [address] [place] [address] Rico [place] CNP 15 [facility], 2nd [place] [address] 08/08/2025 9:40 AM EST Office Visit [facility] Internal Medicine [address] [place], [place] [phone] Maya Samaniego PA-C [address] [place], [place] [phone] documented as of this encounter Goals Goal [...] documented as of this encounter Care Teams Bioinformatics Programmer Relationship Specialty Start Date End Date Maya Samaniego PA-C [address] [place] [address] PCP - General Physician Instructional Technology Coordinator 05/09/25 documented as of this encounter Additional Source Comments The information contained in this document represents components of the legal health record. It is not the complete legal health record.[facility]
--- OUTSIDE RECORDS SUMMARY | 2025-06-29 17:58 | XMS_ITS | Encounter Summary ---
Author Organization [facility] Address [address] [facility] [address] [place] [phone] Phone Care Team Providers Care Body Man Name Role Phone Maya Samaniego PA-C Primary Care Provider Encounter Details Date Type Department Care Team (Late st Contact Info) Description 06/26/2025 Procedure Pass OR Admitting Dept - Virtual Department [address] [place] [address] Social History Tobacco Use Types Packs/Day Years [...] on file documented as of this encounter Plan of Treatment Upcoming Encounters Date Type Department Care Team (Late st Contact Info) Description 07/09/2025 10:15 AM EST Office Visit [facility] General Surgical Care [address] [place] [address] Rico [place], DENY 15 [facility], [address] [place] [address] 08/08/2025 9:40 AM EST Office Visit [facility] Internal Medicine [address] [place] [address] Maya Samaniego PA-C 40 [place], [place] documented as of this encounter Goals [...] documented as of this encounter Care Teams Body Man Relationship Specialty Start Date End Date Maya Samaniego PA-C [address] [place] [address] [email or web address] PCP - General Physician Leather Softener 05/09/25 documented as of this encounter Additional Source Comments The information contained in this document represents components of the legal health record. It is not the complete legal health record.[facility]
--- OUTSIDE RECORDS SUMMARY | 2025-06-29 17:58 | XMS_ITS | Encounter Summary ---
Author Organization [facility] Address [address] [facility] [address] [place] [phone] Phone Care Team Providers Care Market Research Associate Name Role Phone Maya Samaniego PA-C Primary Care Provider Encounter Details Date Type Department Care Team (Late st Contact Info) Description 06/29/2025 Lab Requisition [facility] Main [address] [place] [address] Phillip Cramer MD [address] [place] [address] [email or web address] Follicular lymphoma grade I, unspecified site; Follicular lymphoma grade II, unspecified site Social History Tobacco Use Types Packs/Day Years [...] Description 07/09/2025 10:15 AM EST Office Visit [facility] General Surgical Care [address] [place] [address] Rico [place], DENY 15 [facility], 2nd [place] [address] 08/08/2025 9:40 AM EST Office Visit [facility] Internal Medicine 40 [place] [address] Maya Samaniego PA-C 40 [place] [address] [email or web address] Pending Results Name Type Priority Associated Diagnoses Date /Time JORDAN GENERIC ORDER, AMBIENT Lab Today Follicular lymphoma grade I, unspecified site Follicular lymphoma grade II, unspecified site 06/26/2025 1:46 PM EST documented as of this encounter Goals Goal Patient Goal Type Associated Problems Recent Progress Patient-Stated? Author Autogenerat ed Goal Care Plan Autogenerated Problem No Tawanda Gómeza documented as of this encounter Visit Diagnoses Diagnosis Follicular lymphoma grade I, unspecified site Follicular lymphoma grade II, unspecified site documented in this encounter Additional Health Concerns Active Problems Noted Date Diagnosed Date Autogenerated Problem 06/11/2025 Assessment Noted Time PHQ-2 Depression Total Score: 0 05/09/20 9:08 AM EDT documented as of this encounter Care Teams Market Research Associate Relationship Specialty Start Date End Date Maya Samaniego PA-C 40 [place] [address] [email or web address] PCP - General Physician Conveyor Feeder Offbearer 05/09/25 documented as of this encounter Additional Source Comments The information contained in this document represents components of the legal health record. It is not the complete legal health record.[facility]
--- OUTSIDE RECORDS SUMMARY | 2025-06-29 17:58 | XMS_ITS | Encounter Summary ---
Author Organization [facility] Address [address] [facility] [address] [place] [address] Phone Care Team Providers Care Field Sales Associate Name Role Phone Maya Samaniego PA-C Primary Care Provider Encounter Details Date Type Department Care Team (Late st Contact Info) Description 06/25/2025 Orders Only [facility] General Surgical Care 15 [place] [address] Aliza Moe MD [address] [facility], 2nd [place] [address] [email or web address] Lymphadenopathy (Primary Dx) Social History Tobacco Use Types Packs/Day Years [...] Description 07/09/2025 10:15 AM EST Office Visit [facility] General Surgical Care [address] [place] [address] Rico [place] CNP [address] [facility], 2nd [place] [address] 08/08/2025 9:40 AM EST Office Visit [facility] Internal Medicine [address] [place] [address] Maya Samaniego PA-C 40 [place], [place] [email or web address] documented as of this encounter Goals Goal Patient Goal Type Associated Problems Recent Progress Patient-Stated? Author Autogenerat ed Goal Care Plan Autogenerated Problem No Katty Gómez documented as of this encounter Results * (ABNORMAL) PT-INR (06/25/2025 3:47 PM EST) PT 20.4(H) 10.0 - 13.0 sec 06/25/2025 4:03 PM EST [facility] INR 1.6(H) 0.9 - 1.1 06/25/2025 4:03 PM EST [facility] Comment:Therapeutic Range 2. 0 - 3.5 Blood (Blood) Venipuncture / Unknown 06/25/2025 3:47 PM EST 06/25/2025 3:50 PM EST us Aliza Moe MD LAB BLOOD BKR ORDERABLES F inal Result [facility] [address] [place] [address] documented in this encounter Visit Diagnoses Diagnosis Lymphadenopathy- Primary Enlargement of lymph nodes documented in this encounter Additional Health Concerns Active Problems Noted Date Diagnosed Date Autogenerated Problem 06/11/2025 Assessment Noted Time PHQ-2 Depression Total Score: 0 05/09/20 9:08 AM EDT documented as of this encounter Care Teams Field Sales Associate Relationship Specialty Start Date End Date Maya Samaniego PA-C [address] [place], [place] [email or web address] PCP - General Physician Chemical Operations Specialist 05/09/25 documented as of this encounter Additional Source Comments The information contained in this document represents components of the legal health record. It is not the complete legal health record.[facility]
--- OUTSIDE RECORDS SUMMARY | 2025-06-29 17:59 | XMS_ITS | Clinical Summary ---
Author Organization [facility] Address [address] [address] Phone Care Team Providers Care Measurement And Verification Engineer Name Role Phone Maya Samaniego PA-C Primary [...] nightly at bedtime. 30 tablet 5 Active docusate sodium (COLACE) 100 MG capsule Take 1 capsule (100 mg total) by mouth 2 (two) times a day. 60 capsule 6 5 Active oxyCODONE 5 MG immediate release tablet Take 1 tablet (5 mg total) by mouth every 4 (four) hours as needed for pain (specific location in comments). Partial fill ok 10 tablet 5 Active traMADoL (ULTRAM) 50 mg tabletIndicatio ns:Degenerative disc disease, cervical Take 1 tablet (50 mg total) by mouth every 8 (eight) hours as needed for pain (specific location in comments) (Chronic neck pain). 90 tablet 5 06/19/20 25 Discontinu ed(Reorder ) zolpidem (AMBIEN) 10 mg [...] Routine general medical exam ination at a [facility] 05/09/2025 Assessment & Plan (05/09/2025 10:02 [...] with Dr. Yeh every 6 months at [facility]. Paroxysmal atrial fibrillation 05/09/2025 Assessment & Plan (05/09/2025 10:01 AM EDT): History of A-fib currently on metoprolol 50 mg daily and warfarin 1 mg daily, following with the [facility]. Benign essential hypertension 05/09/2025 Assessment [...] 12 hours by his previous PCP from [facility]. Patient reports that he is currently out [...] office today which was discussed in depth. MassPAT was reviewed and he will not be [...] Encounters Date Type Department Care Team Description 06/29/2025 Telephone [employer] [employer] [facility] [address] [place] [address] Maya Samaniego PA-C Critical INR 06/29/2025 Lab Requisition [facility] Lab Main [address] [place] [address] Phillip Cramer MD Follicular lymphoma grade I, unspecified site; Follicular lymphoma grade II, unspecified site 06/27/2025 Telephone [facility] General Surgical Care [address] [place] [address] [place] [address] Michelle Cummings RN Post op call 06/26/2025 12:45 PM EST Anesthesia Event OR Admitting Dept - Virtual Department [address] [place] [address] Douglas Linton MD Abbott, Timothy C Patricia, DO 06/26/2025 12:15 PM EST - 06/26/2025 1:30 PM EST Surgery OR Admitting Dept - Virtual Department [address] [place] [address] Aliza Moe MD BIOPSY LYMPH NODE RIGHT INGUINAL 06/26/2025 9:46 AM EST - 06/26/2025 3:26 PM EST Hospital Encounter OR Admitting Dept - Virtual Department [address] [place] [address] Aliza Moe MD Discharge Disposition: Home or Self Care 06/26/2025 Procedure Pass OR Admitting Dept - Virtual Department [address] [place] [address] 06/25/2025 8:30 AM EST Pre-Admission Testing Pre Procedure Evaluation [address] [place] [address] Aliza Moe MD 06/25/2025 Orders Only [facility] General Surgical Care [address] [place] [address] Aliza Moe MD Lymphadenopathy (Primary Dx) 06/19/2025 Refill [facility] Internal Medicine [address] [place] [address] Maya Samaniego PA-C Medication Refill 06/11/2025 9:30 AM EST Office Visit [facility] General Surgical Care [address] [place] [address] Aliza Moe MD Lymphadenopathy (Primary Dx) 06/11/2025 Telephone [facility] General Surgical Care [address] [place] [address] Aliza Moe MD 06/05/2025 Telephone [facility] Internal Medicine [address] [place] [address] Maya Samaniego PA-C Results 05/30/2025 Telephone [facility] Internal Medicine [address] [place] [address] Maya Samaniego PA-C Question on Warfarin 05/21/2025 Refill [facility] Internal Medicine [address] [place] [address] Angie Tripp MA Medication Refill 05/18/2025 2:13 PM EDT - 05/18/2025 11:59 PM EDT Hospital Encounter [address] [address] Maya Samaniego PA-C Discharge Disposition: Home or Self Care 05/18/2025 Telephone [facility] Internal Medicine [address] [place] [address] Maya Samaniego PA-C Results 05/18/2025 Refill [facility] Internal Medicine [address] [place] [address] Maya Samaniego PA-C Medication Refill 05/09/2025 9:00 AM EDT Office Visit [facility] Internal Medicine [address] [place] [address] Maya Samaniego PA-C Routine general medical examination [...] Description 07/09/2025 10:15 AM EST Office Visit [facility] General Surgical Care [address] [place] [address] Rico Phillips CNP [address] [facility] [place] [address] 08/08/2025 9:40 AM EST Office Visit [facility] Internal Medicine [address] [place] [address] Maya Samaniego PA-C [address] [place] [address] [email or web address] Due Date Last Done Comments [...] [employer] Implanted Type Area Meeting Specialist Device Identifier Shelf Expiration Date Model / Serial / Lot Stent Stent Left: Leg Procedures Procedure Name Priority Date/Time Associated Diagnosis Comments TISSUE EXAM Routine 06/26/2025 1:21 PM EST LEUKEMIA/LYMPHOMA FLOW CYTOMETRY, TISSUE Today 06/26/2025 1:21 PM EST AIRWAY PLACEMENT Routine 06/26/2025 12:5 0 PM EST [place] BIOPSY/EXCISION, LYMPH NODE(S) 06/26/2025 12:44 PM EST Lymphadenopathy PT-INR Routine 06/25/2025 3:47 PM EST Lymphadenopathy PTT Routine 06/23/2025 9:25 AM EST Lymphadenopathy PT-INR Routine 06/23/2025 9:25 AM EST Lymphadenopathy CBC AND DIFFERENTIAL Routine 06/05/2025 9:40 AM [...] 05/10/2025 from Last 3 Months Results * Leukemia/Lymphoma Tissue (06/26/2025 1:21 PM EST) LLPT Result Performed 06/28/2025 1:22 PM [facility] Final Diagnosis SEE COMMENTS 1:22 PM [facility] Comment: Lymph node, right inguinal, specimen for flow cytometric analysis ([id number]): CD19, CD20, and [id number], kappa immunoglobulin light chain restricted B-cell population identified. Comment: The findings are most consistent with the diagnosis of a B-cell lymphoma. The most frequent types of lymphoma with a [id number] B-cell phenotype include follicular lymphoma, diffuse large B-cell lymphoma, Burkitt lymphoma, and high grade B-cell lymphoma. Correlation with clinical and morphologic features, possibly supplemented by immunohistochemistry and cytogenetic analysis, is required for a final diagnosis. Reviewed by: Malka Benites M.D., Ph.D. Special Studies SEE COMMENTS 1:22 PM [facility] Comment: Results: Blasts: Not [...] Microscopic Description SEE COMMENTS 06/28/2025 1:22 PM [facility] Comment: A Paul-Giemsa stained slide prepared from the flow cytometry specimen was examined for quality purposes. ADDITIONAL INFORMATION This test was developed using an analyte specific reagent. Its performance characteristics were determined by [facility] in a manner consistent with CLIA requirements. This test has not been cleared or approved by the U.S. Food and Drug Administration. Accession Number DNR 06/28/20 1:22 PM [facility] Referring Pathologist/Physici an DNR 06/28/2025 1:22 PM EST [facility] Referring Pathologist/Physici an Address DNR 06/28/2025 1:22 PM EST [facility] Place Of DNR 06/28/2025 1:22 PM EST [facility] Date And Time Of DNR 06/28/2025 1:22 PM EST [facility] Date Of Autopsy: DNR 06/28/20 1:22 PM EST [facility] Specimen DNR 06/28/2025 1:22 PM EST [facility] Material DNR 06/28/2025 1:22 PM EST [facility] Tissue Description DNR 2024 1:22 PM EST [facility] Clinical History DNR 06/28/20 1:22 PM EST [facility] Final Diagnosis DNR 1:22 PM EST [facility] Revision Description DNR 06/28/2025 1:22 PM EST [facility] Signing Pathologist DNR 06/28 1:22 PM EST [facility] Special Procedures DNR 2024 1:22 PM EST [facility] Sp Signing Pathologist DNR 06/28/2025 1:22 PM EST [facility] *Previous Report Follows* DNR 06/28/2025 1:22 PM EST [facility] Addendum DNR 06/28/2025 1:22 PM EST [facility] Addendum Comment DNR 06/28/20 1:22 PM EST [facility] Addendum Pathologist DNR 06/28/2025 1:22 PM EST [facility] Lymph Node Tissue (Lymph Node, Right Inguinal) 06/26/2025 1:21 PM EST 06/26/2025 2:48 PM EST us Aliza Moe MD LAB GENERAL ORDERABLES Fin al Result NIKKI WALKER) [facility] [address] [place] [address], [facility] [phone] * ANES ETT DOUBLE LUMEN - AIRWAY [...] of dental injury? no Complications observed? no us Douglas Linton MD [place] ANESTHESIA Final Result * (ABNORMAL) PT-INR (06/25/2025 3:47 PM EST) Only the most recent of2 resultswithin the time period is included. PT 20.4(H) 10.0 - 13.0 sec 06/25/2025 4:03 PM [facility] INR 1.6(H) 0.9 - 1.1 06/25/2025 4:03 PM [facility] Comment:Therapeutic Range 2. 0 - 3.5 Blood (Blood) Venipuncture / Unknown 06/25/2025 3:47 PM EST 06/25/2025 3:50 PM EST us Aliza Moe MD LAB BLOOD BKR ORDERABLES F inal Result [facility] [address] [place] [address] * PTT (06/23/2025 9:25 AM EST) PTT 35.3 24.0 - 37.5 sec 06/23/2025 10:03 AM [facility] Comment:See MAR for therapeu tic range. Emicizumab (Hemlibra) treatment can result in falsely lowered aPTT test results. Blood (Blood) Venipuncture / Unknown 06/23/2025 9:25 AM EST 06/23/2025 9:49 AM EST us Aliza Moe MD LAB BLOOD BKR ORDERABLES F inal Result [facility] [address] [place] [address] * Comprehensive Metabolic Panel (CMP) (06/05/2025 9:40 AM EST) Sodium 138 136 - 145 mmol/L 06/05/2025 2:45 PM [facility] Potassium 4.5 3.4 - 5.1 mmol/L 06/05/2025 2:45 PM [facility] Chloride 104 98 - 107 mmol/L 06/05/2025 2:45 PM [facility] CO2 24 20 - 31 mmol/L 06/05/2025 2:45 PM [facility] Anion Gap 10 3 - 17 mmol/L 06/05/2025 2:45 PM [facility] BUN 21 6 - 23 mg/dL 06/05/2025 2:45 PM [facility] Creatinine 0.90 0.60 - 1.30 mg/dL 06/05/2025 2:45 PM [facility] eGFR 87 >59 mL/min/1.7 3m2 06/05/2025 2:45 PM [facility] Comment:Estimated glomerular filtration rate calculated using the CKD-EPI refit equation. Glucose 94 70 - 99 mg/dL 06/05/2025 2:45 PM [facility] Calcium 8.7 8.5 - 10.5 mg/dL 06/05/2025 2:45 PM [facility] AST 27 <40 U/L 06/05/2025 2:45 PM [facility] ALT 19 <50 U/L 06/05/2025 2:45 PM [facility] Alkaline Phosphatase 67 40 - 130 U/L 06/05/2025 2:45 PM [facility] Bilirubin, Total 0.5 0.0 - 1.2 mg/dL 06/05/2025 2:45 PM [facility] Total Protein 7.2 6.4 - 8.3 g/dL 06/05/2025 2:45 PM [facility] Albumin 4.1 3.5 - 5.2 g/dL 06/05/2025 2:45 PM [facility] Globulin 3.1 1.9 - 4.1 g/dL 06/05/2025 2:45 PM [facility] Blood 06/05/2025 9:40 AM EST 06/05/2025 9:40 AM EST us Maya Samaniego PA-C LAB BLOOD BKR ORDERABLES Fin al Result Performing Organization Address City/State/[facility] Co de Phone Number [facility] [address] [place] [address] * (ABNORMAL) CBC and Differential (06/05/2025 9:40 AM EST) WBC 6.70 4.00 - 11.00 K/uL 06/05/2025 1:25 PM [facility] RBC 4.35(L) 4.50 - 5.90 M/uL 06/05/2025 1:25 PM [facility] Hemoglobin 14.0 13.5 - 17.5 g/dL 06/05/2025 1:25 PM [facility] Hematocrit 40.9(L) 41.0 - 53.0 % 06/05/2025 1:25 PM [facility] MCV 94.0 80.0 - 100.0 fL 06/05/2025 1:25 PM [facility] MCH 32.2(H) 27.0 - 31.0 pg 06/05/2025 1:25 PM [facility] MCHC 34.2 32.0 - 36.0 g/dL 06/05/2025 1:25 PM [facility] MPV 10.3 8.4 - 12.0 fL 06/05/2025 1:25 PM [facility] RDW-CV 13.0 11.5 - 14.5 % 06/05/2025 1:25 PM [facility] PLT 202 150 - 450 K/uL 06/05/2025 1:25 PM [facility] Neutrophils 62.5 % 06/05/2025 1:25 PM [facility] Lymphocytes 22.5 % 06/05/2025 1:25 PM [facility] Monocytes 9.4 % 06/05/2025 1:25 PM [facility] Eosinophils 4.3 % 06/05/2025 1:25 PM [facility] Basophils 1.0 % 06/05/2025 1:25 PM [facility] Imm Grans 0.3 % 06/05/2025 1:25 PM [facility] NRBC 0.0 <=0.0 /100 WBCs 06/05/2025 1:25 PM [facility] Absolute Neutrophils 4.18 1.92 - 7.60 K/uL 06/05/2025 1:25 PM [facility] Absolute Lymphocytes 1.51 0.72 - 4.10 K/uL 06/05/2025 1:25 PM [facility] Absolute Monocytes 0.63 0.16 - 1.10 K/uL 06/05/2025 1:25 PM [facility] Absolute Eosinophils 0.29 0.00 - 0.50 K/uL 06/05/2025 1:25 PM [facility] Absolute Basophils 0.07 0.00 - 0.15 K/uL 06/05/2025 1:25 PM [facility] Absolute Imm Grans 0.02 0.00 - 0.09 K/uL 06/05/2025 1:25 PM [facility] Absolute NRBC 0.00 <=0.00 K cells/uL 06/05/2025 1:25 PM [facility] Absolute Neutrophils 4.18 1.92 - 7.60 K/uL 06/05/2025 1:25 PM [facility] Comment:Automated cell count . Manual ANC may differ if performed. Diff Type Auto 06/05/2025 1:25 PM [facility] Blood 06/05/2025 9:40 AM EST 06/05/2025 9:40 AM EST us Maya Samaniego PA-C LAB BLOOD BKR ORDERABLES Fin al Result [address] [address] * Thyroid Stimulating Hormone (TSH), with Reflex (06/05/2025 9:40 AM EST) TSH 1.94 0.40 - 5.90 uIU/mL 06/05/2025 2:45 PM EST [facility] Blood 06/05/2025 9:40 AM EST 06/05/2025 9:40 AM EST Maya Samaniego PA-C LAB BLOOD BKR ORDERABLES Fin al Result Performing Organization Address [facility]/ZIP Co de Phone Number [address] [address] * Hepatitis C Antibody (06/05/2025 9:40 AM EST) Pathologist [facility] Hepatitis C Antibody Non-Reacti ve Non-Reacti ve 06/05/2025 4:45 PM EST [facility] Blood 06/05/2025 9:40 AM EST 06/05/2025 9:40 AM EST Narrative [facility] - 06/05/2025 4:45 PM EST Test performed by Noble electrochemiluminescent immunoassay (ECLIA). Maya Samaniego PA-C LAB BLOOD BKR ORDERABLES Fin al Result Performing Organization Address City/[facility]/ZIP Co de Phone Number [address] [address] * (ABNORMAL) Lipid Panel (06/05/2025 9:40 AM EST) Cholesterol 137 <200 mg/dL 06/05/2025 2:45 PM EST [facility] HDL 33(L) >=40 mg/dL 06/05/2025 2:45 PM EST [facility] Calculated LDL 77 <130 mg/dL 06/05/2025 2:45 PM EST [facility] Comment:LDL is calculated us ing the Larson-NIH equation (LISSET Cardiol. 2019 1;5(5):540-540). Non-HDL Cholesterol 104 mg/dL 06/05/2025 2:45 PM EST [facility] Comment:Guidelines suggest a non-HDL cholesterol goal 30 mg/dL higher than the patient-specific LDL cholesterol goal. Cardiac Risk Ratio 4.2 0.0 - 5.0 2024 2:45 PM EST [facility] Triglycerides 152(H) <=150 mg/dL 06/05/2025 2:45 PM EST [facility] Blood 06/05/2025 9:40 AM EST 06/05/2025 9:40 AM EST us Maya Samaniego PA-C LAB BLOOD BKR ORDERABLES Fin al Result Performing Organization Address City/State/[facility] Co de Phone Number [address] [address] * US INGUINAL NON-HERNIA EVALUATION (RIGHT) (05/18/2025 [...] MEDICARE REPLACEMENT MEDICARE PART A & B Advance Directives For more information, please contact: [phone] (9AM - 5PM [facility], Wednesday-Wednesday) * Full Code (Latest Code Status on File) Date Activated Date Inactivated Comments 06/26/2025 9:50 AM Question Answer Comments Code Status Confirmed With: Patient Care Teams Measurement And Verification Engineer Relationship Specialty Start Date End Date Maya Samaniego PA-C [address] [place] [id number] PCP - General Physician Power Switchboard Operator 05/09/25 Additional Source Comments The information contained in this document represents components of the legal health record. It is not the complete legal health record.[facility]
--- OUTSIDE RECORDS SUMMARY | 2025-06-29 17:59 | XMS_ITS | Encounter Summary ---
Author Organization [facility] Address [address] [facility] [address] [place] [address] Phone Care Team Providers Care Personnel Supervisor Name Role Phone Maya Samaniego PA-C Primary Care Provider [phone] Reason for Visit * Reason Onset Date Comments Question on Warfarin 05/30/2025 Encounter Details Date Type Department Care Team ([facility] st Contact Info) Description 05/30/2025 Telephone [employer] [facility] Internal Medicine [address] [place], [place] [phone] Maya Samaniego PA-C [address] [place], [place] [phone] [email or web address] Question on Warfarin Social History Tobacco Use [...] of this encounter Progress Notes * Jessi Maravilla, NUPUR - 05/30/2025 2:36 PM EST Spoke to [...] Description 07/09/2025 10:15 AM EST Office Visit [facility] General Surgical Care [address] [place] [address] Rico Phillips, DENY [address] [facility], 2nd [place] [address] 08/08/2025 9:40 AM EST Office Visit [facility] Internal Medicine [address] [place] [address] Maya Samaniego PA-C [address] [place] [address] documented as of this encounter Visit Diagnoses Not on filedocumented in this encounter Additional Health Concerns Assessment Noted Time PHQ-2 Depression Total Score: 0 05/09/20 25 9:08 AM EDT documented as of this encounter Care Teams Personnel Supervisor Relationship Specialty Start Date End Date Maya Samaniego PA-C [address] [place] [address] [email or web address] PCP - General Physician Nuclear Reactor Operator 05/09/25 documented as of this encounter Additional Source Comments The information contained in this document represents components of the legal health record. It is not the complete legal health record.[facility]
== END 2025-06-29 14:04 | disposition home or self-care (01) ==
LOC: HO.ACS 13:45
PROVIDERS: Visit Provider Internal Medicine Medical Oncology
DX: Z79.01 Long term (current) use of anticoagulants (principal)

== ENCOUNTER → 2025-06-29 13:45 | Outpatient (BNVA) | payer MEDICARE, SELFPAY | PROVIDERS: Visit Provider Internal Medicine Medical Oncology | DX: I48.91 Unspecified atrial fibrillation (principal); Z51.81 Encounter for therapeutic drug level monitoring; Z79.01 Long term (current) use of anticoagulants | CPT/HCPCS: 85610; 99211 ==

== ENCOUNTER 2025-07-05 11:04 | Outpatient (AMB) | payer MEDICARE, SELFPAY ==
[2025-07-05 11:16] LABS: Prothrombin Time Whole Bld POC 25.0 sec (11.1-13.5); ~PT, ~INR - Anti Coag Clinic 2.1 (0.9-1.1)
--- NOTE | 2025-07-05 11:24 | MHC.OFFVISCO ---
Intake Intake Visit Reasons: Anticoagulation Allergies No Known Allergies Allergy (Verified 07/05/25 11:11) Medication List - Last Reconciled 07/05/25 by Aruna Samano RN aspirin 81 mg PO DAILY levothyroxine 100 mcg PO .m-f levothyroxine (Levo-T) 75 mcg PO .sa-sun lisinopril 20 mg PO DAILY meclizine 25 mg PO DAILY PRN metoprolol succinate ER 50 mg PO DAILY naloxone 4 mg/actuation (Narcan) 4 mg intranasal Q2M PRN simvastatin 40 mg PO DAILY tramadol 50 mg PO Q12H PRN 30 days warfarin 1 mg See Protocol PO DAILY PRN zolpidem 10 mg PO BEDTIME Nursing Note INR: 2.1 in therapeutic range of 2-3 S/P inguinal lymph node biopsy on 06/26/25. Pt states he thinks the site is infected because it is red and swollen and he is going to the ER after this visit. He called his pcp who instructed him to call the surgeon who has he is waiting to hear from but since he is here at the hospital, he is going to the ER. Pt instructed to call [facility] if he is prescribed antibiotics or any new medicine. Medications and supplements reviewed No changes in diet, medications, or supplements, Denies any signs and symptoms of bleeding or bruising or clotting. Bleeding, bruising, clotting discussed Food list reviewed and given to pt of the foods that raise and foods that lower the INR. Dose: keep same dose of 1mg daily F/U INR: 1 week preferred but pt insisted on 1.5 weeks. 07/16/25 Patient verbalizes understanding of instructions with read back given Anti-Coag Initial Assessment Social Hx Patient Tobacco Use Status: Former Tobacco user alcohol intake: current Alcohol intake frequency: a few times a month Cardiovascular Hx: HTN and Arrhythmias Endocrine Hx: Thyroid Disease Musculoskeletal Hx: Arthritis Blood Disorder Hx: Hyperlipidemia Hx: Prostate Neurological Hx: Migraines/Headaches Cancer HX: Yes Coding Level of Care Code Est Patient Level 1 Diagnoses Current use of anticoagulant therapy Z79.01 Results AMB INR Fingerstick AMB INR Fingerstick 2.1 Last Edit by Aruna Samano RN on 07/05/25 11:16 interface delay Assessment & Plan Assessment & Plan (1) Current use of anticoagulant therapy: Code(s): Z79.01 - detention (current) use of anticoagulants Category: Medical
== END 2025-07-05 11:35 | disposition home or self-care (01) ==
LOC: HO.ACS 11:04
PROVIDERS: Visit Provider Internal Medicine Medical Oncology
DX: Z79.01 Long term (current) use of anticoagulants (principal)

== ENCOUNTER 2025-07-05 11:36 | Inpatient (IN) | payer MEDICARE, SELFPAY ==
--- NOTE | ~2025-07-05 | CT_ITS ---
EXAMINATION: CT PELVIS WITHOUT CONTRAST CLINICAL INFORMATION: Follow-up right inguinal fluid collection COMPARISON: Previous CT scan of the abdomen and pelvis July 05, 2025 TECHNIQUE: Helical scanning was performed with submillimeter collimation through the pelvis. Sagittal and coronal multiplanar 2-D reconstructions were obtained. This CT examination was performed using dose optimization techniques as appropriate, variously including the following: *Automated exposure control *Adjustment of mA and/or kV according to patient size (this includes techniques or standardized protocols for targeted exams where dose is matched to indication/reason for exam; i.e. 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 The bladder is normal. Mild diverticulosis of the colon. Visualized small and large bowel is otherwise normal. The appendix is normal. Shotty retroperitoneal lymphadenopathy in the visualized lower abdomen. Larger retroperitoneal lymph nodes in the pelvis, largest lymph node is a right external iliac lymph node measuring 1.5 cm in short axis axial image 23 series 2 and left external iliac lymph nodes measuring 9 cm in short axis axial image 25 and 31 series 2. This appears similar to previous exam. There is a low-attenuation multilobulated fluid collection in the right inguinal region. This measures 2.4 x 5.3 x 6.6 cm in AP transverse and longitudinal dimension. This measured 3.3 x 5.6 x 6.5 cm on recent July 05, 2025 exam and does not appear appreciably changed in size. Hounsfield units are low measuring 9 without contrast suggesting simple fluid collection. There is surrounding stranding of the fat and skin thickening. This may be slightly increased from previous exam. There are small surrounding right inguinal lymph nodes that appear unchanged, for example axial image 77 series 2. There may be adjacent surgical clips adjacent to the fluid collection. There is evidence of atherosclerotic disease. No aneurysm. There are small umbilical and right inguinal hernias containing fat. OSSEOUS STRUCTURES: Degenerative changes of the spine and hips. Heterogeneous attenuation with multiple small lucencies. This may represent osteopenia. There are several small nonspecific sclerotic lesions in the pelvis for example measuring 10 mm in the left sacrum near the sacroiliac joint axial image 23 and 8 mm in the right iliac bone sacroiliac joint axial image 25 series 2. These appear similar to prior exam. CT/CT pelvis wo IV con IMPRESSION: No appreciable change in size in the fluid collection in the right inguinal measuring 2.4 x 5.3 x 6.6 cm from recent July 05, 2025 exam. There may be slight interval increase in surrounding subcutaneous fat stranding and skin thickening. Differential would include postoperative fluid collection such as lymphocele or seroma and abscess. Hematoma considered less likely giving low Hounsfield units. Other stable findings of radiation seeds in prostate gland, retroperitoneal lymphadenopathy in the lower abdomen and pelvis and nonspecific sclerotic bone lesions. Electronically signed by: Myrna Pollard MD 07/09/2025 09:53 AM AL[facility]
--- NOTE | ~2025-07-05 | CT_ITS ---
CLINICAL HISTORY: R inner groin swelling pain, recent inguinal biops CT abdomen and pelvis with contrast Comparison: None provided Findings: Lung bases: Coronary artery calcifications. Liver: No focal lesions. No biliary ductal dilatation. Patent portal vein. Gallbladder: Noninflamed gallbladder. Spleen: Normal Pancreas: No solid mass or main duct dilation. Adrenal glands: No nodules. Kidneys: No hydronephrosis. No stones. No solid mass. Pelvic organs: Fudicial markers in the prostate. Peritoneum and Gastrointestinal: No bowel obstruction, pneumoperitoneum, or ascites. Noninflamed appendix. Lymph nodes: 1.4 cm right external iliac lymph node. 1.2 cm left external iliac lymph node (series 3, image 540) multiple additional subcentimeter pelvic lymph nodes. Vessels: Atherosclerosis. Bones and soft tissues: There is a 3.3 x 6.5 cm fluid collection in the right inguinal region (series 3, image 502). It extends by 5.6 cm in the craniocaudal dimension. Multilevel degenerative changes of the spine. IMPRESSION: 3.3 x 6.5 x 5.6 cm fluid collection in the right inguinal region may represent a postprocedural seroma or evolving. No walled-off borders to suggest an abscess on CT. However, infection should be excluded clinically. Fudicial markers in the prostate gland suggests prostate cancer treatment. Bilateral pelvic lymphadenopathy may represent lymphatic spread. Recommend comparison with prior exams. This document has been electronically signed by: Sandra Duque MD on 07/05/2025 20:50:32
--- NOTE | ~2025-07-05 | US_ITS ---
PROCEDURE: ULTRASOUND GUIDANCE FOR NEEDLE PLACEMENT CLINICAL INFORMATION: Fluid collection right groin post lymph node excision COMPARISON: Previous CT scans of the abdomen and pelvis most recent from yesterday TECHNIQUE: Procedure risks and benefits including bleeding and infection were discussed with the patient and informed consent was obtained. The right groin was prepped and draped in the usual sterile fashion. Using ultrasound guidance a 5 [place] catheter, access to the collection in the right groin was obtained. 45 mL of serosanguineous fluid was removed. Specimen was sent for Gram stain and culture. Conscious sedation was provided by registered nurse under my direct supervision with continuous hemodynamic monitoring. Patient received Versed 2.5 mg and fentanyl 125 mcg intravenously during the procedure. Total sedation time was 22 minutes. FINDINGS: There is a complex fluid collection seen in the right groin that was targeted for aspiration. This appears multiloculated with internal echoes. US/US drain soft tissue w imaging IMPRESSION: Ultrasound-guided right groin aspiration. Electronically signed by: Myrna Pollard MD 07/09/2025 04:24 PM [facility]
[2025-07-05 12:05] VITALS: BP 126/59; PULSE 78; RESP 18; TEMP 36.9; O2SAT 96; BMI 26.6
--- NOTE | 2025-07-05 12:06 | ED.SKABFB ---
HPI - Skin/Abscess/Foreign Bdy General Chief complaint: General Medical Stated complaint: R leg infection Time Seen by Provider: 07/05/25 18:21 History of Present Illness ED Provider: Stefania Mansfield NP HPI narrative: 80-year-old male patient with medical history significant for gross hematuria with prostate cancer followed by urology not undergoing active treatment, hypertension, atrial fibrillation chronically anticoagulated on warfarin, GERD, hyperlipidemia, thyroid disease, presents to the ED for evaluation of right groin swelling and pain, as well as penile swelling that has been noted over the past few days postoperative a right groin lumpectomy for cancerous lesion. Surgery was performed by Dr. Bolton. He called the surgeon's office, would not return his phone call. He denies any chest pain or pressure, shortness of breath, abdominal pain. No nausea or vomiting, urinary complaints. Does report some discomfort, as well as subjective chills without fever. Related Data Home Medications ?Medication ?Instructions ?Recorded ?Confirmed metoprolol succinate 50 mg 50 mg PO DAILY 01/31/21 07/05/25 tablet,extended release 24 hr simvastatin 40 mg tablet 40 mg PO DAILY 01/31/21 07/05/25 aspirin 81 mg tablet 81 mg PO DAILY 02/15/25 07/05/25 levothyroxine 100 mcg tablet 100 mcg PO .m-f 03/27/25 07/05/25 levothyroxine 75 mcg tablet 75 mcg PO .sa-sun 03/27/25 07/05/25 (Levo-T) Previous Rx's ?Medication ?Instructions ?Recorded lisinopril 20 mg tablet 20 mg PO DAILY #90 tabs 03/16/25 naloxone 4 mg/actuation nasal 4 mg intranasal Q2M PRN opioid 03/16/25 spray (Narcan) overdose #2 ea meclizine 25 mg tablet 25 mg PO DAILY PRN dizziness #90 04/04/25 tabs tramadol 50 mg tablet 50 mg PO Q12H PRN pain 30 days #60 04/19/25 tabs warfarin 1 mg tablet 1 mg PO DAILY PRN atrial 04/19/25 fibrillation #90 tabs zolpidem 10 mg tablet 10 mg PO BEDTIME #30 tabs 04/19/25 Allergies Allergy/AdvReac Type Severity Reaction Status Date / Time No Known Allergies Allergy Verified 07/05/25 12:08 Review of Systems Review of Systems: ROS is otherwise negative unless mentioned in HPI. FOR[facility]LY [facility] Past Medical History Medical History Cervical stenosis of spine Chronic primary pain of cervical spine Chronic pain Vertigo Hypertension Insomnia Colonoscopy refused (~02/15/25) On warfarin at home Establishing care with new doctor, encounter for Hyperlipidemia GERD (gastroesophageal reflux disease) Thyroid disease Atrial fibrillation Bone metastases Prostate cancer Prostate nodule Elevated PSA Surgical History History of surgery Family History Family History Father No problems noted. Mother No problems noted. Social History Social History Housing: House Alcohol intake: current Alcohol intake frequency: does not drink Patient Tobacco Use Status: Former Tobacco user Smoked in Last 30 Days: No Use of substances other than those prescribed or required for medical reasons: No Advance Directives: No Advance Directives Information Provided: Yes service: No Current occupational status: retired Current occupational exposures/hazards: No Cognitive needs: No Hearing needs: No Vision needs: Yes (rx glasses) Physical Exam Exam: Exam: Nursing notes and vital signs reviewed. Constitutional: Well-appearing, NAD. Alert. Oriented X3. Eyes: EOMI. ENT: Pharynx normal. Neck: Normal inspection. Neck supple. CVS: Normal heart rate and rhythm. Pulses normal. Respiratory: No respiratory distress. Breath sounds normal. Abdomen: Soft, nontender. Tenderness to RLQ. : Penile swelling. No testicular swelling. Skin: Skin warm and dry. Normal skin color. Redness, warmth to right groin. Induration. See photo. Extremities: No lower extremity edema. Neuro: Oriented X 3. No motor deficit. Vital Signs: Vital Signs: Last Vital Signs Temp 98.5 F 07/05/25 21:12 Pulse 88 07/05/25 21:12 Resp 16 07/05/25 21:12 BP 142/79 H 07/05/25 21:12 Pulse Ox 97 07/05/25 21:12 O2 Del Method Room Air 07/05/25 21:12 BMI result Body Mass Index 26.6 Course Course Course Narrative: This is an RME: Additional HPI, ROS, PE not included below will be deferred to primary provider. RME assessment and note performed by: Nevin Argueta PA-C This is a 49-onsi-nou-male, with a hx of a fib on coumadin, htn, HLD, GERD, thyroid disease, prostate cancer not undergoing any treatment. who presents to the ER with a complaint of right lower leg wound infection. Had a lymph node/lump excised was told is it cancerous- performed at [facility] by Dr. Moe. Called bonnieron who did not return his phone call. Unable to visualize in triage due to swelling in right inner groin - no privacy in triage Plan: Labs, further ER evaluation needed. Medications Administered Discontinued Medications Generic Name Dose Route Start Last Admin Trade Name Freq PRN Reason Stop Dose Admin Sodium Chloride 1,000 mls @ 999 mls/hr 07/05/25 18:22 07/05/25 20:37 Ns IV 07/05/25 19:22 Infused .Q1H1M ONE Infusion Piperacillin Sod/Tazobactam 50 mls @ 100 mls/hr 07/05/25 18:28 07/05/25 19:37 Sod 3.375 gm/ Sodium Chloride IV 07/05/25 18:57 Infused ONCE ONE Infusion Iohexol 100 ml 07/05/25 19:26 07/05/25 19:27 Iohexol 350 Mg/Ml 100 Ml Infus..Btl IV 07/05/25 19:27 85 ml ONCE ONE Administration Morphine Sulfate 4 mg 07/05/25 18:30 07/05/25 19:07 Morphine Sulfate 4 Mg/Ml Cartridge IVPUSH 07/05/25 18:31 4 mg ONCE ONE Administration Protocol Morphine Sulfate 4 mg 07/05/25 21:43 07/05/25 21:56 Morphine Sulfate 4 Mg/Ml Cartridge IVPUSH 07/05/25 21:44 4 mg ONCE ONE Administration Protocol Medical Decision Making Medical Decision Making MDM Narrative: 6:28 PM 07/05/2025 (Stefania Mansfield NP): Patient presents to the ED with right groin swelling. Patient is approximately 1 week postoperative for lymph node biopsy and resection, positive for cancer, done at [facility]. He presents here with swelling to the right thigh and groin, as well as swelling in the penis itself. No testicular pain or swelling. He reports calling to report some discomfort, it was recommended to come to the ED for further evaluation. Upon examination the right groin is significantly swollen, indurated, warm to the touch, very tender. The penis itself is also swollen. With concern for postoperative infection, I have ordered Zosyn. We will proceed with CT scan of the abdomen and pelvis, as well as lactic acid, blood cultures. At this time his white blood cell count is 13.3, he is not tachycardic, he is afebrile. I do not have concern for sepsis. We will reassess. 7:08 PM: I received a call back from the on-call provider at [facility]-- Patient had a lymph node resection, with preliminary report appearing to be lymphoma. Will proceed with CT a/p, labs, abx. 9:35 PM: CT here shows evidence of a 3.3 x 6.5 x 5.6 cm fluid collection in the right inguinal canal, which may represent a post procedural seroma though my concern is a developing abscess. There is no walled-off borders on CT to suggest a current abscess, though there is significant induration on exam, and it is tender to the touch, and warm, concerning for postoperative cellulitis. He has leukocytosis to 13.3. Lab work was otherwise reassuring. Urinalysis is currently pending. He remains hemodynamically stable while in the ED. We will admit to the medicine service for IV antibiotics and continued management. Differential Diagnosis Differential Diagnoses: The differential diagnosis associated with the presentation includes skin infection, postoperative abscess, postoperative infection Admission/Observation Consideration of admission/observation: Escalation of care including admission/observation considered (Indicated for admission) Lab Data MDM Lab Attestation statement: I reviewed the patient's lab results. (Leukocytosis 13.3, otherwise reassuring. ) 07/05/25 12:17 07/05/25 12:17 Labs: Lab Results 07/05/25 07/05/25 07/05/25 Range/Units 12:17 18:32 21:30 WBC 13.3 H (4.8-10.8) X10*3/uL RBC 4.24 L (4.60-5.80) X10*6/uL Hgb 13.6 L (14.0-18.0) g/dl Hct 40.1 L (42.0-52.0) % MCV 94.6 (80.0-98.0) fL MCH 32.1 (27.0-33.0) pg MCHC 33.9 (31.0-36.0) g/dl RDW 13.3 (11.0-16.0) % Plt Count 220 (160-400) X10*3/uL MPV 9.8 (9.4-12.4) fL Immature Gran % (Auto) 0.7 H (0.0-0.4) % Neut % (Auto) 78.5 H (45-73) % Lymph % (Auto) 9.7 L (20-40) % [place] % (Auto) 10.6 (2-11) % Eos % (Auto) 0.2 (0-4) % Baso % (Auto) 0.3 (0-2) % Lymph # (Auto) 1.3 (1.2-4.9) X10*3/uL [place] # (Auto) 1.4 H (0.1-1.2) X10*3/uL Eos # (Auto) 0.0 (0.0-0.4) X10*3/uL Baso # (Auto) 0.0 (0.0-0.2) X10*3/uL Abs Immat Gran (auto) 0.09 H (0.00-0.03) X10*3/uL Absolute Neuts (auto) 10.5 H (2.0-8.3) x10*3/uL Absolute Nucleated RBC 0.000 (0.0-0.012) X10*3/uL Nucleated RBC % (auto) 0.0 (0.0-0.2) /100WBC PT 25.2 H (11.2-13.5) SEC INR 2.1 H (0.9-1.1) Sodium 137 (135-145) mmol/L Potassium 3.8 (3.3-5.1) mmol/L Chloride 105 (96-108) mmol/L Carbon Dioxide 26 (22-29) mmol/L Anion Gap 10 L (12-20) BUN 18 H (9-16) mg/dL Creatinine 1.01 (0.5-1.4) mg/dL Estim Creat Clear Calc 59.3 Estimated GFR > 60 Random Glucose 110 (60-115) mg/dL Lactic Acid 1.7 (0.5-2.0) mmol/L Calcium 8.4 D (8.4-10.2) mg/dL Total Bilirubin 0.9 (0.0-1.0) mg/dL Direct Bilirubin 0.3 (0.0-0.5) mg/dL AST 21 (5-37) U/L ALT 16 (0-40) U/L Alkaline Phosphatase 71 (39-117) U/L Total Protein 7.2 (6.5-8.0) g/dL Albumin 4.0 (3.5-5.0) g/dL Urine Color Yellow Urine Appearance Clear Urine pH 6.0 (5.0-9.0) Ur Specific [place] >= 1.030 H (1.005-1.025) Urine Protein Negative (Neg-Trace) mg/dL Urine Glucose (UA) Negative (Negative) mg/dL Urine Ketones Negative (Negative) mg/dL Urine Blood Negative (Negative) Urine Nitrite Negative (Negative) Ur Leukocyte Esterase Negative (Negative) Independent Interpretation I performed an independent interpretation of an: EKG Interpretation: Rate: 85 Rhythm: Afib [place]: --/48/0 Normal P waves. Normal DILAN. Normal QRS complex. ST T wave : no dep, elev qTC: 430 prior studies:similar The study has been interpreted contemporaneously by me. Radiology Impression Discussion of test interpretation with radiology: I have reviewed the radiologist's reading. Radiologist Impression: CT Abdomen/Pelvis IMPRESSION: 3.3 x 6.5 x 5.6 cm fluid collection in the right inguinal region may represent a postprocedural seroma or evolving. No walled-off borders to suggest an abscess on CT. However, infection should be excluded clinically. Fudicial markers in the prostate gland suggests prostate cancer treatment. Bilateral pelvic lymphadenopathy may represent lymphatic spread. Recommend comparison with prior exams. Independent Historian Clinical information obtained from an independent historian. History obtained from or confirmed by: Spouse External Record Review External record reviewed: Office record and Outpatient record Chronic Conditions Patient?s care impacted by: Hypertension and Other (prostate cancer, afib) Social Determinants Patient?s care significantly limited by Social Determinants of Health including: Problems related to primary support group Discharge Plan Discharge Clinical Impression: Cellulitis of groin, right Patient Disposition: Admitted As Inpatient Print Language: Paraguayan
[2025-07-05 12:43] LABS: MANUAL DIFF FLAG NO
[2025-07-05 12:44] LABS: Hematocrit 40.1 % (42.0-52.0); Hemoglobin 13.6 g/dl (14.0-18.0); Imm Gran Abs Auto 0.09 X10*3/uL (0.00-0.03); Imm Gran Pct Auto 0.7 % (0.0-0.4); Lymphocytes Absolute Auto 1.3 X10*3/uL (1.2-4.9); Mean Corpuscular HGB Conc 33.9 g/dl (31.0-36.0); Mean Corpuscular Hemoglobin 32.1 pg (27.0-33.0); Mean Corpuscular Volume 94.6 fL (80.0-98.0); NRBC Abs Auto 0.000 X10*3/uL (0.0-0.012); NRBC Pct Auto 0.0 /100WBC (0.0-0.2); Platelet Count 220 X10*3/uL (160-400); Red Blood Count 4.24 X10*6/uL (4.60-5.80); White Blood Count 13.3 X10*3/uL (4.8-10.8)
[2025-07-05 12:56] LABS: INTERNATIONAL NORM RATIO 2.1 (0.9-1.1); Prothrombin Time 25.2 SEC (11.2-13.5)
[2025-07-05 13:08] LABS: Alanine Aminotransferase 16 U/L (0-40); Albumin Level 4.0 g/dL (3.5-5.0); Alkaline Phosphatase 71 U/L (39-117); Anion Gap 10 (12-20); Aspartate Amino Transferase 21 U/L (5-37); Blood Urea Nitrogen 18 mg/dL (9-16); Calcium 8.4 mg/dL (8.4-10.2); Carbon Dioxide 26 mmol/L (22-29); Chloride 105 mmol/L (96-108); Creatinine Clr Calc Pharmacy 59.3; Estimated Glomerular Filt Rate > 60; Potassium 3.8 mmol/L (3.3-5.1); Sodium 137 mmol/L (135-145); Total Protein 7.2 g/dL (6.5-8.0)
--- NOTE | 2025-07-05 18:34 | ECG_ITS ---
Test Reason : SEPSIS? Blood Pressure : */* mmHG Vent. Rate : 85 BPM Atrial Rate : * BPM P-R Int : * ms QRS Dur : 84 ms QT Int : 362 ms P-R-T Axes : * 48 0 degrees QTcB Int : 430 ms Atrial fibrillation Abnormal ECG When compared with ECG of 20-Sep-2003 06:43, Atrial fibrillation has replaced Sinus rhythm Vent. rate has increased by 35 bpm T wave amplitude has decreased in Anterior leads Referred By: Stefania Mansfield Electronically Signed By: KRISTA COOPER MD
[2025-07-05 19:04] VITALS: BP 158/69; PULSE 84; RESP 15; TEMP 36.8; O2SAT 99
[2025-07-05] MEDS: iohexoL 350 MG/ML 100 ML INFUS..BTL IV (19:27)
[2025-07-05 21:12] VITALS: BP 142/79; PULSE 88; RESP 16; TEMP 36.9; O2SAT 97
[2025-07-05 21:44] LABS: Appearance Urine Clear; Glucose Urine UA Negative (Negative); PH 6.0 (5.0-9.0); Specific Gravity - Urine >= 1.030 (1.005-1.025)
--- NOTE | 2025-07-05 22:23 | P.HPHOSP_ITS ---
History of Present Illness Date of Service: 07/05/25 Attending physician on admission: Tanja Mireles Chief Complaint: right groun pain and swelling Patient is a 80-year-old with past medical history prostate cancer in remission for the last 5 years still follows with Dr. Driscoll in Urology, hematuria secondary to being on Coumadin, AFib on Coumadin, hypertension, insomnia, GERD, hypothyroidism, hyperlipidemia presents to the emergency department with complaints of a very swollen right groin area involving not only the groin but the scrotum and penis. Pain initially reported 10/10 in the right groin area. Patient states his symptoms started on WednesdayJuly 03. On June 28 patient underwent an outpatient lymph node biopsy of the right groin, suspicious for cancer, at [facility] and was sent home the same day. Patient tried calling the surgeon's office multiple times and then finally called his PCP who advised that he seek treatment at the closest hospital. Patient lives closer to [facility] than [facility]. Patient denies any fever but is having intermittent chills. Patient does currently have a leukocytosis of 13.3 and stable anemia with an H&H of 13.6 and 40.1. Patient does have a neutrophilia but no bandemia. INR currently 2.1. electrolytes stable, renal function baseline, lactic acid 1.7. Liver function stable. UA negative for heme or UTI. Abdominal pelvis CT notes a 3.3 x 6.5 x 5.6 cm fluid collection in the right inguinal region which may present a postprocedural seroma or evolving infection. No evidence to suggest abscess. Patient does have bilateral pelvic lymphadenopathy which may represent lymphatic spread. Patient being admitted for cellulitis of the right groin status post lymph node biopsy done at [facility]. Review of Systems 2 Review of Systems: Patient reporting intermittent chills but no fever. Patient denies any nausea, vomiting, diarrhea or constipation. Patient states initially the pain in the right groin was 10/10 and after morphine reduced to 5/10. Patient has no history involving the right groin in terms of inguinal hernia or right scrotum in terms of testicular torsion or hydrocele. Yes all other systems are reviewed and are negative [facility] Medical History Cervical stenosis of spine Chronic primary pain of cervical spine Chronic pain Vertigo Hypertension Insomnia Colonoscopy refused (~02/15/25) On warfarin at home Establishing care with new doctor, encounter for Hyperlipidemia GERD (gastroesophageal reflux disease) Thyroid disease Atrial fibrillation Bone metastases Prostate cancer Prostate nodule Elevated PSA Cognitive capacity: Alert and orientated x3 Functional capacity: independent ambulation Family History Father No problems noted. Mother No problems noted. Surgical History History of surgery Social History Housing: House Alcohol intake: current Alcohol intake frequency: does not drink Patient Tobacco Use Status: Former Tobacco user Smoked in Last 30 Days: No Use of substances other than those prescribed or required for medical reasons: No Advance Directives: No Advance Directives Information Provided: Yes service: No Current occupational status: retired Current occupational exposures/hazards: No Cognitive needs: No Hearing needs: No Vision needs: Yes (rx glasses) Meds Allergies Allergy/AdvReac Type Severity Reaction Status Date / Time No Known Allergies Allergy Verified 07/05/25 12:08 Active Medications: Current Medications Acetaminophen (Acetaminophen 325 Mg Tablet) 650 mg PO Q6H PRN PRN Reason: Pain, Mild 1-3,fever,headache Albuterol/Ipratropium (Albuterol/Iprat 2.5/0.5mg 3 Ml Ampul.Neb) 3 ml INHALE Q4H PRN PRN Reason: Shortness of Breath/Wheezing Calcium Carbonate (Calcium Carbonate 750 Mg Tab.Chew) 750 mg PO Q4H PRN PRN Reason: Heartburn Hydromorphone HCl (Hydromorphone Hcl 1 Mg/Ml Syringe) 1 mg IVPUSH Q4H PRN; Protocol PRN Reason: Pain, Severe (Pain Scale 7-10) Vancomycin HCl (Vancomycin/Ns) 2,000 mg in 500 mls @ 250 mls/hr IV ONCE ONE Stop: 07/06/25 00:11 Magnesium Hydroxide (Milk Of Magnesia 30 Ml Oral.Susp) 30 ml PO DAILY PRN PRN Reason: Constipation Melatonin (Melatonin 3 Mg Tablet) 6 mg PO BEDTIME PRN PRN Reason: Insomnia Ondansetron HCl (Ondansetron Hcl 4 Mg/2 Ml Vial) 4 mg IVPUSH Q8H PRN PRN Reason: Nausea and Vomiting Polyethylene Glycol (Polyethylene Glycol 3350 17 Gm Powd.Pack) 17 gm PO DAILY PRN PRN Reason: Constipation Senna (Sennosides 8.6 Mg Tablet) 17.2 mg PO BEDTIME [place] Sodium Chloride (0.9 % Sodium Chloride Flush 3 Ml Syringe) 3 ml IVFLUSH QSHIFT [facility] Home Medications ?Medication ?Instructions ?Recorded ?Confirmed ?Last Taken ?Type metoprolol succinate 50 mg 50 mg PO DAILY 01/31/2106/19 Unknown History tablet,extended release 24 hr simvastatin 40 mg tablet 40 mg PO DAILY 01/31/2106/25 Unknown History aspirin 81 mg tablet 81 mg PO DAILY 02/15/2506/25 Unknown History levothyroxine 100 mcg tablet 100 mcg PO [id number]@060 0 03/27/25 07/05/25 Unknown History docusate sodium 100 mg capsule 100 mg PO BID 07/05/25 07/05/25 Unknown History oxycodone 5 mg tablet 5 mg PO Q4H PRN pain 5 Unknown History Physical Exam 2 Vital Signs and Narrative: Vital Signs: Last Vital Signs Temp 98.5 F 07/05/25 21:12 Pulse 88 07/05/25 21:12 Resp 16 07/05/25 21:12 BP 142/79 H 07/05/25 21:12 Pulse Ox 97 07/05/25 21:12 O2 Del Method Room Air 07/05/25 21:12 BMI result Body Mass Index 26.6 Alert and orientated X3, able to give good history. Neuro: CN II-X11 intact, no deficits, visual acuity intact EYES: PERRLA, EOM intact, sclerae nonicteric, conjunctiva pink ENT: hearing intact, no issues with swallowing, uvula midline, lips moist, nares patent no epistaxis Cardiac: S1 S2 RRR, no murmur, no JVD, no edema in Lower ext Pulmonary: lungs clear to auscultation B Abdominal: BS active in all 4 quadrants, no guarding, tenderness, rebounding MSK: strength 5/5 upper and lower extremities : no CVA tenderness no bladder distension right groin swelling noted with induration and redness, as well as warmth. Swelling spreads into the scrotal area and the penis. Patient has not had trouble voiding. Extremities: no edema in lower extremities, PT and DP pulses palpable +2 Psych: mood mildly, judgement and insight good Skin: Cellulitis of the right groin involving the scrotum and penis, no other new wounds, rashes or lesions Results Labs 07/05/25 12:17 07/05/25 12:17 Labs: Laboratory Results - last 24 hr 07/05/25 07/05/25 07/05/25 12: 18:32 21:30 MCV 94.6 MCH 32.1 MCHC 33.9 RDW 13.3 Plt Count 220 MPV 9.8 Immature Gran % (Auto) 0.7 H Neut % (Auto) 78.5 H Lymph % (Auto) 9.7 L [place] % (Auto) 10.6 Eos % (Auto) 0.2 Baso % (Auto) 0.3 Lymph # (Auto) 1.3 [place] # (Auto) 1.4 H Eos # (Auto) 0.0 Baso # (Auto) 0.0 Abs Immat Gran (auto) 0.09 H Absolute Neuts (auto) 10.5 H Absolute Nucleated RBC 0.000 Nucleated RBC % (auto) 0.0 PT 25.2 H INR 2.1 H Anion Gap 10 L Estim Creat Clear Calc 59.3 Estimated GFR > 60 Random Glucose 110 Lactic Acid 1.7 Calcium 8.4 D Total Bilirubin 0.9 Direct Bilirubin 0.3 AST 21 ALT 16 Alkaline Phosphatase 71 Total Protein 7.2 Albumin 4.0 Urine Color Yellow Urine Appearance Clear Urine pH 6.0 Ur Specific [place] >= 1.030 H Urine Protein Negative Urine Glucose (UA) Negative Urine Ketones Negative Urine Blood Negative Urine Nitrite Negative Ur Leukocyte Esterase Negative ECG Attestation: I personally reviewed and interpreted this ECG as follows: (Atrial fib rate controlled 85) Prior ECG tracings: available for review Imaging Radiologist's Impressions: CT ABD PELVIS IMPRESSION: 3.3 x 6.5 x 5.6 cm fluid collection in the right inguinal region may represent a postprocedural seroma or evolving. No walled-off borders to suggest an abscess on CT. However, infection should be excluded clinically. Fudicial markers in the prostate gland suggests prostate cancer treatment. Bilateral pelvic lymphadenopathy may represent lymphatic spread. Recommend comparison with prior exams. Assessment and Plan (1) Cellulitis of groin, right: Status: Acute Plan Patient is a 80-year-old with past medical history prostate cancer in remission for the last 5 years still follows with Dr. Driscoll in Urology, hematuria secondary to being on Coumadin, AFib on Coumadin, hypertension, insomnia, GERD, hypothyroidism, hyperlipidemia presents to the emergency department with complaints of a very swollen right groin area involving not only the groin but the scrotum and penis. Pain initial reported 10/10 in the right groin area. Patient states his symptoms started on WednesdayJuly 03. On June 28 patient underwent a outpatient lymph node biopsy of the right groin, suspicious for cancer, at [facility] and was sent home the same day. Patient being admitted for right groin cellulitis status post lymph node biopsy from the right groin June 28 2025 (surgeon located [facility]). Right groin cellulitis status post left pointed biopsy on 06/28/2025 Symptoms started 12 03/2020, no fever but chills Patient is started on vanco and Zosyn Fluid collection noted on CT scan without evidence of abscess General surgery consult IR consulted Pain management with Dilaudid NPO after midnight Patient was unable to contact surgeon at [facility] to notify regarding symptoms Blood cultures pending Lactic acid 1.7, Leukocytosis 13.3 History of prostate cancer No issues over the past 5 years Patient follows with Dr. Driscoll, did undergo radiation therapy Currently lymph node s/p BX apparently is positive for cancer, no details currently available PAFib rate controlled on Coumadin INR currently 2.1, INR in AM Holding Coumadin for potential need for procedure/intervention Continue metoprolol Hypertension Continue lisinopril Hyperlipidemia Continue statin LFTs stable Hypothyroidism Continue levothyroxine TSH pending Adjust dose if needed Insomnia Ambien p.r.n. at bedtime DVT prophylaxis: On hold currently for potential procedure in the a.m., patient normally on Coumadin and INRs running 2.1 Med rec pending Full code status Patient requires at least a 2 midnight stay for IV antibiotics, expert consultation with General surgery and Interventional Radiology. Quality Stroke Does the patient have a stroke diagnosis?: No Reason for No Anti-thrombotic by Day Two: Contraindicated (Patient may require procedure in the a.m., INR currently 2.1) VTE Prior VTE?: No VTE Risk Level:: Medical - moderate - high VTE Device Contraindication: N/A - Device Ordered VTE Drug Contraindication: Treatment Not Indicated
--- NOTE | 2025-07-05 22:39 | HO.NURTONUR ---
80 year old male presented to ED for concerns of infection to right groin post op from cancerous lesion removal. Increased pain and swelling to area over past few days along with swelling to penis. Pt awake and alert. Breathing equal and unlabored. Ambulatory on arrival. Uses urinal in bed. PIV to right AC. Plan for admit for IV pain meds and pain management.
[2025-07-05] MEDS: vancomycin/NS 2,000 MG/500 ML PLAST..BAG 250 MG IV (22:59)
--- OUTSIDE RECORDS SUMMARY | 2025-07-05 23:33 | XMS_ITS | Clinical Summary ---
Author Organization [facility] Address [address] [address] Phone Care Team Providers Care Balance Wheel Arm Burnisher Name Role Phone Maya Samaniego PA-C Primary [...] Routine general medical exam ination at a [facility] facility 05/09/2025 Assessment & Plan (05/09/2025 [...] with Dr. Yeh every 6 months at [facility]. Paroxysmal atrial fibrillation 05/09/2025 Assessment & Plan (05/09/2025 10:01 AM EDT): History of A-fib currently on metoprolol 50 mg daily and warfarin 1 mg daily, following with the [facility]. Benign essential hypertension 05/09/2025 Assessment [...] 12 hours by his previous PCP from [facility]. Patient reports that he is currently out [...] Encounters Date Type Department Care Team Description 07/05/2025 Telephone [facility] Internal Medicine 40 [facility] [place] [address] Maya Samaniego PA-C Possible infection 06/29/2025 Telephone [facility] Internal Medicine [address] [place] [address] Maya Samaniego PA-C Critical INR 06/29/2025 Lab Requisition [facility] Lab Main [address] [place] [address] Phillip Cramer MD Follicular lymphoma grade I, unspecified site; Follicular lymphoma grade II, unspecified site 06/27/2025 Telephone [facility] General Surgical Care [address] [place] [address] Michelle Cummings RN Post op call 06/26/2025 12:45 PM EST Anesthesia Event OR Admitting Dept - Virtual Department [address] [place] [address] Douglas Linton MD Abbott, Timothy C Jr., DO 06/26/2025 12:15 PM EST - 06/26/2025 1:30 PM EST Surgery OR Admitting Dept - Virtual Department [address] [place] [address] Aliza Moe MD BIOPSY LYMPH NODE RIGHT INGUINAL 06/26/2025 9:46 AM EST - 06/26/2025 3:26 PM EST Hospital Encounter OR Admitting Dept - Virtual Department [address] [place] [address] Aliza Moe MD Discharge Disposition: Home or Self Care 06/26/2025 Procedure Pass OR Admitting Dept - Virtual Department [address] [place] [address] 06/25/2025 8:30 AM EST Pre-Admission Testing Pre Procedure Evaluation [address] [place] [address] Aliza Moe MD 06/25/2025 Orders Only [facility] General Surgical Care [address] [place] [address] Aliza Moe MD Lymphadenopathy (Primary Dx) 06/19/2025 Refill [facility] Internal Medicine [address] [place] [address] Maya Samaniego PA-C Medication Refill 06/11/2025 9:30 AM EST Office Visit [facility] Surgical Care [address] [place] [address] Aliza Moe MD Lymphadenopathy (Primary Dx) 06/11/2025 Telephone [facility] Surgical Care [address] [place] [address] Aliza Moe MD 06/05/2025 Telephone [facility] Internal Medicine [address] [place] [address] Maya Samaniego PA-C Results 05/30/2025 Telephone [facility] Internal [facility] [address] [place] [address] Maya Samaniego PA-C Question on Warfarin 05/21/2025 Refill [facility] [address] [place] [address] Angie Tripp [place] Medication Refill 05/18/2025 2:13 PM EDT - 05/18/2025 11:59 PM EDT Hospital Encounter [address] [address] Maya Samaniego PA-C Discharge Disposition: Home or Self Care 05/18/2025 Telephone [facility] Internal [facility] [address] [place] [address] Maya Samaniego PA-C Results 05/18/2025 Refill [facility] Internal Medicine [address] [place] [address] Maya Samaniego PA-C Medication Refill 05/09/2025 9:00 AM EDT Office Visit [facility] [address] [place] [address] Maya Samaniego PA-C Routine general medical examination [...] Description 07/09/2025 10:15 AM EST Office Visit [facility] General Surgical Care [address] [place] [address] Rico Phillips, POLISH COMPOUNDER [address] [facility], 2nd [place] [address] 08/08/2025 9:40 AM EST Office Visit [facility] Internal Medicine [address] [place] [address] Maya Samaniego PA-C 40 [place] [address] [email or web address] Health Maintenance Due Date Last Done Comments Adult Td,Tdap Booster 1945 PNEUMOCOCCAL VACCINES (50+ years) (1 of 2 - PCV) 1965 ZOSTER VACCINES (1 of 2) 1965 RSV VACCINE (1 - 1-dose 75+ series) [...] Katty Gómez Medical Devices Implanted Type Area Furnace Tapper Device Identifier Shelf Expiration Date Model / Serial / Lot Stent Stent Left: Leg Procedures Procedure Name Priority Date/Time Associated Diagnosis Comments TISSUE EXAM Routine 06/26/2025 1:21 PM EST LEUKEMIA/LYMPHOMA FLOW CYTOMETRY, TISSUE Today 06/26/2025 1:21 PM EST AIRWAY PLACEMENT Routine 06/26/2025 12:5 0 PM EST [place] BIOPSY/EXCISION, LYMPH NODE(S) 06/26/2025 12:44 PM EST [...] LLPT Result Performed 06/28/2025 1:22 PM EST [facility] Final Diagnosis SEE COMMENTS 1:22 PM EST [facility] Comment: Lymph node, right inguinal, specimen for flow cytometric analysis ([id number]): CD19, CD20, and [id number]-[id number], kappa immunoglobulin light chain restricted B-cell population identified. Comment: The findings are most consistent with the diagnosis of a B-cell lymphoma. The most frequent types of lymphoma with a [id number]-hzjepcgb B-cell phenotype include follicular lymphoma, diffuse large B-cell lymphoma, Burkitt lymphoma, and high grade B-cell lymphoma. Correlation with clinical and morphologic features, possibly supplemented by immunohistochemistry and cytogenetic analysis, is required for a final diagnosis. Reviewed by: Malka Benites M.D., Ph.D. Special Studies SEE COMMENTS 1:22 PM EST [facility] Comment: Results: Blasts: Not increased [...] Description SEE COMMENTS 06/28/2025 1:22 PM EST [facility] Comment: A Paul-Giemsa stained slide prepared from the flow cytometry specimen was examined for quality purposes. ADDITIONAL INFORMATION This test was developed using an analyte specific reagent. Its performance characteristics were determined by [facility] in a manner consistent with CLIA requirements. This test has not been cleared or approved by the U.S. Food and Drug Administration. Accession Number [id number] 06/28/20 1:22 PM EST [facility] Referring Pathologist/Physici an DNR 06/28/2025 1:22 PM EST [facility] Referring Pathologist/Physici an Address DNR 06/28/2025 1:22 PM EST [facility] Place Of DNR 06/28/2025 1:22 PM EST [facility] Date And Time Of DNR 06/28/2025 1:22 PM EST [facility] Date Of Autopsy: DNR 06/28/20 1:22 PM EST [facility] Specimen DNR 06/28/2025 1:22 PM EST [facility] Material DNR 06/28/2025 1:22 PM EST [facility] Tissue Description DNR 2024 1:22 PM EST [facility] Clinical History DNR 06/28/20 1:22 PM EST [facility] Final Diagnosis DNR 1:22 PM EST [facility] Revision Description DNR 06/28/2025 1:22 PM EST [facility] Signing Pathologist DNR 06/28 1:22 PM EST [facility] Special Procedures DNR 2024 1:22 PM EST [facility] Sp Signing Pathologist DNR 06/28/2025 1:22 PM EST [facility] *Previous Report Follows* DNR 06/28/2025 1:22 PM EST [facility] Addendum DNR 06/28/2025 1:22 PM EST [facility] Addendum Comment DNR 06/28/20 1:22 PM EST [facility] Addendum Pathologist DNR 06/28/2025 1:22 PM EST [facility] Lymph Node Tissue (Lymph Node, Right Inguinal) 06/26/2025 1:21 PM EST 06/26/2025 2:48 PM EST Aliza Moe MD LAB GENERAL ORDERABLES Fin al Result JORDAN (BEAKER) [address] [address], [facility] [phone] * ANES ETT DOUBLE LUMEN - AIRWAY [...] no Complications observed? no Douglas Linton MD [place] ANESTHESIA Final Result * (ABNORMAL) PT-INR (06/25/2025 3:47 PM EST) Only the most recent of2 resultswithin the time period is included. PT 20.4(H) 10.0 - 13.0 sec 06/25/2025 4:03 PM EST [facility] INR 1.6(H) 0.9 - 1.1 06/25/2025 4:03 PM EST [facility] Comment:Therapeutic Range 2. 0 - 3.5 Blood (Blood) Venipuncture / Unknown 06/25/2025 3:47 PM EST 06/25/2025 3:50 PM EST Aliza Moe MD LAB BLOOD BKR ORDERABLES F inal Result [address] [address] * PTT (06/23/2025 9:25 AM EST) PTT 35.3 24.0 - 37.5 sec 06/23/2025 10:03 AM [facility] Comment:See MAR for therapeu tic range. Emicizumab (Hemlibra) treatment can result in falsely lowered aPTT test results. Blood (Blood) Venipuncture / Unknown 06/23/2025 9:25 AM EST 06/23/2025 9:49 AM EST us Aliza Moe MD LAB BLOOD BKR ORDERABLES F inal Result [facility] [address] [place] [address] * Comprehensive Metabolic Panel (CMP) (06/05/2025 9:40 AM EST) Sodium 138 136 - 145 mmol/L 06/05/2025 2:45 PM [facility] Potassium 4.5 3.4 - 5.1 mmol/L 06/05/2025 2:45 PM [facility] Chloride 104 98 - 107 mmol/L 06/05/2025 2:45 PM [facility] CO2 24 20 - 31 mmol/L 06/05/2025 2:45 PM [facility] Anion Gap 10 3 - 17 mmol/L 06/05/2025 2:45 PM [facility] BUN 21 6 - 23 mg/dL 06/05/2025 2:45 PM [facility] Creatinine 0.90 0.60 - 1.30 mg/dL 06/05/2025 2:45 PM [facility] eGFR 87 >59 mL/min/1.7 3m2 06/05/2025 2:45 PM [facility] Comment:Estimated glomerular filtration rate calculated using the CKD-EPI refit equation. Glucose 94 70 - 99 mg/dL 06/05/2025 2:45 PM [facility] Calcium 8.7 8.5 - 10.5 mg/dL 06/05/2025 2:45 PM [facility] AST 27 <40 U/L 06/05/2025 2:45 PM [facility] ALT 19 <50 U/L 06/05/2025 2:45 PM [facility] Alkaline Phosphatase 67 40 - 130 U/L 06/05/2025 2:45 PM [facility] Bilirubin, Total 0.5 0.0 - 1.2 mg/dL 06/05/2025 2:45 PM [facility] Total Protein 7.2 6.4 - 8.3 g/dL 06/05/2025 2:45 PM [facility] Albumin 4.1 3.5 - 5.2 g/dL 06/05/2025 2:45 PM [facility] Globulin 3.1 1.9 - 4.1 g/dL 06/05/2025 2:45 PM [facility] Blood 06/05/2025 9:40 AM EST 06/05/2025 9:40 AM EST Maya Samaniego PA-C LAB BLOOD BKR ORDERABLES Fin al Result Performing Organization Address City/State/[facility] Co de Phone Number [facility] [address] [place] [address] * (ABNORMAL) CBC and Differential (06/05/2025 9:40 AM EST) WBC 6.70 4.00 - 11.00 K/uL 06/05/2025 1:25 PM [facility] RBC 4.35(L) 4.50 - 5.90 M/uL 06/05/2025 1:25 PM [facility] Hemoglobin 14.0 13.5 - 17.5 g/dL 06/05/2025 1:25 PM [facility] Hematocrit 40.9(L) 41.0 - 53.0 % 06/05/2025 1:25 PM [facility] MCV 94.0 80.0 - 100.0 fL 06/05/2025 1:25 PM [facility] MCH 32.2(H) 27.0 - 31.0 pg 06/05/2025 1:25 PM [facility] MCHC 34.2 32.0 - 36.0 g/dL 06/05/2025 1:25 PM [facility] MPV 10.3 8.4 - 12.0 fL 06/05/2025 1:25 PM [facility] RDW-CV 13.0 11.5 - 14.5 % 06/05/2025 1:25 PM [facility] PLT 202 150 - 450 K/uL 06/05/2025 1:25 PM [facility] Neutrophils 62.5 % 06/05/2025 1:25 PM [facility] Lymphocytes 22.5 % 06/05/2025 1:25 PM [facility] Monocytes 9.4 % 06/05/2025 1:25 PM [facility] Eosinophils 4.3 % 06/05/2025 1:25 PM [facility] Basophils 1.0 % 06/05/2025 1:25 PM [facility] Imm Grans 0.3 % 06/05/2025 1:25 PM [facility] NRBC 0.0 <=0.0 /100 WBCs 06/05/2025 1:25 PM [facility] Absolute Neutrophils 4.18 1.92 - 7.60 K/uL 06/05/2025 1:25 PM [facility] Absolute Lymphocytes 1.51 0.72 - 4.10 K/uL 06/05/2025 1:25 PM [facility] Absolute Monocytes 0.63 0.16 - 1.10 K/uL 06/05/2025 1:25 PM [facility] Absolute Eosinophils 0.29 0.00 - 0.50 K/uL 06/05/2025 1:25 PM [facility] Absolute Basophils 0.07 0.00 - 0.15 K/uL 06/05/2025 1:25 PM [facility] Absolute Imm Grans 0.02 0.00 - 0.09 K/uL 06/05/2025 1:25 PM [facility] Absolute NRBC 0.00 <=0.00 K cells/uL 06/05/2025 1:25 PM [facility] Absolute Neutrophils 4.18 1.92 - 7.60 K/uL 06/05/2025 1:25 PM [facility] Comment:Automated cell count . Manual ANC may differ if performed. Diff Type Auto 06/05/2025 1:25 PM [facility] Blood 06/05/2025 9:40 AM EST 06/05/2025 9:40 AM EST [facility]- LAB BLOOD BKR ORDERABLES Fin al Result Performing Organization Address City/[facility]/ZIP Co de Phone Number [address] [address] * Thyroid Stimulating Hormone (TSH), with Reflex (06/05/2025 9:40 AM EST) TSH 1.94 0.40 - 5.90 uIU/mL 06/05/2025 2:45 PM EST [facility] Blood 06/05/2025 9:40 AM EST 06/05/2025 9:40 AM EST [facility] LAB BLOOD BKR ORDERABLES Fin al Result Performing Organization Address [facility] Co de Phone Number [address] [address] * Hepatitis C Antibody (06/05/2025 9:40 AM EST) Hepatitis C Antibody Non-Reacti ve Non-Reacti ve 06/05/2025 4:45 PM EST [facility] Blood 06/05/2025 9:40 AM EST 06/05/2025 9:40 AM EST [facility] - 06/05/2025 4:45 PM EST Test performed by Noble electrochemiluminescent immunoassay (ECLIA). [facility] LAB BLOOD BKR ORDERABLES Fin al Result Performing Organization Address City/[facility]/ZIP Co de Phone Number [address] [address] * (ABNORMAL) Lipid Panel (06/05/2025 9:40 AM EST) Cholesterol 137 <200 mg/dL 06/05/2025 2:45 PM EST [facility] HDL 33(L) >=40 mg/dL 06/05/2025 2:45 PM EST [facility] Calculated LDL 77 <130 mg/dL 06/05/2025 2:45 PM [facility] Comment:LDL is calculated us ing the Larson-NIH equation ([place] Cardiol. 2019November 23;5(5):540-548). Non-HDL Cholesterol 104 mg/dL 06/05/2025 2:45 PM [facility] Comment:Guidelines suggest a non-HDL cholesterol goal 30 mg/dL higher than the patient-specific LDL cholesterol goal. Cardiac Risk Ratio 4.2 0.0 - 5.0 2024 2:45 PM EST [facility] Triglycerides 152(H) <=150 mg/dL 06/05/2025 2:45 PM [facility] Blood 06/05/2025 9:40 AM EST 06/05/2025 9:40 AM EST us Maya Samaniego PA-C LAB BLOOD BKR ORDERABLES Fin al Result Performing Organization Address City/State/[facility] Co de Phone Number [address] [address] * US INGUINAL NON-HERNIA EVALUATION (RIGHT) (05/18/2025 [...] Advance Directives For more information, please contact: [phone] (9AM - 5PM Chaya/[facility], Wednesday-Wednesday) * Full Code (Latest Code Status on File) Date Activated Date Inactivated Comments 06/26/2025 9:50 AM Question Answer Comments Code Status Confirmed With: Patient Care Teams Balance Wheel Arm Burnisher Relationship Specialty Start Date End Date Maya Samaniego PA-C [address] [place] [phone] (work) [email or web address] PCP - General Physician Grain Blender 05/09/25 Additional Source Comments The information contained in this document represents components of the legal health record. It is not the complete legal health record.[facility]
--- OUTSIDE RECORDS SUMMARY | 2025-07-05 23:33 | XMS_ITS | Encounter Summary ---
Author Organization [facility] Address [address] [facility] [address] [place] [address] Phone Care Team Providers Care Gis Coordinator Name Role Phone Maya Samaniego PA-C Primary Care Provider Encounter Details Date Type Department Care Team (Late st Contact Info) Description 06/25/2025 Orders Only [facility] General Surgical Care [address] [place] [address] Aliza Moe MD [address] [facility], 2nd [place] [address] [email or web address] Lymphadenopathy (Primary Dx) Social History Tobacco [...] Description 07/09/2025 10:15 AM EST Office Visit [facility] General Surgical Care [address] [place] [address] Rico Phillips CNP [address] [facility], 2nd [place] [address] 08/08/2025 9:40 AM EST Office Visit [facility] Internal Medicine [address] [place] [address] Maya Samaniego PA-C [address] [place], [place] [email or web address] documented as of this encounter Goals Goal Patient Goal Type Associated Problems Recent Progress Patient-Stated? Author Autogenerat ed Goal Care Plan Autogenerated Problem No Katty Gómez documented as of this encounter Results * (ABNORMAL) PT-INR (06/25/2025 3:47 PM EST) PT 20.4(H) 10.0 - 13.0 sec 06/25/2025 4:03 PM EST [facility] INR 1.6(H) 0.9 - 1.1 06/25/2025 4:03 PM EST [facility] Comment:Therapeutic Range 2. 0 - 3.5 Blood (Blood) Venipuncture / Unknown 06/25/2025 3:47 PM EST 06/25/2025 3:50 PM EST us Aliza Moe MD LAB BLOOD BKR ORDERABLES F inal Result [facility] [address] [place] [address] documented in this encounter Visit Diagnoses Diagnosis Lymphadenopathy- Primary Enlargement of lymph nodes documented in this encounter Additional Health Concerns Active Problems Noted Date Diagnosed Date Autogenerated Problem 06/11/2025 Assessment Noted Time PHQ-2 Depression Total Score: 0 05/09/20 9:08 AM EDT documented as of this encounter Care Teams Gis Coordinator Relationship Specialty Start Date End Date Maya Samaniego PA-C [address] [place], [place] [email or web address] PCP - General Physician Battery Assembler Plastic 05/09/25 documented as of this encounter Additional Source Comments The information contained in this document represents components of the legal health record. It is not the complete legal health record.[facility]
--- OUTSIDE RECORDS SUMMARY | 2025-07-05 23:33 | XMS_ITS | Encounter Summary ---
Author Organization [facility] Address [address] [facility] [address] [place] [address] Phone Care Team Providers Care Lure Maker Name Role Phone Maya Samaniego PA-C Primary Care Provider Encounter Details Date Type Department Care Team (Late st Contact Info) Description 06/26/2025 Procedure Pass OR Admitting Dept - Virtual Department [address] [place] [address] Social History Tobacco Use Types Packs/Day Years [...] 07/09/2025 10:15 AM EST Office Visit [facility] General Surgical Care [address] [place] [address] Rico Phillips, DENY 15 [facility], [address]nd [place] [address] 08/08/2025 9:40 AM EST Office Visit [facility] Internal Medicine [address] [place] [address] Maya Samaniego PA-C [address] [place], [place] documented as of this encounter Goals [...] documented as of this encounter Care Teams Lure Maker Relationship Specialty Start Date End Date Maya Samaniego PA-C [address] [place] [address] [email or web address] PCP - General Physician Review Coordinator 05/09/25 documented as of this encounter Additional Source Comments The information contained in this document represents components of the legal health record. It is not the complete legal health record.[facility]
--- OUTSIDE RECORDS SUMMARY | 2025-07-05 23:33 | XMS_ITS | Encounter Summary ---
Author Organization [facility] Address [address] [facility] [address] [place] [address] Phone Care Team Providers Care Math And Science Division Chair Name Role Phone Maya Samaniego PA-C Primary Care Provider [phone] Reason for Visit * Reason Onset Date Comments Possible infection 07/05/2025 Encounter Details Date Type Department Care Team ([facility] st Contact Info) Description 07/05/2025 Telephone [employer] [facility] Internal Medicine [address] [place], [place] [phone] Maya Samaniego PA-C [address] [place] [address] [email or web address] Possible infection Social History Tobacco Use Types Packs/Day Years [...] Progress Notes * Aleyda Rueda RN - 07/05/2025 9:30 AM EST Spoke to [place]. He called the surgeon's office but has not heard back yet. He is swollen at his abdomen and penis. His surgery was 06/26/25. I advised he definitely needs to be evaluated today and if he does not hear back from the surgeon's office within 1-2 hours, he needs to go to the ER. He verbalized understanding and agreement. * StaceysarahEloyin - 07/05/2025 9:17 AM EST Patient called states he recently had groin surgery for cancerous polyps and states he thinks it isinfected. I asked if he had called whomever did the surgery he said no. I told him I would have a nurse call him but he might want to call them also. documented in this encounter Plan of Treatment Upcoming Encounters Date Type Department Care Team (Late st Contact Info) Description 07/09/2025 10:15 AM EST Office Visit [facility] General Surgical Care [address] [place] [address] Rico Phillips CNP 15 [facility], 2nd [place] [address] [email or web address] 08/08/2025 9:40 AM EST Office Visit [facility] Internal Medicine [address] [place], [place] [phone] Maya Samaniego PA-C [address] [place] [address] [email or web address] documented as of this encounter Goals Goal [...] documented as of this encounter Care Teams Math And Science Division Chair Relationship Specialty Start Date End Date Maya Samaniego PA-C [address] [place], [place] [phone] [email or web address] PCP - General Physician Beam House Inspector 05/09/25 documented as of this encounter Additional Source Comments The information contained in this document represents components of the legal health record. It is not the complete legal health record.[facility]
--- OUTSIDE RECORDS SUMMARY | 2025-07-05 23:33 | XMS_ITS | Encounter Summary ---
Author Organization [facility] Address [address] [facility] [address] [place] [address] Phone Care Team Providers Care Regional Agronomist Name Role Phone Maya Samaniego PA-C Primary Care Provider Encounter Details Date Type Department Care Team (Late st Contact Info) Description 06/29/2025 Lab Requisition [facility] Lab Main [address] [place] [address] Phillip Cramer MD [address] [place] [address] [email or web address] Follicular lymphoma grade I, unspecified [...] Visit [facility] General Surgical Care [address] [place] [address] Rico Phillips, DENY 15 [facility], 2nd [place] [address] 08/08/2025 9:40 AM EST Office Visit [facility] Internal Medicine [address] [place] [address] Maya Samaniego PA-C 40 [place] [address] [email or web address] Pending Results Name Type Priority Associated Diagnoses [...] documented as of this encounter Care Teams Regional Agronomist Relationship Specialty Start Date End Date Maya Samaniego PA-C [address] [place] [address] [email or web address] PCP - General Physician Compliance Vice President 05/09/25 documented as of this encounter Additional Source Comments The information contained in this document represents components of the legal health record. It is not the complete legal health record.[facility]
[2025-07-06 00:31] VITALS: BP 145/65; PULSE 83; RESP 14; TEMP 37.2; O2SAT 97
--- NOTE | 2025-07-06 02:07 | PC.NURSE ---
delay in abx as vanco still infusing per mar. delay in infusion of vanco d/t iv positioning and pt continuously bending arm. educated to keep arm straight and helped to reposition.
[2025-07-06 04:48] LABS: Hematocrit 37.3 % (42.0-52.0); Hemoglobin 12.4 g/dl (14.0-18.0); Mean Corpuscular HGB Conc 33.2 g/dl (31.0-36.0); Mean Corpuscular Hemoglobin 32.0 pg (27.0-33.0); Mean Corpuscular Volume 96.4 fL (80.0-98.0); NRBC Abs Auto 0.000 X10*3/uL (0.0-0.012); NRBC Pct Auto 0.0 /100WBC (0.0-0.2); Platelet Count 177 X10*3/uL (160-400); Red Blood Count 3.87 X10*6/uL (4.60-5.80); White Blood Count 13.7 X10*3/uL (4.8-10.8)
[2025-07-06 04:55] VITALS: BP 155/79; PULSE 79; RESP 14; TEMP 37; O2SAT 96
[2025-07-06 05:00] LABS: Creatinine Clr Calc Pharmacy 64.4; Estimated Glomerular Filt Rate > 60
[2025-07-06 05:02] LABS: Alanine Aminotransferase 10 U/L (0-40); Albumin Level 3.4 g/dL (3.5-5.0); Alkaline Phosphatase 59 U/L (39-117); Anion Gap 12 (12-20); Aspartate Amino Transferase 19 U/L (5-37); Blood Urea Nitrogen 17 mg/dL (9-16); Calcium 8.2 mg/dL (8.4-10.2); Carbon Dioxide 23 mmol/L (22-29); Chloride 106 mmol/L (96-108); Creatinine Clr Calc Pharmacy 62.3; Estimated Glomerular Filt Rate > 60; Potassium 4.3 mmol/L (3.3-5.1); Sodium 137 mmol/L (135-145); Total Protein 6.3 g/dL (6.5-8.0)
[2025-07-06 05:03] LABS: INTERNATIONAL NORM RATIO 1.8 (0.9-1.1); Prothrombin Time 21.6 SEC (11.2-13.5)
[2025-07-06 06:10] VITALS: BMI 26.5
[2025-07-06 06:27] VITALS: BP 158/73; PULSE 86; RESP 18; TEMP 36.6; O2SAT 96
--- NOTE | 2025-07-06 07:13 | PHA.PROG ---
Admission Date/Time: July 05, 2025 22:11 Indication: INTRA ABDOMINAL Weight in k.5 kg Adjusted body weight in Kg: [place] body weight in Kg: Obesity Dosing Indication % IBW: Serum Creatinine - Last 168 Hours 07/05/25 07/06/25 07/06/25 12:17 04:42 04:42 Creatinine 1.01 0.96 0.93 Estimated CrCl and GFR - Last 168 Hours 07/05/25 07/06/25 07/06/25 12:17 04:42 04:42 Estim Creat Clear Calc 59.3 62.3 64.4 Estimated GFR > 60 > 60 07/06/25 04:42 Estim Creat Clear Calc Estimated GFR > 60 Vancomycin Loading Dose: 2000 MG Current Vancomycin Dosing Regimen 1500 MG Q 24 HOURS: Vancomycin Monitoring using AUC goal of 400 - 600 range with trough as surrogate marker: Date and Time for next Vancomycin Level to be drawn: 07/07/25 2100 Pharmacist Comments on Vancomycin Plan:PREDICTED AUC OF490 Vancomycin dosing will take advantage of comment.com as a clinical decision support tool that uses Bayesian modeling to calculate individual patient's pharmacokinetic parameters and forecast the patient's drug concentration time course with the target goal AUC 24 range of 400 - 600 mg/L/hr.
--- NOTE | 2025-07-06 07:27 | PM.CNGS ---
History of Present Illness Consult details Consult date: 07/06/25 <Raissa Chaidez PA-C - Last Filed: 07/06/25 07:47> Reason for consult: other (right groin cellulitis) <MARC Harman Last Filed: 07/06/25 07:47> Requesting physician: Nusrat Alfaro <MARC Hamran Last Filed: 07/06/25 07:47> Narrative: 80 year old male with PMH of prostate cancer in remission followed by Dr. Driscoll of Urology, AFib on Coumadin, hypertension, GERD, hypothyroidism, hyperlipidemia who presented to the ED with complaints of right groin swelling. Patient had a palpable lymph node of his right groin and underwent excisional biopsy on 06/26/25 at [facility] with Dr. Moe. He reports initially doing well but developed some redness and swelling at the area. This gradually increased and became increasingly painful and spread to his penis and scrotum. He apparently attempted to contact the surgeon's office due to his worsening symptoms but received no call back. He then contacted his PCP who advised that he seek treatment at the closest hospital and he presented to [facility] for evaluation. Work up included CBC, BMP, LFTs which was significant for a mild leukocytosis. Lactic acid normal. CT scan abd pelvis was obtained which showed 3.3 x 6.5 x 5.6 cm fluid collection in the right inguinal region and surrounding soft tissue stranding, no gas. Patient was apparently discussed with the paedodontist surgeon who said preliminary path report was suggestive of lymphoma. He was admitted to the hospitalist service for further treatment of the right groin cellulitis. He is on vanco and zosyn. General surgery was consulted for the right groin fluid collection. Patient denied fevers, chills, nausea, vomiting, drainage from the area. He reports improvement in his swelling and pain since admission. He is hungry. <MARC Harman Last Filed: 07/06/25 07:47> Review of Systems Constitutional: Constitutional: Denies chills and Denies fever(s) <MARC Harman Last Filed: 07/06/25 07:47> ENT: Denies dizziness <MARC Harman Filed: 07/06/25 07:47> Cardiovascular: Cardiovascular: Denies chest pain and Denies dyspnea <Raissa Chaidez PA-C Last Filed: 07/06/25 07:47> Respiratory: Respiratory: Denies dyspnea <Raissa Chaidez PA-C Last Filed: 07/06/25 07:47> Gastrointestinal: Gastrointestinal: Reports as per HPI, Denies diarrhea, Denies nausea and Denies vomiting <Raissa Chaidez PA-C Last Filed: 07/06/25 07:47> Integumentary/Breasts: Skin/Breast: Reports as per HPI <Raissa Chaidez PA-C Last Filed: 07/06/25 07:47> Neurologic: Denies dizziness <Raissa Chaidez PA-C Last Filed: 07/06/25 07:47> PMF Past Medical History Medical History: Medical History Cervical stenosis of spine Chronic primary pain of cervical spine Chronic pain Vertigo Hypertension Insomnia Colonoscopy refused (~02/15/25) On warfarin at home Establishing care with new doctor, encounter for Hyperlipidemia GERD (gastroesophageal reflux disease) Thyroid disease Atrial fibrillation Bone metastases Prostate cancer Prostate nodule Elevated PSA <Raissa Chaidez PA-C Last Filed: 07/06/25 07:47> Family History Family History: Family History Father No problems noted. Mother No problems noted. <Raissa Chaidez PA-C Last Filed: 07/06/25 07:47> Surgical History Surgical History: Surgical History History of surgery <Raissa Chaidez PA-C Last Filed: 07/06/25 07:47> Social History Social History: Social History Household Members: Spouse Housing: House Do you presently have visiting nurse or other home services: No Alcohol intake: current Alcohol intake frequency: does not drink Patient Tobacco Use Status: Never used Tobacco Smoked in Last 30 Days: No Use of substances other than those prescribed or required for medical reasons: No Currently Displaying Signs/Symptoms of Drug Intoxication Withdrawal: No Have you been hit, kicked, punched, or otherwise hurt by someone within the past year? If so, by whom?: No Do you feel safe in your current relationship?: Yes Is there a partner from a previous relationship who is making you feel unsafe now?: No Are you made to feel afraid or neglected: No Advance Directives: No Advance Directives Information Provided: Yes Do you have a plan to hurt others: No Plan Recently lost weight without trying: No How much weight loss: Not applicable Eating poorly because of decreased appetite: No Nutrition screen score: 0 Nutrition Risks: No Nutritional Risk Poor oral hygiene: No service: No Current occupational status: retired Current occupational exposures/hazards: No Cognitive needs: No Hearing needs: No Vision needs: Yes (rx glasses) <Raissa Chaidez PA-C - Last Filed: 07/06/25 07:47> Meds Allergies/Adverse reactions: Allergies Allergy/AdvReac Type Severity Reaction Status Date / Time No Known Allergies Allergy Verified 07/05/25 12:08 <Raissa Chaidez PA-C - Last Filed: 07/06/25 07:47> Active Medications: Current Medications Acetaminophen (Acetaminophen 325 Mg Tablet) 650 mg PO Q6H PRN PRN Reason: Pain, Mild 1-3,fever,headache Albuterol/Ipratropium (Albuterol/Iprat 2.5/0.5mg 3 Ml Ampul.Neb) 3 ml INHALE Q4H PRN PRN Reason: Shortness of Breath/Wheezing Calcium Carbonate (Calcium Carbonate 750 Mg Tab.Chew) 750 mg PO Q4H PRN PRN Reason: Heartburn Hydromorphone HCl (Hydromorphone Hcl 1 Mg/Ml Syringe) 1 mg IVPUSH Q4H PRN; Protocol PRN Reason: Pain, Severe (Pain Scale 7-10) Piperacillin Sod/Tazobactam (Sod 3.375 gm/ Sodium Chloride) 50 mls @ 100 mls/hr IV Q6H [place] Last Infusion: 07/06/25 07:12 Dose: Infused Vancomycin HCl 1,500 mg/ (Sodium Chloride) 500 mls @ 333.333 mls/hr IV Q24H [place] Magnesium Hydroxide (Milk Of Magnesia 30 Ml Oral.Susp) 30 ml PO DAILY PRN PRN Reason: Constipation Melatonin (Melatonin 3 Mg Tablet) 6 mg PO BEDTIME PRN PRN Reason: Insomnia Ondansetron HCl (Ondansetron Hcl 4 Mg/2 Ml Vial) 4 mg IVPUSH Q8H PRN PRN Reason: Nausea and Vomiting Pharmacy Consult (Consult Rx Vancomycin Dosing) 1 each MISCELLANE DAILY PRN PRN Reason: Consult order Polyethylene Glycol (Polyethylene Glycol 3350 17 Gm Powd.Pack) 17 gm PO DAILY PRN PRN Reason: Constipation Senna (Sennosides 8.6 Mg Tablet) 17.2 mg PO BEDTIME [place] Sodium Chloride (0.9 % Sodium Chloride Flush 3 Ml Syringe) 3 ml IVFLUSH QSHIFT [place] Last Admin: 07/05/25 23:11 Dose: Not Given <Raissa Chaidez PA-C - Last Filed: 07/06/25 07:47> Home medications: Home Medications ?Medication ?Instructions ?Recorded ?Confirmed ?Last Taken ?Type metoprolol succinate 50 mg 50 mg PO DAILY 01/31/21 07/06/25 07/05/25 History tablet,extended release 24 hr simvastatin 40 mg tablet 40 mg PO DAILY 01/31/21 07/06/25 07/05/25 History aspirin 81 mg tablet 81 mg PO DAILY 02/15/25 07/06/25 07/05/25 History levothyroxine 100 mcg tablet 100 mcg PO MOTUWETHFR@0600 03/27/25 07/06/25 07/05/25 History multivitamin 1 tab PO DAILY 07/06/25 07/06/25 07/05/25 History tramadol 50 mg tablet 50 mg PO Q8H PRN pain 07/06/25 07/06/25 07/05/25 History warfarin 1 mg tablet 1 mg PO DAILY atrial fibrillation 07/06/25 07/06/25 07/05/25 History <Raissa Chaidez PA-C - Last Filed: 07/06/25 07:47> Physical Exam Vital Signs: Vital Signs: Last Vital Signs Temp 97.8 F 07/06/25 06:27 Pulse 86 07/06/25 06:27 Resp 18 07/06/25 06:27 BP 158/73 H 07/06/25 06:27 Pulse Ox 96 07/06/25 06:27 O2 Del Method Room Air 07/06/25 06:27 BMI result Body Mass Index 26.5 <Raissa Chaidez PA-C Michael Last Filed: 07/06/25 07:47> Const: General: comfortable, no acute distress and alert; No ill appearing <MARC Harman Last Filed: 07/06/25 07:47> Orientation/consciousness: patient oriented x3 <Raissa Chaidez PA-C Michael Last Filed: 07/06/25 07:47> Resp: Effort & Inspection: normal respiratory effort and able to speak in complete sentences <Raissa Chaidez PA-C Michael Last Filed: 07/06/25 07:47> GI: Other: soft, nondistended right groin with erythema and edema extending from ASIS into scrotum, appears improved from admission pictures (see ED photos) there is a well approximated and healed incision of the lateral right groin, no drainage noted, area tender significant induration of the area but no palpable fluctuance no necrosis, no crepitus <MACR Harman Last Filed: 07/06/25 07:47> Skin: Other: as above warm and dry <Raissa Chaidez PA-C Michael Last Filed: 07/06/25 07:47> Neuro: General: patient oriented x3 and moves all extremities <MARC Harman Last Filed: 07/06/25 07:47> Results Labs Result diagrams: 07/06/25 04:42 07/06/25 04:42 <MARC Harman Last Filed: 07/06/25 07:47> Labs: Abnormal lab results 07/05/25 07/05/25 07/06/25 Range/Units 12:17 21:30 04:42 WBC 13.3 H 13.7 H (4.8-10.8) X10*3/uL RBC 4.24 L 3.87 L (4.60-5.80) X10*6/uL Hgb 13.6 L 12.4 L (14.0-18.0) g/dl Hct 40.1 L 37.3 L (42.0-52.0) % Immature Gran % (Auto) 0.7 H (0.0-0.4) % Neut % (Auto) 78.5 H (45-73) % Lymph % (Auto) 9.7 L (20-40) % [place] # (Auto) 1.4 H (0.1-1.2) X10*3/uL Abs Immat Gran (auto) 0.09 H (0.00-0.03) X10*3/uL Absolute Neuts (auto) 10.5 H (2.0-8.3) x10*3/uL PT 25.2 H 21.6 H (11.2-13.5) SEC INR 2.1 H 1.8 H (0.9-1.1) Anion Gap 10 L (12-20) BUN 18 H 17 H (9-16) mg/dL Calcium 8.2 L (8.4-10.2) mg/dL Total Bilirubin 1.5 H (0.0-1.0) mg/dL Total Protein 6.3 L (6.5-8.0) g/dL Albumin 3.4 L (3.5-5.0) g/dL Ur Specific [place] >= 1.030 H (1.005-1.025) Short CBC 07/05/25 07/06/25 Range/Units 12:17 04:42 WBC 13.3 H 13.7 H (4.8-10.8) X10*3/uL Hgb 13.6 L 12.4 L (14.0-18.0) g/dl Hct 40.1 L 37.3 L (42.0-52.0) % Plt Count 220 177 (160-400) X10*3/uL BMP 07/05/25 07/06/25 07/06/25 12:17 04:42 04:42 Sodium 137 137 Potassium 3.8 4.3 Chloride 105 106 Carbon Dioxide 26 23 BUN 18 H 17 H Creatinine 1.01 0.96 0.93 Calcium 8.4 D 8.2 L Liver Function 07/05/25 07/06/25 Range/Units 12:17 04:42 Total Bilirubin 0.9 1.5 H (0.0-1.0) mg/dL Direct Bilirubin 0.3 (0.0-0.5) mg/dL AST 21 19 (5-37) U/L ALT 16 10 (0-40) U/L Alkaline Phosphatase 71 59 (39-117) U/L Albumin 4.0 3.4 L (3.5-5.0) g/dL Urine 07/05/25 Range/Units 21:30 Urine Color Yellow Urine Appearance Clear Urine pH 6.0 (5.0-9.0) Ur Specific [place] >= 1.030 H (1.005-1.025) Urine Protein Negative (Neg-Trace) mg/dL Urine Glucose (UA) Negative (Negative) mg/dL All other labs normal. <Raissa Chaidez PA-C - Last Filed: 07/06/25 07:47> Imaging Abdomen CT scan report/results: report reviewed and image reviewed <Raissa Chaidez PA-C - Last Filed: 07/06/25 07:47> Additional studies: labs reviewed <Raissa Chaidez PA-C - Last Filed: 07/06/25 07:47> Assessment and Plan (1) Cellulitis of groin, right: Status: Acute <Raissa Chaidez PA-C - Last Filed: 07/06/25 07:47> 80 year old male with PMH of prostate cancer in remission followed by Dr. Driscoll of Urology, AFib on Coumadin, hypertension, GERD, hypothyroidism, hyperlipidemia who presented to the ED with complaints of right groin swelling following excisional biopsy on 06/26/25 at [facility]. CT scan does show a fluid collection of the right groin suggestive of a seroma. He was admitted to the hospitalist service for treatment of the right groin cellulitis and is on vanco and zosyn. He reports improvement in his symptoms today and there does seem to be improvement of the erythema and edema of the area compared to pictures at presentation. There is no palpable fluctuance or skin necrosis. Lymph node biopsies of groin have high likelihood of developing seromas that usually resolve and would continue conservative measures for now with IV abx for treatment of the cellulitis as he has had improvement. We did discuss if there is no significant further improvement or has worsening, may require drainage but would hold off for now. Patient comfortable with plan. He has an appointment with his surgeon on 07/09/25. <Raissa Chaidez PA-C - Last Filed: 07/06/25 07:47> 80 year old male with PMH of prostate cancer in remission followed by Dr. Driscoll of Urology, AFib on Coumadin, hypertension, GERD, hypothyroidism, hyperlipidemia who presented to the ED with complaints of right groin swelling following excisional biopsy on 06/26/25 at [facility]. CT scan does show a fluid collection of the right groin suggestive of a seroma. He was admitted to the hospitalist service for treatment of the right groin cellulitis and is on vanco and zosyn. He reports improvement in his symptoms today and there does seem to be improvement of the erythema and edema of the area compared to pictures at presentation. There is no palpable fluctuance or skin necrosis. Lymph node biopsies of groin have high likelihood of developing seromas that usually resolve and would continue conservative measures for now with IV abx for treatment of the cellulitis as he has had improvement. We did discuss if there is no significant further improvement or has worsening, may require drainage but would hold off for now. Patient comfortable with plan. He has an appointment with his surgeon on 07/09/25. Patient seen and examined and imaging reviewed. Patient reports improvement in his cellulitis with decreased pain. Examination does reveal an area of redness in the right groin with no obvious seroma. This has very common following a inguinal lymph node excision. Agree with IV antibiotics for the cellulitis. Would avoid aspiration of the fluid collection unless no improvement in the cellulitis with antibiotics. <Bernardo Borjas MD - Last Filed: 07/06/25 10:18> Procedures Date of Service Date of Service: 07/06/25 <Raissa Chaidez PA-C - Last Filed: 07/06/25 07:47> 07/06/25 <Bernardo Borjas MD - Last Filed: 07/06/25 10:18>
[2025-07-06 07:30] VITALS: BP 148/68; PULSE 83; RESP 18; TEMP 36.6; O2SAT 94
--- NOTE | 2025-07-06 08:41 | PHA.MEDREC ---
Pharmacy Consult ? Medication Reconciliation Pharmacy has completed the medication reconciliation. Spoke to patient to confirm medication list. Per patient, he only takes docusate nor oxycodone. He takes levothyroxine 100 mcg wednesday through wednesday and 75 mcg on wednesday and wednesday. He takes tramadol 50 mg q8h prn and confirmed warfarin 1 mg daily. Last dose of medications was yesterday 07/05/25 morning.
--- NOTE | 2025-07-06 09:39 | P.PNIM_ITS ---
Subjective Subjective Date of Service: 07/16/25 Interval History: f/u on right groin cellulitis, post lymph node biopsy and concern for abscess area is very red swollen and tender Physical Exam 2 Vital Signs: Vital Signs: Last Vital Signs Temp 97.8 F 07/06/25 07:30 Pulse 83 07/06/25 07:30 Resp 18 07/06/25 07:30 BP 148/68 H 07/06/25 07:30 Pulse Ox 94 07/06/25 07:30 O2 Del Method Room Air 07/06/25 07:30 BMI result Body Mass Index 26.5 Const: Other: General: AO X 3, no acute distress Resp: CTA bilateral CVS: S1,S2,RRR GI: +BS, NT, no distention Skin:redness and swelling of rightgroin with induration, and tender to touch Neuro: motor grossly intact Psych: appropriate affect Objective Data Active Medications Acetaminophen (Acetaminophen 325 Mg Tablet) 650 mg PO Q6H PRN PRN Reason: Pain, Mild 1-3,fever,headache Albuterol/Ipratropium (Albuterol/Iprat 2.5/0.5mg 3 Ml Ampul.Neb) 3 ml INHALE Q4H PRN PRN Reason: Shortness of Breath/Wheezing Calcium Carbonate (Calcium Carbonate 750 Mg Tab.Chew) 750 mg PO Q4H PRN PRN Reason: Heartburn Hydromorphone HCl (Hydromorphone Hcl 1 Mg/Ml Syringe) 1 mg IVPUSH Q4H PRN; Protocol PRN Reason: Pain, Severe (Pain Scale 7-10) Piperacillin Sod/Tazobactam (Sod 3.375 gm/ Sodium Chloride) 50 mls @ 100 mls/hr IV Q6H [facility] Last Infusion: 07/06/25 07:12 Dose: Infused Documented By: BUD Vancomycin HCl 1,500 mg/ (Sodium Chloride) 500 mls @ 333.333 mls/hr IV Q24H [facility] Magnesium Hydroxide (Milk Of Magnesia 30 Ml Oral.Susp) 30 ml PO DAILY PRN PRN Reason: Constipation Melatonin (Melatonin 3 Mg Tablet) 6 mg PO BEDTIME PRN PRN Reason: Insomnia Ondansetron HCl (Ondansetron Hcl 4 Mg/2 Ml Vial) 4 mg IVPUSH Q8H PRN PRN Reason: Nausea and Vomiting Pharmacy Consult (Consult Rx Vancomycin Dosing) 1 each MISCELLANE DAILY PRN PRN Reason: Consult order Polyethylene Glycol (Polyethylene Glycol 3350 17 Gm Powd.Pack) 17 gm PO DAILY PRN PRN Reason: Constipation Senna (Sennosides 8.6 Mg Tablet) 17.2 mg PO BEDTIME [facility] Sodium Chloride (0.9 % Sodium Chloride Flush 3 Ml Syringe) 3 ml IVFLUSH QSHIFT [facility] Last Admin: 07/05/25 23:11 Dose: Not Given Documented By: ED Non-Admin Reason: IV Running Labs 07/06/25 04:42 07/10/25 05:26 Labs: Laboratory Results - last 24 hr 07/05/25 07/05/25 07/05/25 12:17 18:32 21:30 MCV 94.6 MCH 32.1 MCHC 33.9 RDW 13.3 Plt Count 220 MPV 9.8 Immature Gran % (Auto) 0.7 H Neut % (Auto) 78.5 H Lymph % (Auto) 9.7 L Henry % (Auto) 10.6 Eos % (Auto) 0.2 Baso % (Auto) 0.3 Lymph # (Auto) 1.3 Henry # (Auto) 1.4 H Eos # (Auto) 0.0 Baso # (Auto) 0.0 Abs Immat Gran (auto) 0.09 H Absolute Neuts (auto) 10.5 H Absolute Nucleated RBC 0.000 Nucleated RBC % (auto) 0.0 PT 25.2 H INR 2.1 H Anion Gap 10 L Estim Creat Clear Calc 59.3 Estimated GFR > 60 Random Glucose 110 Lactic Acid 1.7 Calcium 8.4 D Total Bilirubin 0.9 Direct Bilirubin 0.3 AST 21 ALT 16 Alkaline Phosphatase 71 Total Protein 7.2 Albumin 4.0 Urine Color Yellow Urine Appearance Clear Urine pH 6.0 Ur Specific [place] >= 1.030 H Urine Protein Negative Urine Glucose (UA) Negative Urine Ketones Negative Urine Blood Negative Urine Nitrite Negative Ur Leukocyte Esterase Negative 07/06/25 07/06/25 07/06/25 04:42 04:42 04:42 MCV 96.4 MCH 32.0 MCHC 33.2 RDW 13.4 Plt Count 177 MPV 9.4 Immature Gran % (Auto) Neut % (Auto) Lymph % (Auto) Henry % (Auto) Eos % (Auto) Baso % (Auto) Lymph # (Auto) Henry # (Auto) Eos # (Auto) Baso # (Auto) Abs Immat Gran (auto) Absolute Neuts (auto) Absolute Nucleated RBC 0.000 Nucleated RBC % (auto) 0.0 PT 21.6 H INR 1.8 H Anion Gap 12 Estim Creat Clear Calc 62.3 64.4 Estimated GFR > 60 > 60 Random Glucose 107 Lactic Acid 1.6 Calcium 8.2 L Total Bilirubin 1.5 H Direct Bilirubin AST 19 ALT 10 Alkaline Phosphatase 59 Total Protein 6.3 L Albumin 3.4 L Urine Color Urine Appearance Urine pH Ur Specific [place] Urine Protein Urine Glucose (UA) Urine Ketones Urine Blood Urine Nitrite Ur Leukocyte Esterase Assessment and Plan (1) Cellulitis of groin, right: Status: Acute Plan Patient is a 80-year-old with past medical history prostate cancer in remission for the last 5 years still follows with Dr. Driscoll in Urology, hematuria secondary to being on Coumadin, AFib on Coumadin, hypertension, insomnia, GERD, hypothyroidism, hyperlipidemia presents to the emergency department with complaints of a very swollen right groin area involving not only the groin but the scrotum and penis. Pain initial reported 10/10 in the right groin area. Patient states his symptoms started on WednesdayJuly 03. On June 28 patient underwent a outpatient lymph node biopsy of the right groin, suspicious for cancer, at [facility] and was sent home the same day. Patient being admitted for right groin cellulitis status post lymph node biopsy from the right groin June 28 2025 (surgeon located [facility]). Right groin cellulitis status post left lymp node biopsy on 06/28/2025 Fluid collection noted on CT scan without evidence of abscess, likely seroma from biopsy area looks pretty red and indurated continue vanco and Zosyn 07/04, and follow clinically along with surgery--surgery is following and doesn't think needs drainage now but if worsening or not improving will need drainage History of prostate cancer No issues over the past 5 years Patient follows with Dr. Driscoll, did undergo radiation therapy Currently lymph node s/p BX apparently is positive for cancer, no details currently available PAFib rate controlled on Coumadin INR currently 2.1, INR in AM continue coumadin, and follow INR Hypertension Continue lisinopril Hyperlipidemia Continue statin LFTs stable Hypothyroidism Continue levothyroxine TSH pending Adjust dose if needed Insomnia Ambien p.r.n. at bedtime DVT prophylaxis: resume coumadin Full code status Patient requires at least a 2 midnight stay for IV antibiotics, expert consultation with General surgery and Interventional Radiology. Quality Stroke Does the patient have a stroke diagnosis?: No Reason for No Anti-thrombotic by Day Two: Contraindicated (Patient may require procedure in the a.m., INR currently 2.1) VTE Prior VTE?: No VTE Risk Level:: Medical - moderate - high VTE Device Contraindication: N/A - Device Ordered VTE Drug Contraindication: Treatment Not Indicated
--- NOTE | 2025-07-06 13:29 | MHC.CM.PN ---
pt lives with has a ride home will not need servirs when dcd
[2025-07-06 16:00] VITALS: BP 161/76; PULSE 92; RESP 19; TEMP 37.3; O2SAT 98
[2025-07-06] MEDS: 0.9 % Sodium Chloride Flush 3 ML SYRINGE IVFLUSH ×2 (18:05→20:41)
[2025-07-06 20:00] VITALS: BP 173/71; PULSE 104; TEMP 36.8; O2SAT 96
[2025-07-07 00:51] VITALS: BP 134/66; PULSE 86; RESP 18; TEMP 36.7; O2SAT 96
[2025-07-07 03:38] VITALS: BP 146/68; PULSE 75; RESP 17; TEMP 37.1; O2SAT 96
--- NOTE | 2025-07-07 06:22 | PM.PNGS ---
Subjective Subjective Date of Service: 07/07/25 Interval history: Patient reports feeling improved with decreased pain and redness Physical Exam Vital Signs: Vital Signs: Last Vital Signs Temp 98.7 F 07/07/25 03:38 Pulse 75 07/07/25 03:38 Resp 17 07/07/25 03:38 BP 146/68 H 07/07/25 03:38 Pulse Ox 96 07/07/25 03:38 O2 Del Method Room Air 07/07/25 03:38 BMI result Body Mass Index 26.5 Const: General: no acute distress Nutritional Appearance: well nourished Resp: Effort & Inspection: normal respiratory effort GI: Other: Right groin wound with decreased erythema, continued palpable seroma but less tender to palpation. Objective Data Active Medications Acetaminophen (Acetaminophen 325 Mg Tablet) 650 mg PO Q6H PRN PRN Reason: Pain, Mild 1-3,fever,headache Albuterol/Ipratropium (Albuterol/Iprat 2.5/0.5mg 3 Ml Ampul.Neb) 3 ml INHALE Q4H PRN PRN Reason: Shortness of Breath/Wheezing Calcium Carbonate (Calcium Carbonate 750 Mg Tab.Chew) 750 mg PO Q4H PRN PRN Reason: Heartburn Hydromorphone HCl (Hydromorphone Hcl 1 Mg/Ml Syringe) 1 mg IVPUSH Q4H PRN; Protocol PRN Reason: Pain, Severe (Pain Scale 7-10) Piperacillin Sod/Tazobactam (Sod 3.375 gm/ Sodium Chloride) 50 mls @ 100 mls/hr IV Q6H [facility] Last Infusion: 07/07/25 01:30 Dose: Infused Documented By: SOLANGE Vancomycin HCl 1,500 mg/ (Sodium Chloride) 500 mls @ 333.333 mls/hr IV Q24H [facility] Last Infusion: 07/07/25 00:30 Dose: Infused Documented By: SOLANGE Magnesium Hydroxide (Milk Of Magnesia 30 Ml Oral.Susp) 30 ml PO DAILY PRN PRN Reason: Constipation Melatonin (Melatonin 3 Mg Tablet) 6 mg PO BEDTIME PRN PRN Reason: Insomnia Last Admin: 07/06/25 23:02 Dose: 6 mg Documented By: SOLANGE Ondansetron HCl (Ondansetron Hcl 4 Mg/2 Ml Vial) 4 mg IVPUSH Q8H PRN PRN Reason: Nausea and Vomiting Pharmacy Consult (Consult Rx Vancomycin Dosing) 1 each MISCELLANE DAILY PRN PRN Reason: Consult order Polyethylene Glycol (Polyethylene Glycol 3350 17 Gm Powd.Pack) 17 gm PO DAILY PRN PRN Reason: Constipation Senna (Sennosides 8.6 Mg Tablet) 17.2 mg PO BEDTIME [facility] Last Admin: 07/06/25 20:40 Dose: 17.2 mg Documented By: SOLANGE Sodium Chloride (0.9 % Sodium Chloride Flush 3 Ml Syringe) 3 ml IVFLUSH QSHIFT [facility] Last Admin: 07/06/25 20:41 Dose: 3 ml Documented By: SOLANGE Labs 07/06/25 04:42 07/06/25 04:42 Microbiology Microbiology Results: Microbiology 07/05/25 19:02 Blood Culture - Preliminary Blood - Venous No growth after 24 hours. 07/05/25 18:32 Blood Culture - Preliminary Blood - Venous No growth after 24 hours. Procedures Date of Service Date of Service: 07/07/25 Progress Note: A&P Assessment and plan (1) Cellulitis of groin, right: Status: Acute Plan 80-year-old male status post right inguinal lymph node biopsy now with seroma and cellulitis, improving with IV antibiotics now with decreased erythema and less tenderness. Seroma is no worse and possibly slightly better. Continue antibiotics, monitor erythema. Time Spent With Patient Time: Total time managing care of this patient today ____ minutes. Quality Stroke Does the patient have a stroke diagnosis?: No Reason for No Anti-thrombotic by Day Two: Contraindicated (Patient may require procedure in the a.m., INR currently 2.1) VTE Prior VTE?: No VTE Risk Level:: Medical - moderate - high VTE Device Contraindication: N/A - Device Ordered VTE Drug Contraindication: Treatment Not Indicated
[2025-07-07 06:29] LABS: Creatinine Clr Calc Pharmacy 73.0; Estimated Glomerular Filt Rate > 60
[2025-07-07 08:00] VITALS: BP 127/60; PULSE 86; RESP 16; TEMP 36.9; O2SAT 94
[2025-07-07] MEDS: Metoprolol Succinate ER 50 MG TAB.ER.24H PO (08:37)
[2025-07-07] MEDS: 0.9 % Sodium Chloride Flush 3 ML SYRINGE IVFLUSH ×3 (08:38→21:55)
[2025-07-07 08:41] LABS: INTERNATIONAL NORM RATIO 1.6 (0.9-1.1); Prothrombin Time 19.3 SEC (11.2-13.5)
[2025-07-07 11:37] VITALS: BP 116/65; PULSE 84; RESP 16; TEMP 36.7; O2SAT 97
[2025-07-07 15:46] VITALS: BP 151/67; PULSE 73; RESP 16; TEMP 37.3; O2SAT 96
--- NOTE | 2025-07-07 17:01 | HO.PM.IMPN ---
Subjective Subjective Date of Service: 07/07/25 Interval History: Seen in follow-up for cellulitis right groin Interval history: Eyes any pain at rest. Reports 8/10 pain with any movement. No fevers Review of Systems Review of Systems: Yes all other systems are reviewed and are negative Physical Exam Exam: Exam: EXAM: Constitutional - Awake and Alert, No apparent distress Eyes - PERRL Cardiovascular - S1S2, RRR, No edema Respiratory - Normal lung expansion, Normal respiratory effort, No respiratory distress, CTA bilaterally Extremities - no calf tenderness bilaterally, no swelling Skin - Warm/Dry. Erythema and induration of the right groin into the scrotum. no draiange Neurological - Alert & oriented x3 Psychological - Appropriate affect Vital Signs: Vital Signs: Last Vital Signs Temp 99.1 F 07/07/25 15:46 Pulse 73 07/07/25 15:46 Resp 16 07/07/25 15:46 BP 151/67 H 07/07/25 15:46 Pulse Ox 96 07/07/25 15:46 O2 Del Method Room Air 07/07/25 15:46 BMI result Body Mass Index 26.5 Objective Data Active Medications Acetaminophen (Acetaminophen 325 Mg Tablet) 650 mg PO Q6H PRN PRN Reason: Pain, Mild 1-3,fever,headache Albuterol/Ipratropium (Albuterol/Iprat 2.5/0.5mg 3 Ml Ampul.Neb) 3 ml INHALE Q4H PRN PRN Reason: Shortness of Breath/Wheezing Atorvastatin Calcium (Atorvastatin Calcium 20 Mg Tablet) 20 mg PO DAILY [facility] Last Admin: 07/07/25 08:37 Dose: 20 mg Documented By: DEANA Calcium Carbonate (Calcium Carbonate 750 Mg Tab.Chew) 750 mg PO Q4H PRN PRN Reason: Heartburn Hydromorphone HCl (Hydromorphone Hcl 1 Mg/Ml Syringe) 1 mg IVPUSH Q4H PRN; Protocol PRN Reason: Pain, Severe (Pain Scale 7-10) Piperacillin Sod/Tazobactam (Sod 3.375 gm/ Sodium Chloride) 50 mls @ 100 mls/hr IV Q6H [facility] Last Infusion: 07/07/25 13:45 Dose: Infused Documented By: DEANA Vancomycin HCl 1,500 mg/ (Sodium Chloride) 500 mls @ 333.333 mls/hr IV Q24H [facility] Last Infusion: 07/07/25 00:30 Dose: Infused Documented By: SOLANGE Levothyroxine Sodium (Levothyroxine Sodium 100 Mcg Tablet) 100 mcg PO MOTUWETHFR@0600 [facility] Lisinopril (Lisinopril 20 Mg Tablet) 20 mg PO DAILY [facility]; Protocol Last Admin: 07/07/25 08:36 Dose: 20 mg Documented By: DEANA Magnesium Hydroxide (Milk Of Magnesia 30 Ml Oral.Susp) 30 ml PO DAILY PRN PRN Reason: Constipation Meclizine HCl (Meclizine Hcl 25 Mg Tablet) 25 mg PO DAILY PRN PRN Reason: dizziness Melatonin (Melatonin 3 Mg Tablet) 6 mg PO BEDTIME PRN PRN Reason: Insomnia Last Admin: 07/06/25 23:02 Dose: 6 mg Documented By: SOLANGE Metoprolol Succinate (Metoprolol Succinate Er 50 Mg Tab.Er.24h) 50 mg PO DAILY [facility]; Protocol Last Admin: 07/07/25 08:37 Dose: 50 mg Documented By: DEANA Multivitamins/Vitamin C (Multivitamin Tablet) 1 tab PO DAILY [facility] Last Admin: 07/07/25 08:37 Dose: 1 tab Documented By: DEANA Ondansetron HCl (Ondansetron Hcl 4 Mg/2 Ml Vial) 4 mg IVPUSH Q8H PRN PRN Reason: Nausea and Vomiting Pharmacy Consult (Consult Rx Vancomycin Dosing) 1 each MISCELLANE DAILY PRN PRN Reason: Consult order Polyethylene Glycol (Polyethylene Glycol 3350 17 Gm Powd.Pack) 17 gm PO DAILY PRN PRN Reason: Constipation Senna (Sennosides 8.6 Mg Tablet) 17.2 mg PO BEDTIME [facility] Last Admin: 07/06/25 20:40 Dose: 17.2 mg Documented By: SOLANGE Sodium Chloride (0.9 % Sodium Chloride Flush 3 Ml Syringe) 3 ml IVFLUSH QSHIFT [facility] Last Admin: 07/07/25 08:38 Dose: 3 ml Documented By: DEANA Warfarin Sodium (Warfarin Sodium 1 Mg Tablet) 1 mg PO DAILY@1800 [facility] Zolpidem Tartrate (Zolpidem Tartrate 5 Mg Tablet) 10 mg PO BEDTIME [facility] Labs 07/06/25 04:42 07/07/25 05:41 Labs: Laboratory Results - last 24 hr 07/07/25 07/07/25 05:41 08:29 PT 19.3 H INR 1.6 H Estim Creat Clear Calc 73.0 Estimated GFR > 60 Microbiology Microbiology Results: Microbiology 07/05/25 19:02 Blood Culture - Preliminary Blood - Venous No growth after 24 hours. 07/05/25 18:32 Blood Culture - Preliminary Blood - Venous No growth after 24 hours. Assessment and Plan (1) Cellulitis of groin, right: Status: Acute Plan Patient is a 80-year-old with past medical history prostate cancer in remission for the last 5 years still follows with Dr. Driscoll in Urology, hematuria secondary to being on Coumadin, AFib on Coumadin, hypertension, insomnia, GERD, hypothyroidism, hyperlipidemia presents to the emergency department with complaints of a very swollen right groin area involving not only the groin but the scrotum and penis. Pain initial reported 10/10 in the right groin area. Patient states his symptoms started on WednesdayJuly 03. On June 28 patient underwent a outpatient lymph node biopsy of the right groin, suspicious for cancer, at [facility] and was sent home the same day. Patient being admitted for right groin cellulitis status post lymph node biopsy from the right groin June 28 2025 (surgeon located [facility]). Right groin cellulitis status post left lymp node biopsy on 06/28/2025 Fluid collection noted on CT scan without evidence of abscess, likely seroma from biopsy Remains indurated and red, skin marker in place continue vanco and Zosyn 07/04, and follow clinically along with surgery--surgery is following and doesn't think needs drainage now but if worsening or not improving will need drainage Cultures negative thus far History of prostate cancer No issues over the past 5 years Patient follows with Dr. Driscoll, did undergo radiation therapy Currently lymph node s/p BX apparently is positive for cancer, no details currently available PAFib rate controlled on Coumadin INR currently 1.6, INR in AM continue coumadin, and follow INR Hypertension Continue lisinopril Hyperlipidemia Continue statin LFTs stable Hypothyroidism Continue levothyroxine TSH pending Adjust dose if needed Insomnia Ambien p.r.n. at bedtime DVT prophylaxis: Coumadin Full code status Patient requires at least a 2 midnight stay for IV antibiotics, expert consultation with General surgery and Interventional Radiology. Quality Stroke Does the patient have a stroke diagnosis?: No Reason for No Anti-thrombotic by Day Two: Contraindicated (Patient may require procedure in the a.m., INR currently 2.1) VTE Prior VTE?: No VTE Risk Level:: Medical - moderate - high VTE Device Contraindication: N/A - Device Ordered VTE Drug Contraindication: Treatment Not Indicated
[2025-07-07 19:03] VITALS: BP 154/68; PULSE 69; RESP 18; TEMP 37.1; O2SAT 96
[2025-07-08] VITALS: BP 145/69; PULSE 90; RESP 17; TEMP 37.1; O2SAT 95
[2025-07-08 03:58] VITALS: BP 167/83; PULSE 86; RESP 16; TEMP 36.8; O2SAT 94
[2025-07-08 05:58] LABS: INTERNATIONAL NORM RATIO 1.5 (0.9-1.1); Prothrombin Time 17.8 SEC (11.2-13.5)
[2025-07-08 06:06] LABS: Creatinine Clr Calc Pharmacy 62.3; Estimated Glomerular Filt Rate > 60
[2025-07-08 07:42] VITALS: BP 143/67; PULSE 81; RESP 14; TEMP 37; O2SAT 95
[2025-07-08] MEDS: 0.9 % Sodium Chloride Flush 3 ML SYRINGE IVFLUSH ×3 (07:51→23:10)
[2025-07-08] MEDS: Metoprolol Succinate ER 50 MG TAB.ER.24H PO (07:51)
--- NOTE | 2025-07-08 10:15 | P.PNGS_ITS ---
Subjective Subjective Date of Service: 07/08/25 Interval history: Patient with no new complaints. He feels the pain is less although still feels a significant amount of hardness around the incision. Physical Exam 2 Vital Signs: Vital Signs: Last Vital Signs Temp 98.6 F 07/08/25 07:42 Pulse 81 07/08/25 07:42 Resp 14 07/08/25 07:42 BP 143/67 H 07/08/25 07:42 Pulse Ox 95 07/08/25 07:42 O2 Del Method Room Air 07/08/25 07:42 BMI result Body Mass Index 26.5 Const: General: no acute distress Nutritional Appearance: well nourished Orientation/consciousness: patient oriented x3 Resp: Effort & Inspection: normal respiratory effort GI: Other: Right groin incision is clean and intact. There was less tenderness to palpation. There is still residual inflammatory changes but less fluctuance which suggest a reduction in the postoperative seroma. Erythema remain extending into the flank. Skin: Other: As noted above in GI Neuro: General: patient oriented x3 Objective Data Active Medications Acetaminophen (Acetaminophen 325 Mg Tablet) 650 mg PO Q6H PRN PRN Reason: Pain, Mild 1-3,fever,headache Albuterol/Ipratropium (Albuterol/Iprat 2.5/0.5mg 3 Ml Ampul.Neb) 3 ml INHALE Q4H PRN PRN Reason: Shortness of Breath/Wheezing Atorvastatin Calcium (Atorvastatin Calcium 20 Mg Tablet) 20 mg PO DAILY [facility] Last Admin: 07/08/25 07:51 Dose: 20 mg Documented By: DEANA Calcium Carbonate (Calcium Carbonate 750 Mg Tab.Chew) 750 mg PO Q4H PRN PRN Reason: Heartburn Hydromorphone HCl (Hydromorphone Hcl 1 Mg/Ml Syringe) 1 mg IVPUSH Q4H PRN; Protocol PRN Reason: Pain, Severe (Pain Scale 7-10) Piperacillin Sod/Tazobactam (Sod 3.375 gm/ Sodium Chloride) 50 mls @ 100 mls/hr IV Q6H [facility] Last Infusion: 07/08/25 07:53 Dose: Infused Documented By: DEANA Vancomycin HCl 1,000 mg/ (Sodium Chloride) 270 mls @ 270 mls/hr IV Q12H [facility] Last Infusion: 07/08/25 00:32 Dose: Infused Documented By: SILVA Levothyroxine Sodium (Levothyroxine Sodium 100 Mcg Tablet) 100 mcg PO MOTUWETHFR@0600 [facility] Lisinopril (Lisinopril 20 Mg Tablet) 20 mg PO DAILY [facility]; Protocol Last Admin: 07/08/25 07:51 Dose: 20 mg Documented By: DEANA Magnesium Hydroxide (Milk Of Magnesia 30 Ml Oral.Susp) 30 ml PO DAILY PRN PRN Reason: Constipation Meclizine HCl (Meclizine Hcl 25 Mg Tablet) 25 mg PO DAILY PRN PRN Reason: dizziness Melatonin (Melatonin 3 Mg Tablet) 6 mg PO BEDTIME PRN PRN Reason: Insomnia Last Admin: 07/06/25 23:02 Dose: 6 mg Documented By: SOLANGE Metoprolol Succinate (Metoprolol Succinate Er 50 Mg Tab.Er.24h) 50 mg PO DAILY [facility]; Protocol Last Admin: 07/08/25 07:51 Dose: 50 mg Documented By: DEANA Multivitamins/Vitamin C (Multivitamin Tablet) 1 tab PO DAILY [facility] Last Admin: 07/08/25 07:51 Dose: 1 tab Documented By: DEANA Ondansetron HCl (Ondansetron Hcl 4 Mg/2 Ml Vial) 4 mg IVPUSH Q8H PRN PRN Reason: Nausea and Vomiting Pharmacy Consult (Consult Rx Vancomycin Dosing) 1 each MISCELLANE DAILY PRN PRN Reason: Consult order Polyethylene Glycol (Polyethylene Glycol 3350 17 Gm Powd.Pack) 17 gm PO DAILY PRN PRN Reason: Constipation Senna (Sennosides 8.6 Mg Tablet) 17.2 mg PO BEDTIME [facility] Last Admin: 07/07/25 21:50 Dose: 17.2 mg Documented By: SOLANGE Sodium Chloride (0.9 % Sodium Chloride Flush 3 Ml Syringe) 3 ml IVFLUSH QSHIFT [facility] Last Admin: 07/08/25 07:51 Dose: 3 ml Documented By: DEANA Warfarin Sodium (Warfarin Sodium 1 Mg Tablet) 1 mg PO DAILY@1800 [facility] Last Admin: 07/07/25 17:39 Dose: 1 mg Documented By: DEANA Zolpidem Tartrate (Zolpidem Tartrate 5 Mg Tablet) 10 mg PO BEDTIME [facility] Last Admin: 07/07/25 21:50 Dose: 10 mg Documented By: SOLANGE Labs 07/06/25 04:42 07/08/25 05:22 Labs: Laboratory Results - last 24 hr 07/07/25 07/08/25 07/08/25 21:21 05:21 05:22 PT 17.8 H INR 1.5 H Estim Creat Clear Calc 62.3 Estimated GFR > 60 Random Vancomycin 7.6 L Microbiology Microbiology Results: Microbiology 07/05/25 19:02 Blood Culture - Preliminary Blood - Venous No growth after 48 hours. 07/05/25 18:32 Blood Culture - Preliminary Blood - Venous No growth after 48 hours. Procedures Date of Service Date of Service: 07/08/25 Progress Note: A&P Assessment and plan (1) Cellulitis of groin, right: Status: Acute Plan 80-year-old male status post right inguinal lymph node biopsy now with seroma and cellulitis, improving with IV antibiotics now with decreased erythema and less tenderness. Seroma is no longer palpable foot wounds appear harder suggestive of a phlegmon. Discussed with hospitalist team regarding repeating imaging. Recommend CT of the pelvis. We will continue to monitor. Time Spent With Patient Time: Total time managing care of this patient today ____ minutes. Quality Stroke Does the patient have a stroke diagnosis?: No Reason for No Anti-thrombotic by Day Two: Contraindicated (Patient may require procedure in the a.m., INR currently 2.1) VTE Prior VTE?: No VTE Risk Level:: Medical - moderate - high VTE Device Contraindication: N/A - Device Ordered VTE Drug Contraindication: Treatment Not Indicated
[2025-07-08 11:25] VITALS: BP 147/72; PULSE 76; RESP 14; TEMP 36.6; O2SAT 98
--- NOTE | 2025-07-08 11:43 | HO.PM.IMPN ---
Subjective Subjective Date of Service: 07/08/25 Interval History: Follow up for pt with scrotal and groin cellulitis s/p lymph node biopsy Groin and lower abdominal pain improved, though still quite tender Pt has been up and out of bed to the bathroom, which she was unable to do the day prior No difficulties urinating No significant reduction in erythema of area Area with induration, but no fluctuance Reports he has not heard anything back about biopsy results yet Review of Systems Review of Systems: Yes all other systems are reviewed and are negative Physical Exam Exam: Exam: General: AOx3, no acute distress Resp: CTA bilaterally CVS: S1, S2, RRR GI: +BS, NT, no distention Skin: Warm, dry Neuro: Cranial nerves II-XII grossly intact bilaterally. Motor grossly intact bilaterally : Significant erythema on scrotum and right side of groin. Induration but no fluctuance noted of right groin. Skin marker in place; minimal improvement to erythema Extremities: No edema Psych: Appropriate affect Vital Signs: Vital Signs: Last Vital Signs Temp 97.9 F 07/08/25 11:25 Pulse 76 07/08/25 11:25 Resp 14 07/08/25 11:25 BP 147/72 H 07/08/25 11:25 Pulse Ox 98 07/08/25 11:25 O2 Del Method Room Air 07/08/25 11:25 BMI result Body Mass Index 26.5 Objective Data Active Medications Acetaminophen (Acetaminophen 325 Mg Tablet) 650 mg PO Q6H PRN PRN Reason: Pain, Mild 1-3,fever,headache Albuterol/Ipratropium (Albuterol/Iprat 2.5/0.5mg 3 Ml Ampul.Neb) 3 ml INHALE Q4H PRN PRN Reason: Shortness of Breath/Wheezing Atorvastatin Calcium (Atorvastatin Calcium 20 Mg Tablet) 20 mg PO DAILY [facility] Last Admin: 07/08/25 07:51 Dose: 20 mg Documented By: DEANA Calcium Carbonate (Calcium Carbonate 750 Mg Tab.Chew) 750 mg PO Q4H PRN PRN Reason: Heartburn Hydromorphone HCl (Hydromorphone Hcl 1 Mg/Ml Syringe) 1 mg IVPUSH Q4H PRN; Protocol PRN Reason: Pain, Severe (Pain Scale 7-10) Piperacillin Sod/Tazobactam (Sod 3.375 gm/ Sodium Chloride) 50 mls @ 100 mls/hr IV Q6H [facility] Last Infusion: 07/08/25 07:53 Dose: Infused Documented By: DEANA Vancomycin HCl 1,000 mg/ (Sodium Chloride) 270 mls @ 270 mls/hr IV Q12H [facility] Last Infusion: 07/08/25 00:32 Dose: Infused Documented By: SILVA Levothyroxine Sodium (Levothyroxine Sodium 100 Mcg Tablet) 100 mcg PO MOTUWETHFR@0600 [facility] Lisinopril (Lisinopril 20 Mg Tablet) 20 mg PO DAILY [facility]; Protocol Last Admin: 07/08/25 07:51 Dose: 20 mg Documented By: DEANA Magnesium Hydroxide (Milk Of Magnesia 30 Ml Oral.Susp) 30 ml PO DAILY PRN PRN Reason: Constipation Meclizine HCl (Meclizine Hcl 25 Mg Tablet) 25 mg PO DAILY PRN PRN Reason: dizziness Melatonin (Melatonin 3 Mg Tablet) 6 mg PO BEDTIME PRN PRN Reason: Insomnia Last Admin: 07/06/25 23:02 Dose: 6 mg Documented By: SOLANGE Metoprolol Succinate (Metoprolol Succinate Er 50 Mg Tab.Er.24h) 50 mg PO DAILY [facility]; Protocol Last Admin: 07/08/25 07:51 Dose: 50 mg Documented By: DEANA Multivitamins/Vitamin C (Multivitamin Tablet) 1 tab PO DAILY [facility] Last Admin: 07/08/25 07:51 Dose: 1 tab Documented By: DEANA Ondansetron HCl (Ondansetron Hcl 4 Mg/2 Ml Vial) 4 mg IVPUSH Q8H PRN PRN Reason: Nausea and Vomiting Pharmacy Consult (Consult Rx Vancomycin Dosing) 1 each MISCELLANE DAILY PRN PRN Reason: Consult order Polyethylene Glycol (Polyethylene Glycol 3350 17 Gm Powd.Pack) 17 gm PO DAILY PRN PRN Reason: Constipation Senna (Sennosides 8.6 Mg Tablet) 17.2 mg PO BEDTIME [facility] Last Admin: 07/07/25 21:50 Dose: 17.2 mg Documented By: SOLANGE Sodium Chloride (0.9 % Sodium Chloride Flush 3 Ml Syringe) [facility] Last Admin: 07/08/25 07:51 Dose: 3 ml Documented By: DEANA Warfarin Sodium (Warfarin Sodium 1 Mg Tablet) 1 mg PO DAILY@1800 [facility] Last Admin: 07/07/25 17:39 Dose: 1 mg Documented By: DEANA Zolpidem Tartrate (Zolpidem Tartrate 5 Mg Tablet) 10 mg PO BEDTIME [facility] Last Admin: 07/07/25 21:50 Dose: 10 mg Documented By: SOLANGE Labs 07/06/25 04:42 07/08/25 05:22 Labs: Laboratory Results - last 24 hr 07/07/25 07/08/25 07/08/25 21:21 05:21 05:22 PT 17.8 H INR 1.5 H Estim Creat Clear Calc 62.3 Estimated GFR > 60 Random Vancomycin 7.6 L Microbiology Microbiology Results: Microbiology 07/05/25 19:02 Blood Culture - Preliminary Blood - Venous No growth after 48 hours. 07/05/25 18:32 Blood Culture - Preliminary Blood - Venous No growth after 48 hours. Assessment and Plan (1) Cellulitis of groin, right: Status: Acute Plan Patient is a 80-year-old with past medical history prostate cancer in remission for the last 5 years still follows with Dr. Driscoll in Urology, hematuria secondary to being on Coumadin, AFib on Coumadin, hypertension, insomnia, GERD, hypothyroidism, hyperlipidemia presents to the emergency department with complaints of a very swollen right groin area involving not only the groin but the scrotum and penis. Pain initial reported 10/10 in the right groin area. Patient states his symptoms started on WednesdayJuly 03. On June 28 patient underwent a outpatient lymph node biopsy of the right groin, suspicious for cancer, at and was sent home the same day. Patient being admitted for right groin cellulitis status post lymph node biopsy from the right groin June 28 2025 (surgeon located [facility]). Right groin cellulitis status post left lymp node biopsy on 06/28/2025 Fluid collection noted on CT scan without evidence of abscess, likely seroma from biopsy Remains indurated and red, skin marker in place; minimal improvement from the day prior Pain is improved; pt has been up and out bed into the bathroom Continue michelleo and Caty 07/04 General surgery is following and doesn't think needs drainage now but if worsening or not improving will need drainage Will check CT of pelvis to monitor fluid collection; pt cannot tolerate U/S due to tenderness Cultures negative thus far History of prostate cancer No issues over the past 5 years Patient follows with Dr. Driscoll, did undergo radiation therapy Currently lymph node s/p BX apparently; pt has not heard about biopsy results PAFib rate controlled on Coumadin INR currently subtherapeutic at 1.5, INR in AM Continue coumadin, and follow INR Hypertension Continue lisinopril Hyperlipidemia Continue statin LFTs stable Hypothyroidism Continue levothyroxine Adjust dose if needed Insomnia Ambien p.r.n. at bedtime DVT prophylaxis: Coumadin Full code status Pt requires continued hospital stay as he still has significant erythema and induration that requires IV antibiotics while monitoring for possible surgical drainage. Quality Stroke Does the patient have a stroke diagnosis?: No Reason for No Anti-thrombotic by Day Two: Contraindicated (Patient may require procedure in the a.m., INR currently 2.1) VTE Prior VTE?: No VTE Risk Level:: Medical - moderate - high VTE Device Contraindication: N/A - Device Ordered VTE Drug Contraindication: Treatment Not Indicated
--- NOTE | 2025-07-08 14:11 | PC.NURSE ---
After vancomycin infusion, patient c/o of pain and tenderness in area. Area slight edematous, normal skin color, normal temperature, positive radial pulse. Provider Holley notified via [employer]connect of IV infiltrate and patient reports pain to wrist and right hand, provider came to bedside and assess patient, verbal ordered to utilize cold compress and elevate. Arm elevated and ice pack applied. Provider aware of loss of IV access and difficult to get new access, awaiting for ultrasound guided IV nurse to assist with IV access.
[2025-07-08 15:23] VITALS: BP 165/73; PULSE 72; RESP 18; TEMP 36.9; O2SAT 98
[2025-07-08 20:00] VITALS: BP 164/84; PULSE 84; RESP 18; TEMP 36.7; O2SAT 98
[2025-07-09] VITALS (10 sets, daily range): BP systolic 138–178; BP diastolic 67–94; PULSE 71–99; RESP 8–18; TEMP 36.3–36.8; O2SAT 97–100
[2025-07-09 06:07] LABS: INTERNATIONAL NORM RATIO 1.5 (0.9-1.1); Prothrombin Time 18.5 SEC (11.2-13.5)
[2025-07-09 06:19] LABS: Creatinine Clr Calc Pharmacy 54.4; Estimated Glomerular Filt Rate > 60
--- NOTE | 2025-07-09 07:59 | P.PNGS_ITS ---
Subjective Subjective Date of Service: 07/09/25 Interval history: Continues to complain of pain and lump/swelling of right groin. Physical Exam 2 Vital Signs: Vital Signs: Last Vital Signs Temp 97.6 F 07/09/25 07:55 Pulse 99 07/09/25 07:55 Resp 18 07/09/25 07:55 BP 150/71 H 07/09/25 07:55 Pulse Ox 98 07/09/25 07:55 O2 Del Method Room Air 07/09/25 07:55 BMI result Body Mass Index 26.5 Const: General: comfortable, no acute distress and alert O rientation/consciousness: patient oriented x3 Resp: Effort & Inspection: normal respiratory effort GI: Other: remainder of abdomen soft, nondistended see skin below for right groin changes Skin: Other: right groin with persistent deep erythema extending from medial right groin laterally to right flank with significant surrounding induration of right groin; area remains tender, incision intact without drainage noted Neuro: General: patient oriented x3 and moves all extremities Objective Data Active Medications Acetaminophen (Acetaminophen 325 Mg Tablet) 650 mg PO Q6H PRN PRN Reason: Pain, Mild 1-3,fever,headache Albuterol/Ipratropium (Albuterol/Iprat 2.5/0.5mg 3 Ml Ampul.Neb) 3 ml INHALE Q4H PRN PRN Reason: Shortness of Breath/Wheezing Atorvastatin Calcium (Atorvastatin Calcium 20 Mg Tablet) 20 mg PO DAILY [facility] Last Admin: 07/08/25 07:51 Dose: 20 mg Documented By: DEANA Calcium Carbonate (Calcium Carbonate 750 Mg Tab.Chew) 750 mg PO Q4H PRN PRN Reason: Heartburn Hydromorphone HCl (Hydromorphone Hcl 1 Mg/Ml Syringe) 1 mg IVPUSH Q4H PRN; Protocol PRN Reason: Pain, Severe (Pain Scale 7-10) Vancomycin HCl 1,000 mg/ (Sodium Chloride) 270 mls @ 270 mls/hr IV Q12H [facility] Last Infusion: 07/09/25 00:14 Dose: Infused Documented By: SOLANGE Piperacillin Sod/Tazobactam (Sod 3.375 gm/ Sodium Chloride) 50 mls @ 100 mls/hr IV Q6H [facility] Last Infusion: 07/09/25 04:19 Dose: Infused Documented By: SOLANGE Levothyroxine Sodium (Levothyroxine Sodium 100 Mcg Tablet) 100 mcg PO MOTUWETHFR@0600 [facility] Last Admin: 07/09/25 06:16 Dose: 100 mcg Documented By: SOLANGE Lisinopril (Lisinopril 20 Mg Tablet) 20 mg PO DAILY [facility]; Protocol Last Admin: 07/08/25 07:51 Dose: 20 mg Documented By: DEANA Magnesium Hydroxide (Milk Of Magnesia 30 Ml Oral.Susp) 30 ml PO DAILY PRN PRN Reason: Constipation Meclizine HCl (Meclizine Hcl 25 Mg Tablet) 25 mg PO DAILY PRN PRN Reason: dizziness Melatonin (Melatonin 3 Mg Tablet) 6 mg PO BEDTIME PRN PRN Reason: Insomnia Last Admin: 07/06/25 23:02 Dose: 6 mg Documented By: SOLANGE Metoprolol Succinate (Metoprolol Succinate Er 50 Mg Tab.Er.24h) 50 mg PO DAILY [facility]; Protocol Last Admin: 07/08/25 07:51 Dose: 50 mg Documented By: DEANA Multivitamins/Vitamin C (Multivitamin Tablet) 1 tab PO DAILY [facility] Last Admin: 07/08/25 07:51 Dose: 1 tab Documented By: DEANA Ondansetron HCl (Ondansetron Hcl 4 Mg/2 Ml Vial) 4 mg IVPUSH Q8H PRN PRN Reason: Nausea and Vomiting Pharmacy Consult (Consult Rx Vancomycin Dosing) 1 each MISCELLANE DAILY PRN PRN Reason: Consult order Polyethylene Glycol (Polyethylene Glycol 3350 17 Gm Powd.Pack) 17 gm PO DAILY PRN PRN Reason: Constipation Senna (Sennosides 8.6 Mg Tablet) 17.2 mg PO BEDTIME [facility] Last Admin: 07/08/25 20:58 Dose: 17.2 mg Documented By: LESA Sodium Chloride (0.9 % Sodium Chloride Flush 3 Ml Syringe) 3 ml IVFLUSH QSHIFT [facility] Last Admin: 07/08/25 23:10 Dose: 3 ml Documented By: SOLANGE Warfarin Sodium (Warfarin Sodium 1 Mg Tablet) 1 mg PO DAILY@1800 [facility] Last Admin: 07/08/25 18:20 Dose: 1 mg Documented By: DEANA Zolpidem Tartrate (Zolpidem Tartrate 5 Mg Tablet) 10 mg PO BEDTIME [facility] Last Admin: 07/08/25 20:58 Dose: 10 mg Documented By: LESA Labs 07/06/25 04:42 07/09/25 05:42 Labs: Laboratory Results - last 24 hr 07/08/25 07/09/25 20:48 05:42 PT 18.5 H INR 1.5 H Estim Creat Clear Calc 54.4 Estimated GFR > 60 Random Vancomycin 14.7 L Procedures Date of Service Date of Service: 07/09/25 Progress Note: A&P Assessment and plan (1) Cellulitis of groin, right: Status: Acute Plan Pelvis CT shows virtually no change in seroma size. Still has pretty significant cellulitic changes of right groin with associated tenderness and fluctuance. Will order US guided IR drainage today. NPO for now. Cont IV abx. Discussed plan with patient who is comfortable with plan. Time Spent With Patient Time: Total time managing care of this patient today ____ minutes. Quality Stroke Does the patient have a stroke diagnosis?: No Reason for No Anti-thrombotic by Day Two: Contraindicated (Patient may require procedure in the a.m., INR currently 2.1) VTE Prior VTE?: No VTE Risk Level:: Medical - moderate - high VTE Device Contraindication: N/A - Device Ordered VTE Drug Contraindication: Treatment Not Indicated
[2025-07-09] MEDS: Metoprolol Succinate ER 50 MG TAB.ER.24H PO (08:14)
[2025-07-09] MEDS: 0.9 % Sodium Chloride Flush 3 ML SYRINGE IVFLUSH ×3 (08:16→20:47)
--- NOTE | 2025-07-09 08:42 | HO.PM.IMPN ---
Subjective Subjective Date of Service: 07/09/25 Interval History: Follow up for pt with scrotal and groin cellulitis s/p lymph node biopsy Groin and lower abdominal pain improved, though still quite tender and red plan for I&D today Review of Systems Review of Systems: Yes all other systems are reviewed and are negative Physical Exam Exam: Exam: Appearing in no acute distress lung sounds are clear to auscultation heart regular rate rhythm, clear S1, S2 positive bowel sounds, abdomen is soft, nontender neuro patient is alert x3, no focal deficits Right groin with notable erythema and edema Vital Signs: Vital Signs: Last Vital Signs Temp 97.6 F 07/09/25 07:55 Pulse 99 07/09/25 07:55 Resp 18 07/09/25 07:55 BP 150/71 H 07/09/25 07:55 Pulse Ox 98 07/09/25 07:55 O2 Del Method Room Air 07/09/25 07:55 BMI result Body Mass Index 26.5 Objective Data Active Medications Acetaminophen (Acetaminophen 325 Mg Tablet) 650 mg PO Q6H PRN PRN Reason: Pain, Mild 1-3,fever,headache Albuterol/Ipratropium (Albuterol/Iprat 2.5/0.5mg 3 Ml Ampul.Neb) 3 ml INHALE Q4H PRN PRN Reason: Shortness of Breath/Wheezing Atorvastatin Calcium (Atorvastatin Calcium 20 Mg Tablet) 20 mg PO DAILY [facility] Last Admin: 07/09/25 08:14 Dose: 20 mg Documented By: GRAZSUSANA Calcium Carbonate (Calcium Carbonate 750 Mg Tab.Chew) 750 mg PO Q4H PRN PRN Reason: Heartburn Hydromorphone HCl (Hydromorphone Hcl 1 Mg/Ml Syringe) 1 mg IVPUSH Q4H PRN; Protocol PRN Reason: Pain, Severe (Pain Scale 7-10) Vancomycin HCl 1,000 mg/ (Sodium Chloride) 270 mls @ 270 mls/hr IV Q12H [facility] Last Infusion: 07/09/25 00:14 Dose: Infused Documented By: SOLANGE Piperacillin Sod/Tazobactam (Sod 3.375 gm/ Sodium Chloride) 50 mls @ 100 mls/hr IV Q6H [facility] Last Infusion: 07/09/25 04:19 Dose: Infused Documented By: SOLANGE Levothyroxine Sodium (Levothyroxine Sodium 100 Mcg Tablet) 100 mcg PO MOTUWETHFR@0600 [facility] Last Admin: 07/09/25 06:16 Dose: 100 mcg Documented By: SOLANGE Lisinopril (Lisinopril 20 Mg Tablet) 20 mg PO DAILY [facility]; Protocol Last Admin: 07/09/25 08:14 Dose: 20 mg Documented By: FOREST Magnesium Hydroxide (Milk Of Magnesia 30 Ml Oral.Susp) 30 ml PO DAILY PRN PRN Reason: Constipation Meclizine HCl (Meclizine Hcl 25 Mg Tablet) 25 mg PO DAILY PRN PRN Reason: dizziness Melatonin (Melatonin 3 Mg Tablet) 6 mg PO BEDTIME PRN PRN Reason: Insomnia Last Admin: 07/06/25 23:02 Dose: 6 mg Documented By: SOLANGE Metoprolol Succinate (Metoprolol Succinate Er 50 Mg Tab.Er.24h) 50 mg PO DAILY [facility]; Protocol Last Admin: 07/09/25 08:14 Dose: 50 mg Documented By: FOREST Multivitamins/Vitamin C (Multivitamin Tablet) 1 tab PO DAILY [facility] Last Admin: 07/09/25 08:14 Dose: 1 tab Documented By: FOREST Ondansetron HCl (Ondansetron Hcl 4 Mg/2 Ml Vial) 4 mg IVPUSH Q8H PRN PRN Reason: Nausea and Vomiting Pharmacy Consult (Consult Rx Vancomycin Dosing) 1 each MISCELLANE DAILY PRN PRN Reason: Consult order Polyethylene Glycol (Polyethylene Glycol 3350 17 Gm Powd.Pack) 17 gm PO DAILY PRN PRN Reason: Constipation Senna (Sennosides 8.6 Mg Tablet) 17.2 mg PO BEDTIME [facility] Last Admin: 07/08/25 20:58 Dose: 17.2 mg Documented By: LESA Sodium Chloride (0.9 % Sodium Chloride Flush 3 Ml Syringe) 3 ml IVFLUSH QSHIFT [facility] Last Admin: 07/09/25 08:16 Dose: 3 ml Documented By: FOREST Warfarin Sodium (Warfarin Sodium 1 Mg Tablet) 1 mg PO DAILY@1800 [facility] Last Admin: 07/08/25 18:20 Dose: 1 mg Documented By: COLBURAmanda Zolpidem Tartrate (Zolpidem Tartrate 5 Mg Tablet) 10 mg PO BEDTIME [facility] Last Admin: 07/08/25 20:58 Dose: 10 mg Documented By: LESA Labs 07/06/25 04:42 07/09/25 05:42 Labs: Laboratory Results - last 24 hr 07/08/25 07/09/25 20:48 05:42 PT 18.5 H INR 1.5 H Estim Creat Clear Calc 54.4 Estimated GFR > 60 Random Vancomycin 14.7 L Assessment and Plan (1) Cellulitis of groin, right: Status: Acute Plan 80-year-old with past medical history prostate cancer in remission for the last 5 years still follows with Dr. Driscoll in Urology, hematuria secondary to being on Coumadin, AFib on Coumadin, hypertension, insomnia, GERD, hypothyroidism, hyperlipidemia presented to the emergency department with complaints of a very swollen right groin area involving not only the groin but the scrotum and penis. Patient states his symptoms started on WednesdayJuly 03. On June 28 patient underwent a outpatient lymph node biopsy of the right groin, suspicious for cancer, at [facility] and was sent home the same day. Patient being admitted for right groin cellulitis status post lymph node biopsy from the right groin June 28 2025 (surgeon located [facility]). Right groin cellulitis status post left lymp node biopsy on 06/28/2025 Fluid collection noted on CT scan without evidence of abscess, likely seroma from biopsy Remains indurated and red, skin marker in place; minimal improvement from the day prior Continue vanco and Zosyn 07/04 General surgery> plan for Drain/I&D today Cultures negative thus far History of prostate cancer No issues over the past 5 years Patient follows with Dr. Driscoll, s/p radiation therapy Currently lymph node s/p BX apparently>results pending PAFib Continue coumadin, and follow INR Hypertension Continue lisinopril Hyperlipidemia Continue statin Hypothyroidism Continue levothyroxine Insomnia Ambien p.r.n. at bedtime DVT prophylaxis Coumadin Full code status Quality Stroke Does the patient have a stroke diagnosis?: No Reason for No Anti-thrombotic by Day Two: Contraindicated (Patient may require procedure in the a.m., INR currently 2.1) VTE Prior VTE?: No VTE Risk Level:: Medical - moderate - high VTE Device Contraindication: N/A - Device Ordered VTE Drug Contraindication: Treatment Not Indicated
--- NOTE | 2025-07-09 11:30 | PC.NURSE ---
43 ML total punch-colored fluid aspirated from R groin seroma by Dr Pollard; pt tolerate well with moderate sedation; vss; sample of fluid sent to lab per orders
--- NOTE | 2025-07-09 11:55 | HE.PHANOTE ---
Re: Jessica Pt was in IR surgery during 1100 dose time. Dose was delayed and trough re-timed to 07/10 @ 1000.
--- NOTE | 2025-07-09 15:21 | MHC.CM.PN ---
per rounds pt not ready for dc will be having a drain placed
[2025-07-10 06:10] LABS: Creatinine Clr Calc Pharmacy 63.0; Estimated Glomerular Filt Rate > 60
[2025-07-10 06:34] LABS: INTERNATIONAL NORM RATIO 1.4 (0.9-1.1); Prothrombin Time 16.7 SEC (11.2-13.5)
--- NOTE | 2025-07-10 07:29 | P.PNGS_ITS ---
Subjective Subjective Date of Service: 07/10/25 Interval history: Still has some discomfort with ambulating but overall improved and less pain. Thinks swelling has improved. Physical Exam 2 Vital Signs: Vital Signs: Last Vital Signs Temp 98.2 F 07/09/25 23:53 Pulse 79 07/09/25 23:53 Resp 16 07/09/25 23:53 BP 138/67 07/09/25 23:53 Pulse Ox 97 07/09/25 23:53 O2 Del Method Room Air 07/09/25 23:53 O2 Flow Rate 2 07/09/25 11:30 BMI result Body Mass Index 26.5 Const: General: comfortable, no acute distress and alert O rientation/consciousness: patient oriented x3 Resp: Effort & Inspection: normal respiratory effort and able to speak in complete sentences Skin: Other: right groin with improved erythema - more localized to right groin and decreased intensity from line of demarcation from right flank; has persistent induration of the area Neuro: General: patient oriented x3 and moves all extremities Objective Data Active Medications Acetaminophen (Acetaminophen 325 Mg Tablet) 650 mg PO Q6H PRN PRN Reason: Pain, Mild 1-3,fever,headache Albuterol/Ipratropium (Albuterol/Iprat 2.5/0.5mg 3 Ml Ampul.Neb) 3 ml INHALE Q4H PRN PRN Reason: Shortness of Breath/Wheezing Atorvastatin Calcium (Atorvastatin Calcium 20 Mg Tablet) 20 mg PO DAILY [facility] Last Admin: 07/09/25 08:14 Dose: 20 mg Documented By: FOREST Calcium Carbonate (Calcium Carbonate 750 Mg Tab.Chew) 750 mg PO Q4H PRN PRN Reason: Heartburn Hydromorphone HCl (Hydromorphone Hcl 1 Mg/Ml Syringe) 1 mg IVPUSH Q4H PRN; Protocol PRN Reason: Pain, Severe (Pain Scale 7-10) Piperacillin Sod/Tazobactam (Sod 3.375 gm/ Sodium Chloride) 50 mls @ 100 mls/hr IV Q6H [facility] Last Infusion: 07/10/25 04:18 Dose: Infused Documented By: SOLANGE Vancomycin HCl 1,000 mg/ (Sodium Chloride) 270 mls @ 270 mls/hr IV Q12H [facility] Last Infusion: 07/10/25 01:08 Dose: Infused Documented By: SOLANGE Levothyroxine Sodium (Levothyroxine Sodium 100 Mcg Tablet) 100 mcg PO MOTUWETHFR@0600 [facility] Last Admin: 07/10/25 05:25 Dose: 100 mcg Documented By: SOLANGE Lisinopril (Lisinopril 20 Mg Tablet) 20 mg PO DAILY [facility]; Protocol Last Admin: 07/09/25 08:14 Dose: 20 mg Documented By: FOREST Magnesium Hydroxide (Milk Of Magnesia 30 Ml Oral.Susp) 30 ml PO DAILY PRN PRN Reason: Constipation Meclizine HCl (Meclizine Hcl 25 Mg Tablet) 25 mg PO DAILY PRN PRN Reason: dizziness Melatonin (Melatonin 3 Mg Tablet) 6 mg PO BEDTIME PRN PRN Reason: Insomnia Last Admin: 07/06/25 23:02 Dose: 6 mg Documented By: SOLANGE Metoprolol Succinate (Metoprolol Succinate Er 50 Mg Tab.Er.24h) 50 mg PO DAILY [facility]; Protocol Last Admin: 07/09/25 08:14 Dose: 50 mg Documented By: FOREST Multivitamins/Vitamin C (Multivitamin Tablet) 1 tab PO DAILY [facility] Last Admin: 07/09/25 08:14 Dose: 1 tab Documented By: FOREST Ondansetron HCl (Ondansetron Hcl 4 Mg/2 Ml Vial) 4 mg IVPUSH Q8H PRN PRN Reason: Nausea and Vomiting Pharmacy Consult (Consult Rx Vancomycin Dosing) 1 each MISCELLANE DAILY PRN PRN Reason: Consult order Polyethylene Glycol (Polyethylene Glycol 3350 17 Gm Powd.Pack) 17 gm PO DAILY PRN PRN Reason: Constipation Senna (Sennosides 8.6 Mg Tablet) 17.2 mg PO BEDTIME [facility] Last Admin: 07/09/25 20:47 Dose: 17.2 mg Documented By: SOLANGE Sodium Chloride (0.9 % Sodium Chloride Flush 3 Ml Syringe) [facility] Last Admin: 07/09/25 20:47 Dose: 3 ml Documented By: SOLANGE Tramadol HCl (Tramadol Hcl 50 Mg Tablet) 50 mg PO Q6H PRN PRN Reason: Pain, Moderate(Pain Scale 4-6) Last Admin: 07/09/25 20:47 Dose: 50 mg Documented By: SOLANGE Warfarin Sodium (Warfarin Sodium 3 Mg Tablet) 3 mg PO DAILY@1800 [facility] Zolpidem Tartrate (Zolpidem Tartrate 5 Mg Tablet) 10 mg PO BEDTIME [facility] Last Admin: 07/09/25 20:46 Dose: 10 mg Documented By: SOLANGE Labs 07/06/25 04:42 07/10/25 05:26 Labs: Laboratory Results - last 24 hr 07/10/25 05:26 PT 16.7 H INR 1.4 H Estim Creat Clear Calc 63.0 Estimated GFR > 60 Microbiology Microbiology Results: Microbiology 07/09/25 11:29 Gram Stain - Final Aspirate - Other Procedures Date of Service Date of Service: 07/10/25 Progress Note: A&P Assessment and plan (1) Cellulitis of groin, right: Status: Acute Plan Underwent US guided drainage of right groin seroma yesterday- cellulitis appears improved today with more localized erythema. F/u aspiration culture. Cont IV abx. Recommend warm packs to the right groin to help reduce induration. Patient comfortable with plan. Time Spent With Patient Time: Total time managing care of this patient today ____ minutes. Quality Stroke Does the patient have a stroke diagnosis?: No Reason for No Anti-thrombotic by Day Two: Contraindicated (Patient may require procedure in the a.m., INR currently 2.1) VTE Prior VTE?: No VTE Risk Level:: Medical - moderate - high VTE Device Contraindication: N/A - Device Ordered VTE Drug Contraindication: Treatment Not Indicated
[2025-07-10 07:42] VITALS: BP 143/71; PULSE 87; RESP 16; TEMP 36.3; O2SAT 95
[2025-07-10] MEDS: Metoprolol Succinate ER 50 MG TAB.ER.24H PO (08:23)
[2025-07-10] MEDS: 0.9 % Sodium Chloride Flush 3 ML SYRINGE IVFLUSH (08:25)
--- NOTE | 2025-07-10 09:22 | HO.PM.IMPN ---
Subjective Subjective Date of Service: 07/10/25 Interval History: Follow up for pt with scrotal and groin cellulitis s/p lymph node biopsy Groin and lower abdominal pain improved, though still quite tender and red plan for I&D today Review of Systems Review of Systems: Yes all other systems are reviewed and are negative Physical Exam Exam: Exam: Appearing in no acute distress head is normocephalic atraumatic eyes pupils are PERRLA sclera is anicteric mouth throat mucous membranes are intact and moist neck is supple no lymphadenopathy, no JVD noted lung sounds are clear to auscultation heart regular rate rhythm, clear S1, S2 positive bowel sounds, abdomen is soft, nontender neuro patient is alert x3, no focal deficits Vital Signs: Vital Signs: Last Vital Signs Temp 97.3 F 07/10/25 07:42 Pulse 87 07/10/25 07:42 Resp 16 07/10/25 07:42 BP 143/71 H 07/10/25 07:42 Pulse Ox 95 07/10/25 07:42 O2 Del Method Room Air 07/10/25 07:42 O2 Flow Rate 2 07/09/25 11:30 BMI result Body Mass Index 26.5 Objective Data Active Medications Acetaminophen (Acetaminophen 325 Mg Tablet) 650 mg PO Q6H PRN PRN Reason: Pain, Mild 1-3,fever,headache Albuterol/Ipratropium (Albuterol/Iprat 2.5/0.5mg 3 Ml Ampul.Neb) 3 ml INHALE Q4H PRN PRN Reason: Shortness of Breath/Wheezing Atorvastatin Calcium (Atorvastatin Calcium 20 Mg Tablet) 20 mg PO DAILY [facility] Last Admin: 07/10/25 08:23 Dose: 20 mg Documented By: FOREST Calcium Carbonate (Calcium Carbonate 750 Mg Tab.Chew) 750 mg PO Q4H PRN PRN Reason: Heartburn Hydromorphone HCl (Hydromorphone Hcl 1 Mg/Ml Syringe) 1 mg IVPUSH Q4H PRN; Protocol PRN Reason: Pain, Severe (Pain Scale 7-10) Piperacillin Sod/Tazobactam (Sod 3.375 gm/ Sodium Chloride) 50 mls @ 100 mls/hr IV Q6H [facility] Last Infusion: 07/10/25 04:18 Dose: Infused Documented By: SOLANGE Vancomycin HCl 1,000 mg/ (Sodium Chloride) 270 mls @ 270 mls/hr IV Q12H [facility] Last Infusion: 07/10/25 01:08 Dose: Infused Documented By: SOLANGE Levothyroxine Sodium (Levothyroxine Sodium 100 Mcg Tablet) 100 mcg PO MOTUWETHFR@0600 [facility] Last Admin: 07/10/25 05:25 Dose: 100 mcg Documented By: SOLANGE Lisinopril (Lisinopril 20 Mg Tablet) 20 mg PO DAILY [facility]; Protocol Last Admin: 07/10/25 08:23 Dose: 20 mg Documented By: FOREST Magnesium Hydroxide (Milk Of Magnesia 30 Ml Oral.Susp) 30 ml PO DAILY PRN PRN Reason: Constipation Meclizine HCl (Meclizine Hcl 25 Mg Tablet) 25 mg PO DAILY PRN PRN Reason: dizziness Melatonin (Melatonin 3 Mg Tablet) 6 mg PO BEDTIME PRN PRN Reason: Insomnia Last Admin: 07/06/25 23:02 Dose: 6 mg Documented By: SOLANGE Metoprolol Succinate (Metoprolol Succinate Er 50 Mg Tab.Er.24h) 50 mg PO DAILY [facility]; Protocol Last Admin: 07/10/25 08:23 Dose: 50 mg Documented By: FOREST Multivitamins/Vitamin C (Multivitamin Tablet) 1 tab PO DAILY [facility] Last Admin: 07/10/25 08:23 Dose: 1 tab Documented By: FOREST Ondansetron HCl (Ondansetron Hcl 4 Mg/2 Ml Vial) 4 mg IVPUSH Q8H PRN PRN Reason: Nausea and Vomiting Pharmacy Consult (Consult Rx Vancomycin Dosing) 1 each MISCELLANE DAILY PRN PRN Reason: Consult order Polyethylene Glycol (Polyethylene Glycol 3350 17 Gm Powd.Pack) 17 gm PO DAILY PRN PRN Reason: Constipation Senna (Sennosides 8.6 Mg Tablet) 17.2 mg PO BEDTIME [facility] Last Admin: 07/09/25 20:47 Dose: 17.2 mg Documented By: SOLANGE Sodium Chloride (0.9 % Sodium Chloride Flush 3 Ml Syringe) 3 ml IVFLUSH QSHIFT [facility] Last Admin: 07/10/25 08:25 Dose: 3 ml Documented By: FOREST Tramadol HCl (Tramadol Hcl 50 Mg Tablet) 50 mg PO Q6H PRN PRN Reason: Pain, Moderate(Pain Scale 4-6) Last Admin: 07/09/25 20:47 Dose: 50 mg Documented By: SOLANGE Warfarin Sodium (Warfarin Sodium 3 Mg Tablet) 3 mg PO DAILY@1800 [facility] Zolpidem Tartrate (Zolpidem Tartrate 5 Mg Tablet) 10 mg PO BEDTIME [facility] Last Admin: 07/09/25 20:46 Dose: 10 mg Documented By: SOLANGE Labs 07/06/25 04:42 07/10/25 05:26 Labs: Laboratory Results - last 24 hr 07/10/25 05:26 PT 16.7 H INR 1.4 H Estim Creat Clear Calc 63.0 Estimated GFR > 60 Microbiology Microbiology Results: Microbiology 07/09/25 11:29 Gram Stain - Final Aspirate - Other Routine Culture - Preliminary Culture in progress. Anaerobic Culture - Preliminary Culture in progress. Assessment and Plan (1) Cellulitis of groin, right: Status: Acute Plan 80-year-old with past medical history prostate cancer in remission for the last 5 years still follows with Dr. Driscoll in Urology, hematuria secondary to being on Coumadin, AFib on Coumadin, hypertension, insomnia, GERD, hypothyroidism, hyperlipidemia presented to the emergency department with complaints of a very swollen right groin area involving not only the groin but the scrotum and penis. Patient states his symptoms started on WednesdayJuly 03. On June 28 patient underwent a outpatient lymph node biopsy of the right groin, suspicious for cancer, at [facility] and was sent home the same day. Patient being admitted for right groin cellulitis status post lymph node biopsy from the right groin June 28 2025 (surgeon located [facility]). Right groin cellulitis status post left lymp node biopsy on 06/28/2025 Fluid collection noted on CT scan without evidence of abscess, likely seroma from biopsy Remains indurated and red, skin marker in place; minimal improvement from the day prior Continue vanco and Zosyn General surgery> s/p I&D 07/10 Cultures negative thus far History of prostate cancer No issues over the past 5 years Patient follows with Dr. Driscoll, s/p radiation therapy Currently lymph node s/p BX apparently>results pending PAFib Continue coumadin, and follow INR Hypertension Continue lisinopril Hyperlipidemia Continue statin Hypothyroidism Continue levothyroxine Insomnia Ambien p.r.n. at bedtime DVT prophylaxis Coumadin Full code status Quality Stroke Does the patient have a stroke diagnosis?: No Reason for No Anti-thrombotic by Day Two: Contraindicated (Patient may require procedure in the a.m., INR currently 2.1) VTE Prior VTE?: No VTE Risk Level:: Medical - moderate - high VTE Device Contraindication: N/A - Device Ordered VTE Drug Contraindication: Treatment Not Indicated
--- NOTE | 2025-07-10 09:48 | PM.DS ---
DS: Providers Provider Date of admission: 07/05/25 22:11 Date of discharge: 07/10/25 Primary care physician: PAULINO Adair Consults: 07/05/25 22:14 Consult to General Surgery Routine Consulting Provider: [facility] – [place], [place] General Surgeons Reason for consultation: cellulutus with internal fluid collection s/p LN BX Has provider been notified: No DS: Diagnosis Discharge Diagnosis (1) Cellulitis of groin, right: Status: Acute DS: Summary Hospital Course Hospital Course: HP as per admitting provder. Patient is a 80-year-old with past medical history prostate cancer in remission for the last 5 years still follows with Dr. Driscoll in Urology, hematuria secondary to being on Coumadin, AFib on Coumadin, hypertension, insomnia, GERD, hypothyroidism, hyperlipidemia presents to the emergency department with complaints of a very swollen right groin area involving not only the groin but the scrotum and penis. Pain initially reported 10/10 in the right groin area. Patient states his symptoms started on WednesdayJuly 03. On June 28 patient underwent an outpatient lymph node biopsy of the right groin, suspicious for cancer, at [facility] and was sent home the same day. Patient tried calling the surgeon's office multiple times and then finally called his PCP who advised that he seek treatment at the closest hospital. Patient lives closer to [facility] than [facility]. Patient denies any fever but is having intermittent chills. Patient does currently have a leukocytosis of 13.3 and stable anemia with an H&H of 13.6 and 40.1. Patient does have a neutrophilia but no bandemia. INR currently 2.1. electrolytes stable, renal function baseline, lactic acid 1.7. Liver function stable. UA negative for heme or UTI. Abdominal pelvis CT notes a 3.3 x 6.5 x 5.6 cm fluid collection in the right inguinal region which may present a postprocedural seroma or evolving infection. No evidence to suggest abscess. Patient does have bilateral pelvic lymphadenopathy which may represent lymphatic spread. Right groin cellulitis status post left lymph node biopsy on 06/28/2025 Fluid collection noted on CT scan without evidence of abscess, likely seroma from biopsy Remains indurated and red, skin marker in place; improvement from the day prior Treated with vanco and Zosyn General surgery> s/p I&D 07/10 Cultures negative thus far continue Doxycycline and Ceftin for 5 more days History of prostate cancer No issues over the past 5 years Patient follows with Dr. Driscoll, s/p radiation therapy Currently lymph node s/p BX apparently>results still pending, can follow up outpatient PAFib Continue coumadin Hypertension Continue lisinopril Hyperlipidemia Continue statin Hypothyroidism Continue levothyroxine Insomnia Ambien p.r.n. at bedtime Time Attestation Discharge Coordination Time (in mins): 45 Quality: Safe Use of Opioids Does Pt have an Active Cancer Diagnosis on the Problem List?: No Quality: Stroke Does the patient have a stroke diagnosis?: No Physical Exam Exam: Exam: Appearing in no acute distress head is normocephalic atraumatic eyes pupils are PERRLA sclera is anicteric mouth throat mucous membranes are intact and moist neck is supple no lymphadenopathy, no JVD noted lung sounds are clear to auscultation heart regular rate rhythm, clear S1, S2 positive bowel sounds, abdomen is soft, nontender neuro patient is alert x3, no focal deficits right groin erythema and mild edema Vital Signs: Vital Signs: Last Vital Signs Temp 97.3 F 07/10/25 07:42 Pulse 87 07/10/25 07:42 Resp 16 07/10/25 07:42 BP 143/71 H 07/10/25 07:42 Pulse Ox 95 07/10/25 07:42 O2 Del Method Room Air 07/10/25 07:42 O2 Flow Rate 2 07/09/25 11:30 BMI result Body Mass Index 26.5 DS: Data Data Completed and Pending Labs on day of discharge: Laboratory Results - last 24 hr 07/10/25 05:26 PT 16.7 H INR 1.4 H Creatinine 0.95 Estim Creat Clear Calc 63.0 Estimated GFR > 60 Preliminary micro results at discharge 07/09/25 11:29 Routine Culture - Preliminary Aspirate - Other Culture in progress. Anaerobic Culture - Preliminary Culture in progress. 07/05/25 19:02 Blood Culture - Preliminary Blood - Venous No growth after 48 hours. 07/05/25 18:32 Blood Culture - Preliminary Blood - Venous No growth after 48 hours. Discharge Plan Discharge Anticipated Discharge Date/Time: 07/10/25 09:10 Patient Disposition: Home Health Service Discharge Diagnosis: Right groin cellulitis and fluid collection Referrals: Maya Samaniego PA [Primary Care Provider, Internal Medicine] - 1 Week Discharge Medications: New doxycycline hyclate 100 mg tablet 100 mg PO BID Qty: 10 0RF cefuroxime axetil 500 mg tablet 500 mg PO BID Qty: 10 0RF Continued meclizine 25 mg tablet 25 mg PO DAILY PRN (Reason: dizziness) Qty: 90 3RF tramadol 50 mg tablet 50 mg PO Q8H PRN (Reason: pain) warfarin 1 mg tablet 1 mg PO DAILY Protocol: Dose Management Condition: Wednesday (Week One) Dose/Route: 1 mg Instruction: 1 x 1 mg tablet Condition: Wednesday Dose/Route: 1 mg Instruction: 1 x 1 mg tablet Condition: Wednesday Dose/Route: 1 mg Instruction: 1 x 1 mg tablet Condition: Wednesday Dose/Route: 1 mg Instruction: 1 x 1 mg tablet Condition: Dose/Route: 1 mg Instruction: 1 x 1 mg tablet Condition: Wednesday Dose/Route: 1 mg Instruction: 1 x 1 mg tablet Condition: Wednesday Dose/Route: 1 mg Instruction: 1 x 1 mg tablet Condition: Wednesday (Week Two) Dose/Route: 1 mg Instruction: 1 x 1 mg tablet Condition: Wednesday Dose/Route: 1 mg Instruction: 1 x 1 mg tablet Condition: Wednesday Dose/Route: 1 mg Instruction: 1 x 1 mg tablet Condition: Wednesday Dose/Route: 1 mg Instruction: 1 x 1 mg tablet Condition: Dose/Route: 1 mg Instruction: 1 x 1 mg tablet Condition: Wednesday Dose/Route: 1 mg Instruction: 1 x 1 mg tablet Condition: Wednesday Dose/Route: 1 mg Instruction: 1 x 1 mg tablet Protocol Text: Adjustment Start Date: 07/05/25 INR Value: 2.1 INR Date: 07/05/25 Recheck Date: 07/16/25 multivitamin Tablet 1 tab PO DAILY metoprolol succinate 50 mg tablet extended release 24 hr 50 mg PO DAILY simvastatin 40 mg tablet 40 mg PO DAILY aspirin 81 mg tablet 81 mg PO DAILY lisinopril 20 mg tablet 20 mg PO DAILY Qty: 90 3RF levothyroxine 100 mcg tablet 100 mcg PO MOTUWETHFR@0600 zolpidem 10 mg tablet 10 mg PO BEDTIME Qty: 30 0RF Discharge Orders: Discharge Order (Routine); Ordered 07/10/25 Ordered By: Melissa Del Cid Diet: Advance to usual diet Activity on Discharge: As tolerated Stand Alone Forms: Patient Portal Discharge page Print Language: Scottish Activity Restrictions/Additional Instructions: Follow up with your surgeon at [facility]. You underwent aspiration of the right groin seroma 07/09/25. Ok to take off clear dressing tomorrow and leave open. Continue warm packs to the right groin several times through out the day for 10-15 minutes to help reduce the indurated tissue. Take antibiotics as prescribed. Care Plan Goals: Take antibiotics as prescribed Follow wound care orders Health Concerns: Right groin cellulitis and fluid collection Plan of Treatment: Follow up with primary care provider as needed Take all medications as prescribed Assessment: See discharge summary
[2025-07-10 11:04] VITALS: BP 113/77; PULSE 96; RESP 18; TEMP 36.2; O2SAT 98
--- NOTE | 2025-07-10 11:07 | P.F2F_ITS ---
Service Date Service Date: 07/10/25 Encounter Date of encounter: 07/10/25 Reasons for Services Signs and symptoms assessed: Follow up with your surgeon at [facility]. You underwent aspiration of the right groin seroma 07/09/25. Ok to take off clear dressing tomorrow and leave open. Continue warm packs to the right groin several times through out the day for 10-15 minutes to help reduce the indurated tissue. Take antibiotics as prescribed. Reason for prison: CV/CP assess and/or care and wound care (wound check ) Homebound: Leaving the home is medically contraindicated at this time without the asist of a device and/or another person due th the listed conditions above and below. Reason homebound: unsteady gait / fall risk Certification: Based on the above findings, I certify that this patient is confined to the home and needs intermittent prison care, physical therapy and/or speech therapy, or continues to need occupational therapy. The patient is under my care, and I have initiated the establishment of the plan of care. The patient will be followed by a physician who will periodically review the plan of care. Time Spent With Patient Time: Total time managing care of this patient today ____ minutes.
== END 2025-07-10 11:09 | disposition home health service (06) | DRG 863 ==
LOC: HO.ED 22:01 → HO.EDOVER 22:24 → HO.S3 07-06 05:23
PROVIDERS: Nurse Practitioner; Physician Assistant; Physician Assistant Medical; Radiology Diagnostic Radiology; Admitting Provider Nurse Practitioner Family; Emergency Provider Emergency Medicine; Visit Provider Nurse Practitioner Acute Care
PROC: 0Y953ZZ Drainage of Right Inguinal Region, Percutaneous Approach (ICD-10-PCS; principal; 2025-07-09 10:30)
DX: T81.41XA Infection following a procedure, superficial incisional surgical site, initial encounter (principal); L03.314 Cellulitis of groin; C77.4 Secondary and unspecified malignant neoplasm of inguinal and lower limb lymph nodes; L76.34 Postprocedural seroma of skin and subcutaneous tissue following other procedure; I48.0 Paroxysmal atrial fibrillation; Y84.8 Other medical procedures as the cause of abnormal reaction of the patient, or of later complication, without mention of misadventure at the time of the procedure; I10 Essential (primary) hypertension; G47.00 Insomnia, unspecified; E78.5 Hyperlipidemia, unspecified; E03.9 Hypothyroidism, unspecified; Z85.46 Personal history of malignant neoplasm of prostate; Z79.01 Long term (current) use of anticoagulants; Z79.82 Long term (current) use of aspirin; Z79.890 Hormone replacement therapy; Z79.899 Other long term (current) drug therapy
CPT/HCPCS: 10030; 36415; 72192; 74177; 80048; 80053; 80076; 80202; 81003; 82565; 83605; 85025; 85027; 85610; 87040; 87070; 87073; 87077; 87186; 87205; 93005; 99152; 99211; 99285; C1729; J2250; J2270; J2543; J3010; J3373; J3374; Q9967

== ENCOUNTER → 2025-07-05 18:20 | Outpatient (BNV) | payer MEDICARE, SELFPAY | PROVIDERS: Visit Provider Student in an Organized Health Care Education/Training Program | DX: R10.30 Lower abdominal pain, unspecified (principal); R19.09 Other intra-abdominal and pelvic swelling, mass and lump | CPT/HCPCS: 74177 ==

== ENCOUNTER → 2025-07-05 18:34 | Outpatient (BNV) | payer MEDICARE, SELFPAY | PROVIDERS: Admitting Provider Nurse Practitioner Family; Emergency Provider Emergency Medicine; Visit Provider Internal Medicine Cardiovascular Disease | DX: I48.91 Unspecified atrial fibrillation (principal) | CPT/HCPCS: 93010 ==

== ENCOUNTER 2025-07-05 22:11 | Outpatient (BNV) | payer MEDICARE, SELFPAY | END 2025-07-08 14:33 | PROVIDERS: Admitting Provider Nurse Practitioner Family; Emergency Provider Emergency Medicine; Visit Provider Radiology Diagnostic Radiology | DX: R19.09 Other intra-abdominal and pelvic swelling, mass and lump (principal) | CPT/HCPCS: 72192 ==

== ENCOUNTER 2025-07-05 22:11 | Outpatient (BNV) | payer MEDICARE, SELFPAY | END 2025-07-09 10:41 | PROVIDERS: Admitting Provider Nurse Practitioner Family; Emergency Provider Emergency Medicine; Visit Provider Radiology Diagnostic Radiology | DX: L76.34 Postprocedural seroma of skin and subcutaneous tissue following other procedure (principal) | CPT/HCPCS: 10030 ==

== ENCOUNTER → 2025-07-05 22:11 | Outpatient (BNV) | payer MEDICARE, SELFPAY | PROVIDERS: Admitting Provider Nurse Practitioner Family; Emergency Provider Emergency Medicine; Visit Provider Nurse Practitioner Family | DX: L03.314 Cellulitis of groin (principal) | CPT/HCPCS: 99223; 99232 ==

== ENCOUNTER → 2025-07-05 22:11 | Outpatient (BNV) | payer MEDICARE, SELFPAY | PROVIDERS: Admitting Provider Nurse Practitioner Family; Emergency Provider Emergency Medicine; Visit Provider Physician Assistant Surgical | DX: L03.314 Cellulitis of groin (principal) | CPT/HCPCS: 99222; 99232 ==